=== PATIENT | female | born 1970 | race Caucasian/White ===

== ENCOUNTER 2019-07-07 08:54 | Emergency (ER) | payer OTHER ==
[2019-07-07 11:31] LABS: Basophils % 0.6 % (0-1.3); Hematocrit 38.4 % (36.0-45.0); Lymphocytes % 16.2 % (15.3-44.8); MPV 6.9 fL (7.6-11.3); RBC Red Blood Cell Count 4.08 M/uL (3.86-4.86)
[2019-07-07 11:34] LABS: Urine Blood NEGATIVE (NEG); Urine Glucose NEGATIVE (NEG); Urine Protein NEGATIVE (NEG); Urine Specific Gravity 1.025 (1.005-1.030); Urine pH 5.5 (5.0-7.0)
[2019-07-07 11:56] LABS: Albumin 3.9 g/dL (3.4-5.0); Bilirubin Total 0.2 mg/dL (0.2-1.0); Potassium 3.4 mmol/L (3.5-5.1); Protein, Total 6.9 g/dL (6.4-8.2); T4,Total 6.7 ug/dL (4.8-13.9); Thyroid Stimulating Hormone 0.344 uIU/mL (0.360-3.740)
--- NOTE | 2019-07-07 12:02 | ER ---
Nurse's Notes [facility] Name: Varsha Ramos Age: 49 yrs Sex: Female : 1970 Arrival Date: 07/07/2019 Time: 08:56 Bed 5 Private MD: Diagnosis: Hypokalemia Presentation: 07/07 09:08 Presenting complaint: Patient states: "I have back problems and sometimes my back gets aa5 really stiff and I can't walk right but this time my legs and my arms feel weak and my legs/arms cramp and it's hard to walk". Pt also reports trouble swallowing "for a while now". Sole Edge Inker Machine are equal, no drift noted, no facial droop noted. 09:08 Transition of care: patient was not received from another setting of care. Onset of aa5 symptoms was June 2019. Risk Assessment: Do you want to hurt yourself or someone else? Patient reports no desire to harm self or others. Initial Sepsis Screen: Does the patient meet any 2 criteria? No. Patient's initial sepsis screen is negative. Does the patient have a suspected source of infection? No. Patient's initial sepsis screen is negative. Care prior to arrival: None. 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 - Social history:: Smoking status: Patient denies any tobacco usage or history of. Patient/guardian denies using alcohol, street drugs, The patient lives with family. - Ebola Screening: : No symptoms or risks identified at this time. - Family history:: not pertinent. Screenin:20 Abuse screen: Denies threats or abuse. Denies injuries from another. Nutritional jl7 screening: No deficits noted. Tuberculosis screening: No symptoms or risk factors identified. Fall Risk IV access (20 points). Total Scanlon Fall Scale indicates No Risk (0-24 pts). 11:30 VAN Screening: Arm Drift: Patient shows no arm weakness. Patient is VAN negative. The jl7 patient has not been NPO before screening. The patient is currently on the following diet: regular The patient is alert, able to follow commands. The patient does not exhibit slurred or garbled speech The patient is not exhibiting difficulty speaking. The patient does not exhibit difficulty understanding words. The patient is able to swallow own secretions with no drooling or need for suction. Patient tolerated one teaspoon of water. No drooling, immediate coughing, gurgling, or clearing of the throat was noted. The patient tolerated 90mL of water. No drooling, immediate coughing, gurgling, or clearing of the throat was noted. The patient passed the bedside swallow screening. Oral medications may be given as ordered. Contact Physician for further diet orders. Provider notified of bedside swallow screening results: Hari Boone MD. Assessment: 11:20 General: Appears in no apparent distress. uncomfortable, Behavior is calm, cooperative, jl7 appropriate for age. Pain: Complains of pain in back Pain currently is 5 out of 10 on a pain scale. Neuro: Level of Consciousness is awake, alert, obeys commands, Oriented to person, place, time, situation, Gait is steady, Pt ambulated to bathroom, approximately 50 ft, with slow steady gate.. Cardiovascular: Patient's skin is warm and dry. Respiratory: Airway is patent Respiratory effort is even, unlabored, Respiratory pattern is regular, symmetrical. GI: No signs and/or symptoms were reported involving the gastrointestinal system. : No signs and/or symptoms were reported regarding the genitourinary system. EENT: No signs and/or symptoms were reported regarding the EENT system. Derm: Skin is pink, warm \\T\\ dry. Vital Signs: 09:14 BP 129 / 95; Pulse 92; Resp 18 S; Temp 98.3(O); Pulse Ox 99% on R/A; Weight 64.41 kg aa5 (R); Height 5 ft. 1 in. (154.94 cm) (R); Pain 5/10; 09:14 Body Mass Index 26.83 (64.41 kg, 154.94 cm) aa5 ED Course: 08:56 Patient arrived in ED. as 09:08 Arm band placed on. aa5 09:11 Triage completed. aa5 10:27 Hari Boone MD is Attending Physician. ma2 10:35 Demetria Castillo, RN is Primary Nurse. jl7 11:20 Patient has correct armband on for positive identification. Placed in gown. Bed in low jl7 position. Call light in reach. Side rails up X 1. 11:20 Initial lab(s) drawn, by me, sent to lab. Urine collected: clean catch specimen, clear. jl7 Inserted saline lock: 20 gauge in right antecubital area, using aseptic technique. Blood collected. 12:30 No provider procedures requiring assistance completed. IV discontinued, intact, jl7 bleeding controlled, No redness/swelling at site. Pressure dressing applied. Administered Medications: 12:16 Drug: Klor-Con Effervescent Tablet 25 mEq Route: PO; jl7 12:30 Follow up: Response: No adverse reaction jl7 Outcome: 12:01 Discharge ordered by . ma2 12:30 Discharged to home ambulatory. jl7 12:30 Condition: stable 12:30 Discharge instructions given to patient, Instructed on discharge instructions, follow up and referral plans. medication usage, Demonstrated understanding of instructions, follow-up care, medications, Prescriptions given X 1. 12:31 Patient left the ED. jl7 Signatures: Shilpa Rossi Audri RN RN aa5 Demetria Castillo, PAULA RN jl7 Hari Boone MD MD [facility] Corrections: (The following items were deleted from the chart) 09:13 09:08 Presenting complaint: Patient states: "I have back problems and sometimes my back aa5 gets really stiff and I can't walk right but this time my legs and my arms feel weak and my legs/arms cramp and it's hard to walk". aa5
--- NOTE | 2019-07-07 12:03 | EDPHYS ---
Physician Documentation [facility] Name: Varsha Ramos Age: 49 yrs Sex: Female : 1970 Arrival Date: 07/07/2019 Time: 08:56 Bed 5 Private MD: ED Physician Hari Boone HPI: 07/07 10:54 This 49 yrs old Female presents to ER via Ambulatory with complaints of ma2 Weakness, Trouble Walking, Back Pain. 10:54 The patient presents to the emergency department with none. Onset: The symptoms/episode ma2 began/occurred gradually, 3 week(s) ago. Associated signs and symptoms: Pertinent negatives: dizziness, headache, syncope. Severity of symptoms: At their worst the symptoms were very mild in the emergency department the symptoms are unchanged. The patient has experienced similar episodes in the past. here with stiffness that has been going on for the last 3 days, has happened before . 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 - Social history:: Smoking status: Patient denies any tobacco usage or history of. Patient/guardian denies using alcohol, street drugs, The patient lives with family. - Ebola Screening: : No symptoms or risks identified at this time. - Family history:: not pertinent. ROS: 10:54 ENT: Negative for injury, pain, and discharge. ma2 10:54 All other systems are negative. Exam: 10:54 Constitutional: This is a well developed, well nourished patient who is awake, alert, ma2 and in no acute distress. Head/Face: Normocephalic, atraumatic. Eyes: Pupils equal round and reactive to light, extra-ocular motions intact. Lids and lashes normal. Conjunctiva and sclera are non-icteric and not injected. Cornea within normal limits. Periorbital areas with no swelling, redness, or edema. ENT: Nares patent. No nasal discharge, no septal abnormalities noted. Tympanic membranes are normal and external auditory canals are clear. Oropharynx with no redness, swelling, or masses, exudates, or evidence of obstruction, uvula midline. Mucous membranes moist. Neck: Trachea midline, no thyromegaly or masses palpated, and no cervical lymphadenopathy. Supple, full range of motion without nuchal rigidity, or vertebral point tenderness. No Meningismus. Chest/axilla: Normal chest wall appearance and motion. Nontender with no deformity. No lesions are appreciated. Cardiovascular: Regular rate and rhythm with a normal S1 and S2. No gallops, murmurs, or rubs. Normal PMI, no JVD. No pulse deficits. Respiratory: Lungs have equal breath sounds bilaterally, clear to auscultation and percussion. No rales, rhonchi or wheezes noted. No increased work of breathing, no retractions or nasal flaring. Abdomen/GI: Soft, non-tender, with normal bowel sounds. No distension or tympany. No guarding or rebound. No evidence of tenderness throughout. Back: No spinal tenderness. No costovertebral tenderness. Full range of motion. MS/ Extremity: Pulses equal, no cyanosis. Neurovascular intact. Full, normal range of motion. Neuro: Awake and alert, GCS 15, oriented to person, place, time, and situation. Cranial nerves II-XII grossly intact. Motor strength 5/5 in all extremities. Sensory grossly intact. Cerebellar exam normal. Normal gait. Vital Signs: 09:14 BP 129 / 95; Pulse 92; Resp 18 S; Temp 98.3(O); Pulse Ox 99% on R/A; Weight 64.41 kg aa5 (R); Height 5 ft. 1 in. (154.94 cm) (R); Pain 5/10; 09:14 Body Mass Index 26.83 (64.41 kg, 154.94 cm) aa5 MDM: 10:27 Patient medically screened. ma2 12:01 Data reviewed: vital signs, nurses notes. Counseling: I had a detailed discussion with ma the patient and/or guardian regarding: the historical points, exam findings, and any diagnostic results supporting the discharge/admit diagnosis, the presence of at least one elevated blood pressure reading (>120/80) during this emergency department visit, the need for outpatient follow up. Response to treatment: the patient's symptoms have markedly improved after treatment. 07/07 10:34 Order name: TSH; Complete Time: 12:00 ny2 07/07 10:34 Order name: T4,Total; Complete Time: 12:00 ny2 07/07 10:34 Order name: CBC with Diff; Complete Time: 12:00 ny2 07/07 10:34 Order name: CMP; Complete Time: 12:00 ny2 07/07 11:26 Order name: Urine Dipstick--Ancillary (enter results); Complete Time: 12:00 07/07 11:26 Order name: Urine --Ancillary (enter results); Complete Time: 12:00 07/07 10:34 Order name: Urine Dipstick-Ancillary (obtain specimen); Complete Time: 11:19 ma2 Administered Medications: 12:16 Drug: Klor-Con Effervescent Tablet 25 mEq Route: PO; jl7 12:30 Follow up: Response: No adverse reaction jl7 Disposition: 07/07/19 12:01 Discharged to Home. Impression: Hypokalemia. - Condition is Stable. - Discharge Instructions: Potassium Content of Foods, Hypokalemia. - Prescriptions for Klor- Con 8 mEq Oral Tablet Sustained Release - take 1 tablet by ORAL route once daily; 20 tablet. - Medication Reconciliation Form, Thank You Letter, Antibiotic Education, Prescription Opioid Use form. - Follow up: Private Physician; When: Tomorrow; Reason: Continuance of care. Signatures: Dispatcher [employer] EDRimma Sevilla, RN RN aa5 Demetria Castillo RN RN jl7 Hari Boone MD MD ma2 Corrections: (The following items were deleted from the chart) 12:31 12:01 07/07/2019 12:01 Discharged to Home. Impression: Hypokalemia. Condition is jl7 Stable. Forms are Medication Reconciliation Form, Thank You Letter, Antibiotic Education, Prescription Opioid Use. Follow up: Private Physician; When: Tomorrow; Reason: Continuance of care. ma2
[2019-07-07] MEDS ORDERED: POTASSIUM 25 MEQ EFFERV TAB ONE (12:12)
== END 2019-07-07 12:31 | disposition home or self-care (01) ==
LOC: ER 08:54
DX: E87.6 Hypokalemia (principal); Z88.2 Allergy status to sulfonamides
CPT/HCPCS: 36415; 80053; 81003; 81025; 84436; 84443; 85025; 99284

== ENCOUNTER 2019-12-30 06:34 | Day surgery (SDC) | payer OTHER ==
[2019-12-28 16:03] LABS: ALT/SGPT 22 U/L (12-78); AST/SGOT 16 U/L (15-37); Albumin 3.6 g/dL (3.4-5.0); Alkaline Phosphatase 119 U/L (45-117); Amylase 51 U/L (25-115); Bilirubin Direct < 0.1 mg/dL (0-0.2); Bilirubin Total 0.2 mg/dL (0.2-1.0); Lipase 29 U/L (73-393); Protein, Total 7.9 g/dL (6.4-8.2)
--- OUTSIDE RECORDS SUMMARY | 2019-12-30 06:36 | XMS REPORT | Continuity of Care Document ---
:[address] [facility] t Address [address] [place] [id number] Care Team Providers Name Role Phone Mayur Ferro MD Attending Clinician Problems This patient has no known problems. Allergies, Adverse Reactions, Alerts This patient has no known allergies or adverse reactions. Medications This patient has no known medications. Procedures This patient has no known procedures. Encounters Start End Encounter Admission Attending Care Care Encounter Source Date/Time Date/Time Type Type Clinicians Facility Department ID 2019-12-28 2019-12-28 Office Kasie [facility] [id number] 08:00:16 09:20:52 Visit Anni Arteaga [id number] [place] [id number] Claire [phone] [facility] [address] Results This patient has no known results.
--- OUTSIDE RECORDS SUMMARY | 2019-12-30 06:36 | XMS REPORT | Summary of Care ---
:1970 Author Organization [facility] - Health Address [address] [place] [id number] Care Team Providers Name Role Phone Ctr, Admin Med Primary Care Provider Encounter Details Date Type Department Care Team Description 11/10/2019 Orders Only [facility] Doctor Unassigned, No [address] [facility] Name [place] [phone] [place] [address] Allergies Active Allergy Reactions Severity Noted Date Comments Sulfa (Sulfonamide Antibiotics) Unknown - See comments 09/27/2008 documented as of this encounter (statuses as of 11/10/2019) Medications No known medicationsdocumented as of this encounter (statuses as of 11/10/2019) Active Problems No known active problemsdocumented as of this encounter (statuses as of 11/10/2019) Social History Tobacco Use Types Packs/Day Years Used Date Never Assessed Sex Assigned at Date Recorded Not on file Job Start Date Occupation Industry Not on file Not on file Not on file Travel History Travel Start Travel End No recent travel history available. documented as of this encounter Last Filed Vital Signs Not on filedocumented in this encounter Plan of Treatment Health Maintenance Due Date Last Done Comments DTaP,Tdap,and Td Vaccines (1 - 01/14/1980 Tdap) PAP SMEAR 1990 Breast Cancer Screening 2009 (MAMMOGRAM) COLONOSCOPY 2019 Zoster Recombinant Vaccine 2019 (SHINGRIX) (1 of 2) INFLUENZA VACCINE (#1) 2019 PNEUMOCOCCAL 0-64 YEARS COMBINED Aged Out No longer eligible based on SERIES patient's age to complete this topic documented as of this encounter Procedures Procedure Name Priority Date/Time Associated Diagnosis Comme nts CONSENT/REFUSAL FOR Routine 11/10/2019 5:47 PM CDT DIAGNOSIS AND TREATMENT documented in this encounter Results Not on filedocumented in this encounter Insurance Payer Benefit Plan / Group Subscriber ID Effective Dates Phone Address Type AETNA AETNA [facility] [id number] 2019-Present PPO documented as of this encounter
--- OUTSIDE RECORDS SUMMARY | 2019-12-30 06:37 | XMS REPORT | Summary of Care ---
:1970 Author Organization [facility] Address [address] [place] [address] Care Team Providers Name Role Phone Ctr, Admin Med Primary Care Provider Reason for Referral (Routine) Status Reason Specialty Diagnoses / Referred By Referred To Procedures Contact Contact New Request IM-GASTROENTEROLO Diagnoses Right upper quadrant abdominal pain Pancreatic duct dilated RUQ abdominal pain Asim Rosado GY Procedures Discharge Follow-Up: Specialty Service IM-GASTROENTEROLOGY; 1 Month MD Miles [address] [address] MRI/CAT Scan (CHARISSE) Status Reason Specialty Diagnoses / Referred By Referred To Procedures Contact Contact New Request Diagnostic Diagnoses Common bile duct dilation Danial, Radiology Procedures MR ABDOMEN W WO CONTRAST MRCP MR ABDOMEN W WO CONTRAST MD Crystal [address] [place] [address]. [place] [address] MRI/CAT Scan (STAT) Status Reason Specialty Diagnoses / Referred By Referred To Procedures Contact Contact New Request Diagnostic Diagnoses Right upper quadrant abdominal pain Gertrude Berger Radiology Procedures CT ABDOMEN PELVIS W CONTRAST Sydni, CAREER DEVELOPMENT MANAGER [address] [place] [address] Reason for Visit Reason Comments Abdominal Pain Auth/Cert Status Reason Specialty Diagnoses / Referred By Referred To Procedures Contact Contact Emergency Medicine Ad[facility] Em ergency Dept [address] [place] [address] Fax: Encounter Details Date Type Department Care Team Description 11/10/2019 - Hospital Encounter Medicine (JUSTYN 10A) Gertrude Berger, CAREER DEVELOPMENT MANAGER [address] [place] [address] Spondylolisthesis 11/12/2019 712 [facility] Asim Rosado MD [address] [facility] [address] [place], [place] [id number] [place], [place] Stanford Mendez MD [address] [place] [address]. [place] [phone] Allergies Active Allergy Reactions Severity Noted Date Comments Sulfa (Sulfonamide Antibiotics) Unknown - See comments 09/27/2008 documented as of this encounter (statuses as of 11/12/2019) Medications Medication Sig Dispensed Refills Start Date End Date Status gabapentin 400 mg Take 400 mg by 0 Active capsule mouth 3 (three) times daily. levothyroxine 75 mcg Take 75 mcg by 0 Active tablet mouth every morning. SERTraline 50 mg tablet Take 100 mg by 0 Active mouth daily. OXcarbazepine 300 mg Take 450 mg by 0 Active tablet mouth 2 (two) times daily. amitriptyline 25 mg Take 25 mg by 0 Active tablet mouth at bedtime. QUEtiapine 300 mg tablet Take 150 mg by 0 Active mouth at bedtime. documented as of this encounter (statuses as of 11/12/2019) Active Problems Problem Noted Date RUQ pain 11/11/2019 RUQ abdominal pain 11/11/2019 Pancreatic duct dilated 11/10/2019 Overview: Added automatically from request for mauro cliff [id number] Common bile duct dilation 11/10/2019 Overview: Added automatically from request for mauro cliff [id number] Spondylolisthesis Hypothyroidism Bipolar 1 disorder documented as of this encounter (statuses as of 11/12/2019) Social History Tobacco Use Types Packs/Day Years Used Date Current Every Day Smoker Smokeless Tobacco: Never Used Tobacco Cessation: Ready to Quit: No; Co unseling Given: Yes Comments: e cigarette 3-4 x /day Alcohol Use Drinks/Week oz/Week Comments Not Currently drinks once ever y 6 months Alcohol Habits Answer Date Recorded How often do you have a drink containing alcohol? Monthly or less 11/11/2019 How many drinks containing alcohol do you have on a 1 or 2 11/11/2019 typical day when you are drinking? How often do you have six or more drinks on one Not asked occasion? Sex Assigned at Date Recorded Not on file Job Start Date Occupation Industry Not on file Not on file Not on file Travel History Travel Start Travel End No recent travel history available. COVID-19 Exposure Response Date Recorded In the last month, have you been in contact with No / Unsure 11/10/2019 5:54 PM CDT someone who was confirmed or suspected to have Coronavirus / COVID-19? documented as of this encounter Last Filed Vital Signs Vital Sign Reading Time Taken Comments Blood Pressure 130/87 11/12/2019 12:30 PM CDT Pulse 60 11/12/2019 12:30 PM CDT Temperature 36.9 C (98.4 F) 11/12/2019 12:30 PM CDT Respiratory Rate 18 11/12/2019 12:30 PM CDT Oxygen Saturation 100% 11/12/2019 12:30 PM CDT Inhaled Oxygen Concentration - - Weight 69.5 kg (153 lb 3.2 oz) 11/11/2019 12:17 AM CDT Height 157.5 cm (5' 2") 11/11/2019 12:17 AM CDT Body Mass Index 28.02 11/11/2019 12:17 AM CDT documented in this encounter Discharge Instructions AttachmentsThe following attachments cannot be sent through Care Everywhere. Abdominal Pain, Adult (Czech)Bipolar Disorder (Czech)Pain, Acute, Uncertain Cause (Czech)documented in this encounter Progress Notes Bertha Melara RN - 11/12/2019 1:32 PM CDT Care Management Discharge Disposition Note (DCDN) 5-2-1 Interventions: Disease specific education;Intensive medication reconciliation/management;Teachback;Clear discharge plan;Follow-up appointments 5-2-1 Providers: Physician;[employer] Director/Nail Machine Operator 5-2-1 Patient Capacity Improvements: Avoidance of adverse events/readmission Discharge Plan for ongoing care and services: Is this a new referral: Patient Choice completed for referred services: DME location: Other DME location: Durable Medical Equipment: Home Health location: Discharge location(s): home Patient choice completed for referred services: Discussed with patient/patients family involved in decision making: Yes Patient or family caregiver understands, and agrees with discharge plan. Community resources/referrals made or provided to patient: Resources/Referrals: Transportation: Mental Status: Alert & Oriented to Person,Place & Time Living Arrangement: Home: single story Other living arrangement: Address of living arrangement: [address] [place] [address] Funding Resources: Commercial Nursing informed of discharge plan: Yes Name of RN informed: Meenu Expected discharge date: 11/12/2019 Time: Afternoon [30] Additional Information: pts ex- will pick pt up at time of discharge Duane [phone] CM/SW Name & Contact number: BERTHA MELARA RN Ph. [phone] The following information has been provided to the facility noted above: reason for the patient discharge or transfer; patients physical and psychosocial status; summary of care, treatment, servicesprovided to patient; and the patient progress toward goals. Collins Morataya MD - 11/12/2019 7:11 AM CDT [facility] Team Progress Note Date of Service: 11/12/2019 07:11 Chief Complaint: RUQ pain 24-HOUR EVENTS: NAOE SUBJECTIVE: Patient states that she continues to have abdominal pain which is worse with laying flat. She deniesany more nausea as of now. She was able to tolerate po diet last night without much trouble. She denies diarrhea at this time. No fever, chills, SOB, chest pain at this time. PHYSICAL EXAM: Vitals: 11/11/19 1926 11/11/19200911/11/19 2308 11/12/19 0414 BP: 109/65 113/65 116/77 Pulse: 76 70 76 75 Resp: 18 18 16 16 Temp: 36.8 C (98.3 F) 36.8 C (98.2 F) 36.6 C (97.9 F) TempSrc: Oral Oral Oral SpO2: 97% 97% 96% 96% Weight: Height: General: AO4, comfortable, NAD HEENT: EOMI, anicteric sclera, moist mucous membranes Card: RRR, S1, S2 appreciated, no JVD, radial pulses 2+ bilaterally Pulm: CTAB, normal respiratory effort Abd: Soft, non tender to palpation, BS+, no organomegaly Extremities: Warm and well perfused, no edema noted, no lesions noted, distal pedal pulses 2+ bilaterally Neuro: no focal deficits appreciated LABS/IMAGING - reviewed, pertinent results as below: ASSESSMENT/PLAN Varsha Ramos is a 49 year old female with PMH as listed above, admitted to the hospital with: Biliary and pancreatic ductal dilatation RUQ pain Unintentional weight loss Dyspepsia Hx Lactose intolerance Hx pancreatitis (in 2013) Imaging including MRCP showing double duct dilatation, concerning for occult blockage in terminal point of ductal system vs. sphincter stricture. Will need ERCP for better evaluation. GI is on board, will follow-up with their recommendations - GI for EUS +/- ERCP today - Follow-up with GI recs - Follow-up H pylori - Follow-up CA 19-9 - daily CBC, CMP Bipolar depression Hypothyroidism Chronic back pain 2/2 spondylolisthesis - c/w meds as below Collins Parker MD Internal Medicine, PGY-1 Pager #[phone] END OF DAILY PROGRESS NOTE Hospital Course Varsha Ramos is a 49 year old female with PMH of hypothyroidism, bipolar depression, pancreatitis (in 2013), lactose intolerance, chronic dyspepsia (X 2- 3 years) presented with RUQ pain- constant, pressure like, worsens with eating, no relieving factors, associated with nausea and intermittent vomiting X 2 months. LFT's wnl, CT abdomen pelvis with contrast showed significant biliary and pancreatic ductal dilatation. MRCP done. Consulted GI- planning on ERCP + EUS tomorrow. CURRENT MEDICATIONS - reviewed. Scheduled meds: amitriptyline 25 mg QHS gabapentin 400 mg TID heparin (porcine) 5,000 units subcutaneous injection 5,000 Units Q12H levothyroxine 75 mcg QAM-0600 OXcarbazepine 450 mg BID QUEtiapine 150 mg QHS SERTraline 100 mg DAILY IV meds: PRN meds: acetaminophen 650 mg Q6HPRN dextromethorphan-guaifenesin 10 mL Q6HPRN ondansetron 4 mg Q6HPRN promethazine (PHENERGAN) IV piggyback 25 mg Q6HPRN Associated attestation - Asim Rosado MD - 11/12/2019 1:07 PM CDTI personally examined the patient on 11/12/2019 and agree with the note by Dr. PARKER, on 11/12/2019 as written. I actively participated in the decision- making process. Please see the resident's note for additional details. Nyasia Lane RN - 11/11/2019 3:30 PM CDTI, Asim Rosado MD, after reviewing this case with the [employer] Director, I concur this case is david ropriate for inpatient admission. The change to inpatient admission is based on the level of care this patient is receiving, medical necessity, risks associated and the expected duration of stay. The inpatient admission order has been entered. Kianna Suarez LMSW - 11/11/2019 11:39 AM CDTCare Management Social Functional Assessment Patient Name: Varsha Ramos Age: [age] year old Sex: female Previous admit date: N/A Current diagnosis and co-morbidities: Pancreatic Ductal Dilation Readmission Questions: Was patient discharged from any acute care hospital within the last 30 days: No Social Functional Assessment: Primary language spoken/preferred: Czech Mental Status: Alert & Oriented to Person,Place & Time Information given by: Self Patient's support system: Other Name and number of support system: Duane Ramos (Ex-) [phone] Primary Food Product Inspector: Self MPOA: No Living Arrangement: Home: single story Address of living arrangement : [address] [place] [address] Persons living in home: Self Baseline functional status- ambulation: Independent Functional status-baseline personal care: Independent Baseline functional status- driving: Independent Baseline functional status- grocery shopping: Independent Functional status-baseline housekeeping: Independent Functional status-baseline meal prep: Independent Current functional status same as prior: Yes Do you have a PCP?: Yes Name of PCP: [place] Home Health Care Agency: No Provider Services: No DME Company: No Equipment: None Hemodialysis: No Community resources utilized: None Funding Resources: Commercial Prescription coverage plan: Commercial Pharmacy where meds are filled: Other Other pharmacy: [facility] in [place], [place] Anticipated services prior to disharge: Continue Medical Eval;Reassess prior to discharge Expected mode of discharge transportation: Same as support system Additional info required for discharge planning: Pending medical evaluation Recommended discharge plan: Home SFA Complete: Social Functional Assessment complete: Yes Alcohol Use Screening (AUDIT-C) How often do you have a drink containing alcohol?: Never SCORE: 0 Did patient elect to have resources provided: No Role of Care Management explained. Any issues or concerns with obtaining/affording your medications at home: no. Are you or your support system able to greens picker medications at discharge: yes. Kianna Suarez LMSW Nail Machine Operator Care Management C: [phone] O: [phone] [email or web address] Judy Chapman MBBS - 11/11/2019 9:55 AM CDT [facility] Progress Note Date of Service: 11/11/2019 09:55, HD #: 0 Chief Complaint: RUQ pain 24-HOUR EVENTS: Pending MRCP read Consulted GI SUBJECTIVE: Paitient endorsing significant RUQ pain- constant, pressure like, worsens with eating, no relieving factors, associated with nausea and intermittent vomiting X 2 months. She has been having dyspepsia for the past 2 years atleast- tried gluten free diet which helped initially but any more. Also has h/olactose intolerance- and avoids lactose except for cheese and yoghurt. PHYSICAL EXAM: Vitals: Temp: [35.7 C (96.2 F)-37.1 C (98.8 F)] Pulse: [63-97] Resp: [13-18] BP: (107-130)/(74-89) MAP (mmHg): [85-94] Intake/ Output: Intake/Output Summary (Last 24 hours) at 11/11/2019 0955 Last data filed at 11/11/2019 0403 Gross per 24 hour Intake 120 ml Output 400 ml Net -280 ml Physical findings: General: alert and oriented x 4 ; no apparent distress HEENT: moist mucous membranes Lungs: clear to auscultation bilaterally Cardio: S1, S2 normal; no murmurs, rubs or gallops Abdomen: soft; non-tender; non-distended; normoactive bowel sounds Extremities: edema Neuro: no focal deficits LABS/IMAGING - reviewed, pertinent results as below: Reviewed ASSESSMENT/PLAN Varsha Ramos is a 49 year old female admitted to the hospital with # RUQ pain- significant biliary and pancreatic ductal dilatation # Dyspepsia # Hx Lactose intolerance # Hx pancreatitis (in 2013) Paitient presenting with RUQ pain- constant, pressure like, worsens with eating, no relieving factors, associated with nausea and intermittent vomiting X 2 months. LFT's wnl, CT abdomen pelvis with contrast showed significant biliary and pancreatic ductal dilatation. - F/u MRCP results - F/u CA 19-9 - F/u H. Pylori - Consulted GI : Planning on ERCP + EUS tomorrow # Bipolar depression # Hypothyroidism # Chronic back pain 2/2 spondylolisthesis - c/w home meds: sertraline, amitriptyline, quetiapine, gabapentin, oxcarbazepine - c/w levothyroxine PAIN: Controlled - on Tylenol Prophylaxis: DVT- heparin Stress Ulcer: no indication for prophylaxis Code Status: addressed: Full Code Disposition Anticipated Discharge Date : TBD Barriers to Discharge: Full Code Judy Chapman Internal Medicine PGY-3 [place] Team Pager # [phone] END OF DAILY PROGRESS NOTE HOSPITAL COURSE Varsha Ramos is a 49 year old female with PMH of hypothyroidism, bipolar depression, pancreatitis (in 2013), lactose intolerance, chronic dyspepsia (X 2- 3 years) presented with RUQ pain- constant, pressure like, worsens with eating, no relieving factors, associated with nausea and intermittent vomiting X 2 months. LFT's wnl, CT abdomen pelvis with contrast showed significant biliary and pancreatic ductal dilatation. MRCP done. Consulted GI- planning on ERCP + EUS tomorrow. Associated attestation - Asim Rosado MD - 11/11/2019 11:40 AM CDTI personally examined the patient on 11/11/2019 and agree with the note by Dr. CHAPMAN, on 11/11/2019 as written. I actively participated in the decision- making process. Please see the resident's note for additional details. documented in this encounter Plan of Treatment Name Type Priority Associated Diagnoses Date/Ti me SURGICAL PATHOLOGY EXAM LAB STAT 10/16 9:11 AM CDT Name Type Priority Associated Diagnoses Order S chedule HELICOBACTER PYLORI LAB Routine ONCE for 1 Occurrences ANTIGEN, FECAL BY EIA starti ng 11/11/2019 until 0 COMP. METABOLIC PANEL LAB Routine EVERY MORNING AT 0400 (95198) for 3 Days star ting 11/12/2019 unti l 11/14/2019, 1 c ompleted SURGICAL PATHOLOGY EXAM LAB Routine ONCE for 1 Occurrences starting 2019, 1 completed Health Maintenance Due Date Last Done Comments PNEUMOCOCCAL 0-64 YEARS COMBINED 1975 SERIES (1 of 1 - PPSV23) DTaP,Tdap,and Td Vaccines (1 - 01/14/1980 Tdap) PAP SMEAR 1990 Breast Cancer Screening 2009 (MAMMOGRAM) COLONOSCOPY 2019 Zoster Recombinant Vaccine 2019 (SHINGRIX) (1 of 2) INFLUENZA VACCINE (Season Ended) 2020 03/25/2018, 06/2015, 05/17/2016, Additional history exists Depression Screening 11/11/2020 11/12/2019 documented as of this encounter Procedures Procedure Name Priority Date/Time Associated Comments Diagnosis UPPER EUS (ENDO) Routine 11/12/2019 8:35 AM CDT COMP. METABOLIC PANEL Routine 11/12/2019 6:08 Re sults for this (47110) AM CDT procedure are i n the results section. CANCER ANTIGEN-GI (CA Routine 11/12/2019 6:08 Re sults for this 19-9) AM CDT procedure are i n the results section. EXTRA TUBE LAV Routine 11/11/2019 6:25 AM CDT PROTHROMBIN TIME / Routine 11/11/2019 6:25 Resul ts for this INR AM CDT procedure are i n the results section. GLYCOSYLATED STAT Add-On 11/11/2019 6:25 Results for this HEMOGLOBIN (A1C) AM CDT procedure a re in the results section. LIPID PANEL Routine 11/11/2019 6:25 Results for this (62722)(TOTAL AM CDT procedure are in CHOLESTEROL, the results TRIGLYCERIDES, HDL) section. BASIC METABOLIC PANEL Routine 11/11/2019 6:25 Re sults for this (NA, K, CL, CO2, AM CDT procedure a re in GLUCOSE, BUN, the results CREATININE, CA) section. HEPATIC FUNCTION Routine 11/11/2019 6:25 Results for this PANEL (13909) AM CDT procedure are in (ALB,T.PRO,BILI the results T,BU/BC,ALT,AST,ALK section. PHOS) THYROID STIMULATING STAT Add-On 11/11/2019 6:25 Resu lts for this HORMONE AM CDT procedure are i n the results section. MAGNESIUM Routine 11/11/2019 6:25 Results for this AM CDT procedure are i n the results section. MR ABDOMEN W WO CHARISSE 11/11/2019 6:08 Common bile duct Resu lts for this CONTRAST MRCP AM CDT dilation procedure are in the results section. COVID-19 (ID NOW STAT 11/10/2019 8:47 Right upper Results for this RAPID TESTING) PM CDT quadrant abdominal procedu re are in pain the results section. CT ABDOMEN PELVIS W STAT 11/10/2019 7:53 Right upper Resu lts for this CONTRAST PM CDT quadrant abdominal procedure are in pain the results section. POCT TEST CHARISSE 11/10/2019 6:55 Right upper Resu lts for this PM CDT quadrant abdominal procedure are in pain the results section. EKG-12 LEAD Routine 11/10/2019 6:50 PM CDT CBC WITH DIFFERENTIAL STAT 11/10/2019 6:23 Right upper Re sults for this PM CDT quadrant abdominal procedure are in pain the results section. URINALYSIS STAT 11/10/2019 6:23 Right upper Results for this PM CDT quadrant abdominal procedure are in pain the results section. CBC WITH DIFFERENTIAL STAT 11/10/2019 6:23 Right upper Re sults for this PM CDT quadrant abdominal procedure are in pain the results section. COMP. METABOLIC PANEL STAT 11/10/2019 6:23 Right upper Re sults for this (81681) PM CDT quadrant abdominal procedure are in pain the results section. TROPONIN I STAT 11/10/2019 6:23 Right upper Results for this PM CDT quadrant abdominal procedure are in pain the results section. LIPASE STAT 11/10/2019 6:23 Right upper Results for this PM CDT quadrant abdominal procedure are in pain the results section. EKG-12 LEAD CHARISSE 11/10/2019 6:01 PM CDT NOTICE OF PRIVACY Routine 11/10/2019 5:47 PRACTICES PM CDT documented in this encounter Results CANCER ANTIGEN-GI (CA 19-9) (11/12/2019 6:08 AM CDT) Pathologist Sig nature CA 19-9 1.8 0.0 - 35.0 U/mL [facility] Specimen Blood - ARM, RIGHT Narrative Performed At Biotin has been reported to cause a negative bias, int erpret [facility] results relative to patient's use of biotin. Performing Organization Address City/State/Zipcode Phone Number [facility] CLIA: [id number], [address] [place], [place] [address] [facility] COMP. METABOLIC PANEL (08913) (11/12/2019 6:08 AM CDT) Pathologist Sig [employer] NA 137 135 - 145 [facility] mmol/L SERVICES K 3.6 3.5 - 5.0 [facility] mmol/L SERVICES CL 107 98 - 108 mmol/L [facility] CO2 TOTAL 24 23 - 31 mmol/L [facility] AGAP 6 2 - 16 [facility] BUN 12 7 - 23 mg/dL [facility] GLUCOSE 99 70 - 110 mg/dL [facility] CREATININE 0.76 0.50 - 1.04 [facility] mg/dL SERVICES TOTAL BILI 0.2 0.1 - 1.1 mg/dL [facility] CALCIUM 8.7 8.6 - 10.6 [facility] mg/dL SERVICES T PROTEIN 6.3 6.3 - 8.2 g/dL [facility] ALBUMIN 3.4 (L) 3.5 - 5.0 g/dL [facility] ALK PHOS 58 34 - 122 U/L [facility] ALTv 15 5 - 35 U/L [facility] AST(SGOT) 28 13 - 40 U/L [facility] eGFR Calculation 80.6 mL/min/1.73m2 [facility] (Non- SERVICES [place]) eGFR Calculation 97.6 mL/min/1.73m2 [facility] () SERVICES Specimen Blood - ARM, RIGHT Narrative Performed At Association of Glomerular Filtration Rate (GFR) and St aging [facility] of Kidney Disease* + + +------- ------ + | GFR (mL/min/1.73 m2) | With Kidney Damage | Wi thout Kidney Damage + + +------- ------ + | >90 | Stage one | Normal + + +------- ------ + | 60-89 | Stage two | Decreased GFR + + +------- ------ + | 30-59 | Stage three | Stage three + + +------- ------ + | 15-29 | Stage four | Stage four + + +------- ------ + | <15 (or dialysis) | Stage five | Stage five + + +------- ------ + *Each stage assumes the associated GFR level has been in effect for at least three months. Stages 1 to 5, wit h or without kidney disease, indicate chronic kidney disease. Notes: Determination of stages one and two (with eGFR >59mL/min/1.73 m2) requires estimation of kidney damag e for at least three months as defined by structural or func tional abnormalities of the kidney, manifested by either: Pathological abnormalities or Markers of kidney damage (including abnormalities in the composition of the blo od or urine or abnormalities in imaging tests) . Performing Organization Address [facility] Phone Number [facility] CLIA: [id number], [address] [place] [address] [address] [facility] GLYCOSYLATED HEMOGLOBIN (A1C) (11/11/2019 6:25 AM CDT) [facility] HGB A1C 5.0 4.0 - 6.0 % [facility] Specimen Blood Performing Organization Address [facility]/Zipcode Phone Number [facility] CLIA: [id number], [address] [place] [address] [address] [facility] EXTRA TUBE LAV (11/11/2019 6:25 AM CDT) Specimen Blood Performing Organization Address [facility] Phone Number [facility] CLIA: [id number], [address] [place] [address] [address] [facility] THYROID STIMULATING HORMONE (11/11/2019 6:25 AM CDT) Pathologist Sig nature TSH 2.02 0.45 - 4.70 mIU/L [facility] S Specimen Blood - ARM, RIGHT Performing Organization Address City/[facility]/Zipcode Phone Number [facility] CLIA: [id number], [address] [place] [address] [address] [facility] MAGNESIUM (11/11/2019 6:25 AM CDT) Pathologist Sig nature MAGNESIUM 1.8 1.7 - 2.4 mg/dL [facility] Specimen Blood - ARM, RIGHT Performing Organization Address [facility] Phone Number [facility] LABORATORY SERVICES CLIA: [id number], [address] [place] [address] 555 [facility] PROTHROMBIN TIME / INR (11/11/2019 6:25 AM CDT) PROTIME PATIENT 11.5 10.1 - 12.6 [facility] Seconds SERVICES INR 1.0Comment: Normal [facility] INR <1.1; Warfarin SERVICES Therapeutic range 2.0 to 3.0 or 2.5 to 3.5, depending upon the indications. Specimen Blood - ARM, RIGHT Performing Organization Address [facility] Phone Number [facility] CLIA: [id number], [address] [place] [address] 555 [facility] LIPID PANEL ([id number])(TOTAL CHOLESTEROL, TRIGLYCERIDES, HDL) (11/11/2019 6:25 AM CDT) Pathologist Sig nature CHOL 171 120 - 200 mg/dL [facility] HDL 50 (L) >50 mg/dL [facility] HDLC RATIO 3.4 <=4.5 [facility] TRIG 43 30 - 170 mg/dL [facility] LDL CHOL 112 <=160 mg/dL [facility] VLDL 9 5 - 60 mg/dL [facility] SERVICES Specimen Blood - ARM, RIGHT Performing Organization Address [facility] Phone Number [facility] CLIA: [id number], [address] [place] [address] 555 [facility] BASIC METABOLIC PANEL (NA, K, CL, CO2, GLUCOSE, BUN, CREATININE, CA) (11/11/2019 6:25 AM CDT) Pathologist Sig nature NA 139 135 - 145 [facility] mmol/L SERVICES K 4.2 3.5 - 5.0 [facility] mmol/L SERVICES CL 107 98 - 108 mmol/L [facility] CO2 TOTAL 28 23 - 31 mmol/L [facility] AGAP 4 2 - 16 [facility] BUN 7 7 - 23 mg/dL [facility] SERVICES GLUCOSE 122 (H) 70 - 110 mg/dL [facility] SERVICES CREATININE 0.72 0.50 - 1.04 [facility] mg/dL SERVICES CALCIUM 8.6 8.6 - 10.6 [facility] mg/dL SERVICES eGFR Calculation 85.7 mL/min/1.73m2 [facility] (Non- SERVICES [place]) eGFR Calculation 103.9 mL/min/1.73m2 [facility] () SERVICES Specimen Blood - ARM, RIGHT Narrative Performed At Association of Glomerular Filtration Rate (GFR) and St aging [facility] SERVICES of Kidney Disease* + + +------- ------ + | GFR (mL/min/1.73 m2) | With Kidney Damage | Wi thout Kidney Damage + + +------- ------ + | >90 | Stage one | Normal + + +------- ------ + | 60-89 | Stage two | Decreased GFR + + +------- ------ + | 30-59 | Stage three | Stage three + + +------- ------ + | 15-29 | Stage four | Stage four + + +------- ------ + | <15 (or dialysis) | Stage five | Stage five + + +------- ------ + *Each stage assumes the associated GFR level has been in effect for at least three months. Stages 1 to 5, wit h or without kidney disease, indicate chronic kidney disease. Notes: Determination of stages one and two (with eGFR >59mL/min/1.73 m2) requires estimation of kidney damag e for at least three months as defined by structural or func tional abnormalities of the kidney, manifested by either: Pathological abnormalities or Markers of kidney damage (including abnormalities in the composition of the blo od or urine or abnormalities in imaging tests) . Performing Organization Address City/State/Zipcode Phone Number [facility] CLIA: [id number], [address] [place], [place] [address] [address] [facility] HEPATIC FUNCTION PANEL ([id number]) (ALB,T.PRO,BILI T,BU/BC,ALT,AST,ALK PHOS) (11/11/2019 6:25 AM CDT) Pathologist Sig nature TOTAL BILI 0.2 0.1 - 1.1 mg/dL [facility] BILI UNCON 0.1 0.1 - 1.1 mg/dL [facility] BILI CONJ 0.0 0.0 - 0.3 mg/dL [facility] T PROTEIN 6.6 6.3 - 8.2 g/dL [facility] SERVICES ALBUMIN 3.5 3.5 - 5.0 g/dL [facility] SERVICES ALK PHOS 58 34 - 122 U/L [facility] ALTv 16 5 - 35 U/L [facility] AST(SGOT) 27 13 - 40 U/L [facility] SERVICES Specimen Blood - ARM, RIGHT Performing Organization Address City/State/Zipcode Phone Number [facility] CLIA: [id number], [address] [place], [place] [address] 555 [facility] MR ABDOMEN W WO CONTRAST MRCP (11/11/2019 6:08 AM CDT) Specimen Impressions Performed At Note: MRCP images are degraded by motion which limits evaluation. PACS/VR/DOSE Mild diffuse pancreatic duct dilation wi th no obstructing lesion identified. An ERCP could be obtained to exclude an occult lesion. Gallbladder sludge. No pericholecystic i nflammatory change or stranding. Left-sided 2.5 cm and 1.5 cm adrenal bairon nomas. The visualized lower uterine segment 2.2 cm cystic lesion which likely represents a post- cyst or degenerated fibroid . An ultrasound could be obtained for further characterization if clinically warranted. Extensive cystic changes seen in bilater al breasts. Correlate with mammography. Preliminary Report Dictated by Resident: Luan Perez I, Samuel Duffy MD., have review ed this study and agree with the above report. Narrative Performed At EXAM: MRI ABDOMEN WITH CONTRAST- MRCP PACS/VR/DOSE HISTORY: RUQ pain, no fever, no elev WBC COMPARISON: 11/10/2019 CT abdomen pelvis TECHNIQUE: Multiplanar, multisequence MR imaging of the abdomen was performed with and without contrast, 14 mL ProHance, a n a 1.5 Katerina magnet. Additional MRCP images were obtained max creas and liver. FINDINGS: MRCP images are limited due to motion artifact. LOWER THORAX: Right basilar atelectasis. Extensive cys tic changes are seen in bilateral breasts on T2-weighted seri es. LIVER: Normal parenchymal signal characteristics. Live r is mildly enlarged with a craniocaudal dimension of 18.6 cm. Nonenhancing 12 mm hepatic dome lesion which is likely benign and corresponds with the partially calcified lesion seen on prior CT. BILIARY TREE/GALLBLADDER: No ductal dila tion or filling defects. Common bile duct measures 7 mm in transverse dimension. T1 hy perintense material layering within the gallbladder likely r epresents biliary sludge. SPLEEN: No splenomegaly. PANCREAS: Diffuse dilation of the pancre atic duct measuring 4 mm in the head, 5 mm in the body, and 3 mm in the tail. No obstructing lesions are identified. ADRENAL GLANDS: Left-sided 2.5 cm and 1. 5 cm adrenal nodules which demonstrate loss of signal on out of phase imaging con sistent with adrenal adenomas. KIDNEYS: No hydronephrosis or masses. PERITONEUM AND RETROPERITONEUM: No upper abdominal ascites. GASTROINTESTINAL: Visualized portions of the GI tract demonstrate mild to moderate colonic stool burden. LYMPH NODES: No lymphadenopathy. VESSELS: Unremarkable. BONES AND SOFT TISSUES: Diffusely decrea sed bone marrow signal may represent red marrow reconversion. PELVIS: A 2.2 cm T2 hyperintense lesion is seen in the lower uterine segment. Satisfactory IUD placement. Procedure Note [facility], Radiant Results Inft User - 2019 6:20 PM CDT EXAM: MRI ABDOMEN WITH CONTRAST- MRCP HISTORY: RUQ pain, no fever, no elev WBC COMPARISON: 11/10/2019 CT abdomen pelvis TECHNIQUE: Multiplanar, multisequence MR imaging of the abdomen was performed with and without contrast, 14 mL ProHance, an a 1.5 Katerina magnet. Additional MRCP images were obtained max creas and liver. FINDINGS: MRCP images are limited due to motion artifact. LOWER THORAX: Right basilar atelectasis. Extensive cystic changes are seen in bilateral breasts on T2-weighted seri es. LIVER: Normal parenchymal signal charact eristics. Liver is mildly enlarged with a craniocaudal dimension of 18.6 cm . Nonenhancing 12 mm hepatic dome lesion which is likely benign and corres ponds with the partially calcified lesion seen on prior CT. BILIARY TREE/GALLBLADDER: No ductal dila tion or filling defects. Common bile duct measures 7 mm in transverse di mension. T1 hyperintense material layering within the gallbladder likely r epresents biliary sludge. SPLEEN: No splenomegaly. PANCREAS: Diffuse dilation of the pancre atic duct measuring 4 mm in the head, 5 mm in the body, and 3 mm in the tail. No obstructing lesions are identified. ADRENAL GLANDS: Left-sided 2.5 cm and 1. 5 cm adrenal nodules which demonstrate loss of signal on out of pha se imaging consistent with adrenal adenomas. KIDNEYS: No hydronephrosis or masses. PERITONEUM AND RETROPERITONEUM: No upper abdominal ascites. GASTROINTESTINAL: Visualized portions of the GI tract demonstrate mild to moderate colonic stool burden. LYMPH NODES: No lymphadenopathy. VESSELS: Unremarkable. BONES AND SOFT TISSUES: Diffusely decrea sed bone marrow signal may represent red marrow reconversion. PELVIS: A 2.2 cm T2 hyperintense lesion is seen in the lower uterine segment. Satisfactory IUD placement. IMPRESSION Note: MRCP images are degraded by motion which limits evaluation. Mild diffuse pancreatic duct dilation wi th no obstructing lesion identified. An ERCP could be obtained to exclude an occult lesion. Gallbladder sludge. No pericholecystic i nflammatory change or stranding. Left-sided 2.5 cm and 1.5 cm adrenal bairon nomas. The visualized lower uterine segment 2.2 cm cystic lesion which likely represents a post- cyst or degen erated fibroid. An ultrasound could be obtained for further characterization if clinically warranted. Extensive cystic changes seen in bilater al breasts. Correlate with mammography. Preliminary Report Dictated by Resident: Luan Perez I, Samuel Duffy MD., have reviewe d this study and agree with the above report. Performing Organization Address City/State/Zipcode Phone Number PACS/VR/DOSE COVID-19 ([facility] NOW RAPID TESTING) (11/10/2019 8:47 PM CDT) SARS-CoV-2 Rapid ID Not Detected Not Detected [facility] Specimen Swab - NASOPHARYNGEAL SWAB Narrative Performed At ID NOW COVID-19 Assay is an isothermal nucleic [facility] acid amplification test intended for the qualitative detection of nucleic acid from SARS-CoV-2 viral RNA in nasopharyngeal ([employer]) specimens. It is used under Emergency Use Authorization (EUA) by FDA. The limit of detection (LOD) of the assay is 125 Genome Equivalents/mL. A positive result is indicative of the presence of SARS-CoV-2 RNA. Clinical correlation with patient history and other diagnostic information is necessary to determine patient infection status. A negative (Not Detected) result does not preclude SARS-CoV-2 infection. In patients with clinical symptoms and other tests that are consistent with SARS-CoV-2 infection, negative results should be treated as presumptive negative and a new specimen should be tested with alternative PCR molecular test. Invalid: Please collect a new specimen for repeat patient testing if clinically indicated. Performing Organization Address City/State/Zipcode Phone Number [facility] CLIA: [id number], [address] [place], [place] [address] ABDOMEN PELVIS W CONTRAST (11/10/2019 7:53 PM CDT) Specimen Impressions Performed At PACS/VR/DOSE Pancreatic and biliary ductal dilation w ith no obstructing mass or stone detected. Further evaluation with MRI wi th MRCP is recommended. Indeterminate left adrenal nodules can also be further evaluated with the recommended MRI. Preliminary Report Dictated by Resident: Manohar Novoa I, Franco Can MD., have reviewed this study and agree with the above report. Narrative Performed At EXAM: CT ABDOMEN AND PELVIS WITH CONTRAS T PACS/VR/DOSE HISTORY: Abdominal infection. COMPARISON: None. TECHNIQUE AND FINDINGS: Contiguous axial imaging from the level of the lung bases through the pubic symphysis was pe rformed after the uncomplicated administration of intravenous Omnipaque contrast. Coronal and sagittal reconstructions were obtained. FINDINGS: LOWER THORAX: Bibasilar subpleural groundglass opaciti es likely represents atelectasis. LIVER: No focal hepatic lesions. Dania l contour. GALLBLADDER AND BILIARY TREE: The common bile duct is dilated at 10 mm. Minimal central intrahepatic biliary ductal dilation. No gallbladder wall thickening. SPLEEN: No splenomegaly. PANCREAS: No masses. The pancreatic duct is diffusely dilated at 5 mm. ADRENAL GLANDS: Left adrenal nodules david sures 2.2 and 1.5 cm. KIDNEYS: No hydronephrosis, stones, or m asses. PERITONEUM AND RETROPERITONEUM: No free air or fluid. LYMPH NODES: No lymphadenopathy. GI TRACT: No dilation or wall thickening . PELVIS/BLADDER: An intrauterine device is in place. Ro und hypoattenuating structure off the anterior lower uterine segment measu res 2.0 cm and likely represents a fibroid. VESSELS: Unremarkable. BONES AND SOFT TISSUES: No suspicious ly tic or sclerotic bony lesions. Procedure Note [facility], Radiant Results Inft User - 2019 10:19 PM CDT EXAM: CT ABDOMEN AND PELVIS WITH CONTRAST HISTORY: Abdominal infection. COMPARISON: None. TECHNIQUE AND FINDINGS: Contiguous axial imaging from the level of the lung bases through the pubic symphysis was pe rformed after the uncomplicated administration of intravenous Omnipaque contrast. Coronal and sagittal reconstructions were obtained. FINDINGS: LOWER THORAX: Bibasilar subpleural groun dglass opacities likely represents atelectasis. LIVER: No focal hepatic lesions. Normal contour. GALLBLADDER AND BILIARY TREE: The common bile duct is dilated at 10 mm. Minimal central intrahepatic biliary sailaja ruel dilation. No gallbladder wall thickening. SPLEEN: No splenomegaly. PANCREAS: No masses. The pancreatic duct is diffusely dilated at 5 mm. ADRENAL GLANDS: Left adrenal nodules david sures 2.2 and 1.5 cm. KIDNEYS: No hydronephrosis, stones, or m asses. PERITONEUM AND RETROPERITONEUM: No free air or fluid. LYMPH NODES: No lymphadenopathy. GI TRACT: No dilation or wall thickening . PELVIS/BLADDER: An intrauterine device i s in place. Round hypoattenuating structure off the anterior lower uterine segment measures 2.0 cm and likely represents a fibroid. VESSELS: Unremarkable. BONES AND SOFT TISSUES: No suspicious ly tic or sclerotic bony lesions. IMPRESSION Pancreatic and biliary ductal dilation w ith no obstructing mass or stone detected. Further evaluation with MRI wi MRCP is recommended. Indeterminate left adrenal nodules can a lso be further evaluated with the recommended MRI. Preliminary Report Dictated by Resident: Manohar Novoa I, Franco Can MD., have reviewed [facility] study and agree with the above report. Performing Organization Address City/State/Zipcode Phone Number PACS/VR/DOSE POCT TEST (11/10/2019 6:55 PM CDT) Pathologist Sig nature POCT PREG Negative On board controls acceptable Present with C Line POCT PREG LOT # [id number] POCT PREG TEST DATE 12/14/2020 Specimen Urine - URINE, CLEAN CATCH TROPONIN I (11/10/2019 6:23 PM CDT) Pathologist Sig nature TROPONIN I <0.012 <=0.034 ng/mL [facility] Specimen Blood - VENOUS Narrative Performed At Equal or Less than 0.034 ng/ml---Normal [facility] Note: Cardiac troponin begins to rise 3-4 hours after the onset of ischemia. Repeat in 4-6 hours if the sample was drawn within 3-4 hours of the onset of the symptom and found normal. Between 0.035 and 0.120 ng/mL--- Borderline. Questionable myocardial injury or necros is Note: Serial measurement may be necessary to confirm or exclude the diagnosis of myocardial injury or necrosis; Clinical correlation (symptoms, EKGs, imaging studies, and others) required; Repeat in 4-6 hours if clinically indicated. Equal or Higher than 0.121 ng/mL---Abnormal. Myocardial Injury or Necrosis Likely Biotin has been reported to cause a negative bias, interpret results relative to patient's use of biotin. Performing Organization Address City/State/Zipcode Phone Number [facility] CLIA: [id number], [address] [place] [id number] CBC WITH DIFFERENTIAL (11/10/2019 6:23 PM CDT) [facility] WBC 5.14 4.30 - 11.10 [facility] 10*3/L [facility] RBC 4.10 3.93 - 5.25 [facility] 10*6/L [facility] HGB 12.7 11.6 - 15.0 [facility] g/dL [facility] HCT 38.8 35.7 - 45.2 % [facility] MCV 94.6 80.6 - 95.5 fL [facility] MCH 31.0 25.9 - 32.8 pg [facility] MCHC 32.7 31.6 - 35.1 [facility] g/dL [facility] RDW-SD 51.5 (H) 39.0 - 49.9 fL [facility] RDW-CV 14.7 12.0 - 15.5 % [facility] PLT 343 166 - 358 [facility] 10*3/L [facility] MPV 8.7 (L) 9.5 - 12.9 fL [facility] NRBC/100 WBC 0.0 0.0 - 10.0 /100 [facility] WBCs [facility]OSPITAL LABORATORY NRBC x10^3 <0.01 10*3/L [facility] GRAN MAT (NEUT) % 56.3 % [facility] IMM GRAN % 0.20 % [facility] LYMPH % 31.1 % [facility] MONO % 9.3 % [facility] EOS % 2.5 % [facility] BASO % 0.6 % [facility] GRAN MAT x10^3(ANC) 2.89 1.88 - 7.09 [facility] 10*3/uL HOSPITAL LABOR[facility]ORY IMM GRAN x10^3 <0.03 0.00 - 0.06 [facility] 10*3/uL [facility] LYMPH x10^3 1.60 1.32 - 3.29 [facility] 10*3/uL [facility] MONO x10^3 0.48 0.33 - 0.92 [facility] 10*3/uL [facility]ITAL [facility] EOS x10^3 0.13 0.03 - 0.39 [facility] 10*3/uL [facility] BASO x10^3 0.03 0.01 - 0.07 [facility] 10*3/uL [facility]ITAL [facility]ORY Specimen Blood - VENOUS Performing Organization Address City/State/Zipcode Phone Number [facility] CLIA: [id number], [address] [place], [place] [address] URINALYSIS (11/10/2019 6:23 PM CDT) Pathologist Sig nature APPEARANCE Hazy (A) Clear [facility] COLOR Yellow Yellow [facility] PH 6.0 4.8 - 8.0 [facility] SP GRAVITY 1.023 1.003 - 1.030 [facility] GLU U QUAL Normal Normal [facility] BLOOD 2+ (A) Negative [facility] KETONES Negative Negative [facility] PROTEIN Negative Negative [facility] UROBILIN Normal Normal [facility] BILIRUBIN Negative Negative [facility] NITRITE Negative Negative [facility] LEUK BRUNO Negative Negative [facility] RBC/HPF 2 0 - 3 HPF [facility] WBC/HPF 1 0 - 5 HPF [facility] BACTERIA Negative Negative [facility] MUCOUS Slight (A) Negative LPF [facility] SQ EPITH 5 HPF [facility] Specimen Urine - URINE, CLEAN CATCH Performing Organization Address City/[facility]/Zipcode Phone Number [facility] CLIA: [id number], [address] [place], [place] [address] LIPASE (11/10/2019 6:23 PM CDT) Pathologist Sig nature LIPASE 42 0 - 220 U/L [facility] Specimen Blood - VENOUS Performing Organization Address [facility] Phone Number [facility] CLIA: [id number], [address] [place], [place] [address] COMP. METABOLIC PANEL ([id number]) (11/10/2019 6:23 PM CDT) Pathologist Sig [employer] NA 141 135 - 145 mmol/L [facility] K 3.8 3.5 - 5.0 mmol/L [facility] CL 105 98 - 108 mmol/L [facility] CO2 TOTAL 29 23 - 31 mmol/L [facility] AGAP 7 2 - 16 [facility] BUN 9 7 - 23 mg/dL [facility] GLUCOSE 80 70 - 110 mg/dL [facility] CREATININE 0.78 0.50 - 1.04 [facility] mg/dL HOSPITAL LAB[facility] TOTAL BILI 0.1 0.1 - 1.1 mg/dL [facility] CALCIUM 9.2 8.6 - 10.6 mg/dL [facility] T PROTEIN 7.2 6.3 - 8.2 g/dL [facility] ALBUMIN 4.2 3.5 - 5.0 g/dL [facility] ALK PHOS 55 34 - 122 U/L [facility] ALTv 17 5 - 35 U/L [facility] AST(SGOT) 22 13 - 40 U/L [facility] eGFR Calculation 78.2 mL/min/1.73m2 [facility] (Non-) [facility] LAB[facility] Y eGFR Calculation 94.7 mL/min/1.73m2 [facility] LABORATORY Specimen Blood - VENOUS Narrative Performed At Association of Glomerular Filtration Rate (GFR) [facility] and Staging of Kidney Disease* + + +- + | GFR (mL/min/1.73 m2) | With Kidney Damage | Without Kidney Damage + + +- + | >90 | Stage one | Normal + + +- + | 60-89 | Stage two | Decreased GFR + + +- + | 30-59 | Stage three | Stage three + + +- + | 15-29 | Stage four | Stage four + + +- + | <15 (or dialysis) | Stage five | Stage five + + +- + *Each stage assumes the associated GFR level has been in effect for at least three months. Stages 1 to 5, with or without kidney disease, indicate chronic kidney disease. Notes: Determination of stages one and two (with eGFR >59mL/min/1.73 m2) requires estimation of kidney damage for at least three months as defined by structural or functional abnormalities of the kidney, manifested by either: Pathological abnormalities or Markers of kidney damage (including abnormalities in the composition of the blood or urine or abnormalities in imaging tests). Performing Organization Address City/State/Zipcode Phone Number [facility] CLIA: [id number], [address] [place] [address] documented in this encounter Visit Diagnoses Diagnosis Right upper quadrant abdominal pain - Pr imary Abdominal pain, right upper quadrant Nausea Nausea alone Pancreatic duct dilated Other specified disease of pancreas Common bile duct dilation Other specified disorders of biliary tra ct RUQ abdominal pain Abdominal pain, right upper quadrant Spondylolisthesis Congenital spondylolisthesis Hypothyroidism Unspecified hypothyroidism Bipolar 1 disorder Bipolar I disorder, most recent episode (or current) unspecified RUQ pain Abdominal pain, right upper quadrant documented in this encounter Administered Medications Medication Order MAR Action Action Date Dose Rate Site acetaminophen (TYLENOL) tablet Given 11/11/2019 1:16 PM CDT 650 mg 650 mg 650 mg, Oral, Q6HPRN, Starting Sat11/11/19 at 0645, Until Discontinued, Routine, Pain (scale 1-3), Pain (scale 4-6) amitriptyline (ELAVIL) tablet 25 mg Given 11/11/2019 8:04 PM CDT 25 mg 25 mg, Oral, QHS, First dose on Sat11/11/19 at 2100, Until Discontinued, Routine dextromethorphan-guaifenesin (ROBITUSSIN DM) Given 11:04 PM CDT 10 mL 10-100 mg/5 mL solution 10 mL 10 mL, Oral, Q6HPRN, Starting Sat11/11/19 at 2008, Until Discontinued, Routine, Cough gabapentin (NEURONTIN) capsule 400 mg Given 11/12/2019 1:24 PM CDT 400 mg 400 mg, Oral, TID, First dose on Sat11/11/19 at 0800, Until Discontinued, Routine Given 11/11/2019 8:04 PM CDT 400 mg Given 11/11/2019 1:16 PM CDT 400 mg heparin (porcine) injection Given 11/11/2019 8:04 PM CDT 5,000 Units Abdomen-SC 5,000 Units 5,000 Units, Subcutaneous, Q12H, First dose on Sat11/11/19 at 0800, Until Discontinued, Routine Given 11/11/2019 9:28 AM CDT 5,000 Units Abdo men-SC levothyroxine (SYNTHROID) tablet 75 mcg Given 11/12/2019 5:56 AM CDT 75 mcg 75 mcg, Oral, QAM-0600, First dose on Sat11/11/19 at 0600, Until Discontinued, Routine Given 11/11/2019 6:21 AM CDT 75 mcg ondansetron (ZOFRAN (PF)) injection 4 mg Given 11/12/2019 12:43 PM CDT 4 mg 4 mg, Slow IV Push, Q6HPRN, Starting Sat11/11/19 at 0031, Until Discontinued, CHARISSE, Nausea and Vomiting (N/V) Given 11/11/2019 6:27 AM CDT 4 mg Given 11/11/2019 12:35 AM CDT 4 mg OXcarbazepine (TRILEPTAL) tablet 450 mg Given 11/11/2019 8:04 PM CDT 450 mg 450 mg, Oral, BID, First dose on Sat11/11/19 at 0800, Until Discontinued, Routine Given 11/11/2019 1:16 PM CDT 450 mg proMETHazine (PHENERGAN) 25 mg in NaCl 0.9% Given 11/11/2019 1:14 PM CDT 25 mg (NS) 50 mL IV piggyback 25 mg, IV Piggyback, Q6HPRN, Starting Sat11/11/19 at 0104, Until Discontinued, Routine, N/V unresponsive to Ondansetron Given 11/11/2019 1:58 AM CDT 25 mg QUEtiapine (SEROQUEL) tablet 150 mg Given 11/11/2019 8:04 PM CDT 150 mg 150 mg, Oral, QHS, First dose on Sat11/11/19 at 2100, Until Discontinued, Routine SERTraline (ZOLOFT) tablet 100 mg Given 11/11/2019 9:28 AM CDT 100 mg 100 mg, Oral, DAILY, First dose on Sat11/11/19 at 0900, Until Discontinued, Routine Medication Order MAR Action Action Date Dose Rate Site gadoteridol (PROHANCE-15 mL) Given 11/11/2019 6:15 AM CDT 14 mL injection 13.9 mL 13.9 mL (0.2 mL/kg 69.5 kg), Intravenous, ONCE, 1 dose, Sat11/11/19 at 0615, Routine iohexol (OMNIPAQUE 350 BULK-100 mL) Given 11/10/2019 7:49 PM CD T 120 mL injection 120 mL 120 mL, Intravenous, ONCE, 1 dose, Sat11/10/19 at 2000, Routine ketorolac (TORADOL) injection 30 mg Given 11/11/2019 1:58 AM CDT 30 mg 30 mg, Slow IV Push, ONCE, 1 dose, Sat11/11/19 at 0115, Routine, [employer] food team member approving Restricted medication: ASIM ROSADO lactated ringers IV infusion New Bag 11/11/2019 1:25 AM CDT 1,000 mL 500 mL/hr 1,000 mL at 500 mL/hr, 1,000 mL, Intravenous, ONCE, 1 dose, Sat11/11/19 at 0115, Routine morpHINE injection 4 mg Given 11/10/2019 6:28 PM CDT 4 mg 4 mg, Slow IV Push, ONCE, 1 dose, Sat11/10/19 at 1915, STAT morpHINE injection 4 mg Given 11/10/2019 8:50 PM CDT 4 mg 4 mg, Slow IV Push, ONCE, 1 dose, Sat11/10/19 at 2145, STAT NaCl 0.9% (NS) bolus infusion New Bag 11/10/2019 6:23 PM CDT 1,000 mL 999 mL/hr 1,000 mL at 999 mL/hr, 1,000 mL, IV Piggyback, ONCE, 1 dose, 11/10/19 at 1915, STAT ondansetron (ZOFRAN (PF)) injection 4 mg Given 11/10/2019 6:29 PM CDT 4 mg 4 mg, Slow IV Push, ONCE, 1 dose, 11/10/19 at 1915, CHARISSE ondansetron (ZOFRAN (PF)) injection 4 mg Given 11/10/2019 8:50 PM CDT 4 mg 4 mg, Slow IV Push, ONCE, 1 dose, 11/10/19 at 2145, CHARISSE documented in this encounter documented as of this encounter
--- OUTSIDE RECORDS SUMMARY | 2019-12-30 06:37 | XMS REPORT | Summary of Care ---
:1970 Author Organization [facility] - [facility] Address [address] [place] [id number] Care Team Providers Name Role Phone Ctr, Admin Med Primary Care Provider Reason for Visit Reason Comments Transition Of Care Encounter Details Date Type Department Care Team Description 11/13/2019 Transition of Care [facility] Crystal Marr Tr [facility]- RN [address] [id number] Allergies Active Allergy Reactions Severity Noted Date Comments Sulfa (Sulfonamide Antibiotics) Unknown - See comments 09/27/2008 documented as of this encounter (statuses as of 11/13/2019) Medications Medication Sig Dispensed Refills Start Date [...] as of this encounter (statuses as of 11/13/2019) Active Problems Problem Noted Date RUQ pain 11/11/2019 RUQ abdominal pain 11/11/2019 Pancreatic duct dilated 11/10/2019 Overview: Added automatically from request for mauro coronado [id number] Common bile duct dilation 11/10/2019 Overview: Added automatically from request for mauro coronado [id number] Spondylolisthesis Hypothyroidism Bipolar 1 disorder documented as of this encounter (statuses as of 11/13/2019) Social History Tobacco Use Types Packs/Day Years Used Date Current Every Day Smoker Smokeless Tobacco: Never Used Comments: e cigarette 3-4 x /day Alcohol [...] 11/11/2020 11/12/2019 documented as of this encounter Results Not on filedocumented in this encounter Insurance Payer Benefit Plan / Group Subscriber ID Effective Dates Phone Address Type [employer]ET[employer] AETNA [facility] CARE [id number] 2019-Present PPO documented as of this encounter
--- OUTSIDE RECORDS SUMMARY | 2019-12-30 06:38 | XMS REPORT | Summary of Care ---
:1970 Author Organization [facility] - Health Address [address] [place] [address] Care Team Providers Name Role Phone Ctr, Admin Med Primary Care Provider Encounter Details Date Type Department Care Team Description 11/19/2019 Orders Only [facility] Doctor Unassigned, No [address] [facility] [place] [address] [address] [place] [address] Allergies Active Allergy Reactions Severity Noted Date Comments Sulfa (Sulfonamide Antibiotics) Unknown - See comments 09/27/2008 documented as of this encounter (statuses as of 11/19/2019) Medications Medication Sig Dispensed Refills Start Date [...] mg by 0 Active mouth at bedtime. ondansetron 4 mg Take 1 tablet by 30 tablet 0 11/17/2019 Active disintegrating mouth every 8 tabletIndications: (eight) hours as Nausea needed (N/V). documented as of this encounter (statuses as of 11/19/2019) Active Problems Problem Noted Date RUQ pain 11/11/2019 RUQ abdominal pain 11/11/2019 Pancreatic duct dilated 11/10/2019 Overview: Added automatically from request for mauro cliff [id number] Common bile duct dilation 11/10/2019 Overview: Added automatically from request for mauro cliff [id number] Spondylolisthesis Hypothyroidism Bipolar 1 disorder documented as of this encounter (statuses as of 11/19/2019) Social History Tobacco Use Types Packs/Day Years [...] Name Priority Date/Time Associated Diagnosis Comme nts ASSIGNMENT OF BENEFITS Routine 11/19/2019 2:29 PM CDT documented in this encounter Results Not on filedocumented in this encounter Insurance Payer Benefit Plan / Group Subscriber ID Effective Dates Phone Address Type [employer] CARE [id number] 2019-Present PPO documented as of this encounter
--- OUTSIDE RECORDS SUMMARY | 2019-12-30 06:38 | XMS REPORT | Summary of Care ---
:1970 Author Organization [facility] Address [address] [place] [address] Care Team Providers Name Role Phone Ctr, Admin Med Primary Care Provider Reason for Referral MRI/CAT Scan (STAT) Status Reason Specialty Diagnoses / Referred By Referred To Procedures Contact Contact New Request Diagnostic Diagnoses Abdominal pain, unspecified abdominal location Юлия Cabezas Radiology Procedures CT ABDOMEN PELVIS W CONTRAST SMD [address] [place] [address] [id number] [place] [address] Reason for Visit Reason Comments Abdominal Pain Auth/Cert Status Reason Specialty Diagnoses / Referred By Referred To Procedures Contact Contact Emergency Medicine [facility] Em ergency Dept [address] [place] [address] Fax: Encounter Details Date Type Department Care Team Description 11/20/2019 - Emergency ADC-Emergency Юлия Cabezas S, Abdominal pain, unspecified abdominal location (Primary Dx); 11/21/2019 Department Constipation, unspecified constipation t ype; [address] [place] [address] Pancreatic duct dilated; Drive [id number] Common bile duct dilatation; [place] [address] [place], [place] Fibroid tumor; [phone] [id number] Adrenal adenoma, left [phone] Allergies Active Allergy Reactions Severity Noted Date Comments Sulfa (Sulfonamide Antibiotics) Unknown - See comments 09/27/2008 documented as of this encounter (statuses as of 11/21/2019) Medications Medication Sig Dispensed Refills Start Date End Date Status gabapentin 400 mg Take 400 mg by 0 Active capsule mouth 3 (three) times daily. levothyroxine 75 mcg Take 75 mcg by 0 Active tablet mouth every morning. SERTraline 50 mg Take 100 mg by 0 Active tablet mouth daily. OXcarbazepine 300 mg Take 450 mg by 0 Active tablet mouth 2 (two) times daily. amitriptyline 25 mg Take 25 mg by mouth 0 Active tablet at bedtime. QUEtiapine 300 mg Take 150 mg by 0 Active tablet mouth at bedtime. ondansetron 4 mg Take 1 tablet by 30 tablet 0 11/17/2019 Active disintegrating mouth every 8 tabletIndications: (eight) hours as Nausea needed (N/V). peg-electrolyte soln Take as directed 4000 mL 0 11/19/2019 Active [id number] -5.86 before colonoscopy gram solution lactulose 10 gram/15 Take 30 mL by mouth 1 Bottle 0 0 Active mL oral 3 (three) times solutionIndications: daily as needed for Constipation, Constipation or For unspecified bowel movement. constipation type dicyclomine 20 mg Take 1 tablet by 20 tablet 0 11/21/2019 Active tabletIndications: mouth every 6 (six) Abdominal pain, hours as needed for unspecified abdominal Abdominal pain. location ondansetron (ZOFRAN) Take 1 tablet by 12 tablet 0 11/21/2019 Active 4 mg mouth every 8 tabletIndications: (eight) hours as Abdominal pain, needed for Nausea unspecified abdominal and Vomiting (N/V). location documented as of this encounter (statuses as of 11/21/2019) Active Problems Problem Noted Date Colon cancer screening 11/20/2019 Overview: Added automatically from request for mauro cliff [id number] RUQ pain 11/11/2019 RUQ abdominal pain 11/11/2019 Pancreatic duct dilated 11/10/2019 Overview: Added automatically from request for mauro cliff [id number] Common bile duct dilation 11/10/2019 Overview: Added automatically from request for mauro cliff [id number] Spondylolisthesis Hypothyroidism Bipolar 1 disorder documented as of this encounter (statuses as of 11/21/2019) Social History Tobacco Use Types Packs/Day Years [...] been in contact with No / Unsure 11/20/2019 6:37 PM CDT someone who was confirmed or suspected to have Coronavirus / COVID-19? documented as of this encounter Last Filed Vital Signs Vital Sign Reading Time Taken Comments Blood Pressure 133/92 11/21/2019 12:15 AM CDT Pulse 79 11/21/2019 12:15 AM CDT Temperature 36.4 C (97.6 F) 11/21/2019 12:00 AM CDT Respiratory Rate 15 11/21/2019 12:15 AM CDT Oxygen Saturation 94% 11/21/2019 12:15 AM CDT Inhaled Oxygen Concentration - - Weight 64.9 kg (143 lb) 11/20/2019 6:51 PM CDT Height 157.5 cm (5' 2") 11/20/2019 6:51 PM CDT Body Mass Index 26.16 11/20/2019 6:51 PM CDT documented in this encounter Discharge Instructions Юлия Puente MD - 11/21/2019 DIAGNOSIS Diagnoses that have been ruled out: None Diagnoses that are still under consideration: None Final diagnoses: Abdominal pain, unspecified abdominal location Constipation, unspecified constipation type Pancreatic duct dilated Common bile duct dilatation Fibroid tumor Adrenal adenoma, left NO LIFE-THREATENING FINDINGS ON TODAY'S EXAM. PROCEDURES IN THE ER TODAY: Orders Placed This Encounter Procedures CT ABDOMEN PELVIS W CONTRAST Complete Metabolic Panel CBC with Differential Lipase, Serum Urinalysis CBC WITH DIFFERENTIAL MEDICATIONS ADMINISTERED IN THE ER TODAY AND DISCHARGE MEDICATIONS: Orders Placed This Encounter Medications NaCl 0.9% (NS) bolus infusion 1,000 mL FENTanyl PF (SUBLIMAZE (PF)) injection 25 mcg NaCl 0.9% (NS) bolus infusion 500 mL iohexol (OMNIPAQUE 350 BULK-150 mL) injection 120 mL lactulose 10 gram/15 mL oral solution dicyclomine 20 mg tablet ondansetron (ZOFRAN) 4 mg tablet ketorolac (TORADOL) injection 30 mg FOLLOW-UP RECOMMENDATIONS: RECOMMEND FOLLOW-UP WITH YOUR PRIMARY CARE PROVIDER OR GASTROENTEROLOGY SPECIALIST SCHEDULED MAY FOLLOW-UP WITH A PROVIDER OF YOUR CHOICE, SUCH : 1. A PHYSICIAN OF YOUR CHOICE 2. [facility], . LOCATIONS IN [facility] 3. [facility], [address] [place] [address]; [phone] OR, IF YOU WISH TO FOLLOW-UP WITHIN THE [facility], MAY TRY THESE OPTIONS (CLINIC APPOINTMENTS AVAILABLE ON [id number] BASIS): 1. SCHEDULE AN APPOINTMENT ONLINE AT [email or web address] 2. OR CALL THE [facility] AT OR 3. OR CALL YOUR [facility] PHYSICIAN'S OFFICE DIRECTLY IF YOU ARE ALREADY AN ESTABLISHED [facility] PATIENT. RETURN TO ER FOR WORSENING OF SYMPTOMS documented in this encounter Plan of Treatment Date Type Specialty Care Team Description 11/30/2019 Hospital Encounter Surgery Richy Vicente MD screening [address] [facility] [address] [place] [phone] 11/30/2019 Surgery Surgery ALEXANDER Vicente MD [address] [facility] [address] [place] [phone] 01/18/2020 Office Visit Endocrinology Diabetes Thea, & Metabolism MD [address] [place], [place] [phone] Health Maintenance Due Date Last Done Comments PNEUMOCOCCAL 0-64 YEARS COMBINED 1975 SERIES (1 of - PPSV23) DTaP,Tdap,and Td Vaccines ( - 01/14/1980 Tdap) PAP SMEAR 1990 Breast Cancer Screening 2009 (MAMMOGRAM) COLONOSCOPY 2019 Zoster Recombinant Vaccine 2019 (SHINGRIX) (1 of 2) INFLUENZA VACCINE (Season Ended) 2020 03/25/2018, 06/2015, 05/17/2016, Additional history exists Depression Screening 11/11/2020 11/12/2019 documented as of this encounter Procedures Procedure Name Priority Date/Time Associated Diagnosis Comme nts CT ABDOMEN PELVIS W STAT 11/20/2019 11:19 Abdominal pain, R esults for this CONTRAST PM CDT unspecified procedure are i n abdominal location the resul ts section. CBC WITH DIFFERENTIAL STAT 11/20/2019 8:12 Abdominal pain, Results for this PM CDT unspecified procedure are i n abdominal location the resul ts section. URINALYSIS STAT 11/20/2019 8:12 Abdominal pain, Results for this PM CDT unspecified procedure are i n abdominal location the resul ts section. CBC WITH DIFFERENTIAL Routine 11/20/2019 8:12 Abdominal pain, Results for this PM CDT unspecified procedure are i n abdominal location the resul ts section. COMP. METABOLIC PANEL STAT 11/20/2019 8:12 Abdominal pain, Results for this (09896) PM CDT unspecified procedure are i n abdominal location the resul ts section. LIPASE STAT 11/20/2019 8:12 Abdominal pain, Results for this PM CDT unspecified procedure are i n abdominal location the resul ts section. CONSENT/REFUSAL FOR Routine 11/20/2019 6:37 DIAGNOSIS AND PM CDT TREATMENT documented in this encounter Results CT ABDOMEN PELVIS W CONTRAST (11/20/2019 11:19 PM CDT) Specimen Impressions Performed At PACS/VR/DOSE 1. A large amount of stool in the colo n suggests constipation. 2. Persistent mild dilatation of the c ommon bile and pancreatic ducts. Unchanged left 2 cm and 1.3 cm adrenal a denomas. Hepatic steatosis. 3. A fibroid measures approximately 2.5 cm. IUD is p resent in the uterus. Preliminary Report Dictated by Resident: Marissa Leiva I, Kel Mesa MD., have reviewe d this study and agree with the above report. Narrative Performed At EXAM: CT ABDOMEN AND PELVIS WITH CONTRAS T PACS/VR/DOSE HISTORY: Acute generalized abdominal eliz n. COMPARISON: CT abdomen pelvis 11/10/2019. MRI abdomen 11/11/2019.. DOSE: Total exam DLP 321 mGy-cm TECHNIQUE AND FINDINGS: Contiguous axial imaging from the level of the lung bases through the pubic symphysis was pe rformed after the uncomplicated administration of 120 cc of intravenous Omnipaque contrast and oral Omnipaque contrast. Coronal and sagittal reconstructions were obtained. Auto mA and/or iterative reconstruction were used to r educe radiation dose. FINDINGS: LOWER THORAX: The lungs bases are clear. No cardiomega ly. A 1 cm calcified subpleural nodule projects from the righ t diaphragm leaflets (4:9). LIVER: No focal hepatic lesions. Dania l contour. GALLBLADDER AND BILIARY TREE: The common bile duct measures at the upper limits of normal in size.. No gallblad amarilys wall thickening. SPLEEN: No splenomegaly. PANCREAS: No ductal dilation or masses. ADRENAL a 1.3 and 2 cm left adrenal glan d nodules with previously characterized as adrenal adenomas on elian or MRI. KIDNEYS: No hydronephrosis, stones, or m asses. PERITONEUM AND RETROPERITONEUM: No free air or fluid. LYMPH NODES: No lymphadenopathy. GI TRACT: No dilation or wall thickening . The appendix is not distinctly visualized, however no secondary signs o f acute appendicitis are seen within the right lower quadrant. A large amount of stool in the colon suggests constipation. PELVIS/BLADDER: The urinary bladder is m ild to moderately distended. The uterus is unremarkable in size for given age. A 3. 3 cm hypodense lesion within the lower uterine segment likely represents a degenerative intramural leiomyoma. An IUD is identified. The bilate ral ovaries are not distinctly visualized. VESSELS: Unremarkable. BONES AND SOFT TISSUES: No suspicious ly tic or sclerotic bony lesions. Procedure Note [facility], Radiant Results Inft User - 2019 12:03 AM CDT EXAM: CT ABDOMEN AND PELVIS WITH CONTRAST HISTORY: Acute generalized abdominal eliz n. COMPARISON: CT abdomen pelvis 11/10/2019. MRI abdomen 11/11/2019.. DOSE: Total exam DLP 321 mGy-cm TECHNIQUE AND FINDINGS: Contiguous axial imaging from the level of the lung bases through the pubic symphysis was pe rformed after the uncomplicated administration of 120 cc of intravenous Omnipaque contrast and oral Omnipaque contrast. Coronal and sagittal reconstructions were obtained. Auto mA and/or iterative reconstruction were used to reduce radiation dose. FINDINGS: LOWER THORAX: The lungs bases are clear. No cardiomegaly. A 1 cm calcified subpleural nodule projects from the righ t diaphragm leaflets (4:9). LIVER: No focal hepatic lesions. Normal contour. GALLBLADDER AND BILIARY TREE: The common bile duct measures at the upper limits of normal in size.. No gallbladd er wall thickening. SPLEEN: No splenomegaly. PANCREAS: No ductal dilation or masses. ADRENAL a 1.3 and 2 cm left adrenal glan d nodules with previously characterized as adrenal adenomas on elian or MRI. KIDNEYS: No hydronephrosis, stones, or m asses. PERITONEUM AND RETROPERITONEUM: No free air or fluid. LYMPH NODES: No lymphadenopathy. GI TRACT: No dilation or wall thickening . The appendix is not distinctly visualized, however no secondary signs o f acute appendicitis are seen within the right lower quadrant. A large amount of stool in the colon suggests constipation. PELVIS/BLADDER: The urinary bladder is m ild to moderately distended. The uterus is unremarkable in size for g iven age. A 3.3 cm hypodense lesion within the lower uterine segment likely represents a degenerative intramural leiomyoma. An IUD is identifi ed. The bilateral ovaries are not distinctly visualized. VESSELS: Unremarkable. BONES AND SOFT TISSUES: No suspicious ly tic or sclerotic bony lesions. IMPRESSION 1. A large amount of stool in the colon suggests constipation. 2. Persistent mild dilatation of the co mmon bile and pancreatic ducts. Unchanged left 2 cm and 1.3 cm adrenal a denomas. Hepatic steatosis. 3. A fibroid measures approximately 2.5 cm. IUD is present in the uterus. Preliminary Report Dictated by Resident: Kel Mcgill MD., have reviewed this study and agree with the above report. Performing Organization Address City/State/Zipcode Phone Number PACS/VR/DOSE CBC WITH DIFFERENTIAL (11/20/2019 8:12 PM CDT) Pathologist [facility] nature WBC 10.00 4.30 - 11.10 [facility] 10*3/L [facility] RBC 4.72 3.93 - 5.25 [facility] 10*6/L [facility] HGB 14.7 11.6 - 15.0 [facility] g/dL HOSPITAL [facility] HCT 44.2 35.7 - 45.2 % [facility] MCV 93.6 80.6 - 95.5 fL [facility] MCH 31.1 25.9 - 32.8 pg [facility] MCHC 33.3 31.6 - 35.1 [facility] g/dL [facility] RDW-SD 50.1 (H) 39.0 - 49.9 fL [facility] RDW-CV 14.3 12.0 - 15.5 % [facility] PLT 393 (H) 166 - 358 [facility] 10*3/L HOSPITAL [facility] MPV 8.8 (L) 9.5 - 12.9 fL [facility] NRBC/100 WBC 0.0 0.0 - 10.0 /100 [facility] WBCs [facility] NRBC x10^3 <0.01 10*3/L [facility] GRAN MAT (NEUT) % 72.2 % [facility] IMM GRAN % 0.60 % [facility] LYMPH % 18.0 % [facility] MONO % 7.4 % [facility] EOS % 1.6 % [facility] BASO % 0.2 % [facility] GRAN MAT x10^3(ANC) 7.22 (H) 1.88 - 7.09 [facility] 10*3/uL HOSPITAL [facility] IMM GRAN x10^3 0.06 0.00 - 0.06 [facility] 10*3/uL [facility]ITAL [facility] LYMPH x10^3 1.80 1.32 - 3.29 [facility] 10*3/uL [facility]ITAL [facility] MONO x10^3 0.74 0.33 - 0.92 [facility] 10*3/uL HOSPITAL [facility] EOS x10^3 0.16 0.03 - 0.39 [facility] 10*3/uL [facility]ITAL [facility] BASO x10^3 <0.03 0.01 - 0.07 [facility] 10*3/uL HOSPITAL [facility] Specimen Blood - VENOUS Performing Organization Address City/State/Zipcode Phone Number [facility] CLIA: [id number], [address] [place], [place] [address] Urinalysis (11/20/2019 8:12 PM CDT) Pathologist Sig nature APPEARANCE Clear Clear [facility] COLOR Yellow Yellow [facility] PH 6.0 4.8 - 8.0 [facility] SP GRAVITY 1.018 1.003 - 1.030 [facility] GLU U QUAL Normal Normal [facility] BLOOD Negative Negative [facility] KETONES Negative Negative [facility] PROTEIN Negative Negative [facility] UROBILIN Normal Normal [facility] BILIRUBIN Negative Negative [facility] NITRITE Negative Negative [facility] LEUK BRUNO Negative Negative [facility] RBC/HPF 3 0 - 3 HPF [facility] WBC/HPF 2 0 - 5 HPF [facility] BACTERIA Negative Negative [facility] MUCOUS Slight (A) Negative LPF [facility] SQ EPITH 6 HPF [facility] Specimen Urine - URINE, CLEAN CATCH Performing Organization Address [facility] Phone Number [facility] CLIA: [id number], [address] [place] [address] Lipase, Serum (11/20/2019 8:12 PM CDT) Pathologist Sig nature LIPASE 37 0 - 220 U/L [facility] Specimen Blood - VENOUS Performing Organization Address [facility] Phone Number [facility] CLIA: [id number], [address] [place] [address] Complete Metabolic Panel (11/20/2019 8:12 PM CDT) Pathologist Sig nature NA 134 (L) 135 - 145 [facility] mmol/L [facility] K 4.2 3.5 - 5.0 [facility] mmol/L [facility] CL 102 98 - 108 mmol/L [facility] CO2 TOTAL 26 23 - 31 mmol/L [facility] AGAP 6 2 - 16 [facility] BUN 11 7 - 23 mg/dL [facility] GLUCOSE 95 70 - 110 mg/dL [facility] CREATININE 0.85 0.50 - 1.04 [facility] mg/dL [facility] TOTAL BILI 0.4 0.1 - 1.1 mg/dL [facility] CALCIUM 10.3 8.6 - 10.6 [facility] mg/dL [facility] T PROTEIN 8.4 (H) 6.3 - 8.2 g/dL [facility] ALBUMIN 5.0 3.5 - 5.0 g/dL [facility] ALK PHOS 93 34 - 122 U/L [facility] ALTv 16 5 - 35 U/L [facility] AST(SGOT) 25 13 - 40 U/L [facility] eGFR Calculation 70.8 mL/min/1.73m2 [facility] [place] eGFR Calculation 85.8 mL/min/1.73m2 [facility] () [facility] Specimen Blood - VENOUS Narrative Performed At Association of Glomerular Filtration Rate (GFR) [facility] and Staging of Kidney Disease* + [...] tests). Performing Organization Address City/State/Zipcode Phone Number [facility] CLIA: [id number], [address] [place], [place] [address] documented in this encounter Visit Diagnoses Diagnosis Abdominal pain, unspecified abdominal lo cation - Primary Constipation, unspecified constipation t ype Pancreatic duct dilated Other specified disease of pancreas Common bile duct dilatation Other specified disorders of biliary tra ct Fibroid tumor Leiomyoma of uterus, unspecified Adrenal adenoma, left documented in this encounter Administered Medications Medication Order MAR Action Action Date Dose Rate Site FENTanyl PF (SUBLIMAZE (PF)) Given 11/20/2019 9:11 PM CDT 25 mc g injection 25 mcg 25 mcg, Slow IV Push, ONCE, 1 dose, 11/20/19 at 2200, STAT iohexol (OMNIPAQUE 350 BULK-150 mL) Given 11/20/2019 11:22 PM CD T 120 mL injection 120 mL 120 mL, Intravenous, ONCE, 1 dose, 11/20/19 at 2330, Routine ketorolac (TORADOL) injection 30 mg Given 11/21/2019 12:35 AM CDT 30 mg 30 mg, Slow IV Push, ONCE, 1 dose, 11/21/19 at 0130, Routine, membership manager approving Restricted medication: ЮЛИЯ CABEZAS NaCl 0.9% (NS) bolus infusion New Bag 11/20/2019 8:32 PM CDT 1,000 mL 999 mL/hr 1,000 mL at 999 mL/hr, 1,000 mL, IV Infusion, ONCE, 1 dose, Sat11/20/19 at 2115, STAT NaCl 0.9% (NS) bolus infusion 500 New Bag 11/20/2019 9:14 PM CDT 500 mL 999 mL/hr mL at 999 mL/hr, 500 mL, IV Infusion, ONCE, 1 dose, Sat11/20/19 at 2200, STAT documented in this encounter Guarantor Name Account Type Relation to Date of Phone Billing Patient Address Varsha Ramos Personal/Family Self 1970 [address] (Home) [facility] [phone] [facility] ([place]) [place] [address] documented as of this encounter
--- OUTSIDE RECORDS SUMMARY | 2019-12-30 06:38 | XMS REPORT | Summary of Care ---
:1970 Author Organization [facility] - [facility] Address [address] [place] [id number] Care Team Providers Name Role Phone Ctr, Admin Med Primary Care Provider Reason for Referral (Routine) Status Reason Specialty Diagnoses / Referred By Referred To Procedures Contact Contact New Request Endocrinology Diagnoses Abnormal finding on GI tract imaging Cecil Maritn Diabetes & Procedures CONSULT/REFERRAL ENDOCRINOLOGY MD Ashia Metabolism [address] [place] [id number] [place] [id number] Reason for Visit Reason Comments New Patient (Routine) Status Reason Specialty Diagnoses / Referred By Referred To Procedures Contact Contact Closed IM-GASTROENTEROLOGY / Diagnoses Right upper quadrant abdominal pain Pancreatic duct dilated RUQ abdominal pain [place], Gastroenterology Procedures Discharge Follow-Up: Specialty Service IM-GASTROENTEROLOGY; 1 Month Heber Aquino MD [address] [facility] [address] [place] [address] Encounter Details Date Type Department Care Team Description 11/19/2019 Office Visit [facility] Cecil Martin MD [address] [facility] [id number] [place], [place] [id number] Colon cancer screening (Primary Dx); GASTROENTEROLOGY -Ayush Burton MD [address] [place] [address]. [place] [phone] Lesion of adrenal gland; [place] Abnormal finding on GI tract imaging [address] [facility] [place] [phone] Allergies Active Allergy Reactions Severity Noted Date Comments Sulfa (Sulfonamide Antibiotics) Unknown - See comments 09/27/2008 documented as of this encounter (statuses as of 11/23/2019) Medications Medication Sig Dispensed Refills Start Date [...] tablet mouth at bedtime. QUEtiapine 300 mg Take 150 mg by 0 Active tablet mouth at bedtime. ondansetron 4 mg Take 1 tablet by 30 tablet 0 11/17/2019 Active disintegrating mouth every 8 tabletIndications: (eight) hours as Nausea needed (N/V). peg-electrolyte soln Take as directed 4000 mL 0 11/19/2019 Active 236-22.74-6.74 -5.86 before colonoscopy gram solution documented as of this encounter (statuses as of 11/23/2019) Active Problems Problem Noted Date Colon cancer screening 11/20/2019 Overview: Added automatically from request for mauro cliff [id number] RUQ pain 11/11/2019 RUQ abdominal pain 11/11/2019 Pancreatic duct dilated 11/10/2019 Overview: Added automatically from request for mauro cliff [id number] Common bile duct dilation 11/10/2019 Overview: Added automatically from request for mauro cliff [id number] Spondylolisthesis Hypothyroidism Bipolar 1 disorder documented as of this encounter (statuses as of 11/23/2019) Social History Tobacco Use Types Packs/Day Years [...] Sign Reading Time Taken Comments Blood Pressure 125/86 11/19/2019 2:39 PM CDT Pulse 104 11/19/2019 2:39 PM CDT Temperature 37.7 C (99.8 F) 11/19/2019 2:39 PM CDT Respiratory Rate 16 11/19/2019 2:39 PM CDT Oxygen Saturation 95% 11/19/2019 2:39 PM CDT Inhaled Oxygen Concentration - - Weight 65 kg (143 lb 3.2 oz) 11/19/2019 2:39 PM CDT Height 157.5 cm (5' 2") 11/19/2019 2:39 PM CDT Body Mass Index 26.19 11/19/2019 2:39 PM CDT documented in this encounter Patient Instructions Patient InstructionsAyush Woodruff MD - 11/19/2019 2:30 PM CDT 1- For abdominal pain/Constipation: Take Miralax 1 capful daily with 8 oz of water and titrate dose as needed. You may increase it for a goal of one bowel movements per day. And when you start miralax you may encounter increase in bowel movements/diarrhea. This is normal, do not stop the medicine because. For Digestion take Papaya seed enzyme 1 capsule three times a day with meals. There is a herb called Iberogast available online 10-20 drops per day - you can find on Join The Wellness Team. 2- Colon cancer screening - will schedule you for colonoscopy. 3- Enlarged liver - will continue to monitor 4- For family history of pancreatic cancer, personal history of pancreatitis and initial concern forabnormal imaging - will obtain blood testing today and continue to follow up pancreatic labs in clinic 5- For adrenal lesion - will refer to endocrinology. 6- We talked about the association between joint hypermobility, autonomic symptoms and GI symptoms. This can be associated with chronic fatigue, POTS, thyroid disease and other autoimmune diseases 7- If symptoms are persistent will consider further motility testing with sitz marker and gastric emptying study. 8- send me a Benhauert message in 2 weeks on how are you doing 9- Follow up with Dr. Vicente in 6-8 weeks. Poorly digestible food Medium digestible food Easily digestible food Vegetables and roots ?Raw: carrots, turnip, parsnips Cooked: carrots, turnip, parsnips Mashed turnips, mixed beetroot pickled beet ?Cooked cauliflower and broccoli stem Cooked cauliflower flower, broccoli flower ?Asparagus stalk Asparagus tip ?Green pea Green pea pure ?Boiled corn (Cooked and mixed) corn pat ?Cooked beans (Cooked and mixed) beans pat ?Cooked brussels sprouts (Cooked and mixed) brussels sprout pat ?Raw and cooked cabbage ?Raw, boiled, and fried mushrooms Mixed mushrooms Mushroom paste ?Boiled and fried onion Fine mixed onion, dried powdered onion ?Cooked leeks Mixed leeks ?Rhubarb ?Salad, cucumber, tomatoes Canned crushed tomatoes Tomato paste ?Pepper Pepper without skin Mixed pepper ?Avocado Mashed avocado Fruit and parker ?Fresh fruit Cooked and canned fruit or parker Puree of fruit or parker ?Skin and membrane of citrus: ?[place], summer, grapefruit ?Pineapple Ripe pears without skin Ripe pears without skin, canned peach Raspberries, strawberries Gooseberries ?Blueberries, currant, and lingo berries Mixed: blueberries, currant and lingo berries ?Blackberry, cloudberries ?Green and green-yellow banana Yellow banana Yellow-brown banana ?Netted melon Kiwi, soft gala melon Mixed kiwi, water melon [place], papaya Nuts and Almonds ?Fruits and almonds Flour of fruits and almonds Potato ?Fried potatoes, mauritanian potatoes Boiled potatoes, baked potatoes Mashed potatoes, pressed potatoes, creamed potatoes Pasta and rice ?Pasta ?Parboiled rice and brown rice, non-parboiled rice ?Bulgur, couscous, porridge Bread ?White fresh bread Wholegrain cereal flour bread Brown crisp ?Bread with seeds and whole grains Bread baked on coarse flour Bread baked on whole meal flour, rye crisp, rusks Cheese ?Fat cheese, ripened cheese Cottage cheese Processed cheese, spreadable cheese, quark Eggs ?Hard-boiled eggs, soft-boiled eggs Mashed-boiled eggs, mauritanian omelet ?Pancakes ?Scrambled eggs made in frying max Scrambled eggs made in pot Baked omelet [place]wana style, baked egg ?Butter pudding Meat ?Whole meat Minced meat dishes Mixed minced dishes, sausage Jellied veal Extra thin slices of ham Fish and seafood ?Cured salmon, smoked salmon Baked salmon Baked flatfish, boiled fish loaf dishes, fish pudding ?Raw spiced salmon Baked mackerel baked cod fish Fish souffl, fish balls, fish parrish, fish gratin colon terrine ?Shrimp, crab, clams, tails Mixed shrimp, crab, clams, tails Cooking methods ?Raw, wok Cooked, canned Puree, mixed, parrish, timbale, sauces ?Fried in a max, deep fried, wok Roasted, baked Cooked ?Coating with egg and breadcrumbs ?Coating with breadcrumbs ?Fat cooking methods Lean cooking methods documented in this encounter Progress Notes Karey Marin LVN - 11/19/2019 2:30 PM CDTColonoscopy ordered. To be Scheduled @ endoscopy unit. Verbal and printed Golytely prep instructions given. List of medications to avoid prior to procedure explained. Patient verbalized understanding. Facility location and telephone provided. Patient to be contacted with arrival time . Patient to be consented day of procedure. Ayush Andrews MD - 11/19/2019 2:30 PM CDT Gastroenterology Clinic Note Date: 11/19/2019 Name: Varsha Ramos DOB: 1970 Referred By: Heber Rosado MD [address] [facility] [address] [place] [address] PCP: [facility] Reason for Visit: Abdominal pain, abnormal imaging of the GI tract, colon cancer screening. HPI: Varsha Ramos is a 49 year old female who presents to the clinic following recent hospitalization for abdominal pain and abnormal imaging of the GI tract. The patient was recently seen and hospitalized for abdominal pain and abnormal imaging of the GI tract. The patient reports a history of intermittent epigastric abdominal pain, the pain is postprandial and doesn't radiate. Its associated with early satiety, bloating and inability to complete full sized meals. Also reports decreased PO intake and 20 lbs weight loss. Also reports constipation, with bowel movement once a week, alternating with diarrhea. No hematochezia or melena. No prior colonoscopy. She had abnormal imaging concerning for dilated bile and pancreatic duct. She has a family hx of pancreatic cancer (second degree/grandparent). EUS was performed during the hospitalization that showed normal size ducts and no lesions. During this visit we discussed the patient ongoing symptoms, pancreatic imaging, other finding on her prior imaging and counseled for colon cancer screening. PMHx: Past Medical History: Diagnosis Date Bipolar 1 disorder Hypothyroidism Spondylolisthesis PSurgical Hx: Past Surgical History: Procedure Laterality Date APPENDECTOMY 1979 SECTION 1994 SECTION 2002 ESOPHAGOGASTRODUODENOSCOPY N/A 11/12/2019 Surgeon: Neto Burch MD; Location: Endoscopy ([facility]) OR Location FUSION SPINE POSTERIOR CERVICAL AND DISCECTOMY ([facility]X) 2003 UPPER ULTRASOUND ([facility]) N/A 11/12/2019 Surgeon: Neto Burch MD; Location: Endoscopy ([facility]) OR Location Family Hx: Family History Problem Relation Age of Onset COPD (chronic obstructive pulmonary disease) Brother Social Hx: Social History Socioeconomic History Marital status: Spouse name: Not on file Number of children: Not on file Years of education: Not on file Highest education level: Not on file Occupational History Not on file Social Needs Financial resource strain: Not on file Food insecurity: Worry: Not on file Inability: Not on file Transportation needs: Medical: Not on file Non-medical: Not on file Tobacco Use Smoking status: Current Every Day Smoker Smokeless tobacco: Never Used Tobacco comment: e cigarette 3-4 x /day Substance and Sexual Activity Alcohol use: Not Currently Frequency: Monthly or less Drinks per session: 1 or 2 Comment: drinks once every 6 months Drug use: Not Currently Types: Marijuana Comment: Last used 2006 Sexual activity: Not on file Lifestyle Physical activity: Days per week: Not on file Minutes per session: Not on file Stress: Not on file Relationships Social connections: Talks on phone: Not on file Gets together: Not on file Attends congregational service: Not on file Active member of club or organization: Not on file Attends meetings of clubs or organizations: Not on file Relationship status: Not on file Intimate partner violence: Fear of current or ex partner: Not on file Emotionally abused: Not on file Physically abused: Not on file Forced sexual activity: Not on file Other Topics Concern Not on file Social History Narrative Not on file Medications: No outpatient medications have been marked as taking for the 11/19/19 encounter (Office Visit) with Ayush Woodruff MD. ROS: General: (-) fever, (-) chills, (-) weight change, (-) dizziness, (-) lightheadedness, (-) decreasedappetite, (+) fatigue Skin: (-) rash, (-) lesion HEENT: (-) headache, (-) nasal discharge, (-) sore throat, (-) vision changes, Neck: (-) pain Heme: (-) bleeding disorder Resp: (-) cough, (-) shortness of breath Cardio: (-) chest pain, (-) palpitations GI: per HPI : (-) dysuria, (-) hematuria Endo: (-) polyuria (-) polydipsia Neuro: (-) numbness, (-) tingling CATERINA: (-) muscle pain, (-) joint pain Psych: (-) suicidal ideation , (-) homicidal ideation PE: BP 125/86 (BP Location: Right arm, Patient Position: Sitting, BP CUFF SIZE: Adult Medium) | Pulse 104 | Temp 37.7 C (99.8 F) (Oral) | Resp 16 | Ht 5' 2" (1.575 m) | Wt 143 lb 3.2 oz (65 kg) |LMP 11/05/2019 (Exact Date) | SpO2 95% | BMI 26.19 kg/m General: Patient is comfortable and in no acute distress HEENT/Eye: no scleral icterus, no conjunctival pallor Neck: No rigidity, supple Cardiovascular: S1,S2 were positive, no added sounds were heard Respiratory: Chest was clear to ausculation, bilaterally. No wheezes were heard Gastrointestinal: Soft, diffuse tenderness to palpation, worse at epigastric area, no rebound or guarding, hepatomegaly, no splenomegaly. No guarding or rebound. Skin: Normal skin turgor, multiple tattoo Neurologic: Oriented x 3, motor and sensory are grossly intact Psychiatric: normal effect. Assessment / Plan: Varsha Ramos is a 49 year old female with: 1- For abdominal pain/Constipation: Take Miralax 1 capful daily with 8 oz of water and titrate dose as needed. You may increase it for a goal of one bowel movements per day. And when you start miralax you may encounter increase in bowel movements/diarrhea. This is normal, do not stop the medicine because. For Digestion take Papaya seed enzyme 1 capsule three times a day with meals. There is a herb called Iberogast available online 10-20 drops per day - you can find on Join The Wellness Team. 2- Colon cancer screening - will schedule you for colonoscopy. 3- Enlarged liver - will continue to monitor 4- For family history of pancreatic cancer, personal history of pancreatitis and initial concern forabnormal imaging - will obtain blood testing today and continue to follow up pancreatic labs in clinic 5- For adrenal lesion - will refer to endocrinology. 6- If symptoms are persistent will consider further motility testing with sitz marker and gastric emptying study. 7- Follow up with Dr. Vicente in 6-8 weeks. Poorly digestible food Medium digestible food Easily digestible food Vegetables and roots ?Raw: carrots, turnip, parsnips Cooked: carrots, turnip, parsnips Mashed turnips, mixed beetroot pickled beet ?Cooked cauliflower and broccoli stem Cooked cauliflower flower, broccoli flower ?Asparagus stalk Asparagus tip ?Green pea Green pea pure ?Boiled corn (Cooked and mixed) corn pat ?Cooked beans (Cooked and mixed) beans pat ?Cooked brussels sprouts (Cooked and mixed) brussels sprout pat ?Raw and cooked cabbage ?Raw, boiled, and fried mushrooms Mixed mushrooms Mushroom paste ?Boiled and fried onion Fine mixed onion, dried powdered onion ?Cooked leeks Mixed leeks ?Rhubarb ?Salad, cucumber, tomatoes Canned crushed tomatoes Tomato paste ?Pepper Pepper without skin Mixed pepper ?Avocado Mashed avocado Fruit and parker ?Fresh fruit Cooked and canned fruit or parker Puree of fruit or parker ?Skin and membrane of citrus: ?[place], summer, grapefruit ?Pineapple Ripe pears without skin Ripe pears without skin, canned peach Raspberries, strawberries Gooseberries ?Blueberries, currant, and lingo berries Mixed: blueberries, currant and lingo berries ?Blackberry, cloudberries ?Green and green-yellow banana Yellow banana Yellow-brown banana ?Netted melon Kiwi, soft gala melon Mixed kiwi, water melon [place], papaya Nuts and Almonds ?Fruits and almonds Flour of fruits and almonds Potato ?Fried potatoes, mauritanian potatoes Boiled potatoes, baked potatoes Mashed potatoes, pressed potatoes, creamed potatoes Pasta and rice ?Pasta ?Parboiled rice and brown rice, non-parboiled rice ?Bulgur, couscous, porridge Bread ?White fresh bread Wholegrain cereal flour bread Brown crisp ?Bread with seeds and whole grains Bread baked on coarse flour Bread baked on whole meal flour, rye crisp, rusks Cheese ?Fat cheese, ripened cheese Cottage cheese Processed cheese, spreadable cheese, quark Eggs ?Hard-boiled eggs, soft-boiled eggs Mashed-boiled eggs, mauritanian omelet ?Pancakes ?Scrambled eggs made in frying max Scrambled eggs made in pot Baked omelet [place]wana style, baked egg ?Butter pudding Meat ?Whole meat Minced meat dishes Mixed minced dishes, sausage Jellied veal Extra thin slices of ham Fish and seafood ?Cured salmon, smoked salmon Baked salmon Baked flatfish, boiled fish loaf dishes, fish pudding ?Raw spiced salmon Baked mackerel baked cod fish Fish souffl, fish balls, fish parrish, fish gratin colon terrine ?Shrimp, crab, clams, tails Mixed shrimp, crab, clams, tails Cooking methods ?Raw, wok Cooked, canned Puree, mixed, parrish, timbale, sauces ?Fried in a max, deep fried, wok Roasted, baked Cooked ?Coating with egg and breadcrumbs ?Coating with breadcrumbs ?Fat cooking methods Lean cooking methods Patient seen and discussed with faculty, Dr. Vicente Follow-up: 4-8 weeks Ayush Woodruff MD Fellow, Gastroenterology & Hepatology Pager: [phone] documented in this encounter Plan of Treatment Date Type Specialty Care Team Description 11/30/2019 Hospital Encounter Surgery Richy Vicente MD screening [address] [facility] [address] [place] [address] 11/30/2019 Surgery Surgery ALEXANDER Vicente MD [address] [facility] [address] [place] [address] 01/18/2020 Office Visit Endocrinology Nathaly Sidhu, & Metabolism MD [place] [address] [place] [address] [phone] Name Type Priority Associated Diagnoses Order S chedule IMMUNOGLOBULIN G SUBCLASS 4 LAB Routine Abnormal find ing on GI Expected: 11/19/2019, tract imaging Expires: 11/18 LIPASE LAB Routine Abnormal finding on GI Expec enrique: 11/19/2019, tract imaging Expires: 11/18 COMP. METABOLIC PANEL LAB Routine Lesion of adrenal gland Expected: 11/19/2019, ([id number]) Abnormal finding on GI Expir es: 11/18/2020 tract imaging Health Maintenance Due Date Last Done Comments PNEUMOCOCCAL 0-64 YEARS COMBINED 1975 SERIES (1 of 1 - PPSV23) DTaP,Tdap,and Td Vaccines ( - 01/14/1980 Tdap) PAP SMEAR 1990 Breast Cancer Screening 2009 (MAMMOGRAM) COLONOSCOPY 2019 Zoster Recombinant Vaccine 2019 (SHINGRIX) (1 of 2) INFLUENZA VACCINE (Season Ended) 2020 03/25/2018, 06/2015, 05/17/2016, Additional history exists Depression Screening 11/11/2020 11/12/2019 documented as of this encounter Results Not on filedocumented in this encounter Visit Diagnoses Diagnosis Colon cancer screening - Primary Special screening for malignant neoplasm s, colon Lesion of adrenal gland Abnormal finding on GI tract imaging Nonspecific (abnormal) findings on radio logical and other examination of gastrointestinal tract documented in this encounter Guarantor Name Account Type Relation to Date of Phone Billing Patient Address Varsha Ramos Personal/Family Self 1970 [address] (Home) [facility] [phone] [facility], ([place]) [place] [address] documented as of this encounter
--- OUTSIDE RECORDS SUMMARY | 2019-12-30 06:39 | XMS REPORT | Summary of Care ---
:1970 Author Organization [facility] - Health Address [address] [place] [address] Care Team Providers Name Role Phone Ctr, Admin Med Primary Care Provider Encounter Details Date Type Department Care Team Description 11/30/2019 Orders Only [facility] Doctor Unassigned, No [address] [facility] [place] [address] [address] [place] [address] Allergies Active Allergy Reactions Severity Noted Date Comments Ciprofloxacin Anaphylaxis 07/27/2011 Sulfa (Sulfonamide Antibiotics) Unknown - See comments 09/27/2008 Zonisamide Unknown - See comments 01/16/2008 documented as of this encounter (statuses as of 11/30/2019) Medications Medication Sig Dispensed Refills Start Date [...] Nausea unspecified abdominal and Vomiting (N/V). location fluconazole 150 mg TAKE ONE TABLET BY 0 Active tablet MOUTH DAILY diclofenac 50 mg EC TAKE ONE TABLET BY 0 Active tablet MOUTH TWICE A DAY NEEDED documented as of this encounter (statuses as of 11/30/2019) Active Problems Problem Noted Date Colon cancer screening 11/20/2019 Overview: Added automatically from request for mauro cliff [id number] RUQ pain 11/11/2019 RUQ abdominal pain 11/11/2019 Pancreatic duct dilated 11/10/2019 Overview: Added automatically from request for mauro cliff [id number] Common bile duct dilation 11/10/2019 Overview: Added automatically from request for mauro cliff [id number] Spondylolisthesis Hypothyroidism Bipolar 1 disorder documented as of this encounter (statuses as of 11/30/2019) Social History Tobacco Use Types Packs/Day Years [...] been in contact with No / Unsure 11/30/2019 11:05 AM CDT someone who was confirmed or suspected to have Coronavirus / COVID-19? documented as of this encounter Last Filed Vital Signs Not on filedocumented in this encounter Plan of Treatment Date Type Specialty Care Team Description 12/04/2019 Office Visit Pulmonary Disease Otoniel Shields MD [address] [address] [phone] 12/10/2019 Office Visit Family Medicine Vitaliy Leslie MD [address] [place] [address] [address] [place], [place] [address] [phone] 01/18/2020 Office Visit Endocrinology Diabetes & Olinda Bill MD [facility] [address] [place], [place] [address] Health Maintenance Due Date Last Done Comments [...] Diagnosis Comme nts ASSIGNMENT OF BENEFITS Routine 11/30/2019 11:05 AM CDT documented in this encounter Results Not on filedocumented in this encounter Insurance Payer Benefit Plan / Group Subscriber ID Effective Dates Phone Address Type [employer]ETNA [employer] [facility] [id number] 2019-Present PPO documented as of this encounter
--- OUTSIDE RECORDS SUMMARY | 2019-12-30 06:39 | XMS REPORT | Summary of Care ---
:1970 Author Organization [facility] - [facility] Address [address] [place] [address] Care Team Providers Name Role Phone Ctr, Admin Med Primary Care Provider Reason for Referral (CHARISSE) Status Reason Specialty Diagnoses / Referred By Referred To Procedures Contact Contact New Request Pulmonary Disease Diagnoses Pleural nodule Flower Vicente, Procedures CONSULT/REFERRAL PULMONARY MD [address] [place] [address] [address] [place] [address] (CHARISSE) Status Reason Specialty Diagnoses / Referred By Referred To Procedures Contact Contact New Request Family Medicine Diagnoses Fibroids [place], Procedures CONSULT/REFERRAL FAMILY MEDICINE [address] [place] [address] 2.[address] [place] [address] Encounter Details Date Type Department Care Team Description 11/24/2019 Patient Secure [facility] Ayush Woodruff Fibroids (P rimary Dx); Msg GASTROENTEROLOGY -Cosme Villanueva MD Pleural nodule [address] [place] [address] [phone] Allergies Active Allergy Reactions Severity Noted Date Comments Ciprofloxacin Anaphylaxis 07/27/2011 Sulfa (Sulfonamide Antibiotics) Unknown - See comments 09/27/2008 Zonisamide Unknown - See comments 01/16/2008 documented as of this encounter (statuses as of 11/25/2019) Medications Medication Sig Dispensed Refills Start Date [...] as of this encounter (statuses as of 11/25/2019) Active Problems Problem Noted Date Colon cancer screening 11/20/2019 Overview: Added automatically from request for mauro coronado [id number] RUQ pain 11/11/2019 RUQ abdominal pain 11/11/2019 Pancreatic duct dilated 11/10/2019 Overview: Added automatically from request for mauro coronado [id number] Common bile duct dilation 11/10/2019 Overview: Added automatically from request for mauro coronado [id number] Spondylolisthesis Hypothyroidism Bipolar 1 disorder documented as of this encounter (statuses as of 11/25/2019) Social History Tobacco Use Types Packs/Day Years [...] been in contact with No / Unsure 11/24/2019 1:41 PM CDT someone who was confirmed or suspected to have Coronavirus / COVID-19? documented as of this encounter Last Filed Vital Signs Not on filedocumented in this encounter Plan of Treatment Date Type Specialty Care Team Description 11/26/2019 Laboratory Only Phlebotomy Only, Bc Cbc Test 11/30/2019 Hospital Encounter Surgery Flower Vicente, Colon cancer screening [address] [place] [address] [place] [phone] 11/30/2019 Anesthesia Event Surgery Mira Shirley, PAULA [address] [place] [address] 11/30/2019 Surgery Surgery Flower Vicente, COLONOSCOPY [address] [facility] [address] [place] [phone] 01/18/2020 Office Visit Endocrinology Olinda Sidhu, Diabetes & Metabolism [facility] [place] [address] [phone] 01/22/2020 Office Visit Pulmonary Disease Conrad Shields MD [address] [place] [address] [id number] Health Maintenance Due Date Last Done Comments [...] filedocumented in this encounter Visit Diagnoses Diagnosis Fibroids - Primary Leiomyoma of uterus, unspecified Pleural nodule Swelling, mass, or lump in chest documented in this encounter Insurance Payer Benefit Plan / Group Subscriber ID Effective Dates Phone Address Type AETNA AETNA [facility] [id number] 2019-Present PPO documented as of this encounter
--- OUTSIDE RECORDS SUMMARY | 2019-12-30 06:39 | XMS REPORT | Summary of Care ---
:1970 Author Organization [facility] - [facility] Address [address] [place] [address] Care Team Providers Name Role Phone Ctr, Admin Med Primary Care Provider Reason for Referral (Routine) Status Reason Specialty Diagnoses / Referred By Referred To Procedures Contact Contact New Request Endocrinology Diagnoses Abnormal finding on GI tract imaging Cecil Martin Diabetes & Procedures CONSULT/REFERRAL ENDOCRINOLOGY MD Ashia Metabolism [address] [place] [id number] [place] [address] Reason for Visit Reason Comments New Patient (Routine) Status Reason Specialty Diagnoses / Referred By Referred To Procedures Contact Contact Closed IM-GASTROENTEROLOGY / Diagnoses Right upper quadrant abdominal pain Pancreatic duct dilated RUQ abdominal pain [place], Gastroenterology Procedures Discharge Follow-Up: Specialty Service IM-GASTROENTEROLOGY; 1 Month Heber Aquino MD [address] [facility] [address] [place] [address] Encounter Details Date Type Department Care Team Description 11/19/2019 Office Visit [facility] Cecil Martin MD [address] [facility] [id number] [place], [place] [phone] Abnormal finding on GI tract imaging (Pr imary Dx); GASTROENTEROLOGY -Ayush Burton MD [address] [place] [address]. [place] [phone] Lesion of adrenal gland; [facility] Abdominal pain, generalized; [address] [facility] Colon cancer screening; [place], [place] Talha saeed [phone] Allergies Active Allergy Reactions Severity Noted Date [...] Added automatically from request for mauro cliff [id number] RUQ pain 11/11/2019 RUQ abdominal pain 11/11/2019 Pancreatic duct dilated 11/10/2019 Overview: Added automatically from request for mauro cliff [id number] Common bile duct dilation 11/10/2019 Overview: Added automatically from request for mauro cliff [id number] Spondylolisthesis Hypothyroidism Bipolar 1 disorder documented as [...] per day - you can find on [employer]App. 2- Colon cancer screening - will schedule [...] gastric emptying study. 8- send me a mychart message in 2 weeks on how are [...] or parker ?Skin and membrane of citrus: ?[place], summer, grapefruit ?Pineapple Ripe pears without skin Ripe pears without skin, canned peach Raspberries, strawberries Gooseberries ?Blueberries, currant, and lingo berries Mixed: blueberries, currant and lingo berries ?Blackberry, cloudberries ?Green and green-yellow banana Yellow banana Yellow-brown banana ?Netted melon Kiwi, soft gala melon Mixed kiwi, water melon [place], papaya Nuts and Almonds ?Fruits and almonds Flour of fruits and almonds Potato ?Fried potatoes, fijian potatoes Boiled potatoes, baked potatoes Mashed potatoes, [...] Eggs ?Hard-boiled eggs, soft-boiled eggs Mashed-boiled eggs, fijian omelet ?Pancakes ?Scrambled eggs made in frying max Scrambled eggs made in pot Baked omelet Maori style, baked egg ?Butter pudding Meat ?Whole [...] Clinic Note Date: 11/19/2019 Name: Varsha Ramos : 1970 Referred By: Heber Rosado MD [address] [place] [address] PCP: [facility] Reason for Visit: Abdominal pain, abnormal [...] file Gets together: Not on file Attends taoism service: Not on file Active member of [...] per day - you can find on [employer]. 2- Colon cancer screening - will schedule [...] or parker ?Skin and membrane of citrus: ?[place], summer, grapefruit ?Pineapple Ripe pears without skin Ripe pears without skin, canned peach Raspberries, strawberries Gooseberries ?Blueberries, currant, and lingo berries Mixed: blueberries, currant and lingo berries ?Blackberry, cloudberries ?Green and green-yellow banana Yellow banana Yellow-brown banana ?Netted melon Kiwi, soft gala melon Mixed kiwi, water melon [place], papaya Nuts and Almonds ?Fruits and almonds Flour of fruits and almonds Potato ?Fried potatoes, fijian potatoes Boiled potatoes, baked potatoes Mashed potatoes, [...] Eggs ?Hard-boiled eggs, soft-boiled eggs Mashed-boiled eggs, fijian omelet ?Pancakes ?Scrambled eggs made in frying max Scrambled eggs made in pot Baked omelet Maori style, baked egg ?Butter pudding Meat ?Whole [...] Woodruff MD Fellow, Gastroenterology & Hepatology Pager: [phone] documented in this encounter Plan of Treatment Date Type Specialty Care Team Description 11/30/2019 Hospital Encounter Surgery Flower Vicente, Colon cancer screening [address] [facility] [address] [place] [phone] 11/30/2019 Anesthesia Event Surgery Mira Shirley, PAULA [address] [place] [address] 11/30/2019 Surgery Surgery Flower Vicente, COLONOSCOPY MD [address] [facility] [address] [place] [phone] 01/18/2020 Office Visit Endocrinology Olinda Sidhu, Diabetes & Metabolism MD [address] [place], [place] [phone] Name Type Priority Associated Diagnoses Order S chedule IMMUNOGLOBULIN G SUBCLASS 4 LAB Routine Abnormal find ing on GI Expected: 11/19/2019, tract imaging Expires: 11/18 LIPASE LAB Routine Abnormal finding on GI Expec enrique: 11/19/2019, tract imaging Expires: 11/18 COMP. METABOLIC PANEL LAB Routine Lesion of adrenal gland Expected: 11/19/2019, ([id number]) Abnormal finding on GI Expir es: 11/18/2020 [...] filedocumented in this encounter Visit Diagnoses Diagnosis Abnormal finding on GI tract imaging - P rimary Nonspecific (abnormal) findings on radio logical and other examination of gastrointestinal tract Lesion of adrenal gland Abdominal pain, generalized Colon cancer screening Special screening for malignant neoplasm s, colon Other constipation documented in this encounter Guarantor Name Account Type Relation to Date of Phone Billing Patient Address Varsha Ramos Personal/Family Self 1970 [address] (Home) [facility] [phone] [facility], ([place]) [place] [address] documented as of this encounter
--- OUTSIDE RECORDS SUMMARY | 2019-12-30 06:39 | XMS REPORT | Summary of Care ---
:1970 Author Organization [facility] Address [address] [place] [address] Care Team Providers Name Role Phone Ctr, Admin Med Primary Care Provider Reason for Referral (Routine) Status Reason Specialty Diagnoses / Referred By Referred To Procedures Contact Contact New Request Endocrinology Diagnoses Abnormal finding on GI tract imaging Cecil Martin Diabetes & Procedures CONSULT/REFERRAL ENDOCRINOLOGY MD Ashia Metabolism [address] [place] [id number] [place] [address] Reason for Visit Reason Comments New Patient (Routine) Status Reason Specialty Diagnoses / Referred By Referred To Procedures Contact Contact Closed IM-GASTROENTEROLOGY / Diagnoses Right upper quadrant abdominal pain Pancreatic duct dilated RUQ abdominal pain [place], Gastroenterology Procedures Discharge Follow-Up: Specialty Service IM-GASTROENTEROLOGY; 1 Month Heber Aquino MD [address] [facility] [address] [place] [address] Encounter Details Date Type Department Care Team Description 11/19/[address] [facility] Cecil Martin MD [address] [facility] [id number] [place], [place] [phone] Colon cancer screening (Primary Dx); GASTROENTEROLOGY -Ayush Burton MD [address] [place] [address]. [place] [phone] Lesion of adrenal gland; [place] Abnormal finding on GI tract imaging [address] [facility] [place] [phone] Allergies Active Allergy Reactions Severity Noted Date [...] Added automatically from request for mauro cliff [id number] RUQ pain 11/11/2019 RUQ abdominal pain 11/11/2019 Pancreatic duct dilated 11/10/2019 Overview: Added automatically from request for mauro cliff [id number] Common bile duct dilation 11/10/2019 Overview: Added automatically from request for mauro cliff [id number] Spondylolisthesis Hypothyroidism Bipolar 1 disorder documented as [...] per day - you can find on [employer] [place]. 2- Colon cancer screening - will schedule [...] gastric emptying study. 8- send me a IOCOMt message in 2 weeks on how are [...] or parker ?Skin and membrane of citrus: ?[place], summer, grapefruit ?Pineapple Ripe pears without skin Ripe pears without skin, canned peach Raspberries, strawberries Gooseberries ?Blueberries, currant, and lingo berries Mixed: blueberries, currant and lingo berries ?Blackberry, cloudberries ?Green and green-yellow banana Yellow banana Yellow-brown banana ?Netted melon Kiwi, soft gala melon Mixed kiwi, water melon [place], papaya Nuts and Almonds ?Fruits and almonds Flour of fruits and almonds Potato ?Fried potatoes, gambian potatoes Boiled potatoes, baked potatoes Mashed potatoes, [...] Eggs ?Hard-boiled eggs, soft-boiled eggs Mashed-boiled eggs, gambian omelet ?Pancakes ?Scrambled eggs made in frying max Scrambled eggs made in pot Baked omelet Divehi style, baked egg ?Butter pudding Meat ?Whole [...] 1970 Referred By: Heber Rosado MD [address] [facility] [address] [place] [address] PCP: [facility] Reason for Visit: Abdominal pain, abnormal [...] file Gets together: Not on file Attends tenriism service: Not on file Active member of [...] per day - you can find on [employer] [place]. 2- Colon cancer screening - will schedule [...] or parker ?Skin and membrane of citrus: ?[place], summer, grapefruit ?Pineapple Ripe pears without skin Ripe pears without skin, canned peach Raspberries, strawberries Gooseberries ?Blueberries, currant, and lingo berries Mixed: blueberries, currant and lingo berries ?Blackberry, cloudberries ?Green and green-yellow banana Yellow banana Yellow-brown banana ?Netted melon Kiwi, soft gala melon Mixed kiwi, water melon [place], papaya Nuts and Almonds ?Fruits and almonds Flour of fruits and almonds Potato ?Fried potatoes, gambian potatoes Boiled potatoes, baked potatoes Mashed potatoes, [...] Eggs ?Hard-boiled eggs, soft-boiled eggs Mashed-boiled eggs, gambian omelet ?Pancakes ?Scrambled eggs made in frying max Scrambled eggs made in pot Baked omelet Divehi style, baked egg ?Butter pudding Meat ?Whole [...] Woodruff MD Fellow, Gastroenterology & Hepatology Pager: [phone] documented in this encounter Plan of Treatment Date Type Specialty Care Team Description 11/30/2019 Hospital Encounter Surgery Richy Vicente MD screening [address] [facility] [address] [place] [address] 11/30/2019 Surgery Surgery ALEXANDER Vicente MD [address] [facility] [address] [place] [address] 01/18/2020 Office Visit Endocrinology Nathaly Sidhu, & Metabolism MD Olinda [address] [place] [address] [phone] Name Type Priority Associated Diagnoses Order S chedule IMMUNOGLOBULIN G SUBCLASS 4 LAB Routine Abnormal find ing on GI Expected: 11/19/2019, tract imaging Expires: 11/18 LIPASE LAB Routine Abnormal finding on GI Expec enrique: 11/19/2019, tract imaging Expires: 11/18 COMP. METABOLIC PANEL LAB Routine Lesion of adrenal gland Expected: 11/19/2019, ([id number]) Abnormal finding on GI Expir es: 11/18/2020 [...] Patient Address Varsha Ramos Personal/Family Self 1970 [address] (Home) [facility] [phone] [facility], ([place]) [place] [id number] documented as of this encounter
--- OUTSIDE RECORDS SUMMARY | 2019-12-30 06:39 | XMS REPORT | Summary of Care ---
:1970 Author Organization [facility] Address [address] [place] [address] Care Team Providers Name Role Phone Ctr, Admin Med Primary Care Provider Encounter Details Date Type Department Care Team Description 11/26/2019 Patient Secure [facility] Ayush Woodruff [facility] GASTROENTEROLOGY -Cosme Villanueva MD [address] [place] [id number] 4[address]6425 [place], [place] [phone] [address] Allergies Active Allergy Reactions Severity Noted Date Comments Ciprofloxacin Anaphylaxis 07/27/2011 Sulfa (Sulfonamide Antibiotics) Unknown - See comments 09/27/2008 Zonisamide Unknown - See comments 01/16/2008 documented as of this encounter (statuses as of 11/29/2019) Medications Medication Sig Dispensed Refills Start Date [...] as of this encounter (statuses as of 11/29/2019) Active Problems Problem Noted Date Colon cancer screening 11/20/2019 Overview: Added automatically from request for mauro coronado [id number] RUQ pain 11/11/2019 RUQ abdominal pain 11/11/2019 Pancreatic duct dilated 11/10/2019 Overview: Added automatically from request for mauro cliff [id number] Common bile duct dilation 11/10/2019 Overview: Added automatically from request for mauro cliff [id number] Spondylolisthesis Hypothyroidism Bipolar 1 disorder documented as of this encounter (statuses as of 11/29/2019) Social History Tobacco Use Types Packs/Day Years [...] been in contact with No / Unsure 11/26/2019 9:06 AM CDT someone who was confirmed or suspected to have Coronavirus / COVID-19? documented as of this encounter Last Filed Vital Signs Not on filedocumented in this encounter Plan of Treatment Date Type Specialty Care Team Description 11/30/2019 Hospital Encounter Surgery Flower Vicente, Colon cancer screening [address] [place] [address] [address] [place] [address] 11/30/2019 Anesthesia Event Surgery Mira Shirley, PAULA [address] [place] [address] 11/30/2019 Surgery Surgery Flower Vicente, COLONOSCOPY [address] [facility] [address] [place] [address] 12/04/2019 Office Visit [place] [address] [place] [address] 874563 12/10/2019 Office Visit Family Medicine Vitaliy Leslie MD [address] [place] [address] 205 [place] [address] [phone] 01/18/2020 Office Visit Endocrinology Olinda Sidhu, Diabetes & Metabolism [address] [place] [address] 415743 Health Maintenance Due Date Last Done Comments [...] Effective Dates Phone Address Type AETNA AETNA [facility] [id number] 2019-Present PPO documented as of this encounter
--- OUTSIDE RECORDS SUMMARY | 2019-12-30 06:40 | XMS REPORT | Summary of Care ---
:1970 Author Organization [facility] - [facility] Address [address] [place] [address] Care Team Providers Name Role Phone Ctr, Admin Med Primary Care Provider Encounter Details Date Type Department Care Team Description 11/30/2019 Prep For Surgery [facility] Richy Vicente GASTROENTEROLOGY -Cosme Crenshaw MD screening ([facility] [address] [place] Dx) [address] [facility] [place], [place] Zhao [address].110 [address] [place], [place] [phone] Allergies Active Allergy Reactions Severity Noted Date Comments Ciprofloxacin Anaphylaxis 07/27/2011 Sulfa (Sulfonamide Antibiotics) Unknown - See comments 09/27/2008 Zonisamide Unknown - See comments 01/16/2008 documented as of this encounter (statuses as of 11/30/2019) Medications Medication Sig Dispensed Refills Start Date End Date Status peg-electrolyte soln Use as directed 8000 mL 0 11/30/2019 Active 236-22.74-6.74 -5.86 gram solution gabapentin 400 mg Take 400 mg by 0 Suspended capsule mouth 3 (three) times daily. levothyroxine 75 mcg Take 75 mcg by 0 Suspended tablet mouth every morning. SERTraline 50 mg Take 100 mg by 0 Suspended tablet mouth daily. OXcarbazepine 300 mg Take 450 mg by 0 Suspended tablet mouth 2 (two) times daily. amitriptyline 25 mg Take 25 mg by 0 Suspended tablet mouth at bedtime. QUEtiapine 300 mg Take 150 mg by 0 Suspended tablet mouth at bedtime. ondansetron 4 mg Take 1 tablet 30 tablet 0 11/17/2019 Suspended disintegrating by mouth every tabletIndications: 8 (eight) hours Nausea as needed (N/V). Additional information lactulose 10 gram/15 mL oral Take 30 mL by mouth 3 1 Bottle 0 11/21/2019 Suspended solutionIndications: (three) times daily Constipation, unspecified as needed for constipation type Constipation or For bowel movement. Additional information dicyclomine 20 mg Take 1 tablet by 20 tablet 0 11/21/2019 Suspended tabletIndications: Abdominal mouth every 6 (six) pain, unspecified abdominal hours as needed for location Abdominal pain. Additional information ondansetron (ZOFRAN) 4 mg Take 1 tablet by 12 tablet 0 020 Suspended tabletIndications: Abdominal mouth every 8 pain, unspecified abdominal (eight) hours as location needed for Nausea and Vomiting (N/V). Additional information fluconazole 150 mg tablet TAKE ONE TABLET BY MOUTH DAILY 0 Suspended diclofenac 50 mg EC tablet TAKE ONE TABLET BY MOUTH TWICE A DAY 0 Suspended NEEDED documented as of this encounter (statuses as of 11/30/2019) Active Problems Problem Noted Date Colon cancer screening 11/20/2019 Overview: Added automatically from request for mauro cliff [id number] RUQ pain 11/11/2019 RUQ abdominal pain 11/11/2019 Pancreatic duct dilated 11/10/2019 Overview: Added automatically from request for mauro cliff [id number] Common bile duct dilation 11/10/2019 Overview: Added automatically from request for mauro cliff [id number] Spondylolisthesis Hypothyroidism Bipolar 1 disorder documented as [...] in contact with No / Unsure 11/30/2019 11:07 AM CDT someone who was confirmed or suspected to have Coronavirus / COVID-19? documented as of this encounter Last Filed Vital Signs Not on filedocumented in this encounter Plan of Treatment Date Type Specialty Care Team Description 12/04/2019 Office Visit Pulmonary Disease Otoniel Shields MD [address] [address] [phone] 12/10/2019 Office Visit Family Medicine Vitaliy Leslie MD [address] [place] [address] 205 [place], [place] [address] 01/18/2020 Office Visit Endocrinology Diabetes & Olinda Bill MD [address] [address] [phone] Health Maintenance Due Date Last Done Comments PNEUMOCOCCAL 0-64 YEARS COMBINED 1975 SERIES (1 of 1 - PPSV23) DTaP,Tdap,and Td Vaccines (1 - 01/14/1980 Tdap) PAP SMEAR 1990 Breast Cancer Screening 2009 (MAMMOGRAM) COLONOSCOPY 2019 Zoster Recombinant Vaccine 2019 (SHINGRIX) (1 of 2) INFLUENZA VACCINE (Season Ended) 2020 03/25/2018, 06/2015, 05/17/2016, Additional history exists Depression Screening 11/29/2020 11/30/2019 documented as of this encounter Results Not on filedocumented in this encounter Visit Diagnoses Diagnosis Colon cancer screening - Primary Special screening for malignant neoplasm s, colon documented in this encounter Insurance Payer Benefit Plan / Group Subscriber ID Effective Dates Phone Address Type AETNA AETNA [facility] [id number] 2019-Present PPO documented as of this encounter
--- OUTSIDE RECORDS SUMMARY | 2019-12-30 06:40 | XMS REPORT | Summary of Care ---
:1970 Author Organization [facility] [[email or web address] - [facility] Address [address] [place] [address] Care Team Providers Name Role Phone Ctr, Admin Med Primary Care Provider Encounter Details Date Type Department Care Team Description 11/30/2019 Patient Secure [facility] Ayush Woodruff [facility] GASTROENTEROLOGY -Cosme Villanueva MD [address] [place] [phone] [place], [place] [phone] Allergies Active Allergy Reactions Severity Noted [...] mg tablet Take 100 mg by 0 Suspended mouth daily. OXcarbazepine 300 mg Take 450 mg by 0 Suspended tablet mouth 2 (two) times daily. amitriptyline 25 mg Take 25 mg by 0 Suspended tablet mouth at bedtime. QUEtiapine 300 mg Take 150 mg by 0 Suspended tablet mouth at bedtime. ondansetron 4 mg Take 1 tablet 30 tablet 0 11/17/2019 Suspended disintegrating by mouth every tabletIndications: 8 (eight) Nausea hours as needed (N/V). Additional information peg-electrolyte soln Take as directed before 4000 mL 0 11/18 Suspended 236-22.74-6.74 -5.86 gram colonoscopy solution Additional information lactulose 10 gram/15 mL oral [...] Added automatically from request for mauro cliff [id number] RUQ pain 11/11/2019 RUQ abdominal pain 11/11/2019 Pancreatic duct dilated 11/10/2019 Overview: Added automatically from request for mauro cliff [id number] Common bile duct dilation 11/10/2019 Overview: Added automatically from request for mauro cliff [id number] Spondylolisthesis Hypothyroidism Bipolar 1 disorder documented as [...] Office Visit Pulmonary Disease Otoniel Shields MD [address] [place] [address] [phone] 12/10/2019 Office Visit Family Medicine Vitaliy Leslie MD [address] [place] [address] [phone] 01/18/2020 Office Visit Endocrinology Diabetes & Kesired Olinda thayer MD [address] [phone] Health Maintenance Due Date Last Done Comments [...] Effective Dates Phone Address Type AETNA AETNA [facility] [id number] 2019-Present PPO documented as of this encounter
--- OUTSIDE RECORDS SUMMARY | 2019-12-30 06:40 | XMS REPORT | Summary of Care ---
:1970 Author Organization [facility] Address [address] [place] [address] Care Team Providers Name Role Phone Ctr, Admin Med Primary Care Provider Encounter Details Date Type Department Care Team Description 11/30/2019 Patient Secure [facility] Ayush Woodruff [facility] GASTROENTEROLOGY -Cosme Villanueva MD [address] [place] [phone] [place], [place] [phone] Allergies Active Allergy Reactions Severity Noted [...] Added automatically from request for mauro cliff [id number] RUQ pain 11/11/2019 RUQ abdominal pain 11/11/2019 Pancreatic duct dilated 11/10/2019 Overview: Added automatically from request for mauro cliff [id number] Common bile duct dilation 11/10/2019 Overview: Added automatically from request for mauro cliff [id number] Spondylolisthesis Hypothyroidism Bipolar 1 disorder documented as [...] Office Visit Pulmonary Disease Otoniel Shields MD [address] [place] [address] [phone] 12/10/2019 Office Visit Family Medicine Vitaliy Leslie MD [address] [place] [address] [phone] 01/18/2020 Office Visit Endocrinology Diabetes & Kesired Olinda thayer MD [address] [phone] Health Maintenance Due Date Last Done Comments [...] Effective Dates Phone Address Type AETNA AETNA [facility] [id number] 2019-Present PPO documented as of this encounter
--- OUTSIDE RECORDS SUMMARY | 2019-12-30 06:41 | XMS REPORT | Summary of Care ---
:1970 Author Organization [facility] - Health Address [address] [place] [address] Care Team Providers Name Role Phone Ctr, Admin Med Primary Care Provider Reason for Visit Auth/Cert Status Reason Specialty Diagnoses / Procedures Referred By C ontact Referred To Contact Surgery Diagnoses Colon cancer screening [Z12.11] Vl Preop Procedures [facility] CODING HELP COLONOSCOPY [address] [facility] [place] [address] Phone: Fax: Encounter Details Date Type Department Care Team Description 11/30/2019 Hospital Encounter [facility] F[facility] [place], Colon cancer [facility] MD screening Anesthesia Care [address] Zhao 2.110 [place] [phone] Allergies Active Allergy Reactions Severity Noted Date Comments Ciprofloxacin Anaphylaxis 07/27/2011 Sulfa (Sulfonamide Antibiotics) Unknown - See comments 09/27/2008 Zonisamide Unknown - See comments 01/16/2008 documented as of this encounter (statuses as of 11/30/2019) Medications Medication Sig Dispensed Refills Start End Date Status Date gabapentin 400 mg Take 400 mg by 0 Active capsule mouth 3 (three) times daily. levothyroxine 75 Take 75 mcg by 0 Active mcg tablet mouth every morning. SERTraline 50 mg Take 100 mg by 0 Active tablet mouth daily. OXcarbazepine 300 Take 450 mg by 0 Active mg tablet mouth 2 (two) times daily. amitriptyline 25 Take 25 mg by 0 Active mg tablet mouth at bedtime. QUEtiapine 300 mg Take 150 mg by 0 Active tablet mouth at bedtime. ondansetron 4 mg Take 1 tablet by 30 tablet 0 Active disintegrating mouth every 8 0 tabletIndications: (eight) hours as Nausea needed (N/V). lactulose 10 Take 30 mL by 1 Bottle 0 Act isaac gram/15 mL oral mouth 3 (three) 0 solutionIndication times daily as s: Constipation, needed for unspecified Constipation or constipation type For bowel movement. dicyclomine 20 mg Take 1 tablet by 20 tablet 0 Active tabletIndications: mouth every 6 0 Abdominal pain, (six) hours as unspecified needed for abdominal location Abdominal pain. ondansetron Take 1 tablet by 12 tablet 0 A ctive (ZOFRAN) 4 mg mouth every 8 0 tabletIndications: (eight) hours as Abdominal pain, needed for unspecified Nausea and abdominal location Vomiting (N/V). fluconazole 150 mg TAKE ONE TABLET 0 Active tablet BY MOUTH DAILY diclofenac 50 mg TAKE ONE TABLET 0 Active EC tablet BY MOUTH TWICE A DAY NEEDED peg-electrolyte Take as directed 4000 mL 0 0 Discontinued soln before 0 20 (Duplicate ) 236-22.74-6.74 colonoscopy -5.86 gram solution documented as of this encounter (statuses as of 11/30/2019) Active Problems Problem Noted Date Colon cancer screening 11/20/2019 Overview: Added automatically from request for mauro cliff [id number] RUQ pain 11/11/2019 RUQ abdominal pain 11/11/2019 Pancreatic duct dilated 11/10/2019 Overview: Added automatically from request for mauro cliff [id number] Common bile duct dilation 11/10/2019 Overview: Added automatically from request for mauro cliff [id number] Spondylolisthesis Hypothyroidism Bipolar 1 disorder documented as [...] Sign Reading Time Taken Comments Blood Pressure 119/82 11/30/2019 2:25 PM CDT Pulse 86 11/30/2019 2:25 PM CDT Temperature 36.2 C (97.2 F) 11/30/2019 2:05 PM CDT Respiratory Rate 17 11/30/2019 2:25 PM CDT Oxygen Saturation 95% 11/30/2019 2:25 PM CDT Inhaled Oxygen Concentration - - Weight 64.9 kg (143 lb) 11/30/2019 11:49 AM CDT Height 156.2 cm (5' 1.5") 11/30/2019 11:49 AM CDT Body Mass Index 26.58 11/30/2019 11:49 AM CDT documented in this encounter Discharge Instructions InstructionsVilma Tipton RN - 11/30/2019 General Discharge Instructions Procedure: Colonoscopy The medication you were given for the procedure may make you dizzy or sleepy. Do not drive, operate machinery or walk for long distances in the heat for at least 12 hours. Many patients feel very tired following these procedures and need to rest for several hours. The procedure may cause mild discomfort in the abdominal area, but the pain should disappear within several hours. Notify your physician if you have pain or tenderness for more than six hours or ifyou notice an increase in abdominal size. Advance your diet: You may resume a normal diet but first start with a light meal that is not greasy or fatty. If you are passing gas and this light meal does not bother your stomach you may continue with a normal diet for the next meal. Resume your home medications. The arm vein where medication was given may be tender. Apply a warm compress. If the pain persists for more than 12 hours, call your doctor. You will probably belch or pass gas during the first few hours after the exam. Light exercise like walking may help relieve bloating or gas pains. Avoid extreme heat when you exercise. If you had a polypectomy or a biopsy, you may notice a small amount of red blood coming from the rectum. You may also have a small amount of blood in your first bowel movement. If bleeding increases, call your doctor. If you had a polypectomy, do not take non-steroidal antiinflammatory medications containing Ibuprofen (such as Nuprin, Motrin, Advil) or medications with Aspirin (such as Bufferin) for 7 days, unless your doctor tells you otherwise. For minor pains, you may use medications that do not contain aspirin or ibuprofen (such as Tylenol or Datril). Special Instructions: Although these symptoms may not be related to your procedure, call your doctor immediately if you- Become short of breath Get dizzy Have a fever Experience chest pain Have rapid or irregular heart rate If you had biopsies your physician will call you with the results in approximately one week and advise you of when to follow-up. Contact Information Gastroenterology Department [phone] Colon Rectal Surgery [phone] Dr. Parks [phone] After Hours (Non-Urgent Concerns): [facility] Access Line [phone] and ask to speak to the physician covering High Fiber Diet (25-30 grams/ day) FRUIT AMOUNT FIBER (gms) VEGETABLES AMOUNT FIBER (gms) Apple with skin 1 medium 5.00 Avocado 1 medium 11.84 Apricot 3 medium 0.98 Beets, cooked 1 cup 2.85 Apricots, dried 5 pieces 2.89 Beet greens 1 cup 4.20 Banana 1 medium 3.92 Bok Carlos, cooked 1 cup 2.76 Blueberries 1 cup 4.18 Broccoli, cooked 1 cup 4.5 Cantaloupe, cubes 1 cup 1.28 Brussel Sprouts 1 cup 2.84 Figs, dried 2 medium 3.74 Cabbage, cooked 1 cup 4.20 Grapefruit medium 6.12 Carrot 1 medium 2.00 [place], navel 1 medium 3.40 Carrots, cooked 1 cup 5.22 [place] 1 medium 2.00 Cauliflower, cooked 1 cup 3.43 Peaches, dried 3 pieces 3.18 Wander Slaw 1 cup 4.00 Pear 1 medium 5.08 Brandt, sweet 1 cup 4.66 [place] 1 medium 1.00 Green beans 1cup 3.95 Raisins 1.5 oz box 1.60 Celery 1 stalk 1.02 Raspberries 1 cup 8.34 Kale, cooked 1 cup 7.20 Strawberries 1 cup 3.98 Onions, raw 1 cup 2.88 Peas, cooked 1 cup 8.84 CEREAL, GRAINS, PASTA AMOUNT FIBER (gms) Peppers, cooked 1 cup 2.62 Bran Cereal 1 cup 19.94 Pop corn, air popped 3 cups 3.60 Bread, whole wheat 1 slice 2.00 Potato, baked w/ skin 1 medium 4.80 Oats, rolled dry 1 cup 12.00 Spinach, cooked 1 cup 4.32 Pasta, whole wheat 1 cup 6.34 Summer squash 1 cup 2.52 Rice, dry brown 1 cup 7.98 Sweet Potato, cooked 1 cup 5.94 Malian Chard, cooked 1 cup 3.68 BEANS, NUTS, SEEDS AMOUNT FIBER (gms) Tomato 1 medium 1.00 Almonds 1 oz 4.22 Winter Squash 1 cup 5.74 Black Beans, cooked 1 cup 14.92 Zucchini, cooked 1 cup 2.63 Cashews 1 oz 1.00 Flax Seeds 3 tbs 6.97 Garbanzo beans, cooked 1 cup 5.80 Kidney beans, cooked 1 cup 13.33 Lentils, red cooked 1 cup 15.64 Cervantes beans, cooked 1 cup 13.16 Peanuts 1 oz 2.30 Pistachio nuts 1 oz 3.10 Pumpkin seeds cup 4.12 Soybeans, cooked 1 cup 7.62 [place] seeds cup 3.00 Walnuts 1 oz 3.08 General Surgical Discharge Instructions: ? The medication that was used will be acting in your system for the next 24 hours, so you might feel a little drowsy, with impaired judgment and/ or motor function. This feeling should wear off. Because the medication is still in your system for the next 24 hours you SHOULD NOT: o Drive a car, operate machinery or power tools. o Drink any alcoholic beverages. o Make any important decisions or sign any legal documents. ? You should rest the remainder of the day and not engage in any physical activity. YOU ARE RESPONSIBLE FOR HAVING SOMEONE AT HOME WITH YOU DURING THE AFTERNOON AND NIGHT IMMEDIATELY FOLLOWING YOUR SURGERY. Patients should cough and deep breathe every 2-4 hours while awake to avoid respiratory complications. ? Because the medications used could produce some residual nausea and vomiting after you go home, you should eat lightly today, starting with clear liquids (broth, soft drinks, apple juice, jello) and toast or crackers, progressing to your normal diet as tolerated. If you get sick, wait a couple of hours and then begin to eat. After 24 hours the nausea should be gone. If your nausea persists, callyour physician. ? You may experience some pain and your physician will advise you on what to take for discomfort. This should be taken as directed. If the pain is not relieved, contact your physician. You may also have a sore throat from the airway/ breathing tube that was in place. You may use lozenges, throat spray (Chloraseptic), or warm salt water gargles for symptomatic relief. ? If you are unable to urinate within five hours after your procedure, call your physician. ? The type of surgery performed will determine how much bleeding (if any) to expect. Normally, somespotting might occur. If your dressing pad become saturated, notify your physician. Elevate surgical site, if applicable, to reduce swelling and pain. ? Preventing a surgical site infection: o Dont smoke. It is best to quit at least 30 days before surgery, but quitting after surgery is also helpful. o If you are a diabetic, keep your blood sugar well controlled. WASH YOUR HANDS. o Keep your wound clean and remember to wash your hands before and after contact with the area. o Call your doctor if you have signs of infection: ? increased tenderness at the surgical site ? red streaks or increased redness of the area ? bad-smelling discharge from the incision ? fever of 101 or higher TOBACCO AVOIDANCE Exposure to tobacco either from smoking or from second hand (environmental)smoke or smokeless tobacco (snuff) is damaging to your health. This information is to encourage everyone to avoid tobacco exposure. It is recommended that you: If you smoke or use smokeless tobacco, we encourage you to quit. If you have already quit smoking, continue your good work! If you do not smoke or use smokeless tobacco, do not start. Avoid secondhand smoke. Additional Resources: You may want to contact these organizations for further information on smoking and how to quit- [place] [employer] - http://www.lungusa.org/stop-smoking/ [place] [employer] - http://www.cancer.org/Healthy/StayAwayfromTobacco/index [place] [employer] - http://www.heart.org/HEARTORG/GettingHealthy/QuitSmoking/Quit-Smoking _[facility]_001085_SubHomePage.jsp documented in this encounter Plan of Treatment Date Type Specialty Care Team Description 12/04/2019 Office Visit Pulmonary Disease Otoniel Shields MD [address] [place] [address] 12/10/2019 Office Visit Family Medicine Vitaliy Leslie MD [address] [place] [address] Dr Churchill [address] [place] [address] [phone] 01/18/2020 Office Visit Endocrinology Diabetes & Silveriosired Olinda thayer MD [address] [phone] Health Maintenance Due Date Last Done Comments [...] neoplasm s, colon documented in this encounter Administered Medications Medication Order MAR Action Action Date Dose Rate Site simethicone (GAS RELIEF Given 11/30/2019 1:50 PM CDT 80 mg (SIMETHICONE)) 40 mg/0.6 mL drops PRN, Starting Sat11/30/19 at 1350, Until Discontinued, Routine, Intra-op Medication Order MAR Action Action Date Dose Rate Site lactated ringers IV infusion New Bag 11/30/2019 11:44 AM CDT 1,000 mL 20 mL/hr 1,000 mL at 20 mL/hr, 1,000 mL, IV Infusion, ONCE, 1 dose, Sat11/30/19 at 1130, Routine, Endo Pre-op documented in this encounter documented as of this encounter
--- OUTSIDE RECORDS SUMMARY | 2019-12-30 06:41 | XMS REPORT | Summary of Care ---
:1970 Author Organization [facility] - [facility] Address [address] [place] [address] Care Team Providers Name Role Phone Ctr, Admin Med Primary Care Provider Reason for Visit Reason Comments LAB WORK Encounter Details Date Type Department Care Team Description 12/02/2019 Laboratory Only [facility] Juventino Amaya MD [address] [place] [address]. [address] [place] [address] Pre-op testing PHLEBOTOMY/LAB Only, Lcc Test (Primary Dx) [address] [facility] [address] [place] [phone] Allergies Active Allergy Reactions Severity Noted Date Comments Ciprofloxacin Anaphylaxis 07/27/2011 Sulfa (Sulfonamide Antibiotics) Unknown - See comments 09/27/2008 Zonisamide Unknown - See comments 01/16/2008 documented as of this encounter (statuses as of 12/02/2019) Medications Medication Sig Dispensed Refills Start Date [...] hours as Nausea needed (N/V). lactulose 10 gram/15 Take 30 mL by [...] Active tablet MOUTH TWICE A DAY NEEDED peg-electrolyte soln Use as directed 8000 mL 0 11/30/2019 Active 236-22.74-6.74 -5.86 gram solution documented as of this encounter (statuses as of 12/02/2019) Active Problems Problem Noted Date Colon cancer screening 11/20/2019 Overview: Added automatically from request for mauro coronado [id number] RUQ pain 11/11/2019 RUQ abdominal pain 11/11/2019 Pancreatic duct dilated 11/10/2019 Overview: Added automatically from request for mauro cliff [id number] Common bile duct dilation 11/10/2019 Overview: Added automatically from request for mauro cliff [id number] Spondylolisthesis Hypothyroidism Bipolar 1 disorder documented as of this encounter (statuses as of 12/02/2019) Social History Tobacco Use Types Packs/Day Years [...] been in contact with No / Unsure 12/01/2019 3:03 PM CDT someone who was confirmed or suspected to have Coronavirus / COVID-19? documented as of this encounter Last Filed Vital Signs Not on filedocumented in this encounter Plan of Treatment Date Type Specialty Care Team Description 12/04/2019 Office Visit Pulmonary Disease Conrad Shields MD [address] [place] [address] [phone] 12/04/2019 Hospital Encounter Surgery Juventino Amaya MD Colon cancer [address] [place] [address]. [address] [place] [address] [phone] 12/04/2019 Anesthesia Event Surgery Viridiana Fraizer, PAULA [address] [place] [address] 12/04/2019 Surgery Surgery Juventino Amaya MD COLONOSCOPY [address] [place] [address]. [address] [place] [phone] 12/10/2019 Office Visit Family Medicine Vitaliy Leslie MD [address] [place] [address] [phone] 01/18/2020 Office Visit Endocrinology Olinda Siduh, Diabetes & Metabolism [address] [place] [address] [phone] Name Type Priority Associated Diagnoses Order S yovannydule COVID-19 (ID NOW RAPID LAB Routine Pre-op testing Exp ected: 12/02/2019, TESTING) Expires: 2020 Health Maintenance Due Date Last Done Comments PNEUMOCOCCAL 0-64 YEARS COMBINED 1975 SERIES (1 of 1 - PPSV23) DTaP,Tdap,and Td Vaccines (1 - 01/14/1980 Tdap) PAP SMEAR 1990 Breast Cancer Screening 2009 (MAMMOGRAM) Zoster Recombinant Vaccine 2019 (SHINGRIX) (1 of 2) INFLUENZA VACCINE (Season Ended) 2020 03/25/2018, 06/2015, 05/17/2016, Additional history exists Depression Screening 11/29/2020 11/30/2019 COLONOSCOPY 11/29/2029 11/30/2019 documented as of this encounter Results Not on filedocumented in this encounter Visit Diagnoses Diagnosis Pre-op testing - Primary Preoperative examination, unspecified documented in this encounter [place], ([place]) [place] [address] documented as of this encounter
--- OUTSIDE RECORDS SUMMARY | 2019-12-30 06:41 | XMS REPORT | Summary of Care ---
:1970 Author Organization [facility] - Health Address [address] [place] [address] Care Team Providers Name Role Phone Ctr, Admin Med Primary Care Provider Reason for Visit Auth/Cert Status Reason Specialty Diagnoses / Procedures Referred By C chachaact Referred To Contact Surgery Diagnoses Colon cancer screening [Z12.11] Vl Preop Procedures [facility] CODING HELP COLONOSCOPY [address] [facility] [address] Phone: Fax: Encounter Details Date Type Department Care Team Description 11/30/2019 Anesthesia Felicia Ramírez MD [address] [place] [phone] Mira Meraz RN [address] [place] [address] 2240 [place], [place] [phone] Allergies Active Allergy Reactions Severity Noted Date [...] Additional information peg-electrolyte soln Take as directed 4000 mL 0 11/19/2019 0 11/30/2019 Discontinued 236-22.74-6.74 -5.86 before (Duplicate) gram solution colonoscopy lactulose 10 gram/15 Take 30 mL by 1 Bottle 0 11/21/2019 Suspended mL oral mouth 3 (three) solutionIndications: times daily as Constipation, needed for unspecified Constipation or constipation type For bowel movement. Additional information dicyclomine 20 [...] Added automatically from request for mauro cliff [id number] RUQ pain 11/11/2019 RUQ abdominal pain 11/11/2019 Pancreatic duct dilated 11/10/2019 Overview: Added automatically from request for mauro cliff [id number] Common bile duct dilation 11/10/2019 Overview: Added automatically from request for mauro cliff [id number] Spondylolisthesis Hypothyroidism Bipolar 1 disorder documented as [...] Office Visit Pulmonary Disease Otoniel Shields MD [address] [place] [address] [phone] 12/10/2019 Office Visit Family Medicine Vitaliy Leslie MD [address] [place] [address] [phone] 01/18/2020 Office Visit Endocrinology Diabetes & Olinda Bill MD [address] [phone] Health Maintenance Due Date Last Done Comments [...] Results Not on filedocumented in this encounter Administered Medications Medication Order MAR Action Action Date Dose Rate Site lactated ringers IV infusion New Bag 11/30/2019 1:44 PM CDT CONTINUOUS PRN, Starting 11/30/19 at 1344, Until Sat11/30/19 at 1402, Routine, Intra-op lidocaine 1% (XYLOCAINE) 100 mg/10 mL (1 %) Given 11/30/2019 1: 47 PM CDT 3 mL injection ONCE INTRA PROCEDURE, Starting 11/30/19 at 1347, Until 11/30/19 at 1402, Routine, Intra-op propofol IV infusion Given 11/30/2019 1:49 PM CDT 50 mg ONCE INTRA PROCEDURE, Starting 11/30/19 at 1347, Until 11/30/19 at 1402, Routine, Intra-op Given 11/30/2019 1:47 PM CDT 50 mg propofol IV infusion New Bag 11/30/2019 1:47 PM CDT 150 mcg/kg/min 58.41 mL/hr IV Infusion, CONTINUOUS PRN, Starting 11/30/19 at 1347, Until 11/30/19 at 1402, Routine, Intra-op remifentanil (ULTIVA) injection New Bag 11/30/2019 1:47 PM 0.0375 mcg/kg/min Intravenous, CONTINUOUS PRN, CDT Starting 11/30/19 at 1347, Until 11/30/19 at 1402, Routine, Intra-op documented in this [place] ([place]) [place] [id number] documented as of this encounter
--- OUTSIDE RECORDS SUMMARY | 2019-12-30 06:41 | XMS REPORT | Summary of Care ---
:1970 Author Organization [facility] - [facility] Address [address] [place] [address] Care Team Providers Name Role Phone Ctr, Admin Med Primary Care Provider Reason for Visit Reason Comments COLONOSCOPY rx Encounter Details Date Type Department Care Team Description [facility]/30[facility] formerly [facility] [address] [place] [address] [phone] Allergies Active Allergy Reactions Severity Noted Date Comments Ciprofloxacin Anaphylaxis 07/27/2011 Sulfa (Sulfonamide Antibiotics) Unknown - See comments 09/27/2008 Zonisamide Unknown - See comments 01/16/2008 documented as of this encounter (statuses as of 12/01/2019) Medications Medication Sig Dispensed Refills Start End [...] BY MOUTH TWICE A DAY NEEDED peg-electrolyte Use as directed 8000 mL 0 Active soln 0 236-22.74-6.74 -5.86 gram solution peg-electrolyte Take as directed 4000 mL 0 0 Discontinued soln before 0 20 (Duplicate ) 236-22.74-6.74 colonoscopy -5.86 gram solution documented as of this encounter (statuses as of 12/01/2019) Active Problems Problem Noted Date Colon cancer screening 11/20/2019 Overview: Added automatically from request for mauro cliff [id number] RUQ pain 11/11/2019 RUQ abdominal pain 11/11/2019 Pancreatic duct dilated 11/10/2019 Overview: Added automatically from request for mauro cliff [id number] Common bile duct dilation 11/10/2019 Overview: Added automatically from request for mauro cliff [id number] Spondylolisthesis Hypothyroidism Bipolar 1 disorder documented as of this encounter (statuses as of 12/01/2019) Social History Tobacco Use Types Packs/Day Years [...] Office Visit Pulmonary Disease Otoniel Shields MD [address] [place] [address] [phone] 12/10/2019 Office Visit Family Medicine Vitaliy Leslie MD [address] [place] [address] 775 15 01/18/2020 Office Visit Endocrinology Diabetes & Kesired Olinda thayer MD [address] 847443 Health Maintenance Due Date Last Done Comments [...] Effective Dates Phone Address Type AETNA AETNA [facility] C[facility] [id number] 2019-Present PPO documented as of this encounter
--- OUTSIDE RECORDS SUMMARY | 2019-12-30 06:42 | XMS REPORT | Summary of Care ---
:1970 Author Organization [facility] Address [address] [place] [address] Care Team Providers Name Role Phone Ctr, Admin Med Primary Care Provider Reason for Visit Reason Comments Refill Request Encounter Details Date Type Department Care Team Description 11/29/2019 Refill [facility] Internal Herb Rosado MD Refill Request [address] [id number] [place] [address] [place] [address] [address] [place] [address] [place] [address] [phone] Allergies Active Allergy Reactions Severity Noted Date Comments Ciprofloxacin Anaphylaxis 07/27/2011 Sulfa (Sulfonamide Antibiotics) Unknown - See comments 09/27/2008 Zonisamide Unknown - See comments 01/16/2008 documented as of this encounter (statuses as of 12/03/2019) Medications Medication Sig Dispensed Refills Start Date [...] as of this encounter (statuses as of 12/03/2019) Active Problems Problem Noted Date Colon cancer screening 11/20/2019 Overview: Added automatically from request for mauro cliff [id number] RUQ pain 11/11/2019 RUQ abdominal pain 11/11/2019 Pancreatic duct dilated 11/10/2019 Overview: Added automatically from request for mauro cliff [id number] Common bile duct dilation 11/10/2019 Overview: Added automatically from request for mauro cliff [id number] Spondylolisthesis Hypothyroidism Bipolar 1 disorder documented as of this encounter (statuses as of 12/03/2019) Social History Tobacco Use Types Packs/Day Years [...] Office Visit Pulmonary Disease Conrad Shields MD [address] [place] [address] [phone] 12/04/2019 Hospital Encounter Surgery Juventino Amaya MD Colon cancer [address] [place] [address]. [address] [place] [address] [phone] 12/04/2019 Anesthesia Event Surgery Viridiana Frazier, RN [address] [place] [address] 12/04/2019 Surgery Surgery Juventino Amaya MD COLONOSCOPY [address] [place] [address]. [address] [phone] 12/10/2019 Office Visit Family Medicine Vitaliy Leslie MD [address] [place] [address] Dr [place] [address] [place] [address] [phone] 01/18/2020 Office Visit Endocrinology Olinda Sidhu, Diabetes & Metabolism [address] [place] [address] [phone] Health Maintenance Due Date Last Done Comments [...] filedocumented in this encounter Visit Diagnoses Diagnosis Nausea Nausea alone documented in this encounter Insurance Payer Benefit Plan / Group Subscriber ID Effective Dates Phone Address Type AETNA AETNA [facility] [id number] 2019-Present PPO documented as of this encounter
--- OUTSIDE RECORDS SUMMARY | 2019-12-30 06:42 | XMS REPORT | Summary of Care ---
:1970 Author Organization [facility] - Health Address [address] [place] [address] Care Team Providers Name Role Phone Ctr, Admin Med Primary Care Provider Encounter Details Date Type Department Care Team Description 12/04/2019 Orders Only [facility] Doctor Unassigned, No [address] [facility] [place] [address] [address] [place] [address] Allergies Active Allergy Reactions Severity Noted Date Comments Ciprofloxacin Anaphylaxis 07/27/2011 Sulfa (Sulfonamide Antibiotics) Unknown - See comments 09/27/2008 Zonisamide Unknown - See comments 01/16/2008 documented as of this encounter (statuses as of 12/04/2019) Medications Medication Sig Dispensed Refills Start Date [...] as of this encounter (statuses as of 12/04/2019) Active Problems Problem Noted Date Colon cancer screening 11/20/2019 Overview: Added automatically from request for mauro cliff [id number] RUQ pain 11/11/2019 RUQ abdominal pain 11/11/2019 Pancreatic duct dilated 11/10/2019 Overview: Added automatically from request for mauro cliff [id number] Common bile duct dilation 11/10/2019 Overview: Added automatically from request for mauro cliff [id number] Spondylolisthesis Hypothyroidism Bipolar 1 disorder documented as of this encounter (statuses as of 12/04/2019) Social History Tobacco Use Types Packs/Day Years [...] been in contact with No / Unsure 12/04/2019 8:51 AM CDT someone who was confirmed or suspected to have Coronavirus / COVID-19? documented as of this encounter Last Filed Vital Signs Not on filedocumented in this encounter Plan of Treatment Date Type Specialty Care Team Description 12/04/2019 Office Visit Pulmonary Disease Otoniel Shields MD [address] [address] [phone] 12/10/2019 Office Visit Family Medicine Vitaliy Leslie MD [address] [place] [address] Dr [place] [address] [place], [place] [address] [phone] 01/18/2020 Office Visit Endocrinology Diabetes & Olinda Bill MD [facility] [address] [place], [place] [address] Health Maintenance Due Date Last Done Comments [...] 11/29/2029 11/30/2019 documented as of this encounter Procedures Procedure Name Priority Date/Time Associated Diagnosis Comme nts ASSIGNMENT OF BENEFITS Routine 12/04/2019 8:51 AM CDT documented in this encounter Results Not on filedocumented in this encounter Insurance Payer Benefit Plan / Group Subscriber ID Effective Dates Phone Address Type AETNA AETNA [facility] [id number] 2019-Present PPO documented as of this encounter
--- OUTSIDE RECORDS SUMMARY | 2019-12-30 06:43 | XMS REPORT | Summary of Care ---
:1970 Author Organization [facility] - Health Address [address] [place] [address] Care Team Providers Name Role Phone Ctr, Admin Med Primary Care Provider Reason for Visit Reason Comments LAB WORK Auth/Cert Status Reason Specialty Diagnoses / Procedures Referred By C ontact Referred To Contact Surgery Diagnoses Colon cancer screening [Z12.11] Vl Preop Procedures [facility] CODING HELP COLONOSCOPY [address] [facility] [address] Phone: Fax: Encounter Details Date Type Department Care Team Description 12/04/2019 Gre Instructor Visit LAB SERVICES AT [facility] Conrad Shields MD 26[address] [facility] Zhao 2 [place] [address] Abnormal finding on GI tract imaging; MULTISPECIALTY FLORINA Agudelo [facility] Lesion of adrenal gland; [facility] [place] [address] Allergies Active Allergy Reactions Severity Noted Date [...] Added automatically from request for mauro cliff [id number] RUQ pain 11/11/2019 RUQ abdominal pain 11/11/2019 Pancreatic duct dilated 11/10/2019 Overview: Added automatically from request for mauro cliff [id number] Common bile duct dilation 11/10/2019 Overview: Added automatically from request for mauro cliff [id number] Spondylolisthesis Hypothyroidism Bipolar 1 disorder documented as [...] Treatment Date Type Specialty Care Team Description 12/07/2019 Appointment Radiology Conrad Shields MD 2660 [facility] 2 [place] [address] [phone] 12/10/2019 Office Visit Family Medicine Vitaliy Leslie MD [address] [place] [address] 205 [place], [place] [address] [phone] 01/15/2020 Office Visit Gastroenterology Flower Vicente MD [address] [facility] [address] [place] [address] 01/18/2020 Office Visit Endocrinology Diabetes & SilveriosiOlinda hodgson MD Metabolism [address] [place] [address] 322583 Name Type Priority Associated Diagnoses Date/Ti me IMMUNOGLOBULIN G SUBCLASS 4 LAB Routine Abnormal find ing on GI 12/04/2019 3:58 PM tract imaging CDT LIPASE LAB Routine Abnormal finding on GI 12/03 3:58 PM tract imaging CDT COMP. METABOLIC PANEL LAB Routine Lesion of adrenal gland 12/04/2019 3:58 PM ([id number]) Abnormal finding on GI CDT tract imaging SARS-COV-2 IGG LAB Routine Flu-like symptoms 12/04/19 20 3:58 PM CDT Health Maintenance Due Date Last Done Comments PNEUMOCOCCAL 0-64 YEARS COMBINED 1975 SERIES (1 of 1 - PPSV23) DTaP,Tdap,and Td Vaccines (1 - 01/14/1980 Tdap) PAP SMEAR 1990 Breast Cancer Screening 2009 (MAMMOGRAM) Zoster Recombinant Vaccine 2019 (SHINGRIX) (1 of 2) INFLUENZA VACCINE (Season Ended) 2020 03/25/2018, 06/2015, 05/17/2016, Additional history exists Depression Screening 12/03/2020 12/04/2019 COLONOSCOPY 11/29/2029 11/30/2019 documented as of this encounter Results Not on filedocumented in this encounter Visit Diagnoses Diagnosis Abnormal finding on GI tract imaging Nonspecific (abnormal) findings on radio logical and other examination of gastrointestinal tract Lesion of adrenal gland Flu-like symptoms Influenza with other respiratory manifes tations documented in this encounter Guarantor Name Account Type Relation to Date of Phone Billing Patient Address Varsha Ramos Personal/Family Self 1970 [address] (Home) [facility] [phone] [facility], (Work) [place] [address] documented as of this encounter
--- OUTSIDE RECORDS SUMMARY | 2019-12-30 06:43 | XMS REPORT | Summary of Care ---
:1970 Author Organization [facility] - [facility] Address [address] [place] [address] Care Team Providers Name Role Phone Ctr, Admin Med Primary Care Provider Reason for Visit Auth/Cert Status Reason Specialty Diagnoses / Procedures Referred By Florentino burnhamact Referred To Contact Surgery Diagnoses Colon cancer screening [Z12.11] Vl Preop Procedures [facility] CODING HELP COLONOSCOPY [address] [place] [address], [place] [address] Phone: Fax: Encounter Details Date Type Department Care Team Description 12/04/2019 Hospital Encounter [facility] Daniela Loerahzad Colon cancer [place] [facility] MD [place] screening Anesthesia Care [address] [facility] [address] [place] [phone] [facility] [phone] [place], [place] [phone] [address] (Fax) [phone] Allergies Active Allergy Reactions Severity Noted Date [...] 30 mL by 1 Bottle 0 11/21/2019 Ac tive gram/15 mL oral mouth 3 (three) solutionIndications times daily as : Constipation, needed for unspecified Constipation or constipation type For bowel movement. dicyclomine 20 mg Take 1 tablet by 20 tablet 0 11/21/2019 Active tabletIndications: mouth every 6 Abdominal pain, (six) hours as unspecified needed for abdominal location Abdominal pain. ondansetron Take 1 tablet by 12 tablet 0 11/21/2019 Active (ZOFRAN) 4 mg mouth every 8 tabletIndications: (eight) hours as Abdominal pain, needed for Nausea unspecified and Vomiting abdominal location (N/V). fluconazole 150 mg TAKE ONE TABLET 0 Active tablet BY MOUTH DAILY diclofenac 50 mg EC TAKE ONE TABLET 0 Active tablet BY MOUTH TWICE A DAY NEEDED peg-electrolyte Use as directed 8000 mL 0 11/30/2019 0 Discontinued soln 236-22.74-6.74 20 -5.86 gram solution documented as of this encounter (statuses as of 12/04/2019) Active Problems Problem Noted Date Colon cancer screening 11/20/2019 Overview: Added automatically from request for mauro cliff [id number] RUQ pain 11/11/2019 RUQ abdominal pain 11/11/2019 Pancreatic duct dilated 11/10/2019 Overview: Added automatically from request for mauro cliff [id number] Common bile duct dilation 11/10/2019 Overview: Added automatically from request for mauro cliff [id number] Spondylolisthesis Hypothyroidism Bipolar 1 disorder documented as [...] Sign Reading Time Taken Comments Blood Pressure 118/86 12/04/2019 9:29 AM CDT Pulse 99 12/04/2019 12:45 PM CDT Temperature 36.5 C (97.7 F) 12/04/2019 12:45 PM CDT Respiratory Rate 14 12/04/2019 12:55 PM CDT Oxygen Saturation 99% 12/04/2019 12:45 PM CDT Inhaled Oxygen Concentration - - Weight 65.8 kg (145 lb) 12/04/2019 9:29 AM CDT Height 157.5 cm (5' 2") 12/04/2019 9:29 AM CDT Body Mass Index 26.52 12/04/2019 9:29 AM CDT documented in this encounter Discharge Instructions Shabana Patricia RN - 12/04/2019 General Discharge Instructions Procedure: Colonoscopy The medication [...] when to follow-up. Contact Information Gastroenterology Department [phone] Colon Rectal Surgery [phone] Dr. Parks [phone] After Hours (Non-Urgent Concerns): [facility] Access Line [phone] and ask to speak to the physician [...] Grapefruit medium 6.12 Carrot 1 medium 2.00 [place], navel 1 medium 3.40 Carrots, cooked 1 cup 5.22 [place]arton 1 medium 2.00 Cauliflower, cooked 1 cup 3.43 Peaches, dried 3 pieces 3.18 Wander Slaw 1 cup 4.00 Pear 1 medium 5.08 [place], sweet 1 cup 4.66 [place] 1 medium 1.00 Green beans 1cup 3.95 [...] 7.98 Sweet Potato, cooked 1 cup 5.94 Monegasque Chard, cooked 1 cup 3.68 BEANS, NUTS, [...] cup 4.12 Soybeans, cooked 1 cup 7.62 Garrison seeds cup 3.00 Walnuts 1 oz 3.08 [...] information on smoking and how to quit- [place] [employer] - http://www.lungusa.org/stop-smoking/ [place] [employer] - http://www.cancer.org/Healthy/StayAwayfromTobacco/index [place] [employer] - http://www.heart.org/HEARTORG/GettingHealthy/QuitSmoking/Quit-Smoking _[facility]_001085_SubHomePage.jsp documented in this encounter Plan of Treatment Date Type Specialty Care Team Description 12/04/2019 Office Visit Pulmonary Disease Otoniel Shields MD 2660 [facility] 2 [place] [address] [phone] 12/10/2019 Office Visit Family Medicine Vitaliy Leslie MD [address] [place] [address] Dr [address] [place], [place] [address] [phone] 01/15/2020 Office Visit Gastroenterology Flower Vicente MD 2[address] [facility] [address] [place] [address] 01/18/2020 Office Visit Endocrinology Diabetes & Kesired Olinda thayer MD Metabolism [address] [place] [address] [phone] Health Maintenance Due Date Last Done Comments [...] Procedure Name Priority Date/Time Associated Comments Diagnosis COLONOSCOPY (ENDO) Routine 12/04/2019 10:36 AM CDT BASIC METABOLIC PANEL STAT 12/04/2019 10:29 Re sults for this (NA, K, CL, CO2, AM CDT procedure a re in GLUCOSE, BUN, the results CREATININE, CA) section. MAGNESIUM STAT 12/04/2019 10:29 Results for this AM CDT procedure are i n the results section. POCT TEST Routine 12/04/2019 9:15 Resu lts for this AM CDT procedure are i n the results section. documented in this encounter Results MAGNESIUM (12/04/2019 10:29 AM CDT) Pathologist Sig [facility] MAGNESIUM 1.9 1.7 - 2.4 mg/dL [facility] Specimen Blood - HAND, RIGHT Performing Organization Address City/State/Zipcode Phone Number [facility] CLIA: [id number], [address] [place] [address] [phone] [facility] BASIC METABOLIC PANEL (NA, K, CL, CO2, GLUCOSE, BUN, CREATININE, CA) (12/04/2019 10:29 AM CDT) Pathologist [facility] NA 135 135 - 145 mmol/L [facility] K 4.2 3.5 - 5.0 mmol/L [facility] CL 106 98 - 108 mmol/L [facility] CO2 TOTAL 27 23 - 31 mmol/L [facility] AGAP 2 2 - 16 [facility] BUN 2 (L) 7 - 23 mg/dL [facility] GLUCOSE 95 70 - 110 mg/dL [facility] CREATININE 0.55 0.50 - 1.04 [facility] mg/dL [facility] CALCIUM 8.9 8.6 - 10.6 mg/dL [facility] eGFR Calculation 117.0 mL/min/1.73m2 [facility] (Non-) [facility] eGFR Calculation 141.8 mL/min/1.73m2 [facility] () [facility] Specimen Blood - HAND, RIGHT Narrative Performed At Association of Glomerular Filtration Rate [facility] (GFR) and Staging of Kidney Disease* [place] + + --+ + | GFR (mL/min/1.73 m2) | With Kidney Damage | Without Kidney Damage + + --+ + | >90 | Stage one | Normal + + --+ + | 60-89 | Stage two | Decreased GFR + + --+ + | 30-59 | Stage three | Stage three + + --+ + | 15-29 | Stage four | Stage four + + --+ + | <15 (or dialysis) | Stage five | Stage five + + --+ + *Each stage assumes the associated GFR [...] tests). Performing Organization Address City/State/Zipcode Phone Number [facility] CLIA: [id number], [address] [place] [address] [phone] SERVICES-[facility] POCT Test (12/04/2019 9:15 AM CDT) Pathologist Sig nature POCT PREG Negative On board controls acceptable Yes with C Line POCT PREG LOT # POCT PREG TEST DATE Specimen Urine - URINE, CLEAN CATCH documented in this encounter Visit Diagnoses Diagnosis Colon cancer screening - Primary Special screening for malignant neoplasm s, colon documented in this encounter Administered Medications Medication Order MAR Action Action Date Dose Rate Site lactated ringers IV infusion 1,000 mL at 75 mL/hr, 1,000 mL, IV Infusion, CONT INUOUS, Starting Sat12/04/19 at 1300, Until Discontinued, Routine, PACU ondansetron (ZOFRAN (PF)) injection 4 mg 4 mg, Slow IV Push, PRN, 1 dose, Startin g Sat12/04/19 at 1258, Until Discontinued, Routine, Nausea and Vomiting (N/V), PACU simethicone (GAS RELIEF (SIMETHICONE)) 40 Given 12/04/2019 12:17 PM CDT 80 mg mg/0.6 mL drops PRN, Starting Sat12/04/19 at 1217, Until Discontinued, Routine, Intra-op documented in this encounter Guarantor Name Account Type Relation to Date of Phone Billing Patient Address Varsha Ramos Personal/Family Self 1970 [address] (Home) [facility] [phone] [facility] [place], ([place]) [place] [address] documented as of this encounter
--- OUTSIDE RECORDS SUMMARY | 2019-12-30 06:43 | XMS REPORT | Summary of Care ---
:1970 Author Organization [facility] [[email or web address]] - [facility] Address [address] [place] [id number] Care Team Providers Name Role Phone Ctr, Admin Med Primary Care Provider Reason for Referral MRI/CAT Scan (Routine) Status Reason Specialty Diagnoses / Referred By Referred To Procedures Contact Contact Closed Diagnostic Diagnoses Lung nodule Conrad Shields, Radiology [facility] [address] [address] Reason for Visit MRI/CAT Scan (Routine) Status Reason Specialty Diagnoses / Referred By Referred To Procedures Contact Contact Closed Diagnostic Diagnoses Lung nodule Conrad Shields, Radiology Procedures CT L[facility]G [facility] [address] [address] Encounter Details Date Type Department Care Team Description 12/07/2019 Hospital Encounter [facility] Mayank Shields, [facility] Computed MD Tomography 2660 [facility] 2240 [facility] So [address] [address] [id number] Allergies Active Allergy Reactions Severity Noted Date Comments Ciprofloxacin Anaphylaxis 07/27/2011 Sulfa (Sulfonamide Antibiotics) Unknown - See comments 09/27/2008 Zonisamide Unknown - See comments 01/16/2008 documented as of this encounter (statuses as of 12/08/2019) Medications Medication Sig Dispensed Refills Start Date [...] as of this encounter (statuses as of 12/08/2019) Active Problems Problem Noted Date Colon cancer screening 11/20/2019 Overview: Added automatically from request for mauro cliff [id number] RUQ pain 11/11/2019 RUQ abdominal pain 11/11/2019 Pancreatic duct dilated 11/10/2019 Overview: Added automatically from request for mauro cliff [id number] Common bile duct dilation 11/10/2019 Overview: Added automatically from request for mauro cliff [id number] Spondylolisthesis Hypothyroidism Bipolar 1 disorder documented as of this encounter (statuses as of 12/08/2019) Social History Tobacco Use Types Packs/Day Years [...] been in contact with No / Unsure 12/07/2019 9:12 AM CDT someone who was confirmed or suspected to have Coronavirus / COVID-19? documented as of this encounter Last Filed Vital Signs Not on filedocumented in this encounter Plan of Treatment Date Type Specialty Care Team Description 12/10/2019 Office Visit Family Medicine Vitaliy Leslie MD [address] [place] [address] [address] [place], [place] [address] [phone] 01/15/2020 Office Visit Gastroenterology Flower Vicente MD 2240 [facility] 2.[address] [place] [address] 01/18/2020 Office Visit Endocrinology Diabetes & Kesired Olinda thayer MD Metabolism 2660 [place], [place] [address] Health Maintenance Due Date Last Done Comments PNEUMOCOCCAL 0-64 YEARS COMBINED 1975 SERIES (1 of 1 - PPSV23) DTaP,Tdap,and Td Vaccines (1 - 01/14/1980 Tdap) PAP SMEAR 1990 Breast Cancer Screening 2009 (MAMMOGRAM) Zoster Recombinant Vaccine 2019 (SHINGRIX) (1 of 2) INFLUENZA VACCINE (Season Ended) 2020 03/25/2018, 06/2015, 05/17/2016, Additional history exists Depression Screening 12/03/2020 12/04/2019 COLONOSCOPY 12/03/2029 12/04/2019, 11/30/2019 documented as of this encounter Procedures Procedure Name Priority Date/Time Associated Diagnosis Comme nts CT LOW DOSE LUNG Routine 12/07/2019 9:27 AM Lung nodule Resu lts for this NODULE CDT procedure are i n the results section. EXTERNAL PROVIDER Routine 12/07/2019 12:01 AM RECORDS CDT EXTERNAL PROVIDER Routine 12/07/2019 12:01 AM RECORDS CDT EXTERNAL PROVIDER Routine 12/07/2019 12:01 AM RECORDS CDT documented in this encounter Results CT LUNG NODULE (12/07/2019 9:27 AM CDT) Specimen Impressions Performed At PACS/VR/DOSE 1. LungRADS Category 2. Recommendation c ontinued annual screening in 12 months. LungRADS reference table: See www.acr.org/Quality-Safety/Resources/LungRads for more information on the lung cancer screening reporting stru cture. Category 0 Incomplete screen Category 1 Negative screen ? no nodules and/or defin itely benign nodules ? continue annual screening in 12 months Category 2 ? Negative screen - nodules with benign appearance or behavior - continue annual screening in 12 months Category 3 ? Positive screen, probably benign - recomm end low dose nodule CT in 6 months Category 4A ? Positive screen, suspicious - recommen d low dose nodule CT in 3 months; may consider PET/CT if berto d nodule component of 8 mm or more Category 4B Positive screen,?suspicio us?- recommend multidisciplinary consultation and additional imaging(eith er chest CT with contrast and/or PET C T?if solid nodule component of 8 mm or more)and/or tissue sampling S modifier ? Other clinically signifi cant or potentially significant findings C modifier ? History of prior lung ca ncer I, Airam Mckenzie MD., have reviewed thi s study and agree with the above report. Narrative Performed At PROCEDURE: CT CHEST NON CONTRAST ? LUNG CANCER SCREENI NG (NODULE PACS/VR/DOSE PROTOCOL) CLINICAL INDICATION: f/u lung nodule Pedro g nodule, >=1cm COMPARISON: Abdominal CT-11/20/2019. TECHNIQUE: Low dose helical CT was acqui red from lung apices without intravenous contrast at a slice thicknes s of 1 mm. MIP and coronal & sagittal MPR images were generated and r eviewed. (DFOV = 40 cm) FINDINGS: Lower neck/thyroid: Unremarkable. Lungs: Right middle lobe 2 mm calcified granuloma. Left lower lobe pneumatocele. Noncalcified pulmonary nod ule(s) as following: - 2 mm left lower lobe, image # 290 Central airway: Unremarkable. Pleura: No pleural effusion, thickening or pneumothorax. Thoracic aorta and great vessels: Normal in diameter. Pulmonary arteries: Unremarkable. Heart and pericardium: No detectable cor onary arterial calcification. Unremarkable cardiac morphology and sowmya cardium. Lymph nodes: No enlarged thoracic lymph nodes by size criteria. Mediastinum: Unremarkable. Bones and soft tissues: C6-7 anterior fu yao hardware is partially visualized. No acute osseous finding. Other Lines/Tubes/Devices/Hardware: None Visualized upper abdomen: Hepatic segmen t VIII hyperdensity, likely reflecting treated lesion. Left adrenal nodule measuring 2.4 cm. Please refer to abdominal CT dated 11/20/2023 add itional details. Procedure Note [facility], Radiant Results Inft User - 2019 11:18 AM CDT PROCEDURE: CT CHEST NON CONTRAST ? LUNG CANCER SCREENING (NODULE PROTOCOL) CLINICAL INDICATION: f/u lung nodule Pedro g nodule, >=1cm COMPARISON: Abdominal CT-11/20/2019. TECHNIQUE: Low dose helical CT was acqui red from lung apices without intravenous contrast at a slice thicknes s of 1 mm. MIP and coronal & sagittal MPR images were generated and r eviewed. (DFOV = 40 cm) FINDINGS: Lower neck/thyroid: Unremarkable. Lungs: Right middle lobe 2 mm calcified granuloma. Left lower lobe pneumatocele. Noncalcified pulmonary nod ule(s) as following: - 2 mm left lower lobe, image # 290 Central airway: Unremarkable. Pleura: No pleural effusion, thickening or pneumothorax. Thoracic aorta and great vessels: Normal in diameter. Pulmonary arteries: Unremarkable. Heart and pericardium: No detectable cor onary arterial calcification. Unremarkable cardiac morphology and sowmya cardium. Lymph nodes: No enlarged thoracic lymph nodes by size criteria. Mediastinum: Unremarkable. Bones and soft tissues: C6-7 anterior fu yao hardware is partially visualized. No acute osseous finding. Other Lines/Tubes/Devices/Hardware: None Visualized upper abdomen: Hepatic segmen t VIII hyperdensity, likely reflecting treated lesion. Left adrenal nodule measuring 2.4 cm. Please refer to abdominal CT dated 11/20/2023 add itional details. IMPRESSION 1. LungRADS Category 2. Recommendation c ontinued annual screening in 12 months. LungRADS reference table: See www.acr.org/Quality-Safety/Resources /LungRads for more information on the lung cancer screening reporting stru cture. Category 0 Incomplete screen Category 1 Negative screen ? no nodules and/or definitely benign nodules ? continue annual screening in 12 months Category 2 ? Negative screen - nodules with benign appearance or behavior - continue annual screening in 12 months Category 3 ? Positive screen, probably b enign - recommend low dose nodule CT in 6 months Category 4A ? Positive screen, suspicio us - recommend low dose nodule CT in 3 months; may consider PET/CT if berto d nodule component of 8 mm or more Category 4B Positive screen,?suspiciou s?- recommend multidisciplinary consultation and additional imaging(eith er chest CT with contrast and/ or PET CT?if solid nodule component of 8 mm or more)and/or tissue sampling S modifier ? Other clinically signific ant or potentially significant findings C modifier ? History of prior lung can cer I, Airam Mckenzie MD., have reviewed thi s study and agree with the above report. Performing Organization Address City/State/[facility] Phone Number PACS/VR/DOSE documented in this encounter Visit Diagnoses Diagnosis Lung nodule Solitary pulmonary nodule documented in this encounter Guarantor Name Account Type Relation to Date of Phone Billing Patient Address Varsha Ramos Personal/Family Self 1970 [phone] [address] (Home) [facility] [phone] [facility] (Work) [place] [address] documented as of this encounter
--- OUTSIDE RECORDS SUMMARY | 2019-12-30 06:44 | XMS REPORT | Summary of Care ---
:1970 Author Organization [facility] - [email or web address] Address [address] [place] [address] Care Team Providers Name Role Phone Ctr, Admin Med Primary Care Provider MD Mariama Primary Care Provider Encounter Details Date Type Department Care Team Description 12/08/2019 Patient Secure [facility], [facility] Primary [facility]- Med [address], [address] [address] [place] [address] [phone] Allergies Active Allergy Reactions Severity Noted Date Comments Ciprofloxacin Anaphylaxis 07/27/2011 Sulfa (Sulfonamide Antibiotics) Unknown - See comments 09/27/2008 Zonisamide Unknown - See comments 01/16/2008 documented as of this encounter (statuses as of 12/10/2019) Medications Medication Sig Dispensed Refills Start Date [...] as of this encounter (statuses as of 12/10/2019) Active Problems Problem Noted Date Chronic constipation 12/10/2019 Encounter for medical examination to establish care Overview: Added automatically from request for mauro cliff [id number] RUQ pain 11/11/2019 RUQ abdominal pain 11/11/2019 Pancreatic duct dilated 11/10/2019 Overview: Added automatically from request for mauro cliff [id number] Common bile duct dilation 11/10/2019 Overview: Added automatically from request for mauro cliff [id number] Spondylolisthesis Hypothyroidism Bipolar 1 disorder documented as of this encounter (statuses as of 12/10/2019) Social History Tobacco Use Types Packs/Day Years [...] been in contact with No / Unsure 12/10/2019 10:38 AM CDT someone who was confirmed or suspected to have Coronavirus / COVID-19? documented as of this encounter Last Filed Vital Signs Not on filedocumented in this encounter Plan of Treatment Date Type Specialty Care Team Description 01/15/2020 Office Visit Gastroenterology Flower Vicente MD 2[address] [facility] [address] [place] [address] 01/18/2020 Office Visit Endocrinology Diabetes & Kesired Olinda thayer MD Metabolism 2660 [place] [address] 03/11/2020 Office Visit Family Medicine Vitaliy Leslie MD [address] [place] [address] [address] [place], [place] [address] Health Maintenance Due Date Last Done Comments [...] 12/04/2019, 11/30/2019 documented as of this encounter Results Not on filedocumented in this encounter Insurance Payer Benefit Plan / Group Subscriber ID Effective Dates Phone Address Type [employer] [facility] [id number] 2019-Present PPO documented as of this encounter
--- OUTSIDE RECORDS SUMMARY | 2019-12-30 06:44 | XMS REPORT | Summary of Care ---
:[address] [facility] Address [address] [place] [id number] Care Team Providers Name Role Phone Ctr, Admin Med Primary Care Provider Reason for Referral MRI/CAT Scan (Routine) Status Reason Specialty Diagnoses / Referred By Referred To Procedures Contact Contact Closed Diagnostic Diagnoses Lung nodule Conrad Shields, Radiology Procedures CT LUNG NODULE [address] [place] [id number] Reason for Visit Reason Comments Respiratory Problem Auth/Cert Status Reason Specialty Diagnoses / Procedures Referred By C ontact Referred To Contact Surgery Diagnoses Colon cancer screening [Z12.11] Vl Preop Procedures [facility] CODING HELP COLONOSCOPY [address] [facility] [address] Phone: Fax: Encounter Details Date Type Department Care Team Description 12/04/2019 Office Visit [facility] Pulmonary- Alyson, Lung nodule (Primary Dx); [place] MD Conrad Flu-like symptoms [facility] [address] [place] [address] Entrance B [facility] [address] [place] [address] [id number] Allergies Active Allergy Reactions Severity Noted Date Comments Ciprofloxacin Anaphylaxis 07/27/2011 Sulfa (Sulfonamide Antibiotics) Unknown - See comments 09/27/2008 Zonisamide Unknown - See comments 01/16/2008 documented as of this encounter (statuses as of 12/11/2019) Medications Medication Sig Dispensed Refills Start Date [...] as of this encounter (statuses as of 12/11/2019) Active Problems Problem Noted Date Chronic constipation 12/10/2019 Encounter for medical examination to establish care Overview: Added automatically from request for mauro cliff [id number] RUQ pain 11/11/2019 RUQ abdominal pain 11/11/2019 Pancreatic duct dilated 11/10/2019 Overview: Added automatically from request for mauro cliff [id number] Common bile duct dilation 11/10/2019 Overview: Added automatically from request for mauro cliff [id number] Spondylolisthesis Hypothyroidism Bipolar 1 disorder documented as of this encounter (statuses as of 12/11/2019) Social History Tobacco Use Types Packs/Day Years [...] Sign Reading Time Taken Comments Blood Pressure 123/80 12/04/2019 2:35 PM CDT Pulse 84 12/04/2019 2:35 PM CDT Temperature 36.9 C (98.5 F) 12/04/2019 2:35 PM CDT Respiratory Rate 17 12/04/2019 2:35 PM CDT Oxygen Saturation 96% 12/04/2019 2:35 PM CDT Inhaled Oxygen Concentration - - Weight 67.6 kg (149 lb) 12/04/2019 2:35 PM CDT Height 157.5 cm (5' 2") 12/04/2019 2:35 PM CDT Body Mass Index 27.25 12/04/2019 2:35 PM CDT documented in this encounter Progress Notes Conrad Shields MD - 12/04/2019 3:00 PM CDT Pulmonary Clinic Note CC: SOB Reason for Pulmonary clinic visit: lung nodule HPI: Varsha Ramos is a 49 year old female presents today for evaluation of lung nodule. 1.3cm solid calcified nodule incidentally found on abdominal CT scan 11/20/19, not present of 11/09 CT abdomen, which demonstrated GGOs that resolved between studies. Former cigarette smoker 1ppd for 3 years, prior to that social smoker Has been vaping up to 6 months ago. Weight loss, she feels linked to digestion difficulty for which she has been seeing GI. Changed to gluten free diet with reports of some improvement. No family history of lung ca Brother with COPD, was active smoker. +cough , worse in am, productive of mucus. Taking mucinex dm and feels is helping. Before spring break (August) had flu like illness that improved. 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 Both self and daughter had symptoms. SARS-Cov-2 tests negative 11/09, 11/25 and 12/01 No hemoptysis, Increased fatigue started 1 month ago at time increased stomach disturbance. +SOB, with running, Previously could run across 1 acre and now has to stop 1 x during it. CURRENT MEDICATIONS: Current Outpatient Medications: diclofenac 50 mg EC tablet, TAKE ONE TABLET BY MOUTH TWICE A DAY NEEDED, Disp: , Rfl: fluconazole 150 mg tablet, TAKE ONE TABLET BY MOUTH DAILY, Disp: , Rfl: dicyclomine 20 mg tablet, Take 1 tablet by mouth every 6 (six) hours as needed for Abdominal pain., Disp: 20 tablet, Rfl: 0 lactulose 10 gram/15 mL oral solution, Take 30 mL by mouth 3 (three) times daily as needed for Constipation or For bowel movement., Disp: 1 Bottle, Rfl: 0 ondansetron (ZOFRAN) 4 mg tablet, Take 1 tablet by mouth every 8 (eight) hours as needed for Nausea and Vomiting (N/V)., Disp: 12 tablet, Rfl: 0 ondansetron 4 mg disintegrating tablet, Take 1 tablet by mouth every 8 (eight) hours as needed (N/V)., Disp: 30 tablet, Rfl: 0 amitriptyline 25 mg tablet, Take 25 mg by mouth at bedtime., Disp: , Rfl: gabapentin 400 mg capsule, Take 400 mg by mouth 3 (three) times daily., Disp: , Rfl: levothyroxine 75 mcg tablet, Take 75 mcg by mouth every morning., Disp: , Rfl: OXcarbazepine 300 mg tablet, Take 450 mg by mouth 2 (two) times daily., Disp: , Rfl: QUEtiapine 300 mg tablet, Take 150 mg by mouth at bedtime., Disp: , Rfl: SERTraline 50 mg tablet, Take 100 mg by mouth daily., Disp: , Rfl: No current facility-administered medications for this visit. Facility-Administered Medications Ordered in Other Visits: lactated ringers IV infusion 1,000 mL, 1,000 mL, IV Infusion, CONTINUOUS, Melissa Mcclelland CRNA ondansetron (ZOFRAN (PF)) injection 4 mg, 4 mg, Slow IV Push, PRN, Melissa Mcclelland CRNA simethicone (GAS RELIEF (SIMETHICONE)) 40 mg/0.6 mL drops, , , PRN, Sohail Loera MD, 80 mg at 12/04/19 1217 PAST MEDICAL HISTORY: Past Medical History: Diagnosis Date Bipolar 1 disorder Hypothyroidism Spondylolisthesis PAST SURGCIAL HISTORY: Past Surgical History: Procedure Laterality Date APPENDECTOMY 1979 SECTION 1994 SECTION 2002 COLONOSCOPY N/A 11/30/2019 Surgeon: Flower Vicente MD; Location: [facility] ESOPHAGOGASTRODUODENOSCOPY N/A 11/12/2019 Surgeon: Neto Burch MD; Location: [facility] ([facility] Location FUSION SPINE POSTERIOR CERVICAL AND DISCECTOMY ([facility]) 2003 UPPER ULTRASOUND ([facility]) N/A 11/12/2019 Surgeon: Neto Burch MD; Location: [facility] ([facility] Location There is no immunization history on file for this patient. FAMILY HISTORY: Family History Problem Relation Age of Onset COPD (chronic obstructive pulmonary disease) Brother Other - see comments Maternal Grandmother 50 polycythemia Colon Cancer NoFHx SOCIAL HISTORY: Social History Socioeconomic History Marital status: Spouse [...] file Gets together: Not on file Attends denominational service: Not on file Active member of [...] file Social History Narrative Not on file ROS: General: (-) fever,( -) chills,( -) weight change,( - )dizziness, (- )fatigue,( - )change in appetite Skin:( - )rash,( - )lesion HEENT: (- )headache,( - )change in hearing,( - )change in vision,( -) nasal discharge,( -) sore throat,(-)Epistaxis Heme:( - )bleeding disorder Resp: (-)cough,( -) shortness of breath,( - )dyspnea on exertion,( - )orthopnea, ( -)paroxysmal nocturnal dyspnea Cardio:( -) chest pain, (- )palpitations,( -) syncope GI:( -) abdominal pain, (-) nausea, (-) vomiting, (-) diarrhea,( - )constipation, : (-) dysuria,(-) hematuria,(-) increased frequency, (-)difficulty urinating, (- )difficulty initiating Neuro:(-)weakness, (-) dizziness Endo:( -) heat/cold intolerance CATERINA: (- joint pain,( - )back pain,( -) muscle spasms PHYSICAL EXAM: Vitals: 12/04/19 1435 BP: 123/80 BP Location: Right arm Patient Position: Sitting Pulse: 84 Resp: 17 Temp: 36.9 C (98.5 F) TempSrc: Oral SpO2: 96% Weight: 149 lb (67.6 kg) Height: 5' 2" (1.575 m) Physical Exam Constitutional: No distress. HENT: Head: Normocephalic and atraumatic. Cardiovascular: Normal rate. Pulmonary/Chest: Effort normal. No respiratory distress. Abdominal: Soft. She exhibits no distension. Musculoskeletal: She exhibits no edema. Skin: She is not diaphoretic. Psychiatric: She has a normal mood and affect. Her behavior is normal. Results Reviewed: Ct Abdomen Pelvis W Contrast Result Date: 11/21/2019 1. A large amount of stool in the colon suggests constipation. 2. Persistent mild dilatation of the common bile and pancreatic ducts. Unchanged left 2 cm and 1.3 cm adrenal adenomas. Hepatic steatosis. 3. A fibroid measures approximately 2.5 cm. IUD is present in the uterus. Preliminary Report Dictated by Resident: Kel Mcgill MD., have reviewed this study and agree with the above report. Ct Abdomen Pelvis W Contrast Result Date: 11/10/2019 Pancreatic and biliary ductal dilation with no obstructing mass or stone detected. Further evaluation with MRI with MRCP is recommended. Indeterminate left adrenal nodules can also be further evaluatedwith the recommended MRI. Preliminary Report Dictated by Resident: Carlos Raines MD., have reviewed this study and agree with the above report. Mr Abdomen W Wo Contrast Mrcp Result Date: 11/11/2019 Note: MRCP images are degraded by motion which limits evaluation. Mild diffuse pancreatic duct dilation with no obstructing lesion identified. An ERCP could be obtained to exclude an occult lesion. Gallbladder sludge. No pericholecystic inflammatory change or stranding. Left-sided 2.5 cm and 1.5 cm adrenal adenomas. The visualized lower uterine segment 2.2 cm cystic lesion which likely represents a post- cyst or degenerated fibroid. An ultrasound could be obtained for further characterization if clinically warranted. Extensive cystic changes seen in bilateral breasts. Correlate with mammography. Preliminary Report Dictated by Resident: Luan Perez I, Samuel Duffy MD., have reviewed this study and agree with the above report. ASSESSMENT /PLAN: : Varsha Ramos is a 49 year old female Lung Nodule: CT thorax ordered to reassess lung nodule, given speed of development and resolution of other findings, this may be infectious or inflammatory. She has a history of vaping and stopped within the time period, denies cannabis vaping though potential for vaping injury cannot be excluded. Sars-CoV-2 IgG ordered as patient symptom period in August at time of initial COVID 19 in community with flu like illness. My diagnostic impression and treatment plans were discussed at length with the patient. All side effects as well as drug-drug interactions and risks discussed at length. Follow up visit in 2 months Call or return to clinic prn if these symptoms worsen or fail to improve as anticipated Conrad Shields MD [facility] Pulmonary [facility] THRuth ribeiro RN - 12/04/2019 3:00 PM CDT Varsha Ramos is a 49 year old female seen for a follow up visit; patient has Patient Active Problem List Diagnosis Spondylolisthesis Hypothyroidism Bipolar 1 disorder RUQ pain RUQ abdominal pain Pancreatic duct dilated Common bile duct dilation Colon cancer screening Level of pain 0 Location of pain n/a Appearance: healthy,alert,cooperative. This patient is accompanied in the office by her self. Medications and allergies reviewed with patient by physician Nurse teaching given on plan of care and the patient expresses understanding and acceptance of instructions. Ruth Horne RN 12/04/2019 2:40 PM documented in this encounter Plan of Treatment Date Type Specialty Care Team Description 01/15/2020 Office Visit Gastroenterology Flower Vicente MD [address] [facility] [address] [place] [address] 01/18/2020 Office Visit Endocrinology Diabetes & Kes[facility] Olinda thayer MD Metabolism [address] [place], [place] [address] 03/11/2020 Office Visit Family Medicine Vitaliy Leslie MD [address] [place] [address] [phone] Health Maintenance Due Date Last [...] 11/30/2019 documented as of this encounter Results CT LUNG NODULE (12/07/2019 [...] screen,?suspicio us?- recommend multidisciplinary consultation and additional imaging([facility] er chest CT with contrast and/or PET [...] sagittal MPR images were generated and r rogeriewed. (DFOV = 40 cm) FINDINGS: Lower neck/thyroid: [...] Performing Organization Address City/State/Zipcode Phone Number PACS/VR/DOSE SARS-COV-2 IGG (12/04/2019 3:58 PM CDT) Pathologist Sig nature CoV-2 IgG NegativeComment: Negative [facility] Negative result does SERVICES not rule out acute SARS-CoV-2 infection. Clinical correlation as well as molecular diagnostic test are recommended to rule out acute infection if clinically indicated. Specimen Blood - ARM, LEFT Narrative Performed At This test has been approved by FDA for emergency use. [facility] Performing Organization Address City/State/Zipcode Phone Number [facility] CLIA: [id number], [address] [place] [address] [address] [facility] documented in this encounter Visit Diagnoses Diagnosis Lung nodule - Primary Solitary pulmonary nodule Flu-like symptoms Influenza with other respiratory manifes tations documented in this encounter Guarantor Name Account Type Relation to Date of Phone Billing Patient Address Varsha Ramos Personal/Family Self 1970 [phone] (Home) [facility] [phone] [facility] [place], ([place]) [place] [address] documented as of this encounter
--- OUTSIDE RECORDS SUMMARY | 2019-12-30 06:44 | XMS REPORT | Summary of Care ---
:1970 Author Organization [facility] Address [address] [place] [id number] Care Team Providers Name Role Phone MD Mariama Primary Care Provider Reason for Visit Reason Comments Follow-up Constipation Abdominal Pain HYPERTHYROIDISM Other Bipolar, etablished at [facility] sp (CHARISSE) Status Reason Specialty Diagnoses / Referred By Referred To Procedures Contact Contact New Request Family Medicine Diagnoses Fibroids Flower Vicente, Procedures CONSULT/REFERRAL FAMILY MEDICINE MD [address] [facility] [address] [place] [address] Encounter Details Date Type Department Care Team Description 12/10/2019 Office Visit [facility] Vitaliy Leslie C hronic constipation (Primary Dx); and Adult Primary MD RUQ abdominal pain; Care- [address] Pancreatic duct dilated; [address] [place] [address] Zhao [address] Common bile duct dilation; [address], [address] [place] [address] Hypothyroidism, unspecified type; [place], [place] [phone] Bipolar 1 disorder; [id number] [facility] [phone] Allergies Active Allergy Reactions Severity Noted Date [...] 30 mL by 1 Bottle 0 11/21/2019 Active mL oral mouth 3 (three) solutionIndications: times daily as Constipation, needed for unspecified Constipation or constipation type For bowel movement. dicyclomine 20 mg Take 1 tablet by 20 tablet 0 11/21/2019 Active tabletIndications: mouth every 6 Abdominal pain, (six) hours as unspecified abdominal needed for location Abdominal pain. ondansetron (ZOFRAN) Take 1 tablet by 12 tablet 0 11/21/2019 Active 4 mg mouth every 8 tabletIndications: (eight) hours as Abdominal pain, needed for Nausea unspecified abdominal and Vomiting location (N/V). fluconazole 150 mg TAKE ONE TABLET BY 0 Active tablet MOUTH DAILY diclofenac 50 mg EC TAKE ONE TABLET BY 0 Active tablet MOUTH TWICE A DAY NEEDED docusate (COLACE) 100 Take 1 capsule by 90 capsule 0 0 Active mg mouth once daily capsuleIndications: as needed for Chronic constipation Constipation. sennosides (SENOKOT) Take 1 tablet by 90 tablet 1 12/10/2019 Active 8.6 mg mouth daily. tabletIndications: Chronic constipation documented as of this encounter (statuses as of 12/10/2019) Active Problems Problem Noted Date Chronic constipation 12/10/2019 Encounter for medical examination to establish care Overview: Added automatically from request for mauro cliff [id number] RUQ pain 11/11/2019 RUQ abdominal pain 11/11/2019 Pancreatic duct dilated 11/10/2019 Overview: Added automatically from request for mauro cliff [id number] Common bile duct dilation 11/10/2019 Overview: Added automatically from request for mauro cliff [id number] Spondylolisthesis Hypothyroidism Bipolar 1 disorder documented as [...] Sign Reading Time Taken Comments Blood Pressure 120/75 12/10/2019 10:57 AM CDT Pulse 91 12/10/2019 10:57 AM CDT Temperature 37.1 C (98.7 F) 12/10/2019 10:57 AM CDT Respiratory Rate 18 12/10/2019 10:57 AM CDT Oxygen Saturation 98% 12/10/2019 10:57 AM CDT Inhaled Oxygen Concentration - - Weight 65.1 kg (143 lb 9.6 oz) 12/10/2019 10:57 AM CDT Height - - Body Mass Index 26.26 12/04/2019 2:35 PM CDT documented in this encounter Patient Instructions Patient InstructionsVitaliy Leslie MD - 12/10/2019 10:40 AM CDT Patient Education Constipation (Adult) Constipation means that you have bowel movements that are less frequent than usual. Stools often become very hard and difficult to pass. Constipation is very common. At some point in life, it affects almost everyone. Since everyone's bowel habits are different, what is constipation to one person may not be to another. Your healthcare provider may do tests to diagnose constipation. It depends on whathe or shefinds when evaluating you. Symptoms of constipation include: Abdominal pain Bloating Vomiting Painful bowel movements Itching, swelling, bleeding, or pain around the anus Causes Constipation can have many causes. These include: Diet low in fiber Too much dairy Not drinking enough liquids Lack of exercise or physical activity (especially true for older adults) Changes in lifestyle or daily routine, including , aging, work, and travel Frequent use or misuse of laxatives Ignoring the urge to have a bowel movement or delaying it until later Medicines, such as certain prescription pain medicines, iron supplements, antacids, certain antidepressants, and calcium supplements Diseases like irritable bowel syndrome, bowel obstructions, stroke, diabetes, thyroid disease, Parkinson disease, hemorrhoids, and colon cancer Complications Potential complications of constipation can include: Hemorrhoids Rectal bleeding from hemorrhoids or anal fissures(skin tears) Hernias Dependency on laxatives Chronic constipation Fecal impaction, a severe form of constipation in which a large amount of hard stool is in your rectum that you can't pass Bowel obstruction or perforation Home care All treatment should be done after talking with your healthcare provider. This is especially true ifyou have another medical problems, are taking prescription medicines, or are an older adult. Treatment most often involves lifestyle changes. You may also need medicines. Your healthcare provider will tell you which will work best for you. Follow the advice below to help avoid this problem in the future. Lifestyle changes These lifestyle changes can help prevent constipation: Diet. Eat a high-fiber diet, with fresh fruit and vegetables, and reduce dairy intake, meats, andprocessed foods Fluids. It's important to get enough fluids each day. Drink plenty of water when you eat more fiber. If you are on diet that limits the amount of fluid you can have, talk about this with your healthcare provider. Regular exercise. Check with your healthcare provider first. Medicines Take any medicines as directed. Some laxatives are safe to use only every now and then. Others can be taken on a regular basis. While laxatives don't cause bowel dependence, they are treating the symptoms. So your constipation may return if you don't make other changes. Talk with your healthcare provider or pharmacist if you have questions. Prescription pain medicines can cause constipation. If you are taking this kind of medicine, ask your healthcare provider if you should also take a stool softener. Medicines you may take to treat constipation include: Fiber supplements Stool softeners Laxatives Enemas Rectal suppositories Follow-up care Follow up with your healthcare provider if symptoms don't get better in the next few days. You may need to have more tests or see a specialist. Call 911 Call 911 if any of these occur: Trouble breathing Stiff, rigid abdomen that is severely painful to touch Confusion Fainting or loss of consciousness Rapid heart rate Chest pain When to seek medical advice Call your healthcare provider right away if any of these occur: Fever of 100.4F (38C) or higher, or as directed by your healthcare provider Failure to resume normal bowel movements Pain in your abdomen or back gets worse Nausea or vomiting Swelling in your abdomen Blood in the stool Black, tarry stool Involuntary weight loss Weakness [employer] last reviewed this educational content on 11/15/201719999301-3637 [employer]. [address] [place] [address], [place] [address]. All rights reserved. This information is not intended as a substitute for professional medical care. Always follow your healthcare professional's instructions. Patient Education Prevention Guidelines, Women Ages 50 to 64 Screening tests and vaccines are an important part of managing your health. A screening test is doneto find possible disorders or diseases in people who don't have any symptoms. The goal is to find a disease early so lifestyle changes can be made and you can be watched more closely to reduce the riskof disease, or to detect it early enough to treat it most effectively. Screening tests are not considered diagnostic, but are used to determine if more testing is needed.Health counseling is essential, too. Below are guidelines for these, for women ages 50 to 64. Talk with your healthcare provider to make sure youre up to date on what you need. Screening Who needs it How often Type 2 diabetes or prediabetes All women beginning at age 45 and women without symptoms at any age who are overweight or obese and have 1 or more additional risk factors for diabetes. At least every 3 years Type 2 diabetes or prediabetes All women diagnosed with gestational diabetes Lifelong testing every 3 years Type 2 diabetes All women with prediabetes Every year Alcohol misuse All women in this age group At routine exams Blood pressure All women in this age group Yearly checkup if your blood pressure is normal Normal blood pressure is less than 120/80 mm Hg If your blood pressure reading is higher than normal, follow the advice of your healthcare provider Breast cancer All women at average risk in this age group Yearly mammogram should be done until age 54. At age 55, you can switch to every other year or choose to continue yearly. All women should know the possible benefits and risks of breast cancer screening with mammograms. Cervical cancer All women in this age group, except women who have had a complete hysterectomy Pap test every 3 years or Pap test with human papillomavirus (HPV) test every 5 years Chlamydia Women at increased risk for infection At routine exams Colorectal cancer All women at average risk in this age group Multiple tests are available and are used at different times. Possible tests include: Flexible sigmoidoscopy every 5 years, or Colonoscopy every 10 [address], [address] colonography (virtual colonoscopy) every 5 years, or Yearly fecal occult blood test, or Yearly fecal immunochemical test every year, or Stool DNA test, every 3 years If you choose a test other than a colonoscopy and have an abnormal test result, you will need to follow up with a colonoscopy. Screening advice varies among expert groups. Talk with your healthcare provider about which tests are best for you. Some people should be screened using a different schedule because of their personal or family healthhistory. Talk with your healthcare provider about your health history. Depression All women in this age group At routine exams Gonorrhea Sexually active women at increased risk for infection At routine exams Hepatitis C Anyone at increased risk; 1 time for those born between 1945 and 1964 At routine exams High cholesterol or triglycerides All women in this age group who are at risk for coronary artery disease At least every 5 years HIV All women At routine exams Lung cancer Adults age 55 to 80 who have smoked Yearly screening in smokers with 30 pack-year history of smoking or who quit within 15 years Obesity All women in this age group At routine exams Osteoporosis Women who are postmenopausal Ask your healthcare provider Syphilis Women at increased risk for infection talk with your healthcare provider At routine exams Tuberculosis Women at increased risk for infection talk with your healthcare provider Ask your healthcare provider Vision All women in this age group Ask your healthcare provider Vaccine Who needs it How often Chickenpox (varicella) All women in this age group who have no record of this infection or vaccine 2doses; the second dose should be given at least 4 weeks after the first dose Hepatitis A Women at increased risk for infection talk with your healthcare provider 2 doses given at least 6 months apart Hepatitis B Women at increased risk for infection talk with your healthcare provider 3 doses over 6 months; second dose should be given 1 month after the first dose; the third dose should be given at least 2 months after the second dose and at least 4 months after the first dose Haemophilus influenzae Type B (HIB) Women at increased risk for infection talk with your healthcare provider 1 to 3 doses Influenza (flu) All women in this age group Once a year Measles, mumps, rubella (MMR) Women in this age group through their late 50s who have no record of these infections or vaccines 1 dose Meningococcal Women at increased risk for infection talk with your healthcare provider 1 or moredoses Pneumococcal conjugate vaccine (PCV13) and pneumococcal polysaccharide vaccine (PPSV23) Women at increased risk for infection talk with your healthcare provider PCV13: 1 dose ages 19 to 65 (protects against 13 types of pneumococcal bacteria) PPSV23: 1 to 2 doses through age 64, or 1 dose at 65 or older (protects against 23 types of pneumococcal bacteria) Tetanus/diphtheria/pertussis (Td/Tdap) booster All women in this age group Td every 10 years, or a 1-time dose of Tdap instead of a Td booster after age 18, then Td every 10 years Zoster All women ages 60 and older 1 dose Counseling Who needs it How often BRCA gene mutation testing for breast and ovarian cancer susceptibility Women with increased risk for having gene mutation When your risk is known Breast cancer and chemoprevention Women at high risk for breast cancer When your risk is known Diet and exercise Women who are overweight or obese When diagnosed, and then at routine exams Sexually transmitted infection prevention Women at increased risk for infection talk with your healthcare provider At routine exams Use of daily aspirin Women ages 55 and up in this age group who are at risk for cardiovascular health problems such as stroke When your risk is known Use of tobacco and the health effects it can cause All women in this age group Every exam 1 [employer] last reviewed this educational content on 07/12/201519991336-8170 [employer]. [address] [place] [address]. All rights reserved. This information is not intended as a substitute for professional medical care. Always follow your healthcare professional's instructions. documented in this encounter Progress Notes Vitaliy Leslie MD - 12/10/2019 10:40 AM CDT Cc: Chief Complaint Patient presents with Follow-up Constipation Abdominal Pain HYPERTHYROIDISM Other Bipolar, etablished at [facility] is a 49 year old female who has a past medical history of Bipolar 1 disorder, Common bile duct dilation (11/10/2019), Hypothyroidism, Hypothyroidism, Pancreatic duct dilated (11/10/2019), RUQ abdominal pain (11/11/2019), RUQ pain (11/11/2019), and Spondylolisthesis. Patient is here to establish care with a new provider. Patient was recently hospitalized for abdominal pain, reports persistent epigastric, RUQ and sometimes generalized abdominal pains that intermittently worsens after eating. Work-up to-date including abnormal imaging of the GI tract noted. Patient is established with G.I. Patient has chronic constipation, in addition to dilated bile and pancreatic ducts. Imaging including EUS, showed no lesions. Coloscopy of 12/04/2019 was incomplete, ventral hernia noted. Comparisons ofMR abdomen of 11/11/[address] abdomen of 12/07/2019 showed no significant changes: left adrenal nodules; diffuse pancreatitic duct w/o obstructing lesions; and fibroid. Patient is concerned about her recent feeling of nausea, reflux and vomiting, notes SOB with activities, and cramping. Most recent labs reviewed and discussed, showed negative results x 2 for COVID-19 including antibody test, BUN/Cr <2/0.61, Lipase 20, Alk Phos 65, ALT/AST 05/05. Potassium, Magnesium with Immunoglobulin were within normal ranges. Patient has bipolar, established with Psychiatry at [facility] in [place], on Sertraline, Oxcarbazepine, Quetiapine, and Amitriptyline, reports compliance with therapy, denies SI/HI/AH/VH. Patient has hypothyroidism, recent lab showed TSH WNL, on Levothyroxine. Allergies Varhsa is allergic to ciprofloxacin; sulfa (sulfonamide antibiotics); and zonisamide. Medications Outpatient Medications Prior to Visit Medication Sig Dispense Refill ondansetron (ZOFRAN) 4 mg tablet Take 1 tablet by mouth every 8 (eight) hours as needed for Nausea and Vomiting (N/V). 12 tablet 0 ondansetron 4 mg disintegrating tablet Take 1 tablet by mouth every 8 (eight) hours as needed (N/V). 30 tablet 0 amitriptyline 25 mg tablet Take 25 mg by mouth at bedtime. gabapentin 400 mg capsule Take 400 mg by mouth 3 (three) times daily. levothyroxine 75 mcg tablet Take 75 mcg by mouth every morning. OXcarbazepine 300 mg tablet Take 450 mg by mouth 2 (two) times daily. QUEtiapine 300 mg tablet Take 150 mg by mouth at bedtime. SERTraline 50 mg tablet Take 100 mg by mouth daily. diclofenac 50 mg EC tablet TAKE ONE TABLET BY MOUTH TWICE A DAY NEEDED fluconazole 150 mg tablet TAKE ONE TABLET BY MOUTH DAILY dicyclomine 20 mg tablet Take 1 tablet by mouth every 6 (six) hours as needed for Abdominal pain. 20 tablet 0 lactulose 10 gram/15 mL oral solution Take 30 mL by mouth 3 (three) times daily as needed for Constipation or For bowel movement. 1 Bottle 0 No facility-administered medications prior to visit. Histories Past Medical History: Diagnosis Date Bipolar 1 disorder Common bile duct dilation 11/10/2019 Added automatically from request for surgery [id number] Hypothyroidism Hypothyroidism Pancreatic duct dilated 11/10/2019 Added automatically from request for surgery [id number] RUQ abdominal pain 11/11/2019 RUQ pain 11/11/2019 Spondylolisthesis Past Surgical History: Procedure Laterality Date APPENDECTOMY 1979 SECTION 1994 SECTION 2002 COLONOSCOPY N/A 11/30/2019 Surgeon: Flower Vicente MD; Location: [place] OR Location COLONOSCOPY N/A 12/04/2019 Surgeon: Sohail Loera MD; Location: [place] OR Location ESOPHAGOGASTRODUODENOSCOPY N/A 11/12/2019 Surgeon: Neto Burch MD; Location: [facility] ([facility] OR Location FUSION SPINE POSTERIOR CERVICAL AND DISCECTOMY ([facility]) 2003 UPPER ULTRASOUND ([facility]) N/A 11/12/2019 Surgeon: Neto Burch MD; Location: [facility] ([facility] Location Social History Socioeconomic History Marital status: Spouse [...] file Gets together: Not on file Attends buddhism service: Not on file Active member of [...] file Social History Narrative Not on file Family History Problem Relation Age of Onset COPD (chronic obstructive pulmonary disease) Brother Other - see comments Maternal Grandmother 50 polycythemia Colon Cancer NoFHx Review of Systems Constitutional: Positive for weight loss. Negative for fatigue and unexpected weight change. Eyes: Negative for visual disturbance. Respiratory: Negative for chest tightness and shortness of breath. Cardiovascular: Negative for chest pain. Gastrointestinal: Positive for abdominal pain and constipation. Neurological: Negative for weakness. Psychiatric/Behavioral: Negative for agitation and self-injury. The patient is not nervous/anxious. Endocrine: Positive for weight loss. Vital Signs BP 120/75 | Pulse 91 | Temp 37.1 C (98.7 F) (Temporal Artery) | Resp 18 | Wt 143 lb 9.6 oz (65.1 kg) | SpO2 98% | BMI 26.26 kg/m Physical Exam Constitutional: She is oriented to person, place, and time. No distress. HENT: Head: Normocephalic and atraumatic. Eyes: Pupils are equal, round, and reactive to light. EOM are normal. Neck: Normal range of motion. Neck supple. Cardiovascular: Normal rate and regular rhythm. Pulmonary/Chest: Effort normal and breath sounds normal. Abdominal: Soft. Bowel sounds are normal. Musculoskeletal: Normal range of motion. Neurological: She is alert and oriented to person, place, and time. Skin: Skin is warm. Capillary refill takes less than 2 seconds. Psychiatric: She has a normal mood and affect. Her behavior is normal. Bipolar stable, no crisis, SI/HI/AH/VH Vitals reviewed. Imaging: reviewed and discussed CT lung 12/07/2019 IMPRESSION - LungRADS Category 2. Recommendation continued annual screening in [address] Abdomen 11/20/2019 FINDINGS: LOWER THORAX: The lungs bases are clear. No cardiomegaly. A 1 cm calcified subpleural nodule projects from the right diaphragm leaflets (4:9). LIVER: No focal hepatic lesions. Normal contour. GALLBLADDER AND BILIARY TREE: The common bile duct measures at the upper limits of normal in size..No gallbladder wall thickening. SPLEEN: No splenomegaly. PANCREAS: No ductal dilation or masses. ADRENAL a 1.3 and 2 cm left adrenal gland nodules with previously characterized as adrenal adenomas on prior MRI. KIDNEYS: No hydronephrosis, stones, or masses. PERITONEUM AND RETROPERITONEUM: No free air or fluid. LYMPH NODES: No lymphadenopathy. GI TRACT: No dilation or wall thickening. The appendix is not distinctly visualized, however no secondary signs of acute appendicitis are seen within the right lower quadrant. A large amount of stool in the colon suggests constipation. PELVIS/BLADDER: The urinary bladder is mild to moderately distended. The uterus is unremarkable in size for given age. A 3.3 cm hypodense lesion within the lower uterinesegment likely represents a degenerative intramural leiomyoma. An IUD is identified. The bilateral ovaries are not distinctly visualized. VESSELS: Unremarkable. BONES AND SOFT TISSUES: No suspicious lytic or sclerotic bony lesions. IMPRESSION 1. A large amount of stool in the colon suggests constipation. 2. Persistent mild dilatation of the common bile and pancreatic ducts. Unchanged left 2 cm and 1.3 cm adrenal adenomas. Hepatic steatosis. 3. A fibroid measures approximately 2.5 cm. IUD is present in the uterus. MR Abdomen 11/11/2019 FINDINGS: MRCP images are limited due to motion artifact. LOWER THORAX: Right basilar atelectasis. Extensive cystic changes are seen in bilateral breasts on T2-weighted series. LIVER: Normal parenchymal signal characteristics. Liver is mildly enlarged with a craniocaudal dimension of 18.6 cm. Nonenhancing 12 mm hepatic dome lesion which is likely benign and corresponds with the partially calcified lesion seen on prior CT. BILIARY TREE/GALLBLADDER: No ductal dilation or filling defects. Common bile duct measures 7 mm in transverse dimension. T1 hyperintense material layering within the gallbladder likely represents biliary sludge. SPLEEN: No splenomegaly. PANCREAS: Diffuse dilation of the pancreatic duct measuring 4 mm in the head, 5 mm in the body, and 3 mm in the tail. No obstructing lesions are identified. ADRENAL GLANDS: Left-sided 2.5 cm and 1.5 cm adrenal nodules which demonstrate loss of signal on outof phase imaging consistent with adrenal adenomas. KIDNEYS: No hydronephrosis or masses. PERITONEUM AND RETROPERITONEUM: No upper abdominal ascites. GASTROINTESTINAL: Visualized portions of the GI tract demonstrate mild to moderate colonic stool burden. LYMPH NODES: No lymphadenopathy. VESSELS: Unremarkable. BONES AND SOFT TISSUES: Diffusely decreased bone marrow signal may represent red marrow [...] could be obtained for further characterization if clinicallywarranted. 12/04/2019: Colonoscopy - Semi-liquid stool was found in the ascending colon, precluding visualization. Lavage of the area was performed using a moderate amount, resulting in incomplete clearance with continued poor visualization. - Prep is poor on this second colonoscopy. She has a long and redundant colon. She has a ventral hernia and these factors make the colonoscopy technically challenging. Assessment/Plan Chronic constipation - Complicated by RUG pain Imaging reviewed and discussed, colonoscopy was incomplete, ventral hernianoted. Patient is established with G.I, will f/u as scheduled - docusate (COLACE) 100 mg capsule; Take 1 capsule by mouth once daily as needed for Constipation. Dispense: 90 capsule; Refill: 0 - sennosides (SENOKOT) 8.6 mg tablet; Take 1 tablet by mouth daily. Dispense: 90 tablet; Refill: 1 Pancreatic duct dilated - Stable. Complicated by common bile duct dilation. Imaging reviewed and discussed Hypothyroidism, unspecified type - Lab reviewed. TSH normal. Continue Levothyroxine Bipolar 1 disorder - Stable, not in crisis, no SI/HI/AH/VH, established with Psychiatry at [facility]. Continue Sertraline, Oxcarbazepine, Quetiapine, and Amitriptyline, Preventive Care: Medication reconciliation, patient education and anticipatory guidance completed. All questions and concerns addressed. AVS given, handout on Constipation, Prevention Guideline provided. Return in about 3 months (around 03/11/2020), or if symptoms worsen or fail to improve. Vitaliy Leslie MD, MPH, AAHIVS Clinical Organizational Research Consultant, Department of Family Medicine [facility] Primary & Specialty Care - ADC 12/10/2019 11:50 AM documented in this encounter Plan of Treatment Date Type Specialty Care Team Description 01/15/2020 Office Visit Gastroenterology Flower Vicente MD 2240 [facility] 2.110 [place] [address] 01/18/2020 Office Visit Endocrinology Diabetes & Kesired Olinda thayer MD Metabolism 2660 [place] [address] 03/11/2020 Office Visit Family Medicine Vitaliy Leslie MD [address] [place] [address] Dr Churchill 205 [place], [place] [address] Health Maintenance Due Date [...] filedocumented in this encounter Visit Diagnoses Diagnosis Chronic constipation - Primary Unspecified constipation RUQ abdominal pain Abdominal pain, right upper quadrant Pancreatic duct dilated Other specified disease of pancreas Common bile duct dilation Other specified disorders of biliary tra ct Hypothyroidism, unspecified type Bipolar 1 disorder Bipolar I disorder, most recent episode (or current) unspecified Encounter for medical examination to est ablish care documented in this encounter , ([place]) [place] [id number] documented as of this encounter"
--- OUTSIDE RECORDS SUMMARY | 2019-12-30 06:44 | XMS REPORT | Summary of Care ---
:1970 Author Organization [facility] Address [address] [place] [address] Care Team Providers Name Role Phone MD Mariama Primary Care Provider Reason for Visit Reason Comments Follow-up Constipation Abdominal Pain HYPERTHYROIDISM Other Bipolar, etablished at [facility] (CHARISSE) Status Reason Specialty Diagnoses / Referred By Referred To Procedures Contact Contact New Request Family Medicine Diagnoses Fibroids Flower Vicente, Procedures CONSULT/REFERRAL FAMILY MEDICINE MD 2240 [facility] 2.110 [place] [address] Encounter Details Date Type Department Care Team Description 12/10/2019 Office Visit [facility] Pediatric Vitaliy Leslie C hronic constipation (Primary Dx); and Adult Primary MD RUQ abdominal pain; Care- [address] Pancreatic duct dilated; [address] [place] [address] Zhao 205 Common bile duct dilation; Drive, [address] [place] [address] Hypothyroidism, unspecified type; [place], [place] [phone] Bipolar 1 disorder; [address] [facility] [phone] Allergies Active Allergy Reactions Severity Noted Date [...] Added automatically from request for mauro cliff [id number] RUQ pain 11/11/2019 RUQ abdominal pain 11/11/2019 Pancreatic duct dilated 11/10/2019 Overview: Added automatically from request for mauro cliff [id number] Common bile duct dilation 11/10/2019 Overview: Added automatically from request for mauro cliff [id number] Spondylolisthesis Hypothyroidism Bipolar 1 disorder documented as [...] Black, tarry stool Involuntary weight loss Weakness [employer] last reviewed this educational content on 11/15/201719990200-6159 [employer] [address] [place] [address], [place] [address]. All rights reserved. This information is not [...] in this age group Every exam 1 [employer] last reviewed this educational content on 07/12/201519998967-9064 [employer] [address] [place] [address]. All rights reserved. This information is not intended as a substitute for professional medical care. Always follow your healthcare professional's instructions. documented in this encounter Progress Notes Vitaliy Leslie MD - 12/10/2019 10:40 AM CDT Cc: Chief Complaint Patient presents with Follow-up Constipation Abdominal Pain HYPERTHYROIDISM Other Bipolar, [facility]ablished [facility] is a 49 year [...] Patient has bipolar, established with Psychiatry at [facility] in [place], on Sertraline, Oxcarbazepine, Quetiapine, and Amitriptyline, reports compliance with therapy, denies SI/HI/AH/VH. Patient has hypothyroidism, recent lab showed TSH WNL, on Levothyroxine. Allergies Varsha is allergic to ciprofloxacin; sulfa (sulfonamide antibiotics); [...] 11/10/2019 Added automatically from request for surgery [id number] Hypothyroidism Hypothyroidism Pancreatic duct dilated 11/10/2019 Added automatically from request for surgery [id number] RUQ abdominal pain 11/11/2019 RUQ pain 11/11/2019 Spondylolisthesis Past Surgical History: Procedure Laterality Date APPENDECTOMY 1979 SECTION 1994 SECTION 2002 COLONOSCOPY N/A 11/30/2019 Surgeon: Flower Vicente MD; Location: [facility] [facility] Location COLONOSCOPY N/A 12/04/2019 Surgeon: Sohail Loera MD; Location: [facility] Location ESOPHAGOGASTRODUODENOSCOPY N/A 11/12/2019 Surgeon: Neto [...] file Gets together: Not on file Attends confucianism service: Not on file Active member of [...] crisis, no SI/HI/AH/VH, established with Psychiatry at [facility]. Continue Sertraline, Oxcarbazepine, Quetiapine, and Amitriptyline, Preventive Care: Medication reconciliation, patient education and anticipatory guidance completed. All questions and concerns addressed. AVS given, handout on Constipation, Prevention Guideline provided. Return in about 3 months (around 03/11/2020), or if symptoms worsen or fail to improve. Vitaliy Leslie MD, MPH, AAHIVS Clinical Furrier Designer, Department of Family Medicine [facility] Primary & Specialty Care - ADC 12/10/2019 11:50 AM documented in this encounter Plan of Treatment Date Type Specialty Care Team Description 01/15/2020 Office Visit Gastroenterology Flower Vicente MD 2240 [facility] 2.[address] [place] [address] 01/18/2020 Office Visit Endocrinology Diabetes & Kesired Olinda thayer MD Metabolism 2660 [place] [address] 03/11/2020 Office Visit Family Medicine Vitaliy Leslie MD [address] [place] [address] Dr Churchill [address] [place], [place] [address] Health Maintenance Due Date [...] care documented in this encounter , ([place]) [place] [id number] documented as of this encounter"
--- OUTSIDE RECORDS SUMMARY | 2019-12-30 06:45 | XMS REPORT | Summary of Care ---
:1970 Author Organization [facility] Address [address] [place] [address] Care Team Providers Name Role Phone MD Mariama Primary Care Provider Encounter Details Date Type Department Care Team Description 12/11/2019 Patient Secure [facility] Pediatric Vitaliy Mg MD and Adult Primary Care- [address] [facility] [address] [address] [address], [address] [place] [address] [phone] Allergies Active Allergy Reactions Severity Noted Date Comments Ciprofloxacin Anaphylaxis 07/27/2011 Sulfa (Sulfonamide Antibiotics) Unknown - See comments 09/27/2008 Zonisamide Unknown - See comments 01/16/2008 documented as of this encounter (statuses as of 12/15/2019) Medications Medication Sig Dispensed Refills Start Date [...] as of this encounter (statuses as of 12/15/2019) Active Problems Problem Noted Date Chronic constipation 12/10/2019 Encounter for medical examination to establish care Overview: Added automatically from request for mauro cliff [id number] RUQ pain 11/11/2019 RUQ abdominal pain 11/11/2019 Pancreatic duct dilated 11/10/2019 Overview: Added automatically from request for mauro cliff [id number] Common bile duct dilation 11/10/2019 Overview: Added automatically from request for mauro cliff [id number] Spondylolisthesis Hypothyroidism Bipolar 1 disorder documented as of this encounter (statuses as of 12/15/2019) Social History Tobacco Use Types Packs/Day Years [...] Office Visit Gastroenterology Flower Vicente MD 2240 [facility] 2.[address] [place] [address] 01/18/2020 Office Visit Endocrinology Diabetes & Kesired Olinda thayer MD Metabolism 2660 [place], [place] [address] 03/11/2020 Office Visit Family Medicine Vitaliy Leslie MD [address] [place] [address] Zhao [address] [place], [place] [address] Health Maintenance Due Date [...] AETNA AETNA [facility] CARE [id number] 2019-Present PPO documented as of this encounter
--- OUTSIDE RECORDS SUMMARY | 2019-12-30 06:45 | XMS REPORT | Summary of Care ---
:1970 Author Organization [facility] Address [address] [place] [address] Care Team Providers Name Role Phone Ctr, Admin Med Primary Care Provider Reason for Referral MRI/CAT Scan (Routine) Status Reason Specialty Diagnoses / Referred By Referred To Procedures Contact Contact Closed Diagnostic Diagnoses Lung nodule Conrad Shields, Radiology Procedures CT LUNG NODULE [address] [place] [address] Reason for Visit Reason Comments Respiratory Problem Auth/Cert Status Reason Specialty Diagnoses / Procedures Referred By C ontact Referred To Contact Surgery Diagnoses Colon cancer screening [Z12.11] Vl Preop Procedures [facility] COLONOSCOPY 2[address] [place] [address] Phone: Fax: Encounter Details Date Type Department Care Team Description 12/04/2019 Office Visit [facility] Pulmonary- Alyson, Lung nodule (Primary Dx); [place] MD Conrad Flu-like symptoms [facility] [address] [place] [address] Entrance B [facility] 2 [place] [address] [id number] Allergies Active Allergy Reactions Severity Noted Date [...] Added automatically from request for mauro cliff [id number] RUQ pain 11/11/2019 RUQ abdominal pain 11/11/2019 Pancreatic duct dilated 11/10/2019 Overview: Added automatically from request for mauro cliff [id number] Common bile duct dilation 11/10/2019 Overview: Added automatically from request for mauro cliff [id number] Spondylolisthesis Hypothyroidism Bipolar 1 disorder documented as [...] N/A 11/30/2019 Surgeon: Flower Vicente MD; Location: [place] [facility] Location ESOPHAGOGASTRODUODENOSCOPY N/A 11/12/2019 Surgeon: Neto [...] file Gets together: Not on file Attends oriental orthodox service: Not on file Active member of [...] to improve as anticipated Conrad Shields MD Transportation Supervisor Pulmonary & Critical Care THRuth ribeiro RN [...] Office Visit Gastroenterology Flower Vicente MD 2240 [facility] [address] [place] [address] 01/18/2020 Office Visit Endocrinology Diabetes & Kesired Olinda thayer MD Metabolism 2660 [place], [place] 243[address] 03/11/2020 Office Visit Family Medicine Vitaliy Leslie MD [address] [place] [address] Health Maintenance Due Date Last [...] screen,?suspicio us?- recommend multidisciplinary consultation and additional imaging([facility] er chest CT with contrast and/or PET [...] Pathologist Sig nature CoV-2 IgG NegativeComment: Negative [facility] Negative result does SERVICES not rule out acute SARS-CoV-2 infection. Clinical correlation as well as molecular diagnostic test are recommended to rule out acute infection if clinically indicated. Specimen Blood - ARM, LEFT Narrative Performed At This test has been approved by FDA for emergency use. [facility] Performing Organization Address City/State/Zipcode Phone Number [facility] CLIA: [id number], [address] [address] 555 [facility] documented in this encounter Visit Diagnoses Diagnosis Lung nodule - Primary Solitary pulmonary nodule Flu-like symptoms Influenza with other respiratory manifes tations documented in this encounter Guarantor Name Account Type Relation to Date of Phone Billing Patient Address Varsha Ramos Personal/Family Self 1970 [phone] (Home) [facility] [phone] [facility] [place], (Work) [place] [address] documented as of this encounter
--- OUTSIDE RECORDS SUMMARY | 2019-12-30 06:45 | XMS REPORT | Summary of Care ---
:1970 Author Organization [facility] - [facility] Address [address] [place] [address] Care Team Providers Name Role Phone MD Mariama Primary Care Provider Encounter Details Date Type Department Care Team Description 12/14/2019 [facility] [address] [phone] Zhao 2.[address] [place] [address] Allergies Active Allergy Reactions Severity Noted Date Comments Ciprofloxacin Anaphylaxis 07/27/2011 Sulfa (Sulfonamide Antibiotics) Unknown - See comments 09/27/2008 Zonisamide Unknown - See comments 01/16/2008 documented as of this encounter (statuses as of 12/14/2019) Medications Medication Sig Dispensed Refills Start Date [...] as of this encounter (statuses as of 12/14/2019) Active Problems Problem Noted Date Chronic constipation 12/10/2019 Encounter for medical examination to establish care Overview: Added automatically from request for mauro cliff [id number] RUQ pain 11/11/2019 RUQ abdominal pain 11/11/2019 Pancreatic duct dilated 11/10/2019 Overview: Added automatically from request for mauro cliff [id number] Common bile duct dilation 11/10/2019 Overview: Added automatically from request for mauro cliff [id number] Spondylolisthesis Hypothyroidism Bipolar 1 disorder documented as of this encounter (statuses as of 12/14/2019) Social History Tobacco Use Types Packs/Day Years [...] Office Visit Gastroenterology Flower Vicente MD 2240 [facility] 2.[address] [place] [address] 01/18/2020 Office Visit Endocrinology Diabetes & Kesired Olinda thayer MD Metabolism 2660 [place], [place] 3313[address] 03/11/2020 Office Visit Family Medicine Vitaliy Leslie MD [address] [place] [address] 205 [place], [place] [address] Health Maintenance Due Date [...] Effective Dates Phone Address Type AETNA AETNA [email or web address] CARE [id number] 2019-Present PPO documented as of this encounter
--- OUTSIDE RECORDS SUMMARY | 2019-12-30 06:46 | XMS REPORT | Summary of Care ---
:1970 Author Organization [facility] Address [address] [place] [address] Care Team Providers Name Role Phone MD Mariama Primary Care Provider Encounter Details Date Type Department Care Team Description 12/16/2019 Patient Secure [facility] Internal Araceli Rosado, Medicine Larry LYONS Primary Care Pavilio n [address] [place] [address] [id number] [address] [place] , [place] [address] [address] [address] [place] [address] Allergies Active Allergy Reactions Severity Noted Date Comments Ciprofloxacin Anaphylaxis 07/27/2011 Sulfa (Sulfonamide Antibiotics) Unknown - See comments 09/27/2008 Zonisamide Unknown - See comments 01/16/2008 documented as of this encounter (statuses as of 12/17/2019) Medications Medication Sig Dispensed Refills Start Date [...] as of this encounter (statuses as of 12/17/2019) Active Problems Problem Noted Date Chronic constipation 12/10/2019 Encounter for medical examination to establish care Overview: Added automatically from request for mauro cliff [id number] RUQ pain 11/11/2019 RUQ abdominal pain 11/11/2019 Pancreatic duct dilated 11/10/2019 Overview: Added automatically from request for mauro cliff [id number] Common bile duct dilation 11/10/2019 Overview: Added automatically from request for mauro cliff [id number] Spondylolisthesis Hypothyroidism Bipolar 1 disorder documented as of this encounter (statuses as of 12/17/2019) Social History Tobacco Use Types Packs/Day Years [...] Treatment Date Type Specialty Care Team Description 12/18/2019 Appointment Radiology Cristela Delvalle M D [address] [place] [address] [phone] 12/18/2019 Appointment Radiology Cristela Delvalle M D [address] [facility] [facility] [facility] [address] [place] [address] [phone] 01/15/2020 Office Visit Gastroenterology Flower Vicente MD 2240 [facility] 2.[address] [place] [address] 01/18/2020 Office Visit Endocrinology Diabetes & Kesired Olinda thayer MD Metabolism 2660 [place] [address] [phone] 03/11/2020 Office Visit Family Medicine Vitaliy Leslie MD [address] [place] [address] 205 [place], [place] [address] [phone] Health Maintenance Due Date Last Done Comments PNEUMOCOCCAL 0-64 YEARS COMBINED 1975 SERIES (1 of 1 - PPSV23) DTaP,Tdap,and Td Vaccines (1 - 01/14/1980 Tdap) PAP SMEAR 1990 Breast Cancer Screening 2009 (MAMMOGRAM) Zoster Recombinant Vaccine 2019 (SHINGRIX) (1 of 2) INFLUENZA VACCINE (#1) 2020 03/25/2018, 05/17/2016, 05/17/2016, Additional history exists Depression Screening 12/03/2020 12/04/2019 COLONOSCOPY 12/03/2029 12/04/2019, 11/30/2019 documented as of this encounter Results Not on filedocumented in this encounter Insurance Payer Benefit Plan / Group Subscriber ID Effective Dates Phone Address Type AETNA AETNA [facility] CARE [id number] 2019-Present PPO documented as of this encounter
--- OUTSIDE RECORDS SUMMARY | 2019-12-30 06:46 | XMS REPORT | Summary of Care ---
:1970 Author Organization [facility] [employer] Address [address] [place] [address] Care Team Providers Name Role Phone MD Mariama Primary Care Provider Encounter Details Date Type Department Care Team Description 12/16/2019 Patient Secure M[facility] Internal Vitaliy [place] MD [address] Primary Care Julian [address] [place] [address] [facility] 107 [place] [address] Allergies Active Allergy Reactions Severity Noted Date Comments Ciprofloxacin Anaphylaxis 07/27/2011 Sulfa (Sulfonamide Antibiotics) Unknown - See comments 09/27/2008 Zonisamide Unknown - See comments 01/16/2008 documented as of this encounter (statuses as of 12/16/2019) Medications Medication Sig Dispensed Refills Start Date [...] as of this encounter (statuses as of 12/16/2019) Active Problems Problem Noted Date Chronic constipation 12/10/2019 Encounter for medical examination to establish care Overview: Added automatically from request for mauro cliff [id number] RUQ pain 11/11/2019 RUQ abdominal pain 11/11/2019 Pancreatic duct dilated 11/10/2019 Overview: Added automatically from request for mauro cliff [id number] Common bile duct dilation 11/10/2019 Overview: Added automatically from request for mauro cliff [id number] Spondylolisthesis Hypothyroidism Bipolar 1 disorder documented as of this encounter (statuses as of 12/16/2019) Social History Tobacco Use Types Packs/Day Years [...] Appointment Radiology Cristela Delvalle M D [address] [place] [address] [phone] 12/18/2019 Appointment Radiology Cristela Delvalle M D [address] [place] [address] [phone] 01/15/2020 Office Visit Gastroenterology Flower Vicente MD 2240 [facility] 2.[address] [place] [address] 01/18/2020 Office Visit Endocrinology Diabetes & Kesired Olinda thayer MD Metabolism 2660 [place], [place] [address] 03/11/2020 Office Visit Family Medicine Vitaliy Leslie MD [address] [place] [address] [facility] 205 [place], [place] [address] Health Maintenance Due Date [...] Effective Dates Phone Address Type AETNA AETNA [facility] [id number] 2019-Present PPO documented as of this encounter
--- OUTSIDE RECORDS SUMMARY | 2019-12-30 06:46 | XMS REPORT | Summary of Care ---
:1970 Author Organization [facility] Address [address] [place] [address] Care Team Providers Name Role Phone MD Mariama Primary Care Provider Encounter Details Date Type Department Care Team Description 12/14/2019 [facility] [address] [phone] Zhao [address] [place] [address] Allergies Active Allergy Reactions Severity Noted Date [...] Added automatically from request for mauro cliff [id number] RUQ pain 11/11/2019 RUQ abdominal pain 11/11/2019 Pancreatic duct dilated 11/10/2019 Overview: Added automatically from request for mauro cliff [id number] Common bile duct dilation 11/10/2019 Overview: Added automatically from request for mauro cliff [id number] Spondylolisthesis Hypothyroidism Bipolar 1 disorder documented as [...] Specialty Care Team Description 12/18/2019 Appointment Radiology Crsitela Delvalle M D [address] [facility] [place], [place] [address] [phone] 12/18/2019 Appointment Radiology Cristela Delvalle M D [address] [facility] [address] [place] [address] 15 [phone] 01/15/2020 Office Visit Gastroenterology Flower Vicente MD 2240 [place] [facility] [address] [place] [address] 01/18/2020 Office Visit Endocrinology Diabetes & Kesired dyOlinda MD Metabolism 2660 [place] [address] [phone] 03/11/2020 Office Visit Family Medicine Vitaliy Leslie MD [address] [place] [address] Dr Churchill 205 [place], [place] [address] [phone] Health Maintenance Due Date Last Done Comments [...] Effective Dates Phone Address Type AETNA AETNA [facility] [id number] 2019-Present PPO documented as of this encounter
--- OUTSIDE RECORDS SUMMARY | 2019-12-30 06:47 | XMS REPORT | Summary of Care ---
:1970 Author Organization [facility] Address [address] [place] [address] Care Team Providers Name Role Phone MD Mariama Primary Care Provider Reason for Referral Radiology Services (Routine) Status Reason Specialty Diagnoses / Procedures Referred By Jammie dailey To Contact Contact Closed Diagnostic Diagnoses Right upper quadrant pain Nausea and vomiting, intractability of vomiting not specified, unspecified vomiting type Cristela Delvalle, Radiology Procedures NM HEPATOBILIARY W INTERVENTION [address] [place] [address] [facility] [place] [address] Reason for Visit Radiology Services (Routine) Status Reason Specialty Diagnoses / Procedures Referred By Jammie dailey To Contact Contact Closed Diagnostic Diagnoses Right upper quadrant pain Nausea and vomiting, intractability of vomiting not specified, unspecified vomiting type Cristela Delvalle, Radiology Procedures NM HEPATOBILIARY W INTERVENTION [address] [place] [address] [facility] [place] [address] Encounter Details Date Type Department Care Team Description 12/18/2019 Hospital Encounter [facility] Amanda Delvalle MD [address] [place] [id number] [place] [address] Dr gray [phone] [place] [address] [phone] Allergies Active Allergy Reactions Severity Noted Date Comments Ciprofloxacin Anaphylaxis 07/27/2011 Sulfa (Sulfonamide Antibiotics) Unknown - See comments 09/27/2008 Zonisamide Unknown - See comments 01/16/2008 documented as of this encounter (statuses as of 12/19/2019) Medications Medication Sig Dispensed Refills Start Date [...] as of this encounter (statuses as of 12/19/2019) Active Problems Problem Noted Date Chronic constipation 12/10/2019 Encounter for medical examination to establish care Overview: Added automatically from request for mauro coronado [id number] RUQ pain 11/11/2019 RUQ abdominal pain 11/11/2019 Pancreatic duct dilated 11/10/2019 Overview: Added automatically from request for mauro coronado [id number] Common bile duct dilation 11/10/2019 Overview: Added automatically from request for mauro coronado [id number] Spondylolisthesis Hypothyroidism Bipolar 1 disorder documented as of this encounter (statuses as of 12/19/2019) Social History Tobacco Use Types Packs/Day Years [...] been in contact with No / Unsure 12/18/2019 10:53 AM CDT someone who was confirmed or suspected to have Coronavirus / COVID-19? documented as of this encounter Last Filed Vital Signs Not on filedocumented in this encounter Plan of Treatment Date Type Specialty Care Team Description 01/15/2020 Office Visit Gastroenterology Flower Vicente MD 2240 [facility] 2.110 [place] [address] 01/18/2020 Office Visit Endocrinology Diabetes & Kesired Olinda thayer MD Metabolism 2660 [place] [address] [phone] 03/11/2020 Office Visit Family Medicine Vitaliy [place] MD [address] [place] [address] Dr [place] [address] [place] [address] 15 Health Maintenance Due Date Last Done [...] Name Priority Date/Time Associated Diagnosis Comme nts NM HEPATOBILIARY W Routine 12/18/2019 1:30 Right upper quadra nt Results for this INTERVENTION PM CDT pain procedure are in Nausea and vomiting, the res ults intractability of section. vomiting not specified, unspecified vomiting type documented in this encounter Results NM HEPATOBILIARY W INTERVENTION (12/18/2019 1:30 PM CDT) Specimen Narrative Performed At [facility] HEPATOBILIARY SCAN PACS/VR/DOSE HISTORY: Right upper quadrant pain. TECHNIQUE: Following intravenous demonstration of 9.8 mCi of technetium 99m Choletec images of the right upper quadr ant are obtained in blood flow, blood pool and excretion phases. Approximately 1 hour into the examination 1.2 mcg of CCK is administered intravenously over a 20 minute time period FINDINGS: There is uniform radiotracer u ptake by the liver. No focal lesions are present within the liver. Th e bile ducts and gallbladder are visualized in normal time. Small bowel is visualized a fter administration of CCK. The gallbladder ejection fraction is dina culated to be 25% in response to CCK administration. Subjectively patient describes pain, trung sea and epigastric discomfort in response to CCK administration which was rated at 3 on a scale of 0-4 CONCLUSIONS: 1. Normal uptake and excretion of radiot racer by the liver 2. Visualization of the small bowel only after administration of CCK 3. Slightly decreased gallbladder ejecti on fraction and subjective duplication of symptoms in response to C CK administration suggests gallbladder dyskinesia Procedure Note [facility], Radiant Results Inft User - 2019 1:57 PM CDT [facility] HEPATOBILIARY SCAN HISTORY: Right upper quadrant pain. TECHNIQUE: Following intravenous demonst ration of 9.8 mCi of technetium 99m Choletec images of the right upper quadr ant are obtained in blood flow, blood pool and excretion phases. Approxi mately 1 hour into the examination 1.2 mcg of CCK is administered intraveno usly over a 20 minute time period FINDINGS: There is uniform radiotracer u ptake by the liver. No focal lesions are present within the liver. Th e bile ducts and gallbladder are visualized in normal time. Small bowel i s visualized after administration of CCK. The gallbladder ejection fraction is dina culated to be 25% in response to CCK administration. Subjectively patient describes pain, trung sea and epigastric discomfort in response to CCK administration which was rated at 3 on a scale of 0-4 CONCLUSIONS: 1. Normal uptake and excretion of radiot racer by the liver 2. Visualization of the small bowel only after administration of CCK 3. Slightly decreased gallbladder ejecti on fraction and subjective duplication of symptoms in response to C CK administration suggests gallbladder dyskinesia Performing Organization Address City/State/Zipcode Phone Number PACS/VR/DOSE documented in this encounter Visit Diagnoses Diagnosis Right upper quadrant pain Abdominal pain, right upper quadrant Nausea and vomiting, intractability of v omiting not specified, unspecified vomiting type documented in this encounter Administered Medications Medication Order MAR Action Action Date Dose Rate Site sincalide (KINEVAC) injection Given 12/18/2019 11:45 AM CDT 1.2 mcg 1.2 mcg 1.2 mcg, IV Push, ONCE, 1 dose, Sat12/18/19 at 1300, Routine tc 99m-mebrofenin injection 9.8 Given 12/18/2019 12:45 PM CDT 9. 8 millicuries millicurie 9.8 millicurie, Intravenous, ONCE, 1 dose, Sat12/18/19 at 1145, Routine documented in this encounter Guarantor Name Account Type Relation to Date of Phone Billing Patient Address Varsha Ramos Personal/Family Self 1970 [phone] (Home) [facility] [phone] [facility], ([place]) [place] [address] documented as of this encounter
--- OUTSIDE RECORDS SUMMARY | 2019-12-30 06:47 | XMS REPORT | Summary of Care ---
:1970 Author Organization [facility] [employer] Address [address] [place] [address] Care Team Providers Name Role Phone MD Mariama Primary Care Provider Encounter Details Date Type Department Care Team Description 12/20/2019 Patient Secure Msg [facility] Family Vitaliy [place] MD [address] [facility] [address] gray [facility] 205 [place] [address] 161 [place] [address] [phone] Allergies Active Allergy Reactions Severity Noted Date Comments Ciprofloxacin Anaphylaxis 07/27/2011 Sulfa (Sulfonamide Antibiotics) Unknown - See comments 09/27/2008 Zonisamide Unknown - See comments 01/16/2008 documented as of this encounter (statuses as of 12/20/2019) Medications Medication Sig Dispensed Refills Start Date [...] as of this encounter (statuses as of 12/20/2019) Active Problems Problem Noted Date Chronic constipation 12/10/2019 Encounter for medical examination to establish care Overview: Added automatically from request for mauro coronado [id number] RUQ pain 11/11/2019 RUQ abdominal pain 11/11/2019 Pancreatic duct dilated 11/10/2019 Overview: Added automatically from request for mauro cliff [id number] Common bile duct dilation 11/10/2019 Overview: Added automatically from request for mauro cliff [id number] Spondylolisthesis Hypothyroidism Bipolar 1 disorder documented as of this encounter (statuses as of 12/20/2019) Social History Tobacco Use Types Packs/Day Years [...] Office Visit Gastroenterology Flower Vicente MD 2240 [facility] 2.110 [place] [phone] 01/18/2020 Office Visit Endocrinology Diabetes & Kesired Olinda thayer MD Metabolism 2660 [place] [address] [phone] 03/11/2020 Office Visit Family Medicine Vitaliy [place] MD [address] [place] [address] 205 [place], [place] [address] Health Maintenance Due Date [...] Effective Dates Phone Address Type AETNA AETNA [facility] CARE [id number] 2019-Present PPO documented as of this encounter
--- OUTSIDE RECORDS SUMMARY | 2019-12-30 06:47 | XMS REPORT | Summary of Care ---
:1970 Author Organization [facility] [employer] Address [address] [place] [address] Care Team Providers Name Role Phone MD Mariama Primary Care Provider Encounter Details Date Type Department Care Team Description 12/17/2019 Patient Secure Msg [facility] Family Vitaliy [place] MD [address] 136 [facility] Dr gray [facility] 205 [place] [address] 161 [place] [address] [phone] Allergies Active Allergy Reactions Severity Noted Date [...] Added automatically from request for mauro coronado [id number] RUQ pain 11/11/2019 RUQ abdominal pain 11/11/2019 Pancreatic duct dilated 11/10/2019 Overview: Added automatically from request for mauro cliff [id number] Common bile duct dilation 11/10/2019 Overview: Added automatically from request for mauro cliff [id number] Spondylolisthesis Hypothyroidism Bipolar 1 disorder documented as [...] Office Visit Gastroenterology Flower Vicente MD 2240 [facility] 2.110 [place] [phone] 01/18/2020 Office Visit Endocrinology Diabetes & Kesired Olinda thayer MD Metabolism 2660 [place] [address] [phone] 03/11/2020 Office Visit Family Medicine Vitaliy [place] MD [address] [place] [address] 205 [place], [place] [address] Health Maintenance Due Date [...] Effective Dates Phone Address Type AETNA AETNA [facility] CARE [id number] 2019-Present PPO documented as of this encounter
--- OUTSIDE RECORDS SUMMARY | 2019-12-30 06:47 | XMS REPORT | Summary of Care ---
:1970 Author Organization [facility] Address [address] [place] [address] Care Team Providers Name Role Phone MD Mariama Primary Care Provider Encounter Details Date Type Department Care Team Description [facility] [address] [place] [address] [place] [address] Dr gray [phone] [place] [address] [phone] Allergies Active Allergy Reactions Severity Noted Date [...] Added automatically from request for mauro coronado [id number] RUQ pain 11/11/2019 RUQ abdominal pain 11/11/2019 Pancreatic duct dilated 11/10/2019 Overview: Added automatically from request for mauro cliff [id number] Common bile duct dilation 11/10/2019 Overview: Added automatically from request for mauro cliff [id number] Spondylolisthesis Hypothyroidism Bipolar 1 disorder documented as [...] Office Visit Gastroenterology Flower Vicente MD 2240 [facility] 2.110 [place] [address] 01/18/2020 Office Visit Endocrinology Diabetes & Kesired Olinda thayer MD Metabolism 2660 [place], [place] [phone] 03/11/2020 Office Visit Family Medicine Vitaliy [place] MD [address] [place] [address] 205 [place], [place] [address] Health Maintenance Due Date [...] to CCK administration. Subjectively patient describes pain, rtung sea and epigastric discomfort in response to [...] Phone Number PACS/VR/DOSE documented in this encounter , ([place]) [place] [address] documented as of this encounter
--- OUTSIDE RECORDS SUMMARY | 2019-12-30 06:47 | XMS REPORT | Summary of Care ---
:1970 Author Organization [facility] Address [address] [place] [address] Care Team Providers Name Role Phone MD Mariama Primary Care Provider Encounter Details Date Type Department Care Team Description 12/22/2019 [facility] [address] [place] [address] [place] [phone] Zhao 2.110 [place] [phone] Allergies Active Allergy Reactions Severity Noted Date Comments Ciprofloxacin Anaphylaxis 07/27/2011 Sulfa (Sulfonamide Antibiotics) Unknown - See comments 09/27/2008 Zonisamide Unknown - See comments 01/16/2008 documented as of this encounter (statuses as of 12/23/2019) Medications Medication Sig Dispensed Refills Start Date [...] as of this encounter (statuses as of 12/23/2019) Active Problems Problem Noted Date Chronic constipation 12/10/2019 Encounter for medical examination to establish care Overview: Added automatically from request for mauro coronado [id number] RUQ pain 11/11/2019 RUQ abdominal pain 11/11/2019 Pancreatic duct dilated 11/10/2019 Overview: Added automatically from request for mauro cliff [id number] Common bile duct dilation 11/10/2019 Overview: Added automatically from request for mauro cliff [id number] Spondylolisthesis Hypothyroidism Bipolar 1 disorder documented as of this encounter (statuses as of 12/23/2019) Social History Tobacco Use Types Packs/Day Years [...] been in contact with No / Unsure 12/21/2019 3:57 PM CDT someone who was confirmed or suspected to have Coronavirus / COVID-19? documented as of this encounter Last Filed Vital Signs Not on filedocumented in this encounter Plan of Treatment Date Type Specialty Care Team Description 12/28/2019 Office Visit Obstetrics & Gynecology Kayley Ferro MD [address] [place] [address] Dr. [place] 208 [place] [phone] 01/15/2020 Office Visit Gastroenterology Flower Vicente MD 2240 [facility] 2.110 [place] [phone] 01/18/2020 Office Visit Endocrinology Diabetes & Kesired Olinda thayer MD Metabolism 2660 [place], [place] 726013 03/11/2020 Office Visit Family Medicine EdemeVitaliy reyes MD [address] [place] [address] Dr Churchill 205 [place], [place] [address] Health Maintenance Due Date [...] Effective Dates Phone Address Type AETNA AETNA [facility] CARE [id number] 2019-Present PPO documented as of this encounter
--- OUTSIDE RECORDS SUMMARY | 2019-12-30 06:48 | XMS REPORT | Summary of Care ---
:1970 Author Organization [facility] Address [address] [place] [address] Care Team Providers Name Role Phone MD Mariama Primary Care Provider Reason for Visit Reason Comments Error Encounter Details Date Type Department Care Team Description 12/22/2019 Office Visit [facility] Women's Anni Ferro MD Fibroids (Primary Dx) Healthcare- [address] Vaughn [facility] 208 [facility], [address] [place] [phone] Allergies Active Allergy Reactions Severity Noted Date [...] Added automatically from request for mauro cliff [id number] RUQ pain 11/11/2019 RUQ abdominal pain 11/11/2019 Pancreatic duct dilated 11/10/2019 Overview: Added automatically from request for mauro cliff [id number] Common bile duct dilation 11/10/2019 Overview: Added automatically from request for mauro cliff [id number] Spondylolisthesis Hypothyroidism Bipolar 1 disorder documented as [...] Sign Reading Time Taken Comments Blood Pressure 111/70 12/22/2019 8:36 AM CDT Pulse 82 12/22/2019 8:36 AM CDT Temperature 36.5 C (97.7 F) 12/22/2019 8:36 AM CDT Respiratory Rate 18 12/22/2019 8:36 AM CDT Oxygen Saturation - - Inhaled Oxygen Concentration - - Weight 65.3 kg (144 lb) 12/22/2019 8:36 AM CDT Height 157.5 cm (5' 2") 12/22/2019 8:36 AM CDT Body Mass Index 26.34 12/22/2019 8:36 AM CDT documented in this encounter Progress Notes Anni Ferro MD - 12/22/2019 8:30 AM CDTPatient not seen documented in this encounter Plan of Treatment Date Type Specialty Care Team Description 12/28/2019 Office Visit Obstetrics & Gynecology Kayley Ferro MD [address] [place] [address] Dr. [place] 208 [place] [phone] 01/15/2020 Office Visit Gastroenterology Flower Vicente MD 2240 [facility] 2.110 [place] [phone] 01/18/2020 Office Visit Endocrinology Diabetes & Kesired Olinda thayer MD Metabolism 2660 [place] [address] [phone] 03/11/2020 Office Visit Family Medicine EdVitaliy galloway MD [address] [place] [address] Dr Churchill 205 [place], [place] [address] [phone] Health Maintenance Due Date Last Done Comments [...] Fibroids - Primary Leiomyoma of uterus, unspecified documented in this encounter documented as of this encounter
--- OUTSIDE RECORDS SUMMARY | 2019-12-30 06:48 | XMS REPORT | Summary of Care ---
:1970 Author Organization [facility] Address [address] [place] [address] Care Team Providers Name Role Phone MD Mariama Primary Care Provider Reason for Visit Reason Comments Error Encounter Details Date Type Department Care Team Description 12/22/2019 Office Visit [facility] Women's Anni Ferro MD Fibroids (Primary Dx) Healthcare- [address] Vaughn [facility] 208 [facility], [address] [place] [phone] Allergies Active Allergy Reactions [...] Added automatically from request for mauro cliff [id number] RUQ pain 11/11/2019 RUQ abdominal pain 11/11/2019 Pancreatic duct dilated 11/10/2019 Overview: Added automatically from request for mauro cliff [id number] Common bile duct dilation 11/10/2019 Overview: Added automatically from request for mauro cliff [id number] Spondylolisthesis Hypothyroidism Bipolar 1 disorder documented as [...] Visit Obstetrics & Gynecology Kayley Ferro MD [address] [place] [address] Dr. [place] 208 [place] [phone] 01/15/2020 Office Visit Gastroenterology Flower Vicente MD 2240 [facility] 2.110 [place] [phone] 01/18/2020 Office Visit Endocrinology Diabetes & Kesired Olinda thayer MD Metabolism 2660 [place] [address] [phone] 03/11/2020 Office Visit Family Medicine EdVitaliy galloway MD [address] [place] [address] Dr [place] 205 [place], [place] [address] [phone] Health Maintenance Due Date Last Done Comments [...]
--- OUTSIDE RECORDS SUMMARY | 2019-12-30 06:48 | XMS REPORT | Summary of Care ---
:1970 Author Organization [facility] Address [address] [place] [address] Care Team Providers Name Role Phone MD Mariama Primary Care Provider Encounter Details Date Type Department Care Team Description 12/25/2019 Patient Secure [facility] [place] [facility] [address] [place] [address] [place] [phone] [phone] Allergies Active Allergy Reactions Severity Noted Date Comments Ciprofloxacin Anaphylaxis 07/27/2011 Sulfa (Sulfonamide Antibiotics) Unknown - See comments 09/27/2008 Zonisamide Unknown - See comments 01/16/2008 documented as of this encounter (statuses as of 12/25/2019) Medications Medication Sig Dispensed Refills Start Date [...] as of this encounter (statuses as of 12/25/2019) Active Problems Problem Noted Date Chronic constipation 12/10/2019 Encounter for medical examination to establish care Overview: Added automatically from request for mauro coronado [id number] RUQ pain 11/11/2019 RUQ abdominal pain 11/11/2019 Pancreatic duct dilated 11/10/2019 Overview: Added automatically from request for mauro cliff [id number] Common bile duct dilation 11/10/2019 Overview: Added automatically from request for mauro cliff [id number] Spondylolisthesis Hypothyroidism Bipolar 1 disorder documented as of this encounter (statuses as of 12/25/2019) Social History Tobacco Use Types Packs/Day Years [...] Visit Obstetrics & Gynecology Kayley Ferro MD [address] [place] [address] Dr. [place] 208 [place] [phone] 01/15/2020 Office Visit Gastroenterology Flower Vicente MD 2240 [facility] 2.[address] [place] [phone] 01/18/2020 Office Visit Endocrinology Diabetes & Kesired Olinda thayer MD Metabolism 2660 [place], [place] [phone] 03/11/2020 Office Visit Family Medicine EdemeVitaliy reyes MD [address] [place] [address] Dr Churchill 205 [place], [place] [address] Health Maintenance Due Date [...] Phone Address Type AETNA AETNA [facility] [id number] 2019-Present PPO documented as of this encounter
--- OUTSIDE RECORDS SUMMARY | 2019-12-30 06:48 | XMS REPORT | Summary of Care ---
:1970 Author Organization [facility] Address [address] [place] [address] Care Team Providers Name Role Phone MD Mariama Primary Care Provider Encounter Details Date Type Department Care Team Description 12/25/2019 [facility] [place] [facility] [address] [place] [address] [place] [phone] [phone] Allergies Active Allergy Reactions Severity Noted Date [...] Added automatically from request for mauro coronado [id number] RUQ pain 11/11/2019 RUQ abdominal pain 11/11/2019 Pancreatic duct dilated 11/10/2019 Overview: Added automatically from request for mauro cliff [id number] Common bile duct dilation 11/10/2019 Overview: Added automatically from request for mauro cliff [id number] Spondylolisthesis Hypothyroidism Bipolar 1 disorder documented as [...] Visit Obstetrics & Gynecology Kayley Ferro MD [address] [place] [address] Dr. [place] 208 [place] [phone] 01/15/2020 Office Visit Gastroenterology Flower Vicente MD 2240 [facility] 2.[address] [place] [phone] 01/18/2020 Office Visit Endocrinology Diabetes & Kesired Olinda thayer MD Metabolism 2660 [place], [place] [phone] 03/11/2020 Office Visit Family Medicine EdemeVitaliy reyes MD [address] [place] [address] Dr [place] 205 [place], [place] [address] Health Maintenance Due Date [...] Effective Dates Phone Address Type [facility] [id number] 2019-Present PPO documented as of this encounter
--- OUTSIDE RECORDS SUMMARY | 2019-12-30 06:49 | XMS REPORT | Summary of Care ---
:1970 Author Organization [facility] Address [address] [place] [id number] Care Team Providers Name Role Phone MD Mariama Primary Care Provider Reason for Visit Reason Comments Lab Results Encounter Details Date Type Department Care Team Description 12/25/2019 Telephone [facility] Pulmonary- Conrad Shield[place] [address] Floor [phone] [place] [address] [phone] Allergies Active Allergy Reactions Severity Noted Date Comments Ciprofloxacin Anaphylaxis 07/27/2011 Sulfa (Sulfonamide Antibiotics) Unknown - See comments 09/27/2008 Zonisamide Unknown - See comments 01/16/2008 documented as of this encounter (statuses as of 12/28/2019) Medications Medication Sig Dispensed Refills Start Date [...] as of this encounter (statuses as of 12/28/2019) Active Problems Problem Noted Date Chronic constipation 12/10/2019 Encounter for medical examination to establish care Overview: Added automatically from request for mauro cliff [id number] RUQ pain 11/11/2019 RUQ abdominal pain 11/11/2019 Pancreatic duct dilated 11/10/2019 Overview: Added automatically from request for mauro clfif [id number] Common bile duct dilation 11/10/2019 Overview: Added automatically from request for mauro cliff [id number] Spondylolisthesis Hypothyroidism Bipolar 1 disorder documented as of this encounter (statuses as of 12/28/2019) Social History Tobacco Use Types Packs/Day Years [...] been in contact with No / Unsure 12/28/2019 9:07 AM CDT someone who was confirmed or suspected to have Coronavirus / COVID-19? documented as of this encounter Last Filed Vital Signs Not on filedocumented in this encounter Plan of Treatment Date Type Specialty Care Team Description 01/15/2020 Office Visit Gastroenterology Flower Vicente MD [address] [facility] [address] [place] [phone] 01/18/2020 Office Visit Endocrinology Diabetes & KesiOlinda hodgson MD Metabolism [address] [place] [address] [phone] 02/15/2020 Office Visit Obstetrics & Gynecology Kayley Ferro MD [address] [place] [address] [address] [place] [phone] 03/11/2020 Office Visit Family Medicine EdVitaliy galloway MD [address] [place] [address] [address] [place], [place] [phone] Health Maintenance Due Date [...] Results Not on filedocumented in this encounter Additional Health Concerns Infection Onset Date Last Indicated Resolved Time COVID-19 Rule Out 12/26/2019 12/26/2019 12/26/2019 8: 10 PM CDT COVID-19 Rule Out 12/26/2019 12/26/2019 12/27/2019 11: 39 PM CDT documented as of this encounter Insurance Payer Benefit Plan / Group Subscriber ID Effective Dates Phone Address Type [employer] [facility] [id number] 2019-Present PPO documented as of this encounter
--- OUTSIDE RECORDS SUMMARY | 2019-12-30 06:49 | XMS REPORT | Summary of Care ---
:1970 Author Organization [facility] - [facility] Address [address] [place] [address] Care Team Providers Name Role Phone MD Mariama Primary Care Provider Reason for Referral Radiology Services (STAT) Status Reason Specialty Diagnoses / Referred By Referred To Procedures Contact Contact New Request Diagnostic Diagnoses Abdominal pain, unspecified abdominal location RUQ pain Wheezing Vincent, Radiology Procedures XR CHEST 1 VW COVID XR CHEST 1 VW Shinta, TEA BLENDER [id number] [place] [address] Radiology Services (STAT) Status Reason Specialty Diagnoses / Referred By Referred To Procedures Contact Contact New Request Diagnostic Diagnoses RUQ pain Vincent, Radiology Procedures US GALL BLADDER Shinta, TEA BLENDER [address] [id number] [place] [address] Reason for Visit Reason Comments Abdominal Pain Auth/Cert Status Reason Specialty Diagnoses / Referred By Referred To Procedures Contact Contact Emergency Medicine [facility] ergency Dept [address] [place] [address] Fax: Encounter Details Date Type Department Care Team Description 12/26/2019 Emergency ADC-Emergency Vincent, Shinta, Abdominal pain, unspecified abdominal location (Primary Dx); Department TEA BLENDER RUQ pain; [address] [place] [address] Dr gray [address] Wheezing; [place] [address] [id number] Shortness of breath; [phone] [place], [place] Abnormal gall bladder diagnostic imaging; [address] Suspected Covid-19 Virus Infection [phone] Allergies Active Allergy Reactions Severity Noted Date Comments Ciprofloxacin Anaphylaxis 07/27/2011 Sulfa (Sulfonamide Antibiotics) Unknown - See comments 09/27/2008 Zonisamide Unknown - See comments 01/16/2008 documented as of this encounter (statuses as of 12/26/2019) Medications Medication Sig Dispensed Refills Start Date [...] needed for abdominal location Abdominal pain. ondansetron (ZOFRAN) Take 1 [...] MOUTH TWICE A DAY NEEDED docusate (COLACE) Take 1 capsule by 90 capsule 0 12/10/2019 Active 100 mg mouth once daily capsuleIndications: as needed for Chronic constipation Constipation. sennosides (SENOKOT) Take 1 tablet by 90 tablet 1 12/10/2019 Active 8.6 mg mouth daily. tabletIndications: Chronic constipation albuterol 90 Inhale 2 Puffs 8.5 g 0 12/26/2019 A ctive mcg/actuation every 4 (four) inhalerIndications: hours as needed Abdominal pain, for Wheezing or unspecified Shortness of abdominal location, Breath. Wheezing, Shortness of breath, Abnormal gall bladder diagnostic imaging predniSONE 10 mg Take 3 tablets by 9 tablet 0 12/26/201912/15 Active tabletIndications: mouth daily for 3 Abdominal pain, days. unspecified abdominal location, Wheezing, Shortness of breath, Abnormal gall bladder diagnostic imaging acetaminophen-codein Take 1 tablet by 12 tablet 0 12/26/2019 Active e (TYLENOL-CODEINE mouth every 6 #3) 300-30 mg (six) hours as tabletIndications: needed for Pain acute pain (scale 4-6). Indications: acute pain ondansetron (ZOFRAN Take 1 tablet by 15 tablet 0 12/26/2019 Active ODT) 4 mg mouth every 8 disintegrating (eight) hours as tabletIndications: needed for Nausea Abdominal pain, and Vomiting unspecified (N/V). abdominal location, Wheezing, Shortness of breath, Abnormal gall bladder diagnostic imaging famotidine (PEPCID) Take 1 tablet by 15 tablet 0 12/26/2019 Active 40 mg mouth daily. tabletIndications: Abdominal pain, unspecified abdominal location, Wheezing, Shortness of breath, Abnormal gall bladder diagnostic imaging azithromycin 250 mg Take 1 tablet by 1 Package 0 12/26/2019 Active tabletIndications: mouth daily. Take Abdominal pain, 500 mg day 1, then unspecified 250 mg days 2 to abdominal location, 5. Wheezing, Shortness of breath, Abnormal gall bladder diagnostic imaging documented as of this encounter (statuses as of 12/26/2019) Active Problems Problem Noted Date Chronic constipation 12/10/2019 Encounter for medical examination to establish care Overview: Added automatically from request for mauro cliff [id number] RUQ pain 11/11/2019 RUQ abdominal pain 11/11/2019 Pancreatic duct dilated 11/10/2019 Overview: Added automatically from request for mauro cliff [id number] Common bile duct dilation 11/10/2019 Overview: Added automatically from request for mauro cliff [id number] Spondylolisthesis Hypothyroidism Bipolar 1 disorder documented as of this encounter (statuses as of 12/26/2019) Social History Tobacco Use Types Packs/Day Years [...] been in contact with No / Unsure 12/26/2019 3:27 PM CDT someone who was confirmed or suspected to have Coronavirus / COVID-19? documented as of this encounter Last Filed Vital Signs Vital Sign Reading Time Taken Comments Blood Pressure 110/70 12/26/2019 8:00 PM CDT Pulse 75 12/26/2019 8:00 PM CDT Temperature 36.9 C (98.4 F) 12/26/2019 3:39 PM CDT Respiratory Rate 18 12/26/2019 8:00 PM CDT Oxygen Saturation 95% 12/26/2019 8:00 PM CDT Inhaled Oxygen Concentration - - Weight 68 kg (150 lb) 12/26/2019 3:39 PM CDT Height - - Body Mass Index 27.44 12/22/2019 8:36 AM CDT documented in this encounter Discharge Instructions Hellen Chavira FNP - 12/26/2019DIAGNOSIS Abdominal pain - gall bladder disease Shortness of breath and wheezing NO LIFE-THREATENING FINDINGS ON TODAY'S EXAM. PROCEDURES IN THE ER TODAY: US of abdomen Chest xray MEDICATIONS ADMINISTERED IN THE ER TODAY: Albuterol inhaler Pepcid Zofran Fentanyl Decadron YOUR PRESCRIPTIONS AND [id number] MEDICATION RECOMMENDATIONS: Prednisone Albuterol inhaler Pepcid Zofran Z pack Tylenol with codeine SPECIAL CARE INSTRUCTIONS: Take medications with food Follow up with general surgery as planned for scheduled procedure Follow up with lead inspector in 3-5 days FOLLOW-UP RECOMMENDATIONS: RECOMMEND FOLLOW-UP WITH A PRIMARY CARE PROVIDER and general dental surgery doctor in 1 week TO FOLLOW-UP WITHIN THE [facility], TRY THESE OPTIONS (CLINIC APPOINTMENTS AVAILABLE ON [id number] BASIS): 1. SCHEDULE AN APPOINTMENT ONLINE AT WWW[facility] 2. OR CALL THE [facility] AT OR 3. OR CALL YOUR [facility] PHYSICIAN'S OFFICE DIRECTLY IF YOU ARE ALREADY AN ESTABLISHED [facility] PATIENT. OR, YOU MAY FOLLOW-UP WITH A PROVIDER OF YOUR CHOICE, SUCH : 1. A PHYSICIAN OF YOUR CHOICE 2. [facility], . LOCATIONS IN [facility] 3. [facility], [address], [place]; [phone] RETURN TO ER FOR WORSENING OF SYMPTOMS. Fever, worsening shortness of breath, chest pain,vomiting orany other concerning symptoms AttachmentsThe following attachments cannot be sent through Care Everywhere. Abdominal Pain, Adult (Russian)Bronchitis with Wheezing (Adult) (Russian) Coronavirus Disease 2019 (COVID-19) (Russian)documented in this encounter Plan of Treatment Date Type Specialty Care Team Description 12/28/2019 Office Visit Obstetrics & Gynecology Kayley Ferro MD [address] [place] [address] [address]. [address] [place] [address] 01/15/2020 Office Visit Gastroenterology Flower Vicente MD [address] [facility] [address] [place] [phone] 01/18/2020 Office Visit Endocrinology Diabetes & Kesired Olinda thayer MD Metabolism [address] [place], [place] [address] 03/11/2020 Office Visit Family Medicine Vitaliy Leslie MD [address] [place] [address] [address] [place], [place] [address] Name Type Priority Associated Diagnoses Date/Ti me CORONAVIRUS COVID-19 LAB STAT Abdominal pain, 12/15 8:21 PM TESTING unspecified abdominal CDT location RUQ pain Wheezing Shortness of lou ath Abnormal gall bladder diagnostic imaging Name Type Priority Associated Diagnoses Order S chedule CORONAVIRUS COVID-19 LAB Routine Abdominal pain, ONCE for 1 Occurrences TESTING unspecified abdominal starti ng 12/26/2019 location until 12/26/2019 RUQ pain Wheezing Shortness of lou ath Abnormal gall bladder diagnostic imaging Health Maintenance Due Date Last Done [...] Procedure Name Priority Date/Time Associated Comments Diagnosis COVID-19 (ID NOW STAT 12/26/2019 7:14 Abdominal pain, Resu lts for this RAPID TESTING) PM CDT unspecified procedure are in abdominal locati on the results RUQ pain section. Wheezing XR CHEST 1 VW COVID STAT 12/26/2019 6:31 Abdominal pain, R esults for this PM CDT unspecified procedure are i n abdominal locati on the results RUQ pain section. Wheezing EKG-12 LEAD CHARISSE 12/26/2019 5:32 PM CDT US GALL BLADDER STAT 12/26/2019 5:22 RUQ pain Results for this PM CDT procedure are i n the results section. CBC WITH STAT 12/26/2019 5:07 Abdominal pain, Results for this DIFFERENTIAL PM CDT unspecified procedure are i n abdominal location the resul ts section. N-TERMINAL PRO-BNP STAT Add-On 12/26/2019 5:07 Abdominal pain, Re sults for this PM CDT unspecified procedure are i n abdominal locati on the results RUQ pain section. Wheezing URINALYSIS STAT 12/26/2019 5:07 Abdominal pain, Results for this PM CDT unspecified procedure are i n abdominal location the resul ts section. CBC WITH STAT 12/26/2019 5:07 Abdominal pain, Results for this DIFFERENTIAL PM CDT unspecified procedure are i n abdominal location the resul ts section. COMP. METABOLIC STAT 12/26/2019 5:07 Abdominal pain, Resul ts for this PANEL (92141) PM CDT unspecified procedure are in abdominal location the resul ts section. TROPONIN I STAT Add-On 12/26/2019 5:07 Abdominal pain, Results for this PM CDT unspecified procedure are i n abdominal locati on the results RUQ pain section. Wheezing LIPASE STAT 12/26/2019 5:07 Abdominal pain, Results for this PM CDT unspecified procedure are i n abdominal location the resul ts section. CONSENT/REFUSAL FOR Routine 12/26/2019 3:26 DIAGNOSIS AND PM CDT TREATMENT documented in this encounter Results COVID-19 (ID NOW RAPID TESTING) (12/26/2019 7:14 PM CDT) SARS-CoV-2 Rapid ID Not Detected Not Detected [facility] Specimen Swab - NASOPHARYNGEAL SWAB Narrative Performed At ID NOW COVID-19 Assay is an isothermal nucleic [facility] acid amplification test intended for the qualitative detection of nucleic acid from SARS-CoV-2 viral RNA in nasopharyngeal (HELICOPTER DISPATCHER) specimens. It is used under Emergency Use [...] indicated. Performing Organization Address City/State/Zipcode Phone Number [facility] CLIA: [id number], [address] [place], [place] [address] XR CHEST 1 VW COVID (12/26/2019 6:31 PM CDT) Specimen Impressions Performed At PACS/VR/DOSE Streaky bibasilar opacities are noted that may be seen with atelectasis or atypical infectious process. Disclaimer: Generally, the findings on c hest imaging in COVID-19 are not specific, and overlap with other infecti ons, including influenza, H1N1, SARS and MERS. According to the Centers for Disease Control (CDC) and recent statement of the [employer] [place] [employer], viral testing remai ns the only specific method of diagnosis. Confirmation with the viral test is required, even if radiologic findings are suggestive of CO VID-[address] Preliminary Report Dictated by Resident: Fernando Brown MD., have reviewed this study and agree with the above report. Narrative Performed At XR CHEST 1 VW COVID PACS/VR/DOSE Comparison: CT 12/07/2019 History: SOB Findings: Streaky bibasilar opacities are noted. N o pleural effusion, lobar consolidation, or pneumothorax is identi fied. The cardiomediastinal silhouette is norm al in size. No acute osseous abnormality is present. ACDF hardware is visualized in the lower cervical spine. Procedure Note [facility], Radiant Results Inft User - 2019 7:26 PM CDT XR CHEST 1 VW COVID Comparison: CT 12/07/2019 History: SOB Findings: Streaky bibasilar opacities are noted. N o pleural effusion, lobar consolidation, or pneumothorax is identi fied. The cardiomediastinal silhouette is norm al in size. No acute osseous abnormality is present. ACDF hardware is visualized in the lower cervical spine. IMPRESSION Streaky bibasilar opacities are noted th at may be seen with atelectasis or atypical infectious process. Disclaimer: Generally, the findings on c hest imaging in COVID-19 are not specific, and overlap with other infecti ons, including influenza, H1N1, SARS and MERS. According to the Centers for Disease Con trol (CDC) and recent statement of the [employer] [place] [employer], viral testing remains the only specific method of diagnosis. Confirmation with t he viral test is required, even if radiologic findings are suggestive of CO VID-[address] Preliminary Report Dictated by Resident: Fernando Brown MD., have r eviewed this study and agree with the above report. Performing Organization Address City/State/Zipcode Phone Number PACS/VR/DOSE US GALL BLADDER (12/26/2019 5:22 PM CDT) Specimen Impressions Performed At PACS/VR/DOSE Suspected gallbladder sludge without son ographic evidence of cholecystitis.. . Preliminary Report Dictated by Resident: Fernando Escobar MD., have reviewed this study and agree with the above report. Narrative Performed At EXAM: US GALL BLADDER PACS/VR/DOSE HISTORY: 49 years-old Female with worsening RUQ pain, with nausea/vomtiing, known Gall bladder disease , r/o cholecy stitis . TECHNIQUE: Limited abdominal ultrasound performed focused on the gallbladder. Main portal vein was evalua enrique with color Doppler imaging. Advertising Clerk images were obtained for the record. COMPARISON: None FINDINGS: LIVER: Limited evaluation of the liver o n this focused gallbladder examination.. Normal parenchymal echogenicity and echo texture. Hepatopetal flow in the main portal vein. The main p ortal vein measures 1.0 cm in caliber. GALLBLADDER: Gallbladder sludge is suspected, better visualized in the left lateral decubitus position. Normal gallbladder wall thickness, 2 mm. Negative Michelle's sign. BILE DUCTS: No intra- or extrahepatic biliary dilata tion.. Common Duct diameter: 7 mm. Procedure Note [facility], Radiant Results Inft User - 2019 6:09 PM CDT EXAM: US GALL BLADDER HISTORY: 49 years-old Female with worsen ing RUQ pain, with nausea/vomtiing, known Gall bladder disease , r/o cholecy stitis . TECHNIQUE: Limited abdominal ultrasound performed focused on the gallbladder. Main portal vein was evalua enrique with color Doppler imaging. Advertising Clerk images were obtained for the record. COMPARISON: None FINDINGS: LIVER: Limited evaluation of the liver o n this focused gallbladder examination.. Normal parenchymal echogen icity and echotexture. Hepatopetal flow in the main portal vein. The main p ortal vein measures 1.0 cm in caliber. GALLBLADDER: Gallbladder sludge is suspected, better visualized in the left lateral decubitus position. Normal gallbladder wall thickness, 2 mm. Negative Michelle's sign. BILE DUCTS: No intra- or extrahepatic biliary dilata tion.. Common Duct diameter: 7 mm. IMPRESSION Suspected gallbladder sludge without son ographic evidence of cholecystitis.. . Preliminary Report Dictated by Resident: Fernando Escobar MD., have r eviewed this study and agree with the above report. Performing Organization Address City/State/[facility] Phone Number PACS/VR/DOSE N-TERMINAL PRO-BNP (12/26/2019 5:07 PM CDT) Pathologist Sig [facility] NT-proBNP 119 <=125 pg/mL [facility] Specimen Blood - VENOUS Narrative Performed At Biotin has been reported to cause a negative [facility] bias, interpret results relative to patient's use of biotin. Performing Organization Address [facility] Phone Number [facility] CLIA: [id number], [address] [place] [address] TROPONIN I (12/26/2019 5:07 PM CDT) [facility] Sig [facility] TROPONIN I <0.012 <=0.034 ng/mL [facility] Specimen Blood - VENOUS Narrative Performed At Equal or Less than 0.034 ng/ml---Normal [facility] Note: Cardiac troponin begins to [...] patient's use of biotin. Performing Organization Address [facility] Phone Number [facility] CLIA: [id number], [address] [place] [address] CBC WITH DIFFERENTIAL (12/26/2019 5:07 PM CDT) Pathologist Sig [employer] WBC 9.55 4.30 - 11.10 [facility] 10*3/L [facility] RBC 3.93 3.93 - 5.25 [facility] 10*6/L [facility]ITAL [facility] HGB 12.4 11.6 - 15.0 g/dL [facility] HCT 37.3 35.7 - 45.2 % [facility] MCV 94.9 80.6 - 95.5 fL [facility] MCH 31.6 25.9 - 32.8 pg [facility] MCHC 33.2 31.6 - 35.1 g/dL [facility] RDW-SD 49.6 39.0 - 49.9 fL [facility] RDW-CV 14.3 12.0 - 15.5 % [facility] PLT 420 (H) 166 - 358 [facility] 10*3/L [facility] MPV 8.9 (L) 9.5 - 12.9 fL [facility] NRBC/100 WBC 0.0 0.0 - 10.0 /100 [facility] WBCs [facility] NRBC x10^3 <0.01 10*3/L [facility] GRAN MAT (NEUT) % 73.4 % [facility] IMM GRAN % 0.30 % [facility] LYMPH % 15.0 % [facility] MONO % 9.0 % [facility] EOS % 2.0 % [facility] BASO % 0.3 % [facility] GRAN MAT x10^3(ANC) 7.01 1.88 - 7.09 [facility] 10*3/uL [facility]OSPITAL [facility] IMM GRAN x10^3 0.03 0.00 - 0.06 [facility] 10*3/uL [facility]ITAL [facility] LYMPH x10^3 1.43 1.32 - 3.29 [facility] 10*3/uL [facility]ITAL [facility] MONO x10^3 0.86 0.33 - 0.92 [facility] 10*3/uL HOSPITAL LAB[facility] EOS x10^3 0.19 0.03 - 0.39 [facility] 10*3/uL HOS[facility]ITAL [facility] BASO x10^3 0.03 0.01 - 0.07 [facility] 10*3/uL [facility]OS[facility]ITAL [facility] Specimen Blood - VENOUS Performing Organization Address City/State/Zipcode Phone Number [facility] CLIA: [id number], [address] [place], [place] [address] URINALYSIS (12/26/2019 5:07 PM CDT) APPEARANCE Hazy (A) Clear [facility] COLOR Yellow Yellow [facility] PH 5.0 4.8 - 8.0 [facility] SP GRAVITY 1.019 1.003 - 1.030 [facility] GLU U QUAL Normal Normal [facility] BLOOD NegativeComment: Negative [facility] Interference from HOSPITAL ascorbic acid may LABORATORY cause false negative results. KETONES Negative Negative [facility] PROTEIN Negative Negative [facility] UROBILIN Normal Normal [facility] BILIRUBIN Negative Negative [facility] NITRITE Negative Negative [facility] LEUK BRUNO Negative Negative [facility] RBC/HPF 1 0 - 3 HPF [facility] WBC/HPF 1 0 - 5 HPF [facility] BACTERIA Few (A) Negative [facility] MUCOUS Marked (A) Negative LPF [facility] SQ EPITH 5 HPF [facility] ASCORBIC ACID 40 mg/dL++ [facility] Specimen Urine - URINE, CLEAN CATCH Performing Organization Address City/[facility]/Zipcode Phone Number [facility] CLIA: [id number], [address] [place] [address] LIPASE (12/26/2019 5:07 PM CDT) Pathologist Sig nature LIPASE 10 0 - 220 U/L [facility] Specimen Blood - VENOUS Performing Organization Address [facility] Centercotx Phone Number [facility] CLIA: [id number], [address] [place] [address] COMP. METABOLIC PANEL (03413) (12/26/2019 5:07 PM CDT) Pathologist Sig nature NA 135 135 - 145 mmol/L [facility] K 3.9 3.5 - 5.0 mmol/L [facility] CL 104 98 - 108 mmol/L [facility] CO2 TOTAL 25 23 - 31 mmol/L [facility] AGAP 6 2 - 16 [facility] BUN 5 (L) 7 - 23 mg/dL [facility] GLUCOSE 89 70 - 110 mg/dL [facility] CREATININE 0.51 0.50 - 1.04 [facility] mg/dL [facility]ITAL [facility] TOTAL BILI 0.5 0.1 - 1.1 mg/dL [facility] CALCIUM 9.3 8.6 - 10.6 mg/dL [facility] T PROTEIN 7.7 6.3 - 8.2 g/dL [facility] ALBUMIN 4.2 3.5 - 5.0 g/dL [facility] ALK PHOS 106 34 - 122 U/L [facility] ALTv 14 5 - 35 U/L [facility] AST(SGOT) 30 13 - 40 U/L [facility] eGFR Calculation 127.6 mL/min/1.73m2 [facility] (Non-) [facility] LABOR[facility] Y eGFR Calculation 154.7 mL/min/1.73m2 [facility] () [facility] Specimen Blood - VENOUS Narrative Performed At Association of Glomerular Filtration Rate (GFR) [facility] and Staging of Kidney Disease* + [...] tests). Performing Organization Address City/State/Zipcode Phone Number [facility] CLIA: [id number], [address] [place], [place] [address] documented in this encounter Visit Diagnoses Diagnosis Abdominal pain, unspecified abdominal lo cation - Primary RUQ pain Abdominal pain, right upper quadrant Wheezing Shortness of breath Abnormal gall bladder diagnostic imaging Nonspecific (abnormal) findings on radio logical and other examination of biliary tract Suspected Covid-19 Virus Infection documented in this encounter Administered Medications Medication Order MAR Action Action Date Dose Rate Site albuterol (VENTOLIN) inhaler 2 Given 12/26/2019 7:34 PM CDT 2 P uffs Puff 2 Puff, Inhalation, ONCE, 1 dose, 12/26/19 at 1930, CHARISSE, Is this order for a patient with suspected or confirmed COVID-19 infection? Yes dexamethasone (DECADRON PHOSPHATE) injection Given 04/2020 7:33 PM CDT 10 mg 10 mg 10 mg, IV Push, ONCE, 1 dose, 12/26/19 at 1930, STAT famotidine (PEPCID (PF)) injection 20 mg Given 12/26/2019 7:03 PM CDT 20 mg 20 mg, Slow IV Push, ONCE, 1 dose, 12/26/19 at 1745, CHARISSE FENTanyl PF (SUBLIMAZE (PF)) injection 50 Given 12/26/2019 7:03 PM CDT 50 mcg mcg 50 mcg, Slow IV Push, ONCE, 1 dose, 12/26/19 at 1745, STAT ondansetron (ZOFRAN (PF)) injection 4 mg Given 12/26/2019 7:03 PM CDT 4 mg 4 mg, Slow IV Push, ONCE, 1 dose, 12/26/19 at 1745, CHARISSE documented in this encounter Additional Health Concerns Infection Onset Date Last Indicated Resolved Time COVID-19 Rule Out 12/26/2019 12/26/2019 12/26/2019 8: 10 PM CDT COVID-19 Rule Out 12/26/2019 12/26/2019 documented as of this encounter documented as of this encounter"
--- OUTSIDE RECORDS SUMMARY | 2019-12-30 06:50 | XMS REPORT | Summary of Care ---
:1970 Author Organization [facility] Address [address] [place] [address] Care Team Providers Name Role Phone MD Mariama Primary Care Provider Reason for Referral Radiology Services (Routine) Status Reason Specialty Diagnoses / Referred By Referred To Procedures Contact Contact New Request Diagnostic Diagnoses Uterine leiomyoma, unspecified location Anni Ferro, Radiology Procedures US PELVIS COMPLETE WITH TRANSVAGINAL [address] [place] [address] [address] Reason for Visit Reason Comments FIBROIDS Encounter Details Date Type Department Care Team Description 12/28/[address] [facility] Women's Anni Ferro MD Uterine leiomyoma, Healthcare- [address] unspecified location [address] [place] [address] (Primary Dx) Drive, [address] [place] [phone] Allergies Active Allergy Reactions [...] Added automatically from request for mauro cliff [id number] RUQ pain 11/11/2019 RUQ abdominal pain 11/11/2019 Pancreatic duct dilated 11/10/2019 Overview: Added automatically from request for mauro cliff [id number] Common bile duct dilation 11/10/2019 Overview: Added automatically from request for mauro cliff [id number] Spondylolisthesis Hypothyroidism Bipolar 1 disorder documented as [...] Sign Reading Time Taken Comments Blood Pressure 109/73 12/28/2019 9:07 AM CDT Pulse 69 12/28/2019 9:07 AM CDT Temperature 36.7 C (98.1 F) 12/28/2019 9:07 AM CDT Respiratory Rate 16 12/28/2019 9:07 AM CDT Oxygen Saturation - - Inhaled Oxygen Concentration - - Weight 64 kg (141 lb) 12/28/2019 9:07 AM CDT Height 157.5 cm (5' 2") 12/28/2019 9:07 AM CDT Body Mass Index 25.79 12/28/2019 9:07 AM CDT documented in this encounter Patient Instructions Patient InstructionsAdAnni edouard MD - 12/28/2019 8:00 AM CDT Patient Education What Are Fibroids? Fibroids aregrowthsthat usually formin the wall of your uterus. They are also calledmyomas and leiomyomas. Fibroids are the most common tumor in women. They are almost always noncancer (benign)and harmless. Fibroids are made up ofconnective tissue and muscle cells. They start as pea-sized lumps. But they can grow steadily during your reproductive years. Many fibroids just need to bewatched. Others mayneedtreatment if they become too large or cause symptoms. Types of fibroids include: Pedunculated. These are connected to the uterine wall by stalks. Submucosal. These grow from the uterine wall into the uterine cavity. Intramural. These grow inside the uterine wall. Possible problems Fibroids often cause no symptoms. But a fibroid that grows quickly in your uterus can cause 1 or more of the following problems: Excessive uterine bleeding, leading to a lack of red blood cells (anemia) Frequent urge to urinate Trouble having bowel movements Achiness, heaviness, or fullness Back or belly (abdominal) pain Pain during sex Trouble getting or being unable to get Problems with Enlargement of the lower abdomen Treatment is tailored for you No2 fibroids are the same. The type of treatment you will have depends on several things including: How many fibroids you have, their size, location, and how fast they grow How severe your symptoms are If you plan to have children in the future There are a growing number of effective ways to treat fibroids. After your medical evaluation, your healthcare providerwill talk with you about the best options to solve your particular problem and meet your needs. Your future checkups Treating your fibroids is likely to relieve your symptoms. But your healthcare providerwill want to check your progress. Ask your providerabout any other follow-up visits you might need. [employer] last reviewed this educational content on 11/15/201619991971-3094 [employer]. [address] [place] [address], [place] [address]. All rights reserved. This information is not intended as a substitute for professional medical care. Always follow your healthcare professional's instructions. Patient Education Uterine Fibroids Fibroidsarelumps (growths) of muscle tissue.They can form in the wall of uterus (womb). Fibroids are very common. They are almost always benign (noncancerous).It is not known what causes fibroids. But they may run in families. Also, changes in female hormones may cause them to grow over time. A fter menopause, fibroids may stop growing, shrink, or go away. Fibroids may or may not cause symptoms. This depends on many factors, such as the size, number, and locations of the fibroids. If symptoms do occur, they can include: Heavy bleeding (in severe cases, this may lead to a problem called anemia) or painful periods Feeling of fullness, swelling, pressure, or pain in the lower belly (abdomen) or pelvic region Lower back pain Frequent urination Constipation Pain during sex Problems getting If fibroids are suspected, an evaluation will be done to help understand the extent of the problem. This can include a health history, exam, and tests. Based on the results, treatment can then be planned if needed. Until more details are known about your problem, you may be given guidelines similar to the home care instructions below. Home care To help control pain, nryx-zcp-[id number] pain medicine may be advised.Take these only as directedby your provider. If you have heavy or painful periods, keep a log of your menstrual cycle. Show the log to your provider. The information may help him or her determine if your symptoms are due to fibroids or anothercause. Make certain lifestyle changes. This may include losing excess weight, being more active, or eating less red meat. These changes may help lower the risk of fibroids in some people. They may also help improve overall health. Follow-up care Follow up with your healthcare provider as advised.If testing was done, youll be told the results when they are ready. Treatment options for fibroids may include medicines or procedures to help shrink or keep fibroids from growing.In severe cases, surgery may be needed to remove fibroids or to remove the uterus. If you have fibroids but no symptoms, you may not need treatment at all. However, your provider may advise regular follow-up to check fibroid size and growth. When to seek medical advice Call your healthcare provider right away if any of these occur: Heavy bleeding or painful periods that continue ordont get better with treatment Signs of anemia such as extreme fatigue, pale skin, shortness of breath with little exertion, or rapid heartbeat Weakness, dizziness, or fainting Severe pain in the pelvic or belly region Swollen or enlarged belly [employer] last reviewed this educational content on 03/17/201719994483-2723 [employer]. [address] [place] [address]. All rights reserved. This information is not intended as a substitute for professional medical care. Always follow your healthcare professional's instructions. documented in this encounter Progress Notes Anni Ferro MD - 12/28/2019 8:00 AM CDT Chief complaint: Chief Complaint Patient presents with FIBROIDS 49 year-old presents to discuss her fibroid. Reports that she is known to have uterine fibroid and had an IUD, Mirena inserted to control bleeding from the fibroid but is worried that it might have increased in size due to recent symptoms of abdominal pain for which has been seen multiple times in the ER. She reports that the pain is mainly upper abdominal associated with nausea, recent imaging showed dilated bile duct with gallbladder sludge and she is scheduled for a cholecystectomy on 12/29. She reports occasional pelvic pain, denies dyspareunia or painful periods- though this last one was heavier than normal for her. No PCB or IMB. Last WWE was over 2 years ago. She reports that although she is not quite sure when her Mirena is due to removed she know that it is not yet [address] kramer on 11/21/19 and MRI on 11/11/19 showed a uterine fibroid 2.5-3.3 cm. No other pelvic pathology was documented and the IUD was seen located appropriately within the cavity. Histories OB History Para Term AB Living 3 1 2 SAB TAB Ectopic Multiple Live Births 2 # Outcome Date GA Lbr Joshua/2nd Weight Sex Delivery Anes PTL Lv 3 04/27/03 9 lb 6 oz (4.252 kg) F CS-Unspec JIMENEZ 2 11/09/94 10 lb 8 oz (4.763 kg) M , L JIMENEZ 1 AB [id number] Past Medical History: Diagnosis Date Bipolar 1 disorder Common bile duct dilation 11/10/2019 Added automatically from request for surgery [id number] Hypothyroidism Hypothyroidism Pancreatic duct dilated 11/10/2019 Added automatically from request for surgery [id number] RUQ abdominal pain 11/11/2019 RUQ pain 11/11/2019 Spondylolisthesis Family History Problem Relation Age of Onset COPD (chronic obstructive pulmonary disease) Brother Other - see comments Maternal Grandmother 50 polycythemia Breast Cancer Maternal Grandmother Leukemia Maternal Grandmother Breast Cancer Paternal Grandmother Kidney Cancer Father Colon Cancer NoFHx Family Status Relation Name Status Bro (Not Specified) MGMo (Not Specified) PGMo (Not Specified) Mo Alive Fa Alive NoFHx (Not Specified) Past Surgical History: Procedure Laterality Date APPENDECTOMY 1979 SECTION 1994 SECTION 2002 COLONOSCOPY N/A 11/30/2019 Surgeon: Flower Vicente MD; [facility] COLONOSCOPY N/A 12/04/2019 Surgeon: Sohail Loera MD; Location[facility] ESOPHAGOGASTRODUODENOSCOPY N/A 11/12/2019 Surgeon: Neto Burch MD; Location: [facility] ([facility] OR Location FUSION SPINE POSTERIOR CERVICAL AND DISCECTOMY ([facility]) 2004 UPPER ULTRASOUND ([facility]) N/A 11/12/2019 Surgeon: Neto [...] Comment: Last used 2006 Sexual activity: Not Currently Lifestyle Physical activity: Days per week: Not on file Minutes per session: Not on file Stress: Not on file Relationships Social connections: Talks on phone: Not on file Gets together: Not on file Attends adventism service: Not on file Active member of [...] file Social History Narrative Not on file Social History Substance and Sexual Activity Sexual Activity Not Currently Labs Admission on 12/26/2019, Discharged on 12/26/2019 Component Date Value NA 12/26/2019 135 K 12/26/2019 3.9 CL 12/26/2019 104 CO2 TOTAL 12/26/2019 25 AGAP 12/26/2019 6 BUN 12/26/2019 5* GLUCOSE 12/26/2019 89 CREATININE 12/26/2019 0.51 TOTAL BILI 12/26/2019 0.5 CALCIUM 12/26/2019 9.3 T PROTEIN 12/26/2019 7.7 ALBUMIN 12/26/2019 4.2 ALK PHOS 12/26/2019 106 ALTv 12/26/2019 14 AST(SGOT) 12/26/2019 30 eGFR Calculation (Non-Af* 12/26/2019 127.6 eGFR Calculation (Zulma* 12/26/2019 154.7 LIPASE 12/26/2019 10 APPEARANCE 12/26/2019 Hazy* COLOR 12/26/2019 Yellow PH 12/26/2019 5.0 SP GRAVITY 12/26/2019 1.019 GLU U QUAL 12/26/2019 Normal BLOOD 12/26/2019 Negative KETONES 12/26/2019 Negative PROTEIN 12/26/2019 Negative UROBILIN 12/26/2019 Normal BILIRUBIN 12/26/2019 Negative NITRITE 12/26/2019 Negative LEUK BRUNO 12/26/2019 Negative RBC/HPF 12/26/2019 1 WBC/HPF 12/26/2019 1 BACTERIA 12/26/2019 Few* MUCOUS 12/26/2019 Marked* SQ EPITH 12/26/2019 5 ASCORBIC ACID 12/26/2019 40 mg/dL++ WBC 12/26/2019 9.55 RBC 12/26/2019 3.93 HGB 12/26/2019 12.4 HCT 12/26/2019 37.3 MCV 12/26/2019 94.9 MCH 12/26/2019 31.6 MCHC 12/26/2019 33.2 RDW-SD 12/26/2019 49.6 RDW-CV 12/26/2019 14.3 PLT 12/26/2019 420* MPV 12/26/2019 8.9* NRBC/100 WBC 12/26/2019 0.0 NRBC x10^3 12/26/2019 <0.01 GRAN MAT (NEUT) % 12/26/2019 73.4 IMM GRAN % 12/26/2019 0.30 LYMPH % 12/26/2019 15.0 MONO % 12/26/2019 9.0 EOS % 12/26/2019 2.0 BASO % 12/26/2019 0.3 GRAN MAT x10^3(ANC) 12/26/2019 7.01 IMM GRAN x10^3 12/26/2019 0.03 LYMPH x10^3 12/26/2019 1.43 MONO x10^3 12/26/2019 0.86 EOS x10^3 12/26/2019 0.19 BASO x10^3 12/26/2019 0.03 TROPONIN I 12/26/2019 <0.012 NT-proBNP 12/26/2019 119 SARS-CoV-2 Rapid ID NOW 12/26/2019 Not Detected SARS-CoV-2 PCR 12/26/2019 Not Detected Display Coordinator Visit on 12/04/2019 Component Date Value IGG SUBCLASS4 12/04/2019 16 LIPASE 12/04/2019 20 NA 12/04/2019 137 K 12/04/2019 4.4 CL 12/04/2019 105 CO2 TOTAL 12/04/2019 32* AGAP 12/04/2019 <1* BUN 12/04/2019 <2* GLUCOSE 12/04/2019 99 CREATININE 12/04/2019 0.61 TOTAL BILI 12/04/2019 <0.1* CALCIUM 12/04/2019 9.4 T PROTEIN 12/04/2019 5.5* ALBUMIN 12/04/2019 3.1* ALK PHOS 12/04/2019 65 ALTv 12/04/2019 11 AST(SGOT) 12/04/2019 19 eGFR Calculation (Non-Af* 12/04/2019 103.8 eGFR Calculation (Zulma* 12/04/2019 125.8 CoV-2 IgG 12/04/2019 Negative Admission on 12/04/2019, Discharged on 12/04/2019 Component Date Value NA 12/04/2019 135 K 12/04/2019 4.2 CL 12/04/2019 106 CO2 TOTAL 12/04/2019 27 AGAP 12/04/2019 2 BUN 12/04/2019 2* GLUCOSE 12/04/2019 95 CREATININE 12/04/2019 0.55 CALCIUM 12/04/2019 8.9 eGFR Calculation (Non-Af* 12/04/2019 117.0 eGFR Calculation (Zulma* 12/04/2019 141.8 MAGNESIUM 12/04/2019 1.9 POCT PREG 12/04/2019 Negative On board controls accept* 12/04/2019 Yes Laboratory Only on 12/02/2019 Component Date Value SARS-CoV-2 Rapid ID NOW 12/02/2019 Not Detected Radiology I have reviewed the patient's radiology. CT scan 11/2019 and MRI 11/11/2019 Allergies Varsha is allergic to ciprofloxacin; sulfa (sulfonamide antibiotics); and zonisamide. Medications Varsha has a current medication list which includes the following prescription(s): acetaminophen-codeine, albuterol, azithromycin, famotidine, ondansetron, prednisone, docusate, sennosides, diclofenac, fluconazole, dicyclomine, lactulose, ondansetron, ondansetron, amitriptyline, gabapentin, levothyroxine, oxcarbazepine, quetiapine, and sertraline. Review of Systems Constitutional: Negative. HENT: Negative. Eyes: Negative. Respiratory: Negative. Breasts: Negative. Cardiovascular: Negative. Gastrointestinal: Negative. Genitourinary: Positive for pelvic pain. Negative for vaginal bleeding, vaginal discharge and vaginal pain. Musculoskeletal: Negative. Skin: Negative. Neurological: Negative. Psychiatric/Behavioral: Negative. Endocrine: Endocrine negative LMP 12/17/2019 (Exact Date) Pregravid BMI: Could not be calculated Physical Exam Vitals reviewed. Constitutional: She is oriented to person, place, and time. She appears well- developed and well-groomed. Abdominal: No mass palpated. No tenderness present. There is no guarding. Neuro/Psychiatric: She has a normal mood and affect. She is oriented to person, place, and time. Skin: Skin normal. External genitalia: Normal external genitalia appropriate for age. Vagina:Normal vagina. Cervix: Normal cervix. IUD string seen Uterus: 7 weeks size,anteverted, mobile and non- tender Adnexa: Normal left adnexa and normal right adnexa Assessment/Plan Uterine leiomyoma, unspecified location (primary encounter diagnosis) Comment: I explained that fibroids are benign smooth muscle tumors, slow growing and dependent on estrogen.They can cause heavy bleeding, pain, pressure like symptoms depending on size and location. Management could be hormonal especially in cases of menorrhagia -OCP, Mirena or endometrial ablation- the last two are effective if the myomas are not encroaching on the endomerial cavity. Surgery is alsoan option- myomectomy, embolization and hysterectomy. I explained that her myoma was small and is not the cause of her symptom. I will get a pelvic sonogram for better assessment of the pelvis and encouraged her to get a WWE soon and also check the expiration of her IUD so it can changed on time. She v oiced understanding. Plan: US PELVIS COMPLETE WITH TRANSVAGINAL This visit did not involve counseling and coordination that comprised more than 50% of the visit time. Anni Ferro MD 12/28/2019 10:50 AM documented in this encounter Plan of Treatment Date Type Specialty Care Team Description 01/15/2020 Office Visit Gastroenterology Flower Vicente MD [address] [facility] [address] [place] [address] [phone] 01/18/2020 Office Visit Endocrinology Diabetes & Kesired Olinda thayer MD Metabolism [address] [place] [address] [phone] 02/15/2020 Office Visit Obstetrics & Gynecology Kayley Ferro MD [address] [place] [address] [address] [place] [phone] 03/11/2020 Office Visit Family Medicine Vitaliy Leslie MD [address] [place] [address] [address] [place], [place] [address] Name Type Priority Associated Diagnoses Order S chedule US PELVIS COMPLETE WITH IMAGING Routine Uterine leiomyoma , Expected: TRANSVAGINAL unspecified location 020, Expires: 12/27/2020 Health Maintenance Due Date Last Done Comments [...] filedocumented in this encounter Visit Diagnoses Diagnosis Uterine leiomyoma, unspecified location - Primary documented in this encounter documented as of this encounter
--- OUTSIDE RECORDS SUMMARY | 2019-12-30 06:50 | XMS REPORT | Summary of Care ---
:1970 Author Organization [facility] Address [address] [place] [address] Care Team Providers Name Role Phone MD Mariama Primary Care Provider Reason for Referral Radiology Services (Routine) Status Reason Specialty Diagnoses / Referred By Referred To Procedures Contact Contact New Request Diagnostic Diagnoses Uterine leiomyoma, unspecified location Anni Ferro, Radiology Procedures US PELVIS COMPLETE WITH TRANSVAGINAL [address] [place] [address] [address] Reason for Visit Reason Comments FIBROIDS Encounter Details Date Type Department Care Team Description 12/28/2019 Office Visit [facility] Women's Anni Ferro MD Uterine leiomyoma, Healthcare- [address] unspecified location [address] [place] [address] (Primary Dx) Drive, [address] [place] [phone] Allergies Active Allergy Reactions [...] Added automatically from request for mauro cliff [id number] RUQ pain 11/11/2019 RUQ abdominal pain 11/11/2019 Pancreatic duct dilated 11/10/2019 Overview: Added automatically from request for mauro cliff [id number] Common bile duct dilation 11/10/2019 Overview: Added automatically from request for mauro cliff [id number] Spondylolisthesis Hypothyroidism Bipolar 1 disorder documented as [...] any other follow-up visits you might need. [employer] last reviewed this educational content on 11/15/201619991097-1500 [employer] [address] [place] [address], [place] [address]. All rights reserved. This information is not [...] below. Home care To help control pain, zgja-ljw-kuuahaw pain medicine may be advised.Take these only [...] or belly region Swollen or enlarged belly [employer] last reviewed this educational content on 03/17/201719998795-1291 [employer] [address] [place] [address]. All rights reserved. This information is not [...] 11/10/2019 Added automatically from request for surgery [id number] Hypothyroidism Hypothyroidism Pancreatic duct dilated 11/10/2019 Added automatically from request for surgery [id number] RUQ abdominal pain 11/11/2019 RUQ pain 11/11/2019 [...] file Gets together: Not on file Attends hoahaoism service: Not on file Active member of [...] Not Detected SARS-CoV-2 PCR 12/26/2019 Not Detected Financial Consultant Visit on 12/04/2019 Component Date Value IGG [...] Office Visit Gastroenterology Flower Vicente MD [address] [facility] [address] [place] [address] [phone] 01/18/2020 Office Visit Endocrinology Diabetes & Kesired Olinda thayer MD Metabolism [address] [place] [address] [phone] 02/15/2020 Office Visit Obstetrics & Gynecology Kayley Ferro MD [address] [place] [address] [address] [place] [phone] 03/11/2020 Office Visit Family Medicine Vitaliy Leslie MD [address] [place] [address] [address] [place], [place] [address] Name Type Priority Associated [...]
[2019-12-30 06:55] LABS: Specific Gravity > 1.030 (1.005-1.030)
[2019-12-30 06:58] LABS: Absolute Lymphocytes (CBC) 2.2 K/uL (0.7-4.9); Basophils % 0.5 % (0-1.3); Hematocrit 38.2 % (36.0-45.0); Lymphocytes % 25.6 % (15.3-44.8); RBC Red Blood Cell Count 4.06 M/uL (3.86-4.86)
[2019-12-30 07:09] LABS: BUN Blood Urea Nitrogen 9 mg/dL (7-18); Bicarbonate 31 mmol/L (21-32); Glucose Level 91 mg/dL (74-106); Potassium 3.4 mmol/L (3.5-5.1); Sodium Level 142 mmol/L (136-145)
[2019-12-30] MEDS ORDERED: CEFOXITIN/SWI 1gm 0 GM/0 ML SYR ONE (07:44)
[2019-12-30] MEDS ORDERED: Ringers Lactate 1,000 ML IV ONE ×2 (07:44→12:01)
[2019-12-30] MEDS ORDERED: CEFOXITIN/SWI 1gm 1 GM/10 ML SYR ONE (08:21)
[2019-12-30] MEDS ORDERED: propofoL 200 MG/20 ML VIAL IV ONE (09:54)
[2019-12-30] MEDS ORDERED: MIDAZOLAM HCL 2 MG/2 ML INJ ONE (09:55)
[2019-12-30] MEDS ORDERED: LIDOCAINE 2% MPF 5 ML VIAL ONE (09:55)
[2019-12-30] MEDS ORDERED: KETOROLAC 30 MG/ML INJ ONE (09:55)
[2019-12-30] MEDS ORDERED: FENTANYL CITR 100 MCG/2 ML ONE (09:55)
[2019-12-30] MEDS ORDERED: dexAMETHasone 10 MG/ML VIAL ONE (09:55)
[2019-12-30] MEDS ORDERED: ROCURONIUM 50 MG/5 ML VIAL IV ONE (09:56)
[2019-12-30] MEDS ORDERED: ONDANSETRON 4 MG/2 ML VIAL ONE (09:56)
[2019-12-30] MEDS ORDERED: ALBUTEROL INHALER 60 PUFF/8 GM IH ONE (11:01)
--- NOTE | 2019-12-30 11:17 | P.BOP ---
Preoperative diagnosis: acute cholecystitis, intractable RUq abd pain, biliary dyskinesia Postoperative diagnosis: same, umbilical hernia Primary procedure: 1. Laparoscopic cholecystectomy Secondary procedure: 2. open repair of umbilical hernia Acupressure Therapist: AMANUEL LENTZ (CORN CROP SUPERVISOR) Estimated blood loss: <10cc Specimen: GB, hernia sac Findings: as above, incarcerated omentum Anesthesia: General Complications: None Transferred to: Recovery Room Condition: Good
[2019-12-30] MEDS ORDERED: NEOSTIGMINE 1 MG/ML -5 ML ONE (11:25)
[2019-12-30] MEDS ORDERED: GLYCOPYRROLATE 0.2 MG/ML SYR ONE (11:25)
[2019-12-30] MEDS: HYDROMORPHONE HCL 1 MG/ML INJ ONE ×2 (11:48→11:53)
[2019-12-30] MEDS ORDERED: PROMETHAZINE INJ 25 MG/ML AMP ONE (11:55)
[2019-12-30] MEDS: MEPERIDINE HCL 25 MG/ML SYR ONE ×2 (11:57→12:02)
[2019-12-30] MEDS ORDERED: CODEINE 30MG/APAP 300MG TAB ONE (12:36)
[2019-12-30 12:40] VITALS: BP 120/83; TEMP 97.9; O2SAT 96
--- NOTE | 2019-12-30 23:12 | OP ---
Date of Procedure: 12/30/2019 Surgeon: Elver Rossi MD Rotary Drier: JAMISON Denney. Preoperative Diagnoses: Acute cholecystitis, intractable right upper quadrant abdominal pain, biliar y dyskinesia. Postoperative Diagnoses: Acute cholecystitis, intractable right upper quadrant abdominal pain, bilia ry dyskinesia plus incarcerated umbilical hernia. Procedures: 1.Laparoscopic cholecystectomy. 2.Open repair of incarcerated umbilical hernia. Specimen: Gallbladder and hernia sac. Anesthesia: General plus local. Findings: As above and also incarcerated omentum and hernia. Indications: This is the case of a female, who comes to us with abdominal pain, epigastric upper sofie drant pain area, does not go away. She had extensive workup, even a HIDA scan showing biliary dyskin esia. She trying to modify her diet, trying to change her habits, trying to see if she can live with that, but she could not. She stated that is not letting her just have normalize. It is not letting her eat properly. This is a constant problem every simple day. She does not want to wait until cor onavirus emergency goes away. She stated that is too much for her and the pain is every simple day. For that reason, then we offered her laparoscopic possible open cholecystectomy with benefits, alter natives, and risks including, but not limited to infection, bleeding, damage to adjacent structures, anesthesia complications, cholelithiasis, bile leak, pancreatitis, AL, and even . She also unde rstands this may not relieve the symptoms. She might need more than one surgical intervention. She understood, signed a consent. Description Of Procedure: The patient was brought to the operating room, placed in supine position. Anesthesia was done without complication. Abdominal area was prepped and draped in a sterile fashio n. Marcaine 0.5% was injected for local anesthetic, followed by sharp incision of the skin in the in fraumbilical region. Incision was carried down to fascia, which was opened under direct vision. Per itoneum was encountered, opened under direct vision. Vicryl #1 placed inside the fascia. Heike tro car was carefully introduced. No bleeding was obtained. I placed 3 more trocars, 5 mm each one of t hem in the right upper quadrant under direct visualization. This allowed me to visualize the area of the gallbladder. I have to mention when we were going to the fascia itself and we opened the fascia , we encountered the patient to have a hernia just in the umbilical region. That hernia has incarcer ated omentum. In order for us to put the trocars in, we had to remove the hernia sac and removed the skin from the hernia sac. The omentum seemed to be viable after the adhesions were removed. They w ere reduced back into the abdominal cavity. After that, we put a Heike trocar and then we put 2 mor e trocars in the right upper quadrant under direct visualization. This allowed me to put a grasper i n the fundus of the gallbladder, another grasper in the infundibulum, retracted the gallbladder in th e inferolateral fashion exposing the triangle of Calot and obtaining critical view of safety. Cystic duct and cystic artery were clearly isolated free circumferentially and a connection between those a nd the gallbladder was clearly identified. I proceeded to ligate those by using at least 3 clips pro ximal, 1 clip distal, ligation in the middle. The same thing with cystic artery. No bile leak, no b leeding. The gallbladder was removed from the liver using Bovie cauterizer and removed from abdomina l cavity using an EndoCatch through the umbilical incision. Area was inspected once again. No bile leak, no bleeding. At that moment, I proceeded to remove the trocars under direct vision. Deflated pneumoperitoneum, closed the fascia with #1 Vicryl, closed the umbilical hernia with #1 Vicryl, and t hen after that, closed the subcutaneous tissue with 3-0 chromic and then skin with 3-0 chromic in a s ubcuticular fashion and Steri-Strips on top. The patient tolerated the procedure well. The patient was sent to recovery in stable condition. KODAK/JUANIS Voice ID: [id number] Report ID: [id number]
--- NOTE | 2019-12-30 23:18 | DS ---
Date of Discharge: 12/30/2019 Diagnoses: Acute cholecystitis, intractable right upper quadrant abdominal pain, biliary dyskinesia, incarcerated umbilical hernia. Procedure: Laparoscopic cholecystectomy and open repair of incarcerated umbilical hernia. Disposition: Home. Activity: As tolerated. No heavy lifting. Plan: Follow up in my office in 1 week. Call for appointment [phone]. Keep area dry for 48 hours, then may shower. Keep Steri-Strips intact. Medications: See orders. KODAK/JUANIS Voice ID: [id number] Report ID: [id number]
== END 2019-12-30 13:05 | disposition home or self-care (01) ==
LOC: OR 06:34
PROVIDERS: ATTEND Surgery
PROC: 0WQF0ZZ Repair Abdominal Wall, Open Approach (ICD-10-PCS; 2019-12-30)
PROC: 0FT44ZZ Resection of Gallbladder, Percutaneous Endoscopic Approach (ICD-10-PCS; principal; 2019-12-30 08:30)
DX: K81.2 Acute cholecystitis with chronic cholecystitis (principal); K82.8 Other specified diseases of gallbladder; K42.0 Umbilical hernia with obstruction, without gangrene; E03.9 Hypothyroidism, unspecified; F41.9 Anxiety disorder, unspecified; F32.9 Major depressive disorder, single episode, unspecified; Z88.2 Allergy status to sulfonamides; Z88.3 Allergy status to other anti-infective agents; Z80.51 Family history of malignant neoplasm of kidney; Z83.6 Family history of other diseases of the respiratory system
CPT/HCPCS: 93005; 85025; 80048; 36415 ×2; 82150; 81025; 80076; 88302; 88304; 83690; 47562; 49587; J2704; J2550; J2250; J3010; J1100; J2175; J1170; J2710; J7120 ×2; J2405

== ENCOUNTER 2020-01-22 20:23 | Emergency (ER) | payer OTHER ==
--- OUTSIDE RECORDS SUMMARY | 2020-01-22 20:26 | XMS REPORT | Continuity of Care Document ---
:1970 Author Organization [facility] t Address [address] [place] [address] Care Team Providers Name Role Phone 2, Lab Attending Clinician Unavailable Mayur Ferro MD Attending Clinician Thea LYONS Attending Clinician Problems This patient has no known problems. Allergies, Adverse Reactions, Alerts This patient has no known allergies or adverse reactions. Medications This patient has no known medications. Procedures This patient has no known procedures. Encounters Start End Encounter Admission Attending Care Care Encounter Source Date/Time Date/Time Type Type Clinicians Facility Department ID 2020-01-21 2020-01-21 Grill Prep Cook 2, [facility] [id number] 08:58:12 09:13:12 Visit [place] [id number] [place] [id number] [place] [phone] critical access hospital [facility] 2020-01-21 2020-01-21 Telephone SKIP Ferro [id number] 00:00:00 00:00:00 Anni Arteaga [id number] [place] [id number] [place] [id number] critical access hospital [facility] 2020-01-18 2020-01-18 Office SKIP Sidhu [id number] 13:14:25 14:12:25 Visit Olinda Arteaga [id number] [place] [id number] [facility] [phone] critical access hospital 220 Building Results This patient has no known results.
--- OUTSIDE RECORDS SUMMARY | 2020-01-22 20:46 | XMS REPORT | Summary of Care ---
:1970 Author Organization [facility] [employer] Address [address] [place] [address] Care Team Providers Name Role Phone MD Mariama Primary Care Provider Reason for Visit Reason Comments Rx Concern/Question Encounter Details Date Type Department Care Team Description 01/07/2020 Telephone [facility] Pediatric Vitaliy Leslie MD Rx Concern/Question and Adult Primary Care- [address] [facility] [address], [facility] [address] [place] [address] [phone] Allergies Active Allergy Reactions Severity Noted Date Comments Ciprofloxacin Anaphylaxis 07/27/2011 Sulfa (Sulfonamide Antibiotics) Unknown - See comments 09/27/2008 Zonisamide Unknown - See comments 01/16/2008 documented as of this encounter (statuses as of 01/07/2020) Medications Medication Sig Dispensed Refills Start Date [...] needed Abdominal pain, for Wheezing or unspecified abdominal Shortness of location, Wheezing, Breath. Shortness of breath, Abnormal gall bladder diagnostic imaging acetaminophen-codeine Take 1 tablet by 12 tablet 0 12/26/2019 Active (TYLENOL-CODEINE #3) mouth every 6 300-30 mg (six) hours as tabletIndications: needed for Pain acute pain (scale 4-6). Indications: acute pain ondansetron (ZOFRAN Take 1 tablet by 15 tablet 0 12/26/2019 Active ODT) 4 mg mouth every 8 disintegrating (eight) hours as tabletIndications: needed for Nausea Abdominal pain, and Vomiting unspecified abdominal (N/V). location, Wheezing, Shortness of breath, Abnormal gall [...] pain, 500 mg day 1, then unspecified abdominal 250 mg days 2 to location, Wheezing, 5. Shortness of breath, Abnormal gall bladder diagnostic imaging ipratropium 0.02 % Inhale 2.5 mL 60 Vial 2 01/07/2020 Active nebulizer every 8 (eight) solutionIndications: hours as needed Community acquired for Wheezing or pneumonia, Shortness of unspecified Breath. laterality albuterol 2.5 mg /3 Inhale 3 mL every 60 Vial 2 01/07/2020 Active mL (0.083 %) 4 (four) hours as nebulizer needed for solutionIndications: Wheezing or Community acquired Shortness of pneumonia, Breath. unspecified laterality Miscellaneous Medical J40: Brochitis - 1 Kit 0 01/07/2020 Active Supply Dispense # 1 KitIndications: Telma Community acquired Respironics (okay pneumonia, for alternative unspecified brand) for laterality nebulizer treatment documented as of this encounter (statuses as of 01/07/2020) Active Problems Problem Noted Date Chronic constipation 12/10/2019 Encounter for medical examination to establish care Overview: Added automatically from request for mauro cliff [id number] RUQ pain 11/11/2019 RUQ abdominal pain 11/11/2019 Pancreatic duct dilated 11/10/2019 Overview: Added automatically from request for mauro cliff [id number] Common bile duct dilation 11/10/2019 Overview: Added automatically from request for mauro cliff [id number] Spondylolisthesis Hypothyroidism Bipolar 1 disorder documented as of this encounter (statuses as of 01/07/2020) Social History Tobacco Use Types Packs/Day Years [...] been in contact with No / Unsure 01/06/2020 9:21 AM CDT someone who was confirmed or suspected to have Coronavirus / COVID-19? documented as of this encounter Last Filed Vital Signs Not on filedocumented in this encounter Plan of Treatment Date Type Specialty Care Team Description 01/12/2020 Appointment Radiology Anni Ferro MD [address] [place] [address] [address]. [address] [place] [phone] 01/14/2020 Telemedicine Visit Gastroenterology Flower Vicente MD [address] [facility] [address] [place] [address] 01/18/2020 Office Visit Endocrinology Diabetes & Olinda Sidhu Metabolism MD [address] [place], [place] [phone] 02/15/2020 Office Visit Obstetrics & Gynecology Anni Ferro MD [address] [place] [address] Dr. [address] [place] [address] 04/08/2020 Office Visit Family Medicine Vitaliy Leslie MD [address] [place] [address] Dr [address] [place], [place] [id number] Health Maintenance Due Date Last Done Comments PNEUMOCOCCAL 0-64 YEARS 1975 COMBINED SERIES (1 of 1 - PPSV23) PAP SMEAR 1990 Breast Cancer Screening 2009 (MAMMOGRAM) INFLUENZA VACCINE (#1) 2020 03/25/2018, 05/17/2016, 05/17/2016, Additional history exists Depression Screening 12/03/2020 12/04/2019 DTaP,Tdap,and Td Vaccines 01/06/2021 Postpo duke from (1 - Tdap) 01/14/1980 (Alte rnative Guidelines) Zoster Recombinant Vaccine 01/12/2021 Postp oned from (SHINGRIX) (1 of 2) 2019 ( Alternative Guidelines) COLONOSCOPY 12/03/2029 12/04/2019, 11/30/2019 documented as of this encounter Results Not on filedocumented in this encounter Insurance Payer Benefit Plan / Group Subscriber ID Effective Dates Phone Address Type [employer] [facility] [facility] [id number] 2019-Present PPO documented as of this encounter
--- OUTSIDE RECORDS SUMMARY | 2020-01-22 20:46 | XMS REPORT | Summary of Care ---
:1970 Author Organization [facility] Address [address] [place] [address] Care Team Providers Name Role Phone MD Mariama Primary Care Provider Encounter Details Date Type Department Care Team Description 01/11/2020 Orders Only [facility] Doctor Unassigned, No [address] [facility] [place] [address] [address] [place] [id number] Allergies Active Allergy Reactions Severity Noted Date Comments Ciprofloxacin Anaphylaxis 07/27/2011 Sulfa (Sulfonamide Antibiotics) Unknown - See comments 09/27/2008 Zonisamide Unknown - See comments 01/16/2008 documented as of this encounter (statuses as of 01/11/2020) Medications Medication Sig Dispensed Refills Start Date [...] as of this encounter (statuses as of 01/11/2020) Active Problems Problem Noted Date Chronic constipation 12/10/2019 Encounter for medical examination to establish care Overview: Added automatically from request for mauro cliff [id number] RUQ pain 11/11/2019 RUQ abdominal pain 11/11/2019 Pancreatic duct dilated 11/10/2019 Overview: Added automatically from request for mauro cliff [id number] Common bile duct dilation 11/10/2019 Overview: Added automatically from request for mauro cliff [id number] Spondylolisthesis Hypothyroidism Bipolar 1 disorder documented as of this encounter (statuses as of 01/11/2020) Social History Tobacco Use Types Packs/Day Years [...] Description 01/12/2020 Appointment Radiology Anni Ferro MD [address] [place] [address] [address]. [address] [place] [address] 01/14/2020 Telemedicine Visit Gastroenterology Flower Vicente MD [address] [facility] [address] [place] [address] 01/18/2020 Office Visit Endocrinology Diabetes & Olinda Sidhu Metabolism MD [address] [place] [address] 02/15/2020 Office Visit Obstetrics & Gynecology Anni Ferro MD [address] [place] [address] Dr. [address] [place] [address] 04/08/2020 Office Visit Family Medicine Vitaliy Leslie MD [address] [place] [address] Dr [address] [place] [address] Health Maintenance Due Date Last Done Comments [...] Name Priority Date/Time Associated Diagnosis Comme nts EXTERNAL PROVIDER Routine 01/11/2020 12:01 AM CDT RECORDS documented in this encounter Results Not on filedocumented in this encounter Insurance Payer Benefit Plan / Group Subscriber ID Effective Dates Phone Address Type [employer] [facility] [id number] 2019-Present PPO documented as of this encounter
--- OUTSIDE RECORDS SUMMARY | 2020-01-22 20:47 | XMS REPORT | Summary of Care ---
:1970 Author Organization [facility] Address [address] [place] [address] Care Team Providers Name Role Phone MD Mariama Primary Care Provider Reason for Referral (Routine) Status Reason Specialty Diagnoses / Referred By Referred To Procedures Contact Contact New Request Obstetrics & Diagnoses Pap smear for cervical cancer screening Lux Leslie Procedures CONSULT/REFERRAL AMUSEMENT PARK RIDE MECHANIC MD Vitaliy [address] [place] [address] [address] [place] [address] Reason for Visit Reason Comments Follow-up GALLBLADDER s/p cholecystectomy PNEUMONIA HYPOTHYROIDISM Constipation Screening Encounter Details Date Type Department Care Team Description 01/07/2020 Office Visit [facility] Pediatric Vitaliy Leslie C ommunity acquired pneumonia, unspecified laterality (Primary Dx); and Adult Primary Common bile duct dilation; Care- [address] Hypothyroidism, unspecified type; [address] [place] [address] Bipolar 1 disorder; [address], [address] [place] [address] Chronic constipation; [place], [place] [phone] Pap smear for cervical cancer screening [address] [phone] Allergies Active Allergy Reactions Severity Noted Date Comments Ciprofloxacin Anaphylaxis 07/27/2011 Sulfa (Sulfonamide Antibiotics) Unknown - See comments 09/27/2008 Zonisamide Unknown - See comments 01/16/2008 documented as of this encounter (statuses as of 01/12/2020) Medications Medication Sig Dispensed Refills Start Date [...] as of this encounter (statuses as of 01/12/2020) Active Problems Problem Noted Date Community acquired pneumonia, unspecified laterality 0 01/12/2020 Chronic constipation 12/10/2019 Pap smear for cervical cancer screening 11/20/2019 Overview: Added automatically from request for mauro cliff [id number] RUQ pain 11/11/2019 RUQ abdominal pain 11/11/2019 Pancreatic duct dilated 11/10/2019 Overview: Added automatically from request for mauro cliff [id number] Common bile duct dilation 11/10/2019 Overview: Added automatically from request for mauro cliff [id number] Spondylolisthesis Hypothyroidism Bipolar 1 disorder documented as of this encounter (statuses as of 01/12/2020) Social History Tobacco Use Types Packs/Day Years [...] Sign Reading Time Taken Comments Blood Pressure 118/82 01/07/2020 9:07 AM CDT Pulse 91 01/07/2020 9:07 AM CDT Temperature - - Respiratory Rate 20 01/07/2020 9:07 AM CDT Oxygen Saturation 95% 01/07/2020 9:07 AM CDT Inhaled Oxygen Concentration - - Weight 64.5 kg (142 lb 1.6 oz) 01/07/2020 9:07 AM CDT Height 157.5 cm (5' 2") 01/07/2020 9:07 AM CDT Body Mass Index 25.99 01/07/2020 9:07 AM CDT documented in this encounter Patient Instructions Patient InstructionsEdVitaliy galloway MD - 01/07/2020 9:00 AM CDT Patient Education Prevention Guidelines, Women Ages 50 [...] in this age group Every exam 1 [employer] last reviewed this educational content on 07/12/201519991514-2863 [employer]. [address] [place] [address]. All rights reserved. This information is not intended as a substitute for professional medical care. Always follow your healthcare professional's instructions. documented in this encounter Progress Notes Vitaliy Leslie MD - 01/07/2020 9:00 AM CDT Cc: Chief Complaint Patient presents with Follow-up GALLBLADDER s/p cholecystectomy PNEUMONIA HYPOTHYROIDISM Constipation Screening Varsha Ramos is a 49 year old female who has a past medical history of Bipolar 1 disorder, Common bile duct dilation (11/10/2019), Hypothyroidism, Hypothyroidism, Pancreatic duct dilated (11/10/2019), RUQ abdominal pain (11/11/2019), RUQ pain (11/11/2019), and Spondylolisthesis. Ms. Ramos presented to the ER 2 weeks ago with abdominal pain and SOB. She was diagnosed with gallbladder dyskinesia. Today she presents to clinic for follow up s/p cholestectomy (surgery on 12/29, discharged 12/29). Shereports she is doing well but had nausea. She was prescribed Zofran by Dr. Rossi (surgeon) and ithas improved. Patient denies fever, but endorses SOB (likely due to walking pneumonia). Patient was also diagnosed with walking pneumonia in the ED. She was given steroids, azithtomycin and albuterol. She has been using albuterol at home, but has had trouble breathing the last few days. Patient's chronic constipation has improved with docusate. She continues to take it every morning with no side effects. Patient's hyperthyroidism is under control. Her last TSH was normal and she continues to take levothyroxine daily. She denies weight loss, heat intolerance, diarrhea, palpitations but endorses fatigue and tremors, is established with, and follows up with neurology. Patient has bipolar, established with Psychiatry at [facility] in [place], on Sertraline, Oxcarbazepine, Quetiapine, and Amitriptyline, reports compliance with therapy, denies SI/HI/AH/VH. Allergies Varsha is allergic to ciprofloxacin; sulfa (sulfonamide antibiotics); and zonisamide. Medications Outpatient Medications Prior to Visit Medication Sig Dispense Refill acetaminophen-codeine (TYLENOL-CODEINE #3) 300-30 mg tablet Take 1 tablet by mouth every 6 (six)hours as needed for Pain (scale 4-6). Indications: acute pain 12 tablet 0 albuterol 90 mcg/actuation inhaler Inhale 2 Puffs every 4 (four) hours as needed for Wheezing orShortness of Breath. 8.5 g 0 azithromycin 250 mg tablet Take 1 tablet by mouth daily. Take 500 mg day 1, then 250 mg days 2 to 5. 1 Package 0 famotidine (PEPCID) 40 mg tablet Take 1 tablet by mouth daily. 15 tablet 0 ondansetron (ZOFRAN ODT) 4 mg disintegrating tablet Take 1 tablet by mouth every 8 (eight) hoursas needed for Nausea and Vomiting (N/V). 15 tablet 0 docusate (COLACE) 100 mg capsule Take 1 capsule by mouth once daily as needed for Constipation. 90 capsule 0 sennosides (SENOKOT) 8.6 mg tablet Take 1 tablet by mouth daily. 90 tablet 1 ondansetron 4 mg disintegrating tablet Take 1 [...] or For bowel movement. 1 Bottle 0 ondansetron (ZOFRAN) 4 mg tablet Take 1 tablet by mouth every 8 (eight) hours as needed for Nausea and Vomiting (N/V). 12 tablet 0 No facility-administered medications prior to visit. Histories Past Medical History: Diagnosis Date Bipolar 1 disorder Common bile duct dilation 11/10/2019 Added automatically from request for surgery [id number] Hypothyroidism Hypothyroidism Pancreatic duct dilated 11/10/2019 Added automatically from request for surgery [id number] RUQ abdominal pain 11/11/2019 RUQ pain 11/11/2019 Spondylolisthesis Past Surgical History: Procedure Laterality Date APPENDECTOMY 1979 SECTION 1994 SECTION 2002 COLONOSCOPY N/A 11/30/2019 Surgeon: Flower Vicente MD; Location: [facility] Location COLONOSCOPY N/A 12/04/2019 Surgeon: Sohail Loera MD; Location: [facility] Location ESOPHAGOGASTRODUODENOSCOPY N/A 11/12/2019 Surgeon: Neto [...] file Gets together: Not on file Attends nondenominational service: Not on file Active member of [...] Grandmother Kidney Cancer Father Colon Cancer NoFHx Review of Systems Constitutional: Positive for weight loss. Negative for fatigue and unexpected weight change. Eyes: Negative for visual disturbance. Respiratory: Negative for chest tightness and shortness of breath. Cardiovascular: Negative for chest pain and palpitations. Gastrointestinal: Positive for constipation. Negative for abdominal pain and diarrhea. Neurological: Negative for weakness. Psychiatric/Behavioral: Negative for agitation and self-injury. The patient is not nervous/anxious. Endocrine: Positive for weight loss. Vital Signs BP 118/82 (BP Location: Left arm, Patient Position: Sitting, BP CUFF SIZE: Adult Medium) | Pulse 91 | Resp 20 | Ht 5' 2" (1.575 m) | Wt 142 lb 1.6 oz (64.5 kg) | LMP 12/17/2019 (Exact Date) | SpO2 95% | BMI 25.99 kg/m Physical Exam Constitutional: She is oriented to person, place, and time. No distress. HENT: Head: Normocephalic and atraumatic. Eyes: Pupils are equal, round, and reactive to light. EOM are normal. Neck: Normal range of motion. Neck supple. Cardiovascular: Normal rate and regular rhythm. Pulmonary/Chest: Effort normal and breath sounds normal. Abdominal: Soft. Bowel sounds are normal. s/p cholecystectomy, Incisions well healed, no evidence of infection Musculoskeletal: Normal range of motion. Neurological: She [...] factors make the colonoscopy technically challenging. Assessment/Plan Community acquired pneumonia, unspecified laterality - Stable, anticipatory guidance discussed, s/p Methylprednisone and azithromycin. Continue breathingtreatments at home, monitor - ipratropium 0.02 % nebulizer solution; Inhale 2.5 mL every 8 (eight) hours as needed for Wheezing or Shortness of Breath. Dispense: 60 Vial; Refill: 2 - albuterol 2.5 mg /3 mL (0.083 %) nebulizer solution; Inhale 3 mL every 4 (four) hours as needed for Wheezing or Shortness of Breath. Dispense: 60 Vial; Refill: 2 - Miscellaneous Medical Supply Kit; J40: Brochitis - Dispense # 1 [employer] Respironics (okay for alternative brand) for nebulizer treatment Dispense: 1 Kit; Refill: 0 Common bile duct dilation - Stable and doing well s/p cholecystectomy (12/30/2019). Incisions well healed w/o infection - Follow-up with G.I as scheduled Hypothyroidism, unspecified type - Lab reviewed. TSH normal. Continue Levothyroxine Bipolar 1 disorder - Stable, not in crisis, no SI/HI/AH/VH, established with Psychiatry at [facility]. Continue Sertraline, Oxcarbazepine, Quetiapine, and Amitriptyline Chronic constipation - Diet modification discussed - continue with docusate (COLACE) 100 mg capsule; Take 1 capsule by mouth once daily as needed for Constipation. Dispense: 90 capsule; Refill: 0 - sennosides (SENOKOT) 8.6 mg tablet; Take 1 tablet by mouth daily. Dispense: 90 tablet; Refill: 1 Pap smear for cervical cancer screening - CONVENTIONAL PAP SMEAR - CONSULT/REFERRAL AMUSEMENT PARK RIDE MECHANIC Preventive Care: Medication reconciliation, patient education and anticipatory guidance completed. All questions and concerns addressed. AVS given, handout provided. Return in about 2 months (around 03/09/2020), or if symptoms worsen or fail to improve. Amilcar Watson, MS4 01/07/2020 I personally examined the patient on 01/07/2020 and agree with MS 4 (Amilcar Watson) note as written, including any changes or additions to the medical student's note. I actively participated in the decision making process. Please see note for additional details. Vitaliy Leslie MD, MPH, AAAZVS Clinical Commercial Diver, Department of Family Medicine [facility] Primary & Specialty Care - [facility] Future Appointments Today [facility] US 1 [facility] Ultrasound, [facility] In 2 days Flower Vicente MD [facility] GASTROENTEROLOGY -[facility], [facility] In 6 days Olinda Sidhu MD [facility] Endocrinology- [facility] End In 1 month Anni Ferro MD [facility] Women's Healthcare- [facility] In 2 months Vitaliy Leslie MD [facility] Pediatric and Adult Primary Care- [facility] documented in this encounter Plan of Treatment Date Type Specialty Care Team Description 01/12/2020 Appointment Radiology Anni Ferro MD [address] [place] [address] [place] [address] 01/14/2020 Telemedicine Visit Gastroenterology Flower Vicente MD [address] [facility] [address] [place] [address] 01/18/2020 Office Visit Endocrinology Diabetes & Olinda Sidhu , Metabolism [address] [place] [address] [phone] 02/15/2020 Office Visit Obstetrics & Gynecology Anni Ferro MD [address] [place] [address] Dr. [address] [place] [phone] 04/08/2020 Office Visit Family Medicine Vitaliy Leslie MD [address] [place] [address] [address] [place], [place] [address]275 Name Type Priority Associated Diagnoses Order S chedule CONVENTIONAL PAP SMEAR LAB Routine Pap smear for cerv ical Ordered: 01/07/2020 cancer screening Health Maintenance Due Date Last Done Comments [...] filedocumented in this encounter Visit Diagnoses Diagnosis Community acquired pneumonia, unspecifie d laterality - Primary Common bile duct dilation Other specified disorders of biliary tra ct Hypothyroidism, unspecified type Bipolar 1 disorder Bipolar I disorder, most recent episode (or current) unspecified Chronic constipation Unspecified constipation Pap smear for cervical cancer screening Screening for malignant neoplasm of the cervix documented in this encounter documented as of this encounter
--- OUTSIDE RECORDS SUMMARY | 2020-01-22 20:47 | XMS REPORT | Summary of Care ---
:1970 Author Organization [facility] Address [address] [place] [address] Care Team Providers Name Role Phone MD Mariama Primary Care Provider Reason for Referral (Routine) Status Reason Specialty Diagnoses / Referred By Referred To Procedures Contact Contact New Request Obstetrics & Diagnoses Pap smear for cervical cancer screening Lux Leslie Procedures CONSULT/REFERRAL HARNESS RIGGER MD Vitaliy [address] [place] [address] [facility] [address] [place] [address] Reason for Visit Reason Comments Follow-up GALLBLADDER s/p cholecystectomy PNEUMONIA HYPOTHYROIDISM Constipation Screening Encounter Details Date Type Department Care Team Description 01/07/2020 Office Visit [facility] Pediatric Vitaliy Leslie C ommunity acquired pneumonia, unspecified laterality (Primary Dx); and Adult Primary Common bile duct dilation; Care- [address] Hypothyroidism, unspecified type; [address] [place] [address] Bipolar 1 disorder; [address], [address] [place] [address] Chronic constipation; [place], [place] [phone] Pap smear for cervical cancer screening [address] [phone] Allergies Active Allergy Reactions Severity Noted Date [...] Added automatically from request for mauro cliff [id number] RUQ pain 11/11/2019 RUQ abdominal pain 11/11/2019 Pancreatic duct dilated 11/10/2019 Overview: Added automatically from request for mauro cliff [id number] Common bile duct dilation 11/10/2019 Overview: Added automatically from request for mauro cliff [id number] Spondylolisthesis Hypothyroidism Bipolar 1 disorder documented as [...] in this age group Every exam 1 [employer] last reviewed this educational content on 07/12/201519991300-2308 The [employer]. [address] [place] [address]. All rights reserved. This information is not [...] Patient has bipolar, established with Psychiatry at [facility] in [place], on Sertraline, Oxcarbazepine, Quetiapine, and Amitriptyline, reports [...] 11/10/2019 Added automatically from request for surgery [id number] Hypothyroidism Hypothyroidism Pancreatic duct dilated 11/10/2019 Added automatically from request for surgery [id number] RUQ abdominal pain 11/11/2019 RUQ pain 11/11/2019 Spondylolisthesis Past Surgical History: Procedure Laterality Date APPENDECTOMY 1979 SECTION 1994 SECTION 2002 COLONOSCOPY N/A 11/30/2019 Surgeon: Flower Vicente MD; Location: [facility] Location COLONOSCOPY N/A 12/04/2019 Surgeon: Sohail Loera MD; Location: [facility] Location ESOPHAGOGASTRODUODENOSCOPY N/A 11/12/2019 Surgeon: Neto [...] file Gets together: Not on file Attends anglican service: Not on file Active member of [...] Kit; J40: Brochitis - Dispense # 1 [email or web address] Respironics (okay for alternative brand) for nebulizer treatment Dispense: 1 Kit; Refill: 0 Common bile duct dilation - Stable and doing well s/p cholecystectomy (12/30/2019). Incisions well healed w/o infection - Follow-up with G.I as scheduled Hypothyroidism, unspecified type - Lab reviewed. TSH normal. Continue Levothyroxine Bipolar 1 disorder - Stable, not in crisis, no SI/HI/AH/VH, established with Psychiatry at [facility]. Continue Sertraline, Oxcarbazepine, Quetiapine, and Amitriptyline [...] screening - CONVENTIONAL PAP SMEAR - CONSULT/REFERRAL HARNESS RIGGER Preventive Care: Medication reconciliation, patient education and [...] for additional details. Vitaliy Leslie MD, MPH, AANDVS Clinical Technical Proposal Writer, Department of Family Medicine [facility] Primary & Specialty Care - [facility] Future Appointments Today [facility] US 1 [facility] Ultrasound, [facility] In 2 days Flower Vicente MD [facility] GASTROENTEROLOGY -[facility], [facility] In 6 days Olinda Sidhu MD [facility] Endocrinology- [facility] End In 1 month Anni Ferro MD [facility] Women's Healthcare- [facility] In 2 months Vitaliy Leslie MD [facility] Pediatric and Adult Primary Care- [facility] documented in this encounter Plan of Treatment Date Type Specialty Care Team Description 01/12/2020 Appointment Radiology Anni Ferro MD [address] [place] [address] [place] [address] 01/14/2020 Telemedicine Visit Gastroenterology Flower Vicente MD [address] [facility] [address] [place] [address] 01/18/2020 Office Visit Endocrinology Diabetes & Olinda Sidhu , Metabolism [address] [place] [address] [phone] 02/15/2020 Office Visit Obstetrics & Gynecology Anni Ferro MD [address] [place] [address] Dr. [address] [place] [phone] 04/08/2020 Office Visit Family Medicine Vitaliy Leslie MD [address] [place] [address] Dr [address] [place], [place] [id number] Name Type Priority Associated Diagnoses Order S [...] 12/03/2020 12/04/2019 DTaP,Tdap,and Td Vaccines 01/06/2021 Postpo duek from (1 - Tdap) 01/14/1980 (Alte rnative [...]
--- OUTSIDE RECORDS SUMMARY | 2020-01-22 20:48 | XMS REPORT | Summary of Care ---
:1970 Author Organization [facility] Address [address] [place] [address] Care Team Providers Name Role Phone MD Mariama Primary Care Provider Encounter Details Date Type Department Care Team Description 01/11/2020 Patient Secure [facility] Pediatric Vitaliy Mg MD and Adult Primary Care- [address] [facility] [address], [address] [place] [address] [phone] Allergies Active Allergy Reactions Severity Noted Date [...] Added automatically from request for mauro cliff [id number] RUQ pain 11/11/2019 RUQ abdominal pain 11/11/2019 Pancreatic duct dilated 11/10/2019 Overview: Added automatically from request for mauro cliff [id number] Common bile duct dilation 11/10/2019 Overview: Added automatically from request for mauro cliff [id number] Spondylolisthesis Hypothyroidism Bipolar 1 disorder documented as [...] been in contact with No / Unsure 01/12/2020 12:44 PM CDT someone who was confirmed or suspected to have Coronavirus / COVID-19? documented as of this encounter Last Filed Vital Signs Not on filedocumented in this encounter Plan of Treatment Date Type Specialty Care Team Description 01/14/2020 Telemedicine Visit Gastroenterology Folwer Vicente MD [address] [facility] [address] [place] [address] 01/18/2020 Office Visit Endocrinology Diabetes & Olinda Sidhu , [address] [place] [place] [address] [phone] 02/15/2020 Office Visit Obstetrics & Gynecology Anni Ferro MD [address] [place] [address] Dr. [address] [place] [phone] 04/08/2020 Office Visit Family Medicine Vitaliy Leslie MD [address] [place] [address] [address] [place], [place] [address] Health Maintenance Due Date Last Done Comments [...] [employer] [facility] [id number] 2019-Present PPO documented as of this encounter
--- OUTSIDE RECORDS SUMMARY | 2020-01-22 20:49 | XMS REPORT | Summary of Care ---
:1970 Author Organization [facility] Address [address] [place] [address] Care Team Providers Name Role Phone MD Mariama Primary Care Provider Reason for Referral (Routine) Status Reason Specialty Diagnoses / Referred By Referred To Procedures Contact Contact New Request Obstetrics & Diagnoses Pap smear for cervical cancer screening Lux Leslie Procedures CONSULT/REFERRAL IVORY POLISHER MD Vitaliy [address] [place] [address] [facility] [address] [place] [address] Reason for Visit Reason Comments Follow-up GALLBLADDER s/p cholecystectomy PNEUMONIA HYPOTHYROIDISM Constipation Screening Encounter Details Date Type Department Care Team Description 01/07/2020 Office Visit [facility] Pediatric Vitaliy Leslie C ommunity acquired pneumonia, unspecified laterality (Primary Dx); and Adult Primary Common bile duct dilation; Care- [address] Hypothyroidism, unspecified type; [address] [place] [address] Bipolar 1 disorder; [address], [address] [place] [address] Chronic constipation; [place], [place] [phone] Pap smear for cervical cancer screening [address] [phone] Allergies Active Allergy Reactions Severity Noted Date [...] Added automatically from request for mauro cliff [id number] RUQ pain 11/11/2019 RUQ abdominal pain 11/11/2019 Pancreatic duct dilated 11/10/2019 Overview: Added automatically from request for mauro cliff [id number] Common bile duct dilation 11/10/2019 Overview: Added automatically from request for mauro cliff [id number] Spondylolisthesis Hypothyroidism Bipolar 1 disorder documented as [...] group Every exam 1 [employer] last reviewed this educational content on 07/12/201519998881-0845 [employer]. [address] [place] [address]. All rights reserved. This information is not [...] Patient has bipolar, established with Psychiatry at [facility] in [place], on Sertraline, Oxcarbazepine, Quetiapine, and Amitriptyline, reports [...] 11/10/2019 Added automatically from request for surgery [id number] Hypothyroidism Hypothyroidism Pancreatic duct dilated 11/10/2019 Added automatically from request for surgery [id number] RUQ abdominal pain 11/11/2019 RUQ pain 11/11/2019 Spondylolisthesis Past Surgical History: Procedure Laterality Date APPENDECTOMY 1979 SECTION 1994 SECTION 2002 COLONOSCOPY N/A 11/30/2019 Surgeon: Flower Vicente MD; Location[facility] Location COLONOSCOPY N/A 12/04/2019 Surgeon: Sohail Loera MD; Location: [facility] Location ESOPHAGOGASTRODUODENOSCOPY N/A 11/12/2019 Surgeon: Neto [...] file Gets together: Not on file Attends moravian service: Not on file Active member of [...] Incisions well healed, no evidence of infection Scheduling Assistant: [facility] Musculoskeletal: Normal range of motion. Neurological: She [...] Kit; J40: Brochitis - Dispense # 1 KargoCard [employer]pir[employer]s (okay for alternative brand) for nebulizer treatment Dispense: 1 Kit; Refill: 0 Common bile duct dilation - Stable and doing well s/p cholecystectomy (12/30/2019). Incisions well healed w/o infection - Follow-up with G.I as scheduled Hypothyroidism, unspecified type - Lab reviewed. TSH normal. Continue Levothyroxine Bipolar 1 disorder - Stable, not in crisis, no SI/HI/AH/VH, established with Psychiatry at [facility]. Continue Sertraline, Oxcarbazepine, Quetiapine, and Amitriptyline [...] screening - CONVENTIONAL PAP SMEAR - CONSULT/REFERRAL IVORY POLISHER Preventive Care: Medication reconciliation, patient education and [...] for additional details. Vitaliy Leslie MD, MPH, [facility] Clinical Lining [place] [employer], Department of Family Medicine [facility] Primary & Specialty Care - [facility] Future Appointments Today [facility] US [address] [facility] Ultrasound, [facility] In 2 days Flower Vicente MD [facility] GASTROENTEROLOGY -[facility] In 6 days Olinda Sidhu MD [facility] Endocrinology- [facility] End In 1 month Anni Ferro MD [facility] Women's Healthcare- [facility] In 2 months Vitaliy Leslie MD [facility] Pediatric and Adult Primary Care- [facility] documented in this encounter Plan of Treatment Date Type Specialty Care Team Description 01/14/2020 Telemedicine Visit Gastroenterology Flower Vicente MD [address] [facility] [address] [place] [address] [phone] 01/18/2020 Office Visit Endocrinology Diabetes & KesiredOlinda thayer , Metabolism [address] [place] [address] [phone] 02/15/2020 Office Visit Obstetrics & Gynecology Anni Ferro MD [address] [place] [address] Dr. [address] [place] [phone] 04/08/2020 Office Visit Family Medicine EdemeVitaliy reyes MD [address] [place] [address] Dr [address] [place], [place] [address] Name Type Priority Associated Diagnoses Order S [...]
--- OUTSIDE RECORDS SUMMARY | 2020-01-22 20:49 | XMS REPORT | Summary of Care ---
:1970 Author Organization [facility] Address [address] [place] [address] Care Team Providers Name Role Phone MD Mariama Primary Care Provider Reason for Referral Radiology Services (Routine) Status Reason Specialty Diagnoses / Referred By Referred To Procedures Contact Contact Closed Diagnostic Diagnoses Uterine leiomyoma, unspecified location Anni Ferro, Radiology Procedures US PELVIS COMPLETE WITH TRANSVAGINRAI LYONS [address] [place] [address] Dr. [address] [place] [address] Reason for Visit Radiology Services (Routine) Status Reason Specialty Diagnoses / Referred By Referred To Procedures Contact Contact Closed Diagnostic Diagnoses Uterine leiomyoma, unspecified location Anni Ferro, Radiology Procedures US PELVIS COMPLETE WITH BANVAADIN LYONS [address] [place] [address] Dr. [address] [place] [address] Encounter Details Date Type Department Care Team Description 01/12/2020 Hospital Encounter [facility] Kayley Ferro MD Arrived [place] [facility] [address] [place] [address] [place] [address] Dr isaac [address] [place] [address], [place] [phone] [address] Allergies Active Allergy Reactions Severity Noted Date Comments Ciprofloxacin Anaphylaxis 07/27/2011 Sulfa (Sulfonamide Antibiotics) Unknown - See comments 09/27/2008 Zonisamide Unknown - See comments 01/16/2008 documented as of this encounter (statuses as of 2020) Medications Medication Sig Dispensed Refills Start Date [...] as of this encounter (statuses as of 2020) Active Problems Problem Noted Date Community acquired pneumonia, unspecified laterality 0 01/12/2020 Chronic constipation 12/10/2019 Pap smear for cervical cancer screening 11/20/2019 Overview: Added automatically from request for mauro coronado [id number] RUQ pain 11/11/2019 RUQ abdominal pain 11/11/2019 Pancreatic duct dilated 11/10/2019 Overview: Added automatically from request for mauro coronado [id number] Common bile duct dilation 11/10/2019 Overview: Added automatically from request for mauro coronado [id number] Spondylolisthesis Hypothyroidism Bipolar 1 disorder documented as of this encounter (statuses as of 2020) Social History Tobacco Use Types Packs/Day Years [...] Telemedicine Visit Gastroenterology Flower Vicente MD [address] [facility] [address] [place] [address] 01/18/2020 Office Visit Endocrinology Diabetes & Olinda Sidhu Metabolism MD [address] [place] [address] [phone] 02/15/2020 Office Visit Obstetrics & Gynecology Anni Ferro MD [address] [place] [address] Dr[address] [place] [phone] 04/08/2020 Office Visit Family Medicine Vitaliy Leslie MD [address] [place] [address] [address] [place] [address] [phone] Health Maintenance Due Date Last Done Comments [...] Name Priority Date/Time Associated Diagnosis Comme nts US PELVIS COMPLETE Routine 01/12/2020 1:46 Uterine leiomyoma, Results for this WITH TRANSVAGINAL PM CDT unspecified location pr ocedure are in the results section. documented in this encounter Results US PELVIS COMPLETE WITH TRANSVAGINAL (01/12/2020 1:46 PM CDT) Specimen Narrative Performed At HISTORY: Uterine fibroid. PACS/VR/DOSE TECHNIQUE: Both transabdominal and transvaginal pelvic ultrasound studies were completed by the technologist. FINDINGS: Uterus is enlarged, measures approximately 9 .9 x 4.4 x 5.5 cm in size with a small minimally calcified fi broid suspected along the right lower anterior wall of the body of the uterus just abo ve the cervix, 12 mm in size. Along the posterior wall of the cervix, 7 mm hypoechoic lesion is seen which could be a small cervical fibroid. Small nabothian cysts are seen in the cervix, the larg est is 9 mm T-shaped IUD is in good position within the uterus. No free flu id in the cul-de-sac. Right ovary is 2.6 x 2.8 x 1.6 cm (6.26 ml) and left o vary is 2.6 x 1.9 x 1.8 cm (4.91 ml). Right ovary contains 2 cysts, 14 mm and 8 mm size. Left ovary contains 10 mm cyst with probable intracystic he morrhage. Between the left ovary and cervix, a complex cystic lesion is seen measuring 2.6 x 2.2 x 2.5 cm in size and is lumen filled wit h low-level echogenic material which could be old infected fluid or hem orrhage. In addition, there is slightly more echogenic oval-shaped 14 x 6 mm abnormal ity protruding into the lumen of this cystic mass. CONCLUSIONS: 1. Enlarged uterus with 12 mm minimally calcified uter ine fibroid along the anterior wall of the lower body of the u terus. 2. 7 mm small fibroid suspected in the p osterior wall of the cervix. 3. Unusual cystic lesion of 2.6 cm size noted located between the cervix and the left ovary. This could be a paraovarian cyst w ith old infection or old hemorrhage. Procedure Note [facility], Radiant Results Inft User - 2019 1:55 PM CDT HISTORY: Uterine fibroid. TECHNIQUE: Both transabdominal and trans vaginal pelvic ultrasound studies were completed by the technologist. FINDINGS: Uterus is enlarged, measures a pproximately 9.9 x 4.4 x 5.5 cm in size with a small minimally calcified fi broid suspected along the right lower anterior wall of the body of the u terus just above the cervix, 12 mm in size. Along the posterior wall of the cervix, 7 mm hypoechoic lesion is seen which could be a small cervical fibroid. Small nabothian cysts are seen in the ce rvix, the largest is 9 mm T-shaped IUD is in good position within the uteru s. No free fluid in the cul-de-sac. Right ovary is 2.6 x 2.8 x 1.6 cm (6.26 ml) and left ovary is 2.6 x 1.9 x 1.8 cm (4.91 ml). Right ovary contains 2 cysts, 14 mm and 8 mm size. Left ovary contains 10 mm cyst with probable intracystic hemorrhage. Between the left ovary and cervix, a complex cystic lesion is seen measuring 2.6 x 2.2 x 2.5 cm in size and is lumen filled wit h low-level echogenic material which could be old infected fluid or hem orrhage. In addition, there is slightly more echogenic oval-shaped 14 x 6 mm abnormality protruding into the lumen of this cystic mass. CONCLUSIONS: 1. Enlarged uterus with 12 mm minimally calcified uterine fibroid along the anterior wall of the lower body of the u terus. 2. 7 mm small fibroid suspected in the p osterior wall of the cervix. 3. Unusual cystic lesion of 2.6 cm size noted located between the cervix and the left ovary. This could be a para ovarian cyst with old infection or old hemorrhage. Performing Organization Address City/State/Zipcode Phone Number PACS/VR/DOSE documented in this encounter Visit Diagnoses Diagnosis Uterine leiomyoma, unspecified location documented in this encounter documented as of this encounter
--- OUTSIDE RECORDS SUMMARY | 2020-01-22 20:50 | XMS REPORT | Summary of Care ---
:1970 Author Organization [facility] Address [address] [place] [address] Care Team Providers Name Role Phone MD Mariama Primary Care Provider Reason for Visit Reason Comments Abdominal Pain Encounter Details Date Type Department Care Team Description 01/14/2020 Telemedicine Visit [facility], Biliary c olic (Primary Dx); GASTROENTEROLOGY MD Flower S/P cholecystectomy; -[address] Colon cancer screening; [address] [facility] Other constipation [place], [place] [address] [address] [place] [phone] Allergies Active Allergy Reactions Severity Noted Date Comments Ciprofloxacin Anaphylaxis 07/27/2011 Sulfa (Sulfonamide Antibiotics) Unknown - See comments 09/27/2008 Zonisamide Unknown - See comments 01/16/2008 documented as of this encounter (statuses as of 01/14/2020) Medications Medication Sig Dispensed Refills Start Date [...] as of this encounter (statuses as of 01/14/2020) Active Problems Problem Noted Date Community acquired pneumonia, unspecified laterality 0 01/12/2020 Chronic constipation 12/10/2019 Pap smear for cervical cancer screening 11/20/2019 Overview: Added automatically from request for mauro coronado [id number] RUQ pain 11/11/2019 RUQ abdominal pain 11/11/2019 Pancreatic duct dilated 11/10/2019 Overview: Added automatically from request for mauro cliff [id number] Common bile duct dilation 11/10/2019 Overview: Added automatically from request for mauro cliff [id number] Spondylolisthesis Hypothyroidism Bipolar 1 disorder documented as of this encounter (statuses as of 01/14/2020) Social History Tobacco Use Types Packs/Day Years [...] Signs Not on filedocumented in this encounter Progress Notes Flower Vicente MD - 01/14/2020 9:00 AM CDT TELEHEALTH NOTE Verbal consent obtained from Patient: Varsha Ramos for telehealth services provided below. Communication with patient was conducted via Video Call. Location of Patient: Workplace Location of Provider: Clinic Date of Service: 01/14/2020 [facility]PATOLOGY CLINIC- Follow-up Visit REASON FOR VISIT: -Abdominal pain -Constipation -Multiple failed colonoscopy attemps for screening due to inadequate prep, redundant colon, ventral hernia, [facility] -Dilated PD and bile duct on cross sectional imaging with normal EUS -Gallbladder sludge on ultrasound 12/25, GB dyskinesia on HIDA now s/p cholecystectomy on 12/29 with umbilical hernia repair -Hepatic steatosis HISTORY OF PRESENT ILLNESS: Varsha Ramos is a 50 year old female, previously seen in GI clinicon 11/19/[address] Woodruff who returns for a follow- up evaluation. In the interval since the previous visit, Ms. Ramos reports that she has been doing well and feelsmuch better after surgery with hernia repair although still recovering and moving slowly. She [facility] which was [facility]. She thinks this was cologuard. She is taking daily senna and docusate and this is prevent constipation adequately. Overall she is doing much better and feels like abdominal symptoms sufficiently controlled. PROBLEM LIST: Patient Active Problem List Diagnosis Spondylolisthesis Hypothyroidism Bipolar 1 disorder RUQ pain RUQ abdominal pain Pancreatic duct dilated Common bile duct dilation Pap smear for cervical cancer screening Chronic constipation Community acquired pneumonia, unspecified laterality PAST SURGICAL HISTORY Past Surgical History: Procedure Laterality Date APPENDECTOMY 1979 SECTION 1994 SECTION 2002 CHOLECYSTECTOMY COLONOSCOPY N/A 11/30/2019 Surgeon: Flower Vicente MD; Location: [facility] Location COLONOSCOPY N/A 12/04/2019 Surgeon: Sohail Loera MD; Location: [facility] Location ESOPHAGOGASTRODUODENOSCOPY N/A 11/12/2019 Surgeon: Neto Burch MD; Location: [facility] ([facility] Location FUSION SPINE POSTERIOR CERVICAL AND DISCECTOMY ([facility]) 2004 UPPER ULTRASOUND ([facility]) N/A 11/12/2019 Surgeon: Neto Burch MD; Location: [facility] ([facility] Location FAMILY HISTORY Family History Problem Relation Age of Onset COPD (chronic obstructive pulmonary disease) Brother Other - see comments Maternal Grandmother 50 polycythemia Breast Cancer Maternal Grandmother Leukemia Maternal Grandmother Breast Cancer Paternal Grandmother Kidney Cancer Father Colon Cancer NoFHx SOCIAL HISTORY She reports that she has been smoking. She has never used smokeless tobacco. She reports that she drank alcohol. She reports that she has current or past drug history. Drug: Marijuana. CURRENT MEDICATIONS: Current Outpatient Medications on File Prior to Visit Medication Sig Dispense Refill albuterol 2.5 mg /3 mL (0.083 %) nebulizer solution Inhale 3 mL every 4 (four) hours as needed for Wheezing or Shortness of Breath. 60 Vial 2 ipratropium 0.02 % nebulizer solution Inhale 2.5 mL every 8 (eight) hours as needed for Wheezingor Shortness of Breath. 60 Vial 2 Miscellaneous Medical Supply Kit J40: Brochitis - Dispense # 1 Telma Respironics (okay for alternative brand) for nebulizer treatment 1 Kit 0 acetaminophen-codeine (TYLENOL-CODEINE #3) 300-30 mg tablet Take [...] tablet by mouth daily. 90 tablet 1 diclofenac 50 mg EC tablet TAKE ONE [...] tablet Take 100 mg by mouth daily. No current facility-administered medications on file prior to visit. ALLERGIES: She is allergic to ciprofloxacin; sulfa (sulfonamide antibiotics); and zonisamide. REVIEW OF SYSTEMS: General: (-) fever, (-) weight change, (-) appetite loss Skin: (-) rash, (-) jaundice Eyes: (-) eye pain (-) scleral icterus Nose: (-)epistaxis, (-) nasal discharge Neck: (-) dysphagia, (-) mass Resp: (-) cough, (-) SOB, (-) SUTTON Cardio: (-) chest pain, (-) palpitations, (-) syncope GI: (-) vomiting, (-) hematochezia, (-) hematemesis Neurological: (-) dizziness, (-) falls, (-) imbalance Psych: (-) confusion; (-) behavioral changes PHYSICAL EXAMINATION: VS - NA Constitutional: NAD. Appears stated age. Well developed, well-nourished. Resting comfortably. Head: Normocephalic and atraumatic. Pulmonary/Chest: Breathing comfortably - no audible wheezing or other adventitious sound. Neurological: Alert and oriented to person, place, and time . Face symmetric. Answers questions appropriately. Psychiatric- Appropriate tone and affect. Skin: No rash noted. No cyanosis. No jaundice. Interval Data: 12/25 GB ultrasound IMPRESSION Suspected gallbladder sludge without sonographic evidence of cholecystitis.. IMPRESSION: Ms. Ramos is a 50 year old female seen in follow up for the following issues: ICD-10-CM ICD-9-CM 1. Biliary colic K80.50 574.20 2. S/P cholecystectomy Z90.49 V45.79 3. Colon cancer screening Z12.11 V76.51 4. Other constipation K59.09 564.09 Currently doing well s/p cholecystectomy 2 weeks ago. Constipation controlled with current regimen. Has completed cologuard which was negative - readdress colon cancer screening options in 3 years. RECOMMENDATIONS: Continue OBR Due for colon cancer screening in 3 years After visit summary (AVS ) documentation will be available through [employer] for this encounter. A total of 15 minutes was spent on the Video Call, chart review, and coordination of care with specialists. This visit involved counseling and coordination of care that comprised more than 50% of the visit time. I spent 15 minute(s) total time with the patient. Of that time, 7 minute(s) was spent on history and exam, and 8 minute(s) was spent counseling the patient regarding risks and benefits of treatment and treatment options. Signed: Flower Vicente MD [employer] Division of Gastroenterology and Hepatology [facility] documented in this encounter Plan of Treatment Date Type Specialty Care Team Description 01/18/2020 Office Visit Endocrinology Diabetes & Kesired Olinda thayer MD Metabolism [address] [place] [address] [phone] 02/15/2020 Office Visit Obstetrics & Gynecology Adum, Kayley Merchant MD [address] [place] [address] Dr. [address] [place] [address] 04/08/2020 Office Visit Family Medicine Vitaliy Leslie MD [address] [place] [address] Dr [address] [place], [place] [address] [phone] Health Maintenance Due Date Last Done Comments [...] filedocumented in this encounter Visit Diagnoses Diagnosis Biliary colic - Primary Calculus of gallbladder without mention of cholecystitis or obstruction S/P cholecystectomy Other acquired absence of organ Colon cancer screening Special screening for malignant neoplasm s, colon Other constipation documented in this encounter , ([place] [address] documented as of this encounter
--- OUTSIDE RECORDS SUMMARY | 2020-01-22 20:51 | XMS REPORT | Summary of Care ---
:[address] [facility] Address [address] [place] [address] Care Team Providers Name Role Phone MD Mariama Primary Care Provider Reason for Visit Reason Comments Establish Care (Routine) Status Reason Specialty Diagnoses / Referred By Referred To Procedures Contact Contact Closed Endocrinology Diagnoses Abnormal finding on GI tract imaging Cecil Martin, Diabetes & Metabolism Procedures CONSULT/REFERRAL ENDOCRINOLOGY E, MD Olinda MD [id number] [place] [address] Phone: Fax: Encounter Details Date Type Department Care Team Description 01/18/2020 Office Visit [facility] Olinda Sidhu, Adenoma of left Endocrinology- adrenal gland (Primary [address] Dx) 146 [facility], [address] [place] [address] [phone] Allergies Active Allergy Reactions Severity Noted Date Comments Ciprofloxacin Anaphylaxis 07/27/2011 Sulfa (Sulfonamide Antibiotics) Unknown - See comments 09/27/2008 Zonisamide Unknown - See comments 01/16/2008 documented as of this encounter (statuses as of 01/18/2020) Medications Medication Sig Dispensed Refills Start Date [...] Shortness of pneumonia, Breath. unspecified laterality Miscellaneous J40: Brochitis - 1 Kit 0 01/07/2020 Active Medical Supply Dispense # 1 KitIndications: [facility] Community acquired Respironics (okay pneumonia, for alternative unspecified brand) for laterality nebulizer treatment dexAMETHasone 1 mg Take 1 tablet by 1 tablet 0 01/18/202008/2019 Active tabletIndications: mouth once now for Adenoma of left 1 dose. adrenal gland documented as of this encounter (statuses as of 01/18/2020) Active Problems Problem Noted Date Community acquired pneumonia, unspecified laterality 0 01/12/2020 Chronic constipation 12/10/2019 Pap smear for cervical cancer screening 11/20/2019 Overview: Added automatically from request for mauro coronado [id number] RUQ pain 11/11/2019 RUQ abdominal pain 11/11/2019 Pancreatic duct dilated 11/10/2019 Overview: Added automatically from request for mauro coronado [id number] Common bile duct dilation 11/10/2019 Overview: Added automatically from request for mauro cliff [id number] Spondylolisthesis Hypothyroidism Bipolar 1 disorder documented as of this encounter (statuses as of 01/18/2020) Social History Tobacco Use Types Packs/Day Years Used Date Former Smoker Quit: 11/2019 Smokeless Tobacco: Never Used Comments: e cigarette [...] Assigned at Date Recorded Not on file COVID-19 Exposure Response Date Recorded In the last month, have you been in contact with No / Unsure 01/18/2020 1:10 PM CDT someone who was confirmed or suspected to have Coronavirus / COVID-19? documented as of this encounter Last Filed Vital Signs Vital Sign Reading Time Taken Comments Blood Pressure 110/81 01/18/2020 1:25 PM CDT Pulse 97 01/18/2020 1:25 PM CDT Temperature - - Respiratory Rate 16 01/18/2020 1:25 PM CDT Oxygen Saturation - - Inhaled Oxygen Concentration - - Weight 62.2 kg (137 lb 3.2 oz) 01/18/2020 1:25 PM CDT Height 157.5 cm (5' 2") 01/18/2020 1:25 PM CDT Body Mass Index 25.09 01/18/2020 1:25 PM CDT documented in this encounter Patient Instructions Patient InstructionsOlinda Sidhu MD - 01/18/2020 1:30 PM CDTTake 1 mg dexamethasone pill at 11 PM and come at 8 AM next morning for blood draw. Olinda Sidhu MD documented in this encounter Progress Notes Olinda Sidhu MD - 01/18/2020 1:30 PM CDT Endocrinology, Diabetes and Metabolism Outpatient Note CHIEF COMPLAINT: adrenal nodule evaluation HPI: Varsha Ramos is a 50 year old /White female with PMH of hypothyroidism, bipolardisorder. Patient is referred for evaluation of adrenal nodule. Adrenal nodule diagnosed incidentally on MRI abdomen in 10/[address] abdomen in 11/2019. Patient has no prior hx of hypertension. She is not on any BP medications. 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 Her lat episode was 12/26/2019. No episodes for 10 yrs prior to that. This is managed by [facility]. She is on magnesium for that per patient. This is through [facility] and we have no records. Denied hx of diabetes. Patient has hypothyroidism-- levothyroxine 75 mcg daily. TSH normal in 10/2019. Managed by PCP Weight is mostly stable, lost few lbs after her cholecystectomy. Reports fatigue-- started 4 months ago Denied vision changes Has intermittent migraines + tremors Denied palpitations. + night sweats. No hot flashes No intermediate accountant steroid use FH: no hx of pituitary, adrenal tumors. GF had pancreatic cancer(suspected to be related to rec pancreatitis from alcohol use). GM had hypothyroidism. No hx of thyroid cancer. Denied hx of rec kidney stones or parathyroid disorders. The following portions of the patient's history were reviewed and updated as appropriate: allergies,current medications, past family history, past medical history, past social history, past surgical history. PAST MEDICAL HISTORY Past Medical History: Diagnosis Date Bipolar 1 disorder Common bile duct dilation 11/10/2019 Added automatically from request for surgery [id number] Hypothyroidism Hypothyroidism Pancreatic duct dilated 11/10/2019 Added automatically from request for surgery [id number] RUQ abdominal pain 11/11/2019 RUQ pain 11/11/2019 Spondylolisthesis PAST SURGICAL HISTORY Past Surgical History: Procedure Laterality Date APPENDECTOMY 1979 SECTION 1994 SECTION 2002 CHOLECYSTECTOMY COLONOSCOPY N/A 11/30/2019 Surgeon: Flower Vicente MD; [facility] COLONOSCOPY N/A 12/04/2019 Surgeon: Sohail Loera MD; [facility] ESOPHAGOGASTRODUODENOSCOPY N/A 11/12/2019 Surgeon: Neto [...] Cancer Father Colon Cancer NoFHx SOCIAL HISTORY Social History Tobacco Use Smoking status: Former Smoker Quit date: 11/2019 Years since quittin.1 Smokeless tobacco: Never Used Tobacco comment: e cigarette 3-4 x /day Substance Use Topics Alcohol use: Not Currently Frequency: Monthly or less Drinks per session: 1 or 2 Comment: drinks once every 6 months Drug use: Not Currently Types: Marijuana Comment: Last used 2006 MEDICATIONS Current Outpatient Medications Medication Sig Dispense Refill dexAMETHasone 1 mg tablet Take 1 tablet by mouth once now for 1 dose. 1 tablet 0 albuterol 2.5 mg /3 mL (0.083 %) nebulizer solution Inhale 3 mL every 4 (four) hours as needed for Wheezing or Shortness of Breath. 60 Vial 2 ipratropium 0.02 % nebulizer solution Inhale 2.5 mL every 8 (eight) hours as needed for Wheezingor Shortness of Breath. 60 Vial 2 Miscellaneous Medical Supply Kit J40: Brochitis - Dispense # 1 [facility] Respironics (okay for alternative brand) for nebulizer [...] by mouth daily. No current facility-administered medications for this visit. ALLERGIES Allergies Allergen Reactions Ciprofloxacin Anaphylaxis Sulfa (Sulfonamide Antibiotics) Unknown - See comments Zonisamide Unknown - See comments Review of Systems - Positives are marked with bold letters. Negatives are not bold. Constitutional: fatigue, confusion, changes in mental status Skin: lesions, rashes, sores, discoloration. Eyes: double vision, blurring, tearing, loss of vision Cardiovascular: palpitations, chest pain, claudication. Respiratory: dyspnea, SUTTON, Cough. Gastrointestinal: nausea, vomiting, diarrhea, constipation, abdominal pain. Genitourinary: bladder incontinence, dysuria, hematuria. Musculoskeletal: myalgias, joint pain, decreased range of motion. Neurological: dizziness, tingling, headaches. Endocrine: heat or cold intolerance, polyphagia, polydipsia, polyuria, nocturia. Psychiatric: mood changes, depression All other systems negative. Physical Exam: Vitals: BP 110/81 (BP Location: Right arm, Patient Position: Sitting, BP CUFF SIZE: Adult Large) | Pulse 97 | Resp 16 | Ht 5' 2" (1.575 m) | Wt 137 lb 3.2 oz (62.2 kg) | BMI 25.09 kg/m , Body mass index is 25.09 kg/m., Wt Readings from Last 3 Encounters: 01/18/20 137 lb 3.2 oz (62.2 kg) 01/07/20 142 lb 1.6 oz (64.5 kg) 12/28/19 141 lb (64 kg) Constitutional: well-developed, well-nourished, and in no distress. Head: Normocephalic, Atraumatic, No facial lesions observed Eyes:Non-icteric. No lid lag, proptosis, or stare noted. Extraocular movements intact, no ophthalmoplegia. Neck: Normal range of motion. Neck supple. No thyromegaly present. No discrete thyroid nodules identified. Cardiovascular: regular rate and rhythm, no murmurs, intact distal pulses, no edema. Pulmonary/Chest: normal breath sounds,end expiratory wheezing noted,no distress. Abdominal: Soft, non-distended, normal bowel sounds. Tenderness in lower quadrant and L flank Musculoskeletal: Normal range of motion, normal gait Neurological: alert, not disoriented, no focal deficits. DTR's normal. Skin: no rash. No skin cuts or tears in all extremities. No Acanthosis. Psychiatric: Appropriate mood and affect. ? Data Review: Lab Results Component Value Date TSH 2.02 11/11/2019 FREET4 0.60 (L) 09/27/2008 Lab Results Component Value Date CHOL 171 11/11/2019 HDL 50 (L) 11/11/2019 LDL 112 11/11/2019 TRIG 43 11/11/2019 Lab Results Component Value Date NA 135 12/26/2019 NA 137 12/04/2019 NA 135 12/04/2019 K 3.9 12/26/2019 K 4.4 12/04/2019 K 4.2 12/04/2019 CL 104 12/26/2019 CL 105 12/04/2019 CL 106 12/04/2019 BUN 5 (L) 12/26/2019 BUN <2 (L) 12/04/2019 BUN 2 (L) 12/04/2019 CREAT 0.51 12/26/2019 CREAT 0.61 12/04/2019 CREAT 0.55 12/04/2019 ALKPHOS 106 12/26/2019 ALKPHOS 65 12/04/2019 ALKPHOS 93 11/20/2019 ALT 14 12/26/2019 ALT 11 12/04/2019 ALT 16 11/20/2019 AST 30 12/26/2019 AST 19 12/04/2019 AST 25 11/20/2019 No results found for: ALBUCREAT, UALBCREAT HGB A1C (%) Date Value 11/11/2019 5.0 Imaging: CT abdomen: 11/2019 -- a 1.3 and 2 cm left adrenal gland nodules with previously characterized as adrenal adenomas on prior MRI. MRI abdomen: 10/2019 -- Left-sided 2.5 cm and 1.5 cm adrenal nodules which demonstrate loss of signalon out of phase imaging consistent with adrenal adenomas. Outside labs 11/2019 at [facility]: 24 hr urine metanephrine-- 71 (36-209) 24 hr urine normetanephrine-- 165 (131-612) 24 hr urine volume 950 ml Renin 2.311 ng/ml/hr (0.167-5.380) Aldosterone-- NA Potassium 2.9 (3.6-5.0). BMP otherwise normal Dexamethasone <30 (140-295) Cortisol AM - 7.7(<1.8) ? Assessment and Plan: ICD-10-CM ICD-9-CM 1. Adenoma of left adrenal gland D35.02 227.0 Adrenal Nodules: Patient has 2 adrenal bodules on L side. 2.5 cm and 1.5 cm which are lipid rich per MRI. No prior imaging to compare. Work up at [facility]-- normal 24 hr urine metanephrines. nomal renin, aldosterone NA with low potassium. 1 mg ONDST-- undetectable dexamethasone level with AM cortisol of 7.7. in conclusive result. Given hx of hypokalemia and inconclusive 1 mg ONDST we will repeat labs as below. Plan: Get labs as noted below. Consider CT adrenal protocol in one year Evaluate clinically every year Discussed differential and management of adrenal incidentaloma Return in about 1 year (around 01/17/2021). Orders Placed This Encounter Procedures BASIC METABOLIC PANEL (NA, K, CL, CO2, GLUCOSE, BUN, CREATININE, CA) ALDOSTERONE, SERUM RENIN ACTIVITY Misc. Sendout- dexamethasone level CORTISOL AM CATECHOLAMINES, PLASMA FRACT MAGNESIUM Olinda Sidhu MD Tank [employer] Endocrinology, Diabetes and Metabolism documented in this encounter Plan of Treatment Date Type Specialty Care Team Description 01/21/2020 Rn Flight Visit Phlebotomy 2, Adc Lab 02/15/2020 Office Visit Obstetrics & Gynecology Kayley Ferro MD [address] [place] [address] [address]. [address] [place] [phone] 04/08/2020 Office Visit Family Medicine Vitaliy Leslie MD [address] [place] [address] [address] [place], [place] [address] 07/22/2020 Office Visit Gastroenterology Flower Vicente MD [address] [facility] [address] [place] [phone] 01/30/2021 Office Visit Endocrinology Diabetes & KeOlinda chavez , Metabolism [address] [place] [address] Name Type Priority Associated Diagnoses Order S chedule BASIC METABOLIC PANEL (NA, LAB Routine Adenoma of lef t adrenal Expected: 01/18/2020, K, CL, CO2, GLUCOSE, BUN, gland Ex pete: 01/17/2021 CREATININE, CA) ALDOSTERONE, SERUM LAB Routine Adenoma of left adrena l Expected: 01/18/2020, gland Expires: 2020 RENIN ACTIVITY LAB Routine Adenoma of left adrenal Ex pected: 01/18/2020, gland Expires: 2020 Misc. Sendout- LAB Routine Adenoma of left adrenal Ex pected: 01/18/2020, dexamethasone level gland Expires: 01/17/2021 CORTISOL AM LAB Routine Adenoma of left adrenal Expe cted: 01/18/2020, gland Expires: 2020 CATECHOLAMINES, PLASMA LAB Routine Adenoma of left ad renal Expected: 01/18/2020, FRACT gland Expires: 2020 MAGNESIUM LAB Routine Adenoma of left adrenal Expe cted: 01/18/2020, gland Expires: 2020 Health Maintenance Due Date Last Done Comments PNEUMOCOCCAL 0-64 YEARS 1975 COMBINED SERIES (1 of 1 - PPSV23) PAP SMEAR 1990 Breast Cancer Screening 2009 (MAMMOGRAM) COLON CANCER SCREENING 2019 ANNUAL FIT/FOBT COLON CANCER SCREENING FIT 2019 DNA EVERY 3 YEARS COLON CANCER SCREENING 2019 SIGMOIDOSCOPY EVERY 5 YEARS INFLUENZA VACCINE (#1) 2020 03/25/2018, 05/17/2016, 05/17/2016, Additional history exists Depression Screening 12/03/2020 12/04/2019 DTaP,Tdap,and Td Vaccines 01/06/2021 Postpo duke from (1 - Tdap) 01/14/1988 (Alte r[place] Guidelines) Zoster Recombinant Vaccine 01/12/2021 Postp oned from (SHINGRIX) (1 of 2) 2019 ( Alternative Guidelines) COLONOSCOPY 12/03/2029 12/04/2019, 11/30/2019 Colorectal Cancer Screening 12/03/2029 documented as of this encounter Results Not on filedocumented in this encounter Visit Diagnoses Diagnosis Adenoma of left adrenal gland - Primary Benign neoplasm of adrenal gland documented in this encounter documented as of this encounter
--- OUTSIDE RECORDS SUMMARY | 2020-01-22 20:51 | XMS REPORT | Summary of Care ---
:1970 Author Organization [facility] Address [address] [place] [address] Care Team Providers Name Role Phone MD Mariama Primary Care Provider Reason for Visit Reason Comments Establish Care (Routine) Status Reason Specialty Diagnoses / Referred By Referred To Procedures Contact Contact Closed Endocrinology Diagnoses Abnormal finding on GI tract imaging Cecil Martin, Diabetes & Metabolism Procedures CONSULT/REFERRAL ENDOCRINOLOGY E, MD Olinda MD [id number] [place] [phone] Phone: Fax: Encounter Details Date Type Department Care Team Description 01/18/2020 Office Visit [facility] Olinda Sidhu, Adenoma of left Endocrinology- adrenal gland (Primary [address] Dx) 146 [facility], [address] [place] [address] [phone] Allergies Active Allergy Reactions Severity Noted Date [...] Added automatically from request for mauro coronado [id number] RUQ pain 11/11/2019 RUQ abdominal pain 11/11/2019 Pancreatic duct dilated 11/10/2019 Overview: Added automatically from request for mauro coronado [id number] Common bile duct dilation 11/10/2019 Overview: Added automatically from request for mauro cliff [id number] Spondylolisthesis Hypothyroidism Bipolar 1 disorder documented as [...] 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 Her lat episode was 12/26/2019. No episodes for 10 yrs prior to that. This is managed by [facility]. She is on magnesium for that per patient. This is through [facility] and we have no records. Denied hx of diabetes. Patient has hypothyroidism-- levothyroxine 75 mcg daily. TSH normal in 10/2019. Managed by PCP Weight is mostly stable, lost few lbs after her cholecystectomy. Reports fatigue-- started 4 months ago Denied vision changes Has intermittent migraines + tremors Denied palpitations. + night sweats. No hot flashes No manager terminal steroid use FH: no hx of pituitary, [...] 11/10/2019 Added automatically from request for surgery [id number] Hypothyroidism Hypothyroidism Pancreatic duct dilated 11/10/2019 Added automatically from request for surgery [id number] RUQ abdominal pain 11/11/2019 RUQ pain 11/11/2019 [...] Kit J40: Brochitis - Dispense # 1 [facility] Respironics (okay for alternative brand) for nebulizer [...] with adrenal adenomas. Outside labs 11/2019 at [facility]: 24 hr urine metanephrine-- 71 (36-209) 24 [...] prior imaging to compare. Work up at [facility]-- normal 24 hr urine metanephrines. nomal renin, [...] CATECHOLAMINES, PLASMA FRACT MAGNESIUM Olinda Sidhu MD [employer] Endocrinology, Diabetes and Metabolism documented in this encounter Plan of Treatment Date Type Specialty Care Team Description 01/21/2020 Fagoter Visit Phlebotomy 2, Adc Lab 02/15/2020 Office Visit Obstetrics & Gynecology Kayley Ferro MD [address] [place] [address] [address]. [address] [place] [phone] 04/08/2020 Office Visit Family Medicine Vitaliy Leslie MD [address] [place] [address] [address] [place], [place] [address] 07/22/2020 Office Visit Gastroenterology Flower Vicente MD [address] [facility] [address] [place] [phone] 01/30/2021 Office Visit Endocrinology Diabetes & KeOlinda chavez , Metabolism [address] [place] [address] Name Type Priority Associated Diagnoses [...]
--- OUTSIDE RECORDS SUMMARY | 2020-01-22 20:52 | XMS REPORT | Summary of Care ---
:1970 Author Organization [facility] Address [address] [place] [address] Care Team Providers Name Role Phone MD Mariama Primary Care Provider Reason for Visit Reason Comments LAB Encounter Details Date Type Department Care Team Description 01/21/2020 Psych Assistant Visit [facility] Ruby Sidhu MD [address] [place] [address] Adenoma of left Professional Office 2, Adc Lab adrenal gland Building Phlebotomy Lab Professional Office Building 146 [facility] , [address] [place] [phone] Allergies Active Allergy Reactions Severity Noted Date Comments Ciprofloxacin Anaphylaxis 07/27/2011 Sulfa (Sulfonamide Antibiotics) Unknown - See comments 09/27/2008 Zonisamide Unknown - See comments 01/16/2008 documented as of this encounter (statuses as of 01/21/2020) Medications Medication Sig Dispensed Refills Start Date [...] as of this encounter (statuses as of 01/21/2020) Active Problems Problem Noted Date Community acquired pneumonia, unspecified laterality 0 01/12/2020 Chronic constipation 12/10/2019 Pap smear for cervical cancer screening 11/20/2019 Overview: Added automatically from request for mauro coronado [id number] RUQ pain 11/11/2019 RUQ abdominal pain 11/11/2019 Pancreatic duct dilated 11/10/2019 Overview: Added automatically from request for mauro cliff [id number] Common bile duct dilation 11/10/2019 Overview: Added automatically from request for mauro cliff [id number] Spondylolisthesis Hypothyroidism Bipolar 1 disorder documented as of this encounter (statuses as of 01/21/2020) Social History Tobacco Use Types Packs/Day Years [...] been in contact with No / Unsure 01/21/2020 8:27 AM CDT someone who was confirmed or suspected to have Coronavirus / COVID-19? documented as of this encounter Last Filed Vital Signs Not on filedocumented in this encounter Nursing Notes Dori Marquez - 01/21/2020 8:15 AM CDT Venipuncture collection performed by clean technique on the right anticubitus. Total of 1 attempts were made. Slight pressure and a bandage/dressing were applied to the site(s). The patient experiencedno complications. The following specimens were processed according to instructions and sent to [facility] laboratories per lab order on 01/21/20: LT BLUE SST 4 RED LAV 1 PPT DK GREEN (LiHep) 1 DK GREEN (SodH) HOANG DK BLUE (K2) DK BLUE (S) ACD Blood Culture NIPT/NTD documented in this encounter Plan of Treatment Date Type Specialty Care Team Description 02/15/2020 Office Visit Obstetrics & Gynecology Kayley Ferro MD [address] [place] [address] [address] [place] [phone] 04/08/2020 Office Visit Family Medicine Vitaliy Leslie MD [address] [place] [address] [address] [place], [place] [address] 07/22/2020 Office Visit Gastroenterology Flower Vicente MD [address] [facility] [address] [place] [phone] 01/30/2021 Office Visit Endocrinology Diabetes & [facility] Olinda thayer MD Metabolism [address] [place] [address] [phone] Name Type Priority Associated Diagnoses Date/Ti me ALDOSTERONE, SERUM LAB Routine Adenoma of left adrena l 01/21/2020 9:05 AM gland CDT RENIN ACTIVITY LAB Routine Adenoma of left adrenal 08 /11/2019 9:05 AM gland CDT Misc. Sendout- LAB Routine Adenoma of left adrenal 9:05 AM dexamethasone level gland CDT CORTISOL AM LAB Routine Adenoma of left adrenal 11/2019 9:05 AM gland CDT CATECHOLAMINES, PLASMA LAB Routine Adenoma of left ad renal 01/21/2020 9:05 AM FRACT gland CDT Health Maintenance Due Date Last Done Comments PAP SMEAR 1990 Breast Cancer Screening 2009 [...] 12/03/2029 12/04/2019, 11/30/2019 Colorectal Cancer Screening 12/03/2029 PNEUMOCOCCAL 0-64 YEARS Aged Out No longe r eligible COMBINED SERIES based on patient 's age to complete this topic documented as of this encounter Procedures Procedure Name Priority Date/Time Associated Diagnosis Comme nts BASIC METABOLIC Routine 01/21/2020 9:05 AM Adenoma of left Re sults for this PANEL (NA, K, CL, CDT adrenal gland procedure are in CO2, GLUCOSE, BUN, the resul ts CREATININE, CA) section. MAGNESIUM Routine 01/21/2020 9:05 AM Adenoma of left Resul ts for this CDT adrenal gland procedure are in the results section. documented in this encounter Results MAGNESIUM (01/21/2020 9:05 AM CDT) Pathologist Sig nature MAGNESIUM 1.9 1.7 - 2.4 mg/dL [facility] Specimen Blood Performing Organization Address City/State/Zipcode Phone Number [facility] CLIA: [id number] [place], [place] [id number] [address] BASIC METABOLIC PANEL (NA, K, CL, CO2, GLUCOSE, BUN, CREATININE, CA) (01/21/2020 9:05 AM CDT) Pathologist [facility] nature NA 137 135 - 145 mmol/L [facility] K 3.9 3.5 - 5.0 mmol/L [facility] CL 106 98 - 108 mmol/L [facility] CO2 TOTAL 28 23 - 31 mmol/L [facility] AGAP 3 2 - 16 [facility] BUN 14 7 - 23 mg/dL [facility] GLUCOSE 87 70 - 110 mg/dL [facility] CREATININE 0.62 0.50 - 1.04 [facility] mg/dL [facility] CALCIUM 9.2 8.6 - 10.6 mg/dL [facility] eGFR Calculation 101.5 mL/min/1.73m2 [facility] ([facility] LAB[facility] Y eGFR Calculation 123.0 mL/min/1.73m2 [facility] () [facility] Specimen Blood Narrative Performed At Association of Glomerular Filtration Rate (GFR) [facility] and Staging of Kidney Disease* [...] tests). Performing Organization Address City/State/Zipcode Phone Number [facility] CLIA: [id number] [place] [address] documented in this encounter Visit Diagnoses Diagnosis Adenoma of left adrenal gland Benign neoplasm of adrenal gland documented in this encounter documented as of this encounter"
--- OUTSIDE RECORDS SUMMARY | 2020-01-22 20:52 | XMS REPORT | Summary of Care ---
:1970 Author Organization [facility] [employer] Address [address] [place] [id number] Care Team Providers Name Role Phone MD Mariama Primary Care Provider Reason for Visit Reason Comments Appointment Encounter Details Date Type Department Care Team Description 01/21/2020 Telephone [facility] Women's AdumAnni MD Appointment Healthcare- [address] [place] [address] [address] [place] [id number] [address] [phone] Allergies Active Allergy Reactions Severity Noted Date Comments Ciprofloxacin Anaphylaxis 07/27/2011 Sulfa (Sulfonamide Antibiotics) Unknown - See comments 09/27/2008 Zonisamide Unknown - See comments 01/16/2008 documented as of this encounter (statuses as of 01/22/2020) Medications Medication Sig Dispensed Refills Start Date [...] as of this encounter (statuses as of 01/22/2020) Active Problems Problem Noted Date Community acquired pneumonia, unspecified laterality 0 01/12/2020 Chronic constipation 12/10/2019 Pap smear for cervical cancer screening 11/20/2019 Overview: Added automatically from request for mauro cliff [id number] RUQ pain 11/11/2019 RUQ abdominal pain 11/11/2019 Pancreatic duct dilated 11/10/2019 Overview: Added automatically from request for mauro cliff [id number] Common bile duct dilation 11/10/2019 Overview: Added automatically from request for mauro cliff [id number] Spondylolisthesis Hypothyroidism Bipolar 1 disorder documented as of this encounter (statuses as of 01/22/2020) Social History Tobacco Use Types Packs/Day Years [...] Signs Not on filedocumented in this encounter Miscellaneous Notes Telephone Encounter - Janee Morfin RN - 01/22/2020 12:39 PM CDTSee MyChart message from 01/21/2020 Janee Morfin RN 01/22/2020 12:40 PM Telephone Encounter - Janee Morfin RN - 01/21/2020 8:55 AM CDTRN called patient regarding MyChart message received 01/21/2020, no answer. Left message for patientto return call. Janee Morfin RN 01/21/2020 8:57 AM documented in this encounter Plan of Treatment Date Type Specialty Care Team Description 02/15/2020 Office Visit Obstetrics & Gynecology Kayley Ferro MD [address] [place] [address] [address] [place] [address] [phone] 04/08/2020 Office Visit Family Medicine Vitaliy Leslie MD [address] [place] [address] [address] [place], [place] [address] 07/22/2020 Office Visit Gastroenterology Flower Vicente MD [address] [facility] [address] [place] [address] 01/30/2021 Office Visit Endocrinology Diabetes & Kesired Olinda thayer MD Metabolism [address] [place] [address] [phone] Health Maintenance Due Date Last Done Comments [...] this topic documented as of this encounter Results Not on filedocumented in this encounter Insurance Payer Benefit Plan / Group Subscriber ID Effective Dates Phone Address Type [employer] [id number] 2019-Present PPO documented as of this encounter
[2020-01-22 21:15] LABS: Absolute Lymphocytes (CBC) 1.3 K/uL (0.7-4.9); Basophils % 0.4 % (0-1.3); Hematocrit 36.4 % (36.0-45.0); Lymphocytes % 19.5 % (15.3-44.8); MPV 7.6 fL (7.6-11.3); RBC Red Blood Cell Count 3.82 M/uL (3.86-4.86)
[2020-01-22] MEDS ORDERED: MORPHINE 4 MG/ML SYR ONE (21:18)
[2020-01-22] MEDS ORDERED: ONDANSETRON 4 MG/2 ML VIAL ONE (21:18)
[2020-01-22 21:39] LABS: ALT/SGPT 17 U/L (12-78); AST/SGOT 13 U/L (15-37); Albumin 3.5 g/dL (3.4-5.0); Alkaline Phosphatase 90 U/L (45-117); BUN Blood Urea Nitrogen 11 mg/dL (7-18); Bicarbonate 27 mmol/L (21-32); Bilirubin Direct < 0.1 mg/dL (0-0.2); Bilirubin Total 0.2 mg/dL (0.2-1.0); Glucose Level 90 mg/dL (74-106); Lipase 99 U/L (73-393); Potassium 3.9 mmol/L (3.5-5.1); Protein, Total 6.7 g/dL (6.4-8.2); Sodium Level 144 mmol/L (136-145)
[2020-01-22 22:19] LABS: Urine Blood NEGATIVE (NEG); Urine Glucose NEGATIVE (NEG); Urine Protein NEGATIVE (NEG); Urine Specific Gravity >1.030 (1.005-1.030); Urine pH 5.5 (5.0-7.0)
--- NOTE | 2020-01-22 23:14 | ER ---
Nurse's Notes [facility] Name: Varsha Ramos Age: 50 yrs Sex: Female : 1970 Arrival Date: 01/22/2020 Time: 20:25 Bed 28 Private MD: Diagnosis: Generalized abdominal pain;Other ovarian cysts Presentation: 01/21 20:40 Chief complaint: Patient states: Sharp abdominal pain started 3 days ago. Reports ca1 bloating, N/V. Last urination at 1300 today. Coronavirus screen: Client denies travel out of the [place] in the last 14 days. At this time, the client does not indicate any symptoms associated with coronavirus-19. Ebola Screen: Patient negative for fever greater than or equal to 101.5 degrees Fahrenheit, and additional compatible Ebola Virus Disease symptoms Patient denies exposure to infectious person. Patient denies travel to an Ebola-affected area in the 21 days before illness onset. No symptoms or risks identified at this time. Initial Sepsis Screen: Does the patient meet any 2 criteria? No. Patient's initial sepsis screen is negative. Does the patient have a suspected source of infection? No. Patient's initial sepsis screen is negative. Risk Assessment: Do you want to hurt yourself or someone else? Patient reports no desire to harm self or others. Onset of symptoms was January 22, 2020. 20:40 Method Of Arrival: Ambulatory ca1 20:40 Acuity: JULIO 3 ca1 Historical: - Allergies: 20:43 Sulfa (Sulfonamide Antibiotics); ca1 - PMHx: 20:43 Degenerative disc disease; Hypothyroidism; ca1 - PSHx: 20:43 C6 C7 fusion; ; Appendectomy; ca1 - Immunization history:: Adult Immunizations up to date. - Social history:: Smoking status: Patient denies any tobacco usage or history of. Screenin:17 Abuse screen: Denies threats or abuse. Denies injuries from another. Nutritional ks7 screening: No deficits noted. Tuberculosis screening: No symptoms or risk factors identified. Fall Risk None identified. Assessment: 21:17 General: Appears uncomfortable, Behavior is calm, cooperative. Pain: Complains of pain ks7 in abdomen Pain currently is 7 out of 10 on a pain scale. Quality of pain is described as aching, sharp, tender, Pain began 3 hours ago. Is continuous, Aggravated by increased activity. GI: Bowel sounds present X 4 quads. Abd is soft Abdomen is tender to palpation X 4 quads. : Reports inability to void, since 1300 today. 22:00 Reassessment: Patient appears in no apparent distress at this time. Patient and/or vc family updated on plan of care and expected duration. Pain level reassessed. Patient is alert, oriented x 3, equal unlabored respirations, skin warm/dry/pink. 22:00 Respiratory: Reports pain with respiration. vc 22:50 Reassessment: Patient appears in no apparent distress at this time. Patient and/or vc family updated on plan of care and expected duration. Pain level reassessed. Patient is alert, oriented x 3, equal unlabored respirations, skin warm/dry/pink. 23:23 Reassessment: Patient appears in no apparent distress at this time. Patient and/or vc family updated on plan of care and expected duration. Pain level reassessed. Patient is alert, oriented x 3, equal unlabored respirations, skin warm/dry/pink. Patient states symptoms have improved. Vital Signs: 20:40 BP 129 / 83; Pulse 91; Resp 17 S; Temp 97.4(TE); Pulse Ox 98% on R/A; Weight 61.23 kg ca1 (R); Height 5 ft. 2 in. (157.48 cm) (R); 21:17 BP 120 / 80; Pulse 78; Resp 18; Pulse Ox 99% on R/A; Pain 3/10; ks7 22:08 BP 119 / 82; Pulse 78; Resp 18; Pulse Ox 98% on R/A; ks7 23:00 BP 109 / 76; Pulse 71; Resp 18; Pulse Ox 97% on R/A; vc 20:40 Body Mass Index 24.69 (61.23 kg, 157.48 cm) ca1 ED Course: 20:25 Patient arrived in ED. cf2 20:36 [facility]riella Decker F[facility]-C [facility] kb 20:36 Ciaran Ellis MD is Attending Physician. kb 20:43 Triage completed. ca1 20:43 Arm band placed on right wrist. ca1 21:03 Basic Metabolic Panel Sent. ks7 21:03 CBC with Diff Sent. ks7 21:04 Resting quietly. ks7 21:04 Hepatic Function Sent. ks7 21:04 Lipase Sent. ks7 21:04 Inserted saline lock: 20 gauge in left antecubital area, using aseptic technique. Blood ks7 collected. 21:17 Patient has correct armband on for positive identification. Placed in gown. Call light ks7 in reach. Side rails up X2. 21:17 No provider procedures requiring assistance completed. ks7 21:18 Veronica Garay, RN is Primary Nurse. vc 22:10 Patient moved to [place] via stretcher. ks7 23:25 IV discontinued, intact, bleeding controlled, No redness/swelling at site. Pressure vc dressing applied. Administered Medications: 21:14 Drug: Zofran (Ondansetron) 4 mg Route: IVP; Site: left antecubital; ks7 23:27 Follow up: Response: No adverse reaction; Pain is decreased vc 21:16 Drug: morphine 4 mg Route: IVP; Site: left antecubital; ks7 23:26 Follow up: Response: No adverse reaction; Pain is decreased vc Outcome: 23:13 Discharge ordered by MD. kb 23:25 Discharged to home ambulatory. vc 23:25 Condition: good 23:25 Discharge instructions given to patient, Instructed on discharge instructions, follow up and referral plans. medication usage, Demonstrated understanding of instructions, follow-up care, medications, Prescriptions given X 2. 23:26 Patient left the ED. vc Signatures: Gabriella Decker, L[place] BOLTONP-Mary Parr RN PAULA [facility] Jagdeep Guerin cf2 Veronica Garay RN RN vc Songcuan, Kathleen, RN RN ks7
--- NOTE | 2020-01-22 23:14 | EDPHYS ---
Physician Documentation [facility] Name: Varsha Ramos Age: 50 yrs Sex: Female : 1970 Arrival Date: 01/22/2020 Time: 20:25 Bed 28 Private MD: ED Physician Ciaran Ellis HPI: 01/21 22:43 This 50 yrs old Female presents to ER via Ambulatory with complaints of kb Abdominal Pain, Urinary Problem. 22:43 The patient presents with abdominal pain that is diffuse. Onset: The symptoms/episode kb began/occurred today. The symptoms do not radiate. Associated signs and symptoms: Pertinent positives: decreased urination. The symptoms are described as constant. Modifying factors: The symptoms are alleviated by nothing, the symptoms are aggravated by nothing. Severity of pain: At its worst the pain was moderate in the emergency department the pain is unchanged. The patient has not experienced similar symptoms in the past. The patient has not recently seen a physician. Pt reports she has had abd pain for a while. States today it got worse and she hasn't been able to urinate. States last urination was at 1300 and she only urinated twice today. . Historical: - Allergies: 20:43 Sulfa (Sulfonamide Antibiotics); ca1 - PMHx: 20:43 Degenerative disc disease; Hypothyroidism; ca1 - PSHx: 20:43 C6 C7 fusion; ; Appendectomy; ca1 - Immunization history:: Adult Immunizations up to date. - Social history:: Smoking status: Patient denies any tobacco usage or history of. ROS: 22:42 Constitutional: Negative for fever, chills, and weight loss, Cardiovascular: Negative kb for chest pain, palpitations, and edema, Respiratory: Negative for shortness of breath, cough, wheezing, and pleuritic chest pain, Back: Negative for injury and pain, MS/Extremity: Negative for injury and deformity, Skin: Negative for injury, rash, and discoloration, Neuro: Negative for headache, weakness, numbness, tingling, and seizure. 22:42 Abdomen/GI: Positive for abdominal pain, Negative for nausea, vomiting, and diarrhea. 22:42 : Positive for decreased urination. Exam: 22:42 Constitutional: This is a well developed, well nourished patient who is awake, alert, kb and in no acute distress. Head/Face: Normocephalic, atraumatic. Chest/axilla: Normal chest wall appearance and motion. Nontender with no deformity. No lesions are appreciated. Cardiovascular: Regular rate and rhythm with a normal S1 and S2. No gallops, murmurs, or rubs. Normal PMI, no JVD. No pulse deficits. Respiratory: Lungs have equal breath sounds bilaterally, clear to auscultation and percussion. No rales, rhonchi or wheezes noted. No increased work of breathing, no retractions or nasal flaring. Skin: Warm, dry with normal turgor. Normal color with no rashes, no lesions, and no evidence of cellulitis. MS/ Extremity: Pulses equal, no cyanosis. Neurovascular intact. Full, normal range of motion. Neuro: Awake and alert, GCS 15, oriented to person, place, time, and situation. Cranial nerves II-XII grossly intact. Motor strength 5/5 in all extremities. Sensory grossly intact. Cerebellar exam normal. Normal gait. 22:42 Abdomen/GI: Inspection: abdomen appears normal, Bowel sounds: normal, in all quadrants, Palpation: soft, in all quadrants, moderate abdominal tenderness, in all quadrants. Vital Signs: 20:40 BP 129 / 83; Pulse 91; Resp 17 S; Temp 97.4(TE); Pulse Ox 98% on R/A; Weight 61.23 kg ca1 (R); Height 5 ft. 2 in. (157.48 cm) (R); 21:17 BP 120 / 80; Pulse 78; Resp 18; Pulse Ox 99% on R/A; Pain 3/10; ks7 22:08 BP 119 / 82; Pulse 78; Resp 18; Pulse Ox 98% on R/A; ks7 23:00 BP 109 / 76; Pulse 71; Resp 18; Pulse Ox 97% on R/A; vc 20:40 Body Mass Index 24.69 (61.23 kg, 157.48 cm) ca1 MDM: 20:36 Patient medically screened. kb 22:43 Data reviewed: vital signs, nurses notes. Data interpreted: Pulse oximetry: on room air kb is 98 %. Interpretation: normal. 23:12 Counseling: I had a detailed discussion with the patient and/or guardian regarding: the kb historical points, exam findings, and any diagnostic results supporting the discharge/admit diagnosis, lab results, radiology results, the need for outpatient follow up, a family practitioner, a general surgeon, a principal military analyst, to return to the emergency department if symptoms worsen or persist or if there are any questions or concerns that arise at home. ED course: Pt educated on diagnostic findings. Educated to increase fluids, fiber, and to follow up with GI. Verbal understanding received. . 01/21 20:54 Order name: Basic Metabolic Panel kb 01/21 20:54 Order name: CBC with Diff kb 01/21 20:54 Order name: Hepatic Function kb 01/21 20:54 Order name: Lipase kb 01/21 21:20 Order name: CBC with Automated Diff; Complete Time: 21:24 EDMS 01/21 21:39 Order name: Basic Metabolic Panel; Complete Time: 21:40 EDMS 01/21 21:39 Order name: Liver (Hepatic) Function; Complete Time: 21:40 EDMS 01/21 21:39 Order name: Lipase; Complete Time: 21:40 EDMS 01/21 21:40 Order name: CT Abd/Pelvis - IV Contrast Only 01/21 22:05 Order name: Urine --Ancillary (enter results) tt3 01/21 22:05 Order name: Urine Dipstick--Ancillary (enter results) tt3 01/21 22:19 Order name: Urine --Ancillary; Complete Time: 22:22 EDMS 01/21 22:19 Order name: Urine Dipstick-Ancillary; Complete Time: 22:22 EDMS 01/21 20:54 Order name: Bladder Scanner: PVR; Complete Time: 21:19 kb 01/21 20:54 Order name: Urine Dipstick-Ancillary (obtain specimen); Complete Time: 22:06 kb 01/21 20:54 Order name: IV Saline Lock; Complete Time: 21:04 kb 01/21 20:54 Order name: Labs collected and sent; Complete Time: 21:04 kb Administered Medications: 21:14 Drug: Zofran (Ondansetron) 4 mg Route: IVP; Site: left antecubital; ks7 23:27 Follow up: Response: No adverse reaction; Pain is decreased vc 21:16 Drug: morphine 4 mg Route: IVP; Site: left antecubital; ks7 23:26 Follow up: Response: No adverse reaction; Pain is decreased vc Disposition: 01/22 00:03 Co-signature as Attending Physician, Ciaran Ellis MD. mh7 Disposition: 01/22/20 23:13 Discharged to Home. Impression: Generalized abdominal pain, Other ovarian cysts. - Condition is Stable. - Discharge Instructions: Abdominal Pain, Adult, [id number], Ovarian Cyst, [id number]. - Prescriptions for Zofran 4 mg Oral Tablet - take 1 tablet by ORAL route every 6 hours As needed; 20 tablet. Diclofenac Sodium 75 mg Oral Tablet, Delayed Release (E.C.) - take 1 tablet by ORAL route 2 times per day As needed; 30 tablet. - Medication Reconciliation Form, Thank You Letter, Antibiotic Education, Prescription Opioid Use form. - Follow up: Emergency Department; When: As needed; Reason: Worsening of condition. Follow up: Private Physician; When: 2 - 3 days; Reason: Recheck today's complaints, Continuance of care, Re-evaluation by your physician. Signatures: Dispatcher [employer] EDMS Gabriella Decker, ENGINEERING LEADER-C ENGINEERING LEADER-CkMary Anderson RN RN ca1 Veronica Garay RN RN vc Ciaran Ellis MD MD 7 Claudia Boyce RN RN ks7 Corrections: (The following items were deleted from the chart) 01/21 23:13 23:13 01/22/2020 23:13 Discharged to Home. Impression: Generalized abdominal pain. kb Condition is Stable. Forms are Medication Reconciliation Form, Thank You Letter, Antibiotic Education, Prescription Opioid Use. Follow up: Emergency Department; When: As needed; Reason: Worsening of condition. Follow up: Private Physician; When: 2 - 3 days; Reason: Recheck today's complaints, Continuance of care, Re-evaluation by your physician. kb 23:26 23:13 01/22/2020 23:13 Discharged to Home. Impression: Generalized abdominal pain; vc Other ovarian cysts. Condition is Stable. Forms are Medication Reconciliation Form, Thank You Letter, Antibiotic Education, Prescription Opioid Use. Follow up: Emergency Department; When: As needed; Reason: Worsening of condition. Follow up: Private Physician; When: 2 - 3 days; Reason: Recheck today's complaints, Continuance of care, Re-evaluation by your physician. kb
[2020-01-22 23:43] VITALS: TEMP 97.4
[2020-01-22 23:47] VITALS: BP 109/76; O2SAT 97
--- NOTE | 2020-01-25 12:38 | RAD REPORT ---
EXAM DESCRIPTION: CT - Abdomen Pelvis W Contrast - 01/22/2020 10:28 pm CLINICAL HISTORY: 50 years Female ABD PAIN COMPARISON: None. TECHNIQUE: Contiguous axial images obtained through the abdomen and pelvis following IV contrast. Re formatted images obtained. This exam was performed according to our department optimization program which includes automated exp osure control, adjustment of the mA and/or kv according to patient size and/or use of iterative recon struction technique. FINDINGS: Mild atelectatic changes. There is a calcification in the superior liver. There is intrahepatic and extrahepatic biliary ductal dilatation likely related to previous cholecystectomy. The liver is mildly elongated measuring appro ximately 18.5 cm in length. The pancreatic duct is enlarged measuring 0.45 cm which is also likely from the previous cholecystect janeth. The spleen appears unremarkable. There is a right adrenal mass measuring 2.6 cm in diameter. The lesion is not characterized on this s tudy. Three-phase CT or MRI is recommended to better evaluate. The kidneys appear unremarkable. No hydronephrosis. Changes from previous cholecystectomy. No aneurysmal dilatation of the aorta. The colon is distended with stool which could be from constipation. No bowel obstruction. The appe ndix is not definitely visualized. No significant free pelvic fluid. There is a fibroid versus a large complex nabothian cyst in t he lower uterus/cervix measuring 3 cm in diameter. There is an IUD in the uterus. There is a right ov bogdan cyst measuring 2.25 cm in diameter. The ovarian cyst is almost certainly benign and no specific follow-up is recommended. Mild degenerative changes in the lower lumbar spine. IMPRESSION: There are changes from cholecystectomy with intrahepatic, extrahepatic and pancreatic du ct dilatation. The ductal dilatation is likely related to the previous cholecystectomy. 2.6 cm right adrenal mass which is not characterized. Three-phase CT or MRI is recommended to better evaluate. The colon is distended with stool suggesting constipation. Other findings as above. Electronically signed by: Niall Webber MD 01/22/2020 10:53 PM CDT Due to temporary technical issues with the PACS/Fluency reporting system, reports are being signed by the in house radiologist without review as a courtesy to ensure prompt reporting. The interpreting r adiologist is fully responsible for the content of the report.
== END 2020-01-22 23:26 | disposition home or self-care (01) ==
LOC: ER 20:23
DX: N83.299 Other ovarian cyst, unspecified side (principal); E03.9 Hypothyroidism, unspecified; Z88.2 Allergy status to sulfonamides
CPT/HCPCS: 85025; 80048; 36415; 81025; 80076; 81003; 83690; 74177; 96375; 96374; 99284; Q9967; J2405

== ENCOUNTER 2020-12-09 16:53 | Emergency (ER) | payer OTHER ==
--- OUTSIDE RECORDS SUMMARY | 2020-12-09 16:58 | XMS REPORT | Continuity of Care Document ---
:1970 Author Organization [facility] t Address [address] [place] [address] Care Team Providers Name Role Phone Pob, Lab Main Attending Clinician Unavailable Alyson LYONS Attending Clinician Thea LYONS Attending Clinician Robbie Wyatt Attending Clinician Elenita Anne Attending Clinician Giovanna Attending Clinician Miles Castillo III Attending Clinician Unavailable Payers Payer Name Policy Type Policy Number Effective Date Expiration Date S ource Problems Condition Condition Condition Status Onset Resolution Last Treating Co mments Source Name Details Category Date Date Treatment Clinician Date RIGHT Diagnosis Active 2020-10-08 Mem oria SHOULDER 2-12 15:40:00 l RIGHT 08:00: Daren SHOULDER 00 Active 07/29/2020 [facility] Kirby [place] RT ROTATOR Diagnosis Active 2020-10-08 Memoria CUFF 2-12 15:45:00 l RT 08:00: Daren ROTATOR 00 CUFF Active 07/29/2020 [facility] Biliary Problem Resolve 2020-12-02 Mem oria dyskinesia d 02:00:54 l (disorder) Biliary Her gonzalez dyskinesia (disorder) Resolved Problem 12/02/2020 [facility] Bursitis Problem Resolve 2020-12-02 Me moria (disorder) d 02:00:54 l Bursitis Shaun n (disorder) Resolved Problem 12/02/2020 [facility] Dyskinesia Problem Resolve 2020-12-02 Memoria of d 02:00:54 l gallbladde Shaun n r Dyskinesia (disorder) of gallbladde r (disorder) Resolved Problem 12/02/2020 [facility] Hypokalemi Problem Resolve 2020-12-02 Memoria a d 02:00:54 l (disorder) Shaun n Hypokalemi a (disorder) Resolved Problem 12/02/2020 [facility] Pneumonia Problem Resolve 2020-12-02 M emoria (disorder) d 02:00:54 l Daren Pneumonia (disorder) Resolved Problem 12/02/2020 [facility] 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 rmann bral of foramina interverte (disorder) bral foramina (disorder) Active Problem 12/02/2020 [facility] 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:00:54 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) Active Problem 12/02/2020 [facility] Bipolar Problem Active 2020-12-02 Jorge neil disorder 02:00:54 l (disorder) Bipolar Her gonzlaez disorder (disorder) Active Problem 12/02/2020 [facility] Disease of Problem Active 2020-12-02 M emoria pituitary 02:00:54 l gland Disease Hustler (disorder) of pituitary gland (disorder) Active Problem 12/02/2020 [facility] 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 Problem 12/02/2020 [facility] Hypothyroi Problem Active 2020-12-02 M emoria dism 02:00:54 l (disorder) Shaun n Hypothyroi dism (disorder) Active Problem 12/02/2020 [facility] Increased Problem Active 2020-12-02 Me moria muscle 02:00:54 l tone Hustler (finding) Increased muscle tone (finding) Active Problem 12/02/2020 [facility] Tremor Problem Active 2020-12-02 Memor ia (finding) 02:00:54 l Tremor Hustler (finding) Active Problem 12/02/2020 [facility] Allergies, Adverse Reactions, Alerts Allergy Allergy Status Severity Reaction(s) Onset Inactive Treating Comm ents Source Name Type Date Date Clinician Sulfa DA Active U 2019-06 [facility] (Sulfona 0-09 [facility] mide 00:00: d Antibiot 00 [facility]) [facility] sulfa sulfa Active Memoria drugs drugs l Daren Cipro Cipro Active Memoria l [place]ler Social History Social Habit Start Date Stop Date Quantity Comments Source Social History 2020-11-29 2020-11-29 [facility] 21:40:40 21:40:40 Medications Ordered Filled Start Stop Current Ordering Indication Dosage Frequency Signature Comments Components Source Medication Medication Date Date Medication? Clinician (SIG) Name Name fluconazole Yes 150 mg = 1 Memoria 150 mg oral 6-15 tab, PO, l tablet 21:36: ONCE, # 1 Shaun n 00 tab, 0 Refill(s) sertraline Yes 100 mg = 1 M emoria 100 mg oral 6-15 tab, PO, l tablet 21:35: Daily, 0 Hustler 00 Refill(s) diclofenac Yes 50 mg = 1 Me moria sodium 50 6-15 tab, PO, l mg oral 21:35: TID, 0 Hustler enteric 00 Refill(s) coated, delayed-rel ease tablet QUEtiapine Yes See Memoria 400 mg oral 6-15 Instructio l tablet 21:34: ns, 1/2 po Edna nn 00 qhs, 0 Refill(s) magnesium Yes 420 mg = 1 Me moria oxide 420 6-15 tab, PO, l mg oral 21:33: Daily, 0 Shaun n tablet 00 Refill(s) OXcarbazepi Yes 450 mg = Me moria ne 300 mg/5 6-15 7.5 mL, l mL oral 21:33: PO, BID, 0 Herm hans suspension 00 Refill(s) levothyroxi 0 Yes 100 Memori a ne 100 mcg 6-15 microgram l (0.1 mg) 21:32: = 1 tab, Edna nn oral tablet 00 PO, Daily, 0 Refill(s) 200 ACTUAT 2020-0 Yes 2 puff, Jorge neil Albuterol 6-15 INHALATION l 0.09 21:31: , Q6H, 0 Daren MG/ACTUAT 00 Refill(s) Dry Powder Inhaler Lidocaine 0 Yes 10 mL, Memori a Hydrochlori 5-06 Route: l de 10 MG/ML 20:27: SUB-Q, Herm hans Injectable 00 Dosing Solution Weight 63.636, kg, ONCE, Start date: 10/20/20 15:27:00 CDT, Stop date: 10/20/20 15:27:00 CDT Omnipaque 2020-0 Yes 1 mL, Memoria 300 5-06 Route: l 20:27: EPIDURAL, Adren 00 Dosing Weight 63.636, kg, ONCE, Start date: 10/20/20 15:27:00 CDT, Stop date: 10/20/20 15:27:00 CDT Sodium 0 Yes 2 mL, Memoria Chloride 5-06 Route: l 20:27: MISC, Hustler 00 Dosing Weight 63.636, kg, ONCE, (Preservat isaac Free), Use to Dilute Medication , Start date: 10/20/20 15:27:00 CDT, Stop date: 10/20/20 15:27:00 CDT triamcinolo 2020-0 Yes 80 mg, Jorge neil ne 5-06 Route: l ACETONIDE 20:27: intra-ZAFAR He rmann 40 mg/mL 00 CULAR, injectable ONCE, suspension Dosing Weight 63.636, kg, (Kenalog-4 0), Start date: 10/20/20 15:27:00 CDT, Stop date: 10/20/20 15:27:00 CDT Ondansetron 2020-0 Yes 0 Memori a 4 MG 5-05 Refill(s) l Disintegrat 16:29: Shaun n ing Tablet 00 Ketorolac Yes 10 mg = 1 Mem oria Tromethamin 5-05 tab, PO, l e 10 MG 16:29: Q6H, PRN Shaun n Oral Tablet 00 Pain, # 20 tab, 0 Refill(s) cyclobenzap Yes 0 Memori a rine 10 mg 5-05 Refill(s) l oral tablet 16:29: Shaun n 00 gabapentin Yes 300 mg = 1 M emoria 300 MG Oral 26 cap, PO, l Capsule 14:50: QID, 0 Daren 00 Refill(s) Baclofen Yes 10 mg, PO, Mem oria 4-26 TID, 0 l 14:50: Refill(s) Hustler 00 tramadol Yes 0 Memoria hydrochlori 4-12 Refill(s) l de 50 MG 15:08: Daren Oral Tablet 00 Symbicort Yes INHALE 2 Jorge neil 80/4.5 4-12 PUFFS 2 l inhalation 15:08: (TWO) Shaun n aerosol 00 TIMES with DAILY. adapter potassium Yes TAKE 1 Memori a chloride 20 4-12 TABLET (20 l mEq oral 15:08: MEQ TOTAL) Her gonzalez tablet, 00 BY MOUTH 1 extended (ONE) TIME release EACH DAY (KCL) DO NOT CRUSH OR CHEW. Vital Signs Vital Name Observation Time Observation Value Comments Source Systolic (mm Hg) 2020-11-29 21:22:00 Jorge rial Daren Diastolic (mm Hg) 2020-11-29 21:22:00 [facility] orial Hustler Heart Rate 2020-11-29 21:22:00 [facility] Respitory Rate 2020-11-29 21:22:00 Memori al Hustler Height 2020-11-29 21:22:00 154.94 cm [facility] Weight 2020-11-29 21:22:00 [facility] BMI Calculated 2020-11-29 21:22:00 Memori al Hustler Systolic (mm Hg) 2020-10-10 14:42:00 Jorge rial Daren Diastolic (mm Hg) 2020-10-10 14:42:00 Mem orial Daren Heart Rate 2020-10-10 14:42:00 [facility] Height 2020-10-10 14:42:00 154.94 cm [facility] Daren Weight 2020-10-10 14:42:00 [facility] D[facility] BMI Calculated 2020-10-10 14:42:00 Finesse al Hustler Systolic (mm Hg) 2020-09-26 15:05:00 Jorge jay Daren Diastolic (mm Hg) 2020-09-26 15:05:00 Mem orial Hustler Heart Rate 2020-09-26 15:05:00 [facility] Daren Height 2020-09-26 15:05:00 157.48 cm [facility] Daren Weight 2020-09-26 15:05:00 [facility] Daren BMI Calculated 2020-09-26 15:05:00 Finesse al Hustler Procedures Procedure Date / Time Performing Clinician Source Performed Injection(s), of diagnostic 2020-10-20 20:27:00 [facility] Hustler or therapeutic substance(s) (eg, anesthetic, antispasmodic, opioid, steroid, other solution), not including neurolytic substances, including needle or catheter placement, interlaminar epidural or subarachnoid, cervical or thora Cholecystectomy [facility] Cervical discectomy [facility] Encounters Start End Encounter Admission Attending Care Care Encounter Source Date/Time Date/Time Type Type Clinicians Facility Department ID 2020-12-09 2020-12-09 Photographer Shade Cantu [facility] [id number] 07:41:02 07:56:02 Visit Lab Main [place] [id number] [place] [id number] Professio [id number] [address] 2020-12-08 2020-12-08 Patient Seashore, [facility] [id number] 00:00:00 00:00:00 Secure Msg [place] [id number] [facility] [id number] 2020-12-08 2020-12-08 Patient [place]ore, [facility] [id number] 00:00:00 00:00:00 Secure Msg [place] [id number] [facility] [id number] 2020-12-08 2020-12-08 Patient Seashore, [facility] [id number] 00:00:00 00:00:00 Secure Msg Conrad Y [facility] [id number] [facility] [id number] 2020-12-08 2020-12-08 Patient Vickeyhore, [facility] [id number] 00:00:00 00:00:00 Secure Msg Conrad Y [facility] [id number] [facility] [id number] 2020-12-06 2020-12-06 Patient Vickeyhore, [facility] [id number] 00:00:00 00:00:00 Secure Msg Conrad Y [facility] [id number] [facility] [id number] 2020-12-05 2020-12-05 Office Thea [facility] [id number] 14:50:38 15:40:47 Visit Olinda Arteaga [id number] [place] [id number] Claire [id number] [address] 2020-12-02 2020-12-02 Patient Werore, [facility] [id number] 00:00:00 00:00:00 Secure Msg Conrad Enrique HEALTH [id number] [facility] [id number] 2020-12-02 2020-12-02 Patient Vickeyhore, [facility] [id number] 00:00:00 00:00:00 Secure Msg Conrad Y HEALTH [id number] [facility] [id number] 2020-12-02 2020-12-02 Patient Vickeyhore, [facility] [id number] 00:00:00 00:00:00 Secure Msg Conrad Y HEALTH [id number] [facility] [id number] 2020-12-02 2020-12-02 Patient SIDDHARTH Shields [id number] 00:00:00 00:00:00 [facility] [id number] [id number] [id number] 2020-11-29 2020-11-29 Outpatient Edmundo, MHMISCHER MHMISCHER [id number] 16:00:00 23:59:59 Derick 04 [facility] 2020-10-28 2020-10-29 Outpatient MHMISCHER MHMISCHER [id number] 09:24:58 09:24:58 04 2020-10-24 2020-10-24 Outpatient Dayana, MHMISCHER MHMISCHER [id number] 10:05:00 10:05:00 [facility] 01 2020-10-20 2020-10-20 Outpatient Shannan MHMISCHER MHMISCHER [id number] 14:20:00 23:59:59 a, Allegra 03 2020-10-19 2020-10-20 Outpatient MHMISCHER MHMISCHER [id number] 14:27:23 23:59:59 03 2020-10-10 2020-10-10 Outpatient Dayana, MHMISCHER MHMISCHER [id number] 09:00:00 23:59:59 [facility] 02 2020-09-30 2020-10-01 Outpatient MHMISCHER MHMISCHER [id number] 09:39:18 23:59:59 02 2020-09-26 2020-09-26 Outpatient Dayana, MHMISCHER MHMISCHER [id number] 10:05:00 23:59:59 [facility] 00 2020-09-16 2020-09-17 Outpatient MHMISCHER MHMISCHER [id number] 14:40:25 23:59:59 2020-09-14 2020-09-14 Outpatient Anna [id number] 17:04:00 23:59:00 Gómez A [id number] 2020-09-07 2020-09-08 Outpatient [facility] [id number] 12:12:15 23:59:59 00 Results Test Description Test Time Test Comments Results Result Comments Source CARDIAC ENZYMES 2020-11-30 123 [facility] 13:07:00 ENDOCRINOLOGY 2020-11-30 6.1 [facility] rmann 13:07:00 ENDOCRINOLOGY 2020-11-30 8.7 [facility] rmann 13:07:00 ENDOCRINOLOGY 2020-11-30 2.5 [facility] rmann 13:07:00 ENDOCRINOLOGY 2020-11-30 16.4 [facility] rmann 13:07:00 ENDOCRINOLOGY 2020-11-30 2.6 [facility] rmann 13:07:00 HEMATOLOGY 2020-11-30 17 [facility] 13:07:00 SPECIAL CHEMISTRY 2020-11-30 29 Carolyn Mercedes 13:07:00 Novel Coronavirus 2019 nCoV 2020-03-26 17:20:00 Test Item Value Reference Range Interpretation Comme nts Novel Coronavirus 2019 nCoV (test code = COVID19) Negative Nega tive Is the patient going to be discharged home? Y
[2020-12-09] MEDS ORDERED: METOCLOPRAMIDE 10 MG/2mL INJ ONE (20:03)
[2020-12-09] MEDS ORDERED: DIPHENHYDRAMINE 50 MG/ML VIAL ONE (20:03)
[2020-12-09] MEDS ORDERED: NA CHLORIDE 0.9% 500 ML ONE (20:03)
[2020-12-09 20:13] LABS: Absolute Lymphocytes (CBC) 1.1 K/uL (0.7-4.9); Basophils % 0.5 % (0-1.3); Hematocrit 34.6 % (36.0-45.0); Lymphocytes % 20.1 % (15.3-44.8); MPV 7.3 fL (7.6-11.3); RBC Red Blood Cell Count 3.61 M/uL (3.86-4.86)
[2020-12-09 20:18] LABS: Protime INR 1.04
[2020-12-09 20:28] LABS: ALT/SGPT 41 U/L (12-78); AST/SGOT 24 U/L (15-37); Albumin 3.5 g/dL (3.4-5.0); Alkaline Phosphatase 63 U/L (45-117); BUN Blood Urea Nitrogen 14 mg/dL (7-18); Bicarbonate 27 mmol/L (21-32); Bilirubin Direct < 0.1 mg/dL (0-0.2); Bilirubin Total 0.2 mg/dL (0.2-1.0); Glucose Level 79 mg/dL (74-106); Magnesium 2.1 mg/dL (1.8-2.4); NT PRO-BNP 210 pg/mL (<125); Potassium 3.5 mmol/L (3.5-5.1); Protein, Total 6.6 g/dL (6.4-8.2); Sodium Level 142 mmol/L (136-145); Troponin (Emerg Dept Use Only) < 0.02 ng/mL (0.0-0.045)
--- NOTE | 2020-12-09 20:37 | RAD REPORT ---
EXAM DESCRIPTION: CT - Head Brain Wo Cont - 12/09/2020 8:23 pm CLINICAL HISTORY: headache, dizziness Headache, drowsiness COMPARISON: Head angio dated 12/09/2020; HEAD BRAIN W O CONTRAST dated 03/14/2011 TECHNIQUE: All CT scans are performed using dose optimization technique as appropriate and may inclu de automated exposure control or mA/KV adjustment according to patient size. FINDINGS: No intracranial hemorrhage, hydrocephalus or extra-axial fluid collection.No areas of brai n edema or evidence of midline shift. Mild mucoperiosteal thickening of the left maxillary antrum is seen. The paranasal sinuses and mastoi ds are otherwise clear. The calvarium is intact. IMPRESSION: No acute intracranial abnormality.
--- NOTE | 2020-12-09 20:42 | RAD REPORT ---
EXAM DESCRIPTION: CT - Head angio - 12/09/2020 8:28 pm CLINICAL HISTORY: DIZZINESS Headache, drowsiness COMPARISON: HEAD BRAIN W O CONTRAST dated 03/14/2011 TECHNIQUE: CT angiography of the head was performed with MIPs. All CT scans are performed using dose optimization technique as appropriate and may include automated exposure control or mA/KV adjustment according to patient size. FINDINGS: No evidence of aneurysm is detected. No flow-limiting stenosis or vascular malformation id entified. Antegrade flow is seen in the vertebral arteries. The right vertebral artery is dominant. The visualized dural venous sinuses are patent. IMPRESSION: No significant flow abnormality is detected.
--- NOTE | 2020-12-09 20:47 | RAD REPORT ---
EXAM DESCRIPTION: CT - Neck Angio - 12/09/2020 8:29 pm CLINICAL HISTORY: dizziness Headache, drowsiness COMPARISON: No comparisons TECHNIQUE: CT angiography of the neck vessels was performed with MIPs. All CT scans are performed using dose optimization technique as appropriate and may include automated exposure control or mA/KV adjustment according to patient size. FINDINGS: A left aortic arch is identified with normal three vessel configuration of the great vesse ls. No significant flow abnormality is seen of the common carotid bilaterally. No significant stenosis is identified involving the cervical segments of both internal carotid arteri es. Antegrade flow is seen in the vertebral arteries with right-sided dominant vertebral artery noted. Th e left vertebral artery likely terminates in PICA. IMPRESSION: No significant flow abnormality of the neck vessels is identified.
[2020-12-09] MEDS ORDERED: DIAZEPAM 10 MG/2 ML INJ SYRINGE ONE (21:38)
--- NOTE | 2020-12-09 22:12 | EDPHYS ---
Physician Documentation [facility] Name: Varsha Ramos Age: 50 yrs Sex: Female : 1970 Arrival Date: 12/09/2020 Time: 16:59 Bed 2 Private MD: IESHA Physician Randal Martin HPI: 12/09 18:54 This 50 yrs old Female presents to ER via Ambulatory with complaints of jmm dizziness, headache. 18:54 Onset: The symptoms/episode began/occurred gradually, 1 week(s) ago. Modifying factors: jmm The symptoms are alleviated by nothing, the symptoms are aggravated by movement of head. Associated signs and symptoms: Pertinent negatives: abdominal pain, near-syncope, numbness, palpitations, shortness of breath. This is a 50 year old female with a history of DDD, hypothyroidism that presents to the ED with complaints of left sided retro orbital headache, dizziness, ear ache beginning approx 1 week ago. States having a history of migraines in the past. Denies fever. Denies chest pain, denies weakness. Complains of left eye blurriness. . 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 kg Historical: - Allergies: 17:55 Sulfa (Sulfonamide Antibiotics); kg 17:55 Cipro; kg - Home Meds: 17:55 B-12 Compliance 1,000 mcg/mL injection kit [Active]; gabapentin 400 mg oral cap 3 times kg per day [Active]; baclofen 10 mg Oral tab 3 times per day [Active]; quetiapine 150 mg oral Tb24 1 tab once daily [Active]; Trileptal 150 mg oral tab 2 times per day [Active]; Zoloft 100 mg Oral tab 2 tabs once daily [Active]; - PMHx: 17:55 Degenerative disc disease; Hypothyroidism; Multiple Adenoma's; Anemia; Depression; kg Anxiety; - PSHx: 17:55 None; kg - Immunization history:: Adult Immunizations up to date, Client reports receiving the 1st dose of the Covid vaccine, October 26, 2020. - Social history:: Smoking status: Patient denies any tobacco usage or history of. ROS: 18:54 Constitutional: Negative for fever, chills, and weight loss, Cardiovascular: Negative jmm for chest pain, palpitations, and edema, Respiratory: Negative for shortness of breath, cough, wheezing, and pleuritic chest pain. 18:54 ENT: Positive for ear pain, sore throat. 18:54 Neuro: Positive for dizziness. 18:54 All other systems are negative. Exam: 18:54 Constitutional: This is a well developed, well nourished patient who is awake, alert, jmm and in no acute distress. Head/Face: atraumatic. Eyes: EOMI, no conjunctival erythema appreciated ENT: Moist Mucus Membranes Neck: Trachea midline, Supple Chest/axilla: Normal chest wall appearance and motion. Cardiovascular: Regular rate and rhythm. No edema appreciated Respiratory: Normal respirations, no respiratory distress appreciated Abdomen/GI: Non distended, soft Back: Normal ROM Skin: General appearance color normal MS/ Extremity: Moves all extremities, no obvious deformities appreciated, no edema noted to the lower extremities Neuro: Awake and alert, normal gait Psych: Behavior is normal, Mood is normal, Patient is cooperative and pleasant Vital Signs: 17:46 BP 130 / 85; Pulse 91; Resp 17; Temp 98.7(O); Pulse Ox 98% ; Weight 63.78 kg (M); kg Height 5 ft. 1 in. (154.94 cm); Pain 6/10; 20:00 BP 132 / 82; Pulse 86; Resp 16 S; Pulse Ox 97% on R/A; bb 21:00 BP 114 / 66; Pulse 86; Resp 16; Pulse Ox 96% on R/A; bb 22:25 BP 109 / 82; Pulse 71; Resp 16 S; Temp 97.8(O); Pulse Ox 96% on R/A; Pain 0/10; bb 17:46 Body Mass Index 26.57 (63.78 kg, 154.94 cm) kg MDM: 18:30 Patient medically screened. lynda 22:10 Data reviewed: vital signs, nurses notes. Counseling: I had a detailed discussion with rody the patient and/or guardian regarding: the historical points, exam findings, and any diagnostic results supporting the discharge/admit diagnosis, lab results, radiology results, the need for outpatient follow up, to return to the emergency department if symptoms worsen or persist or if there are any questions or concerns that arise at home. ED course: Dizziness has improved, cta negative. Headache has resolved. advised to follow up with neurology for further evaluation. patient is otherwise given strict return precautions. patient understood and agrees with the plan of care. . 12/09 18:51 Order name: Basic Metabolic Panel [facility] 12/09 18:51 Order name: CBC with Diff; Complete Time: 20:40 [facility] 12/09 18:51 Order name: LFT's [facility] 12/09 18:51 Order name: Magnesium; Complete Time: 20:40 [facility] 12/09 18:51 Order name: NT PRO-BNP; Complete Time: 20:40 [facility] 12/09 18:51 Order name: PT-INR; Complete Time: 20:40 [facility] 12/09 18:51 Order name: Troponin (emerg Dept Use Only); Complete Time: 20:40 [facility] 12/09 18:51 Order name: CT Head Brain wo Cont; Complete Time: 20:40 [facility] 12/09 18:51 Order name: CT Head Angio; Complete Time: 20:50 [facility] 12/09 18:51 Order name: CT Neck Angio; Complete Time: 20:50 [facility] 12/09 18:52 Order name: Basic Metabolic Panel; Complete Time: 20:40 [facility] 12/09 18:52 Order name: Liver (Hepatic) Function; Complete Time: 20:40 [facility] 12/09 18:51 Order name: EKG; Complete Time: 18:52 [facility] 12/09 18:51 Order name: Cardiac monitoring; Complete Time: 20:57 [facility] 12/09 18:51 Order name: EKG - Nurse/Tech; Complete Time: 20:57 [facility] 12/09 18:51 Order name: IV Saline Lock; Complete Time: 20:57 [facility] 12/09 18:51 Order name: Labs collected and sent; Complete Time: 20:56 [facility] 12/09 18:51 Order name: O2 Per Protocol; Complete Time: 20:56 [facility] 12/09 18:51 Order name: O2 Sat Monitoring; Complete Time: 20:56 [facility] Administered Medications: 20:00 Drug: NS 0.9% 500 ml Route: IV; Rate: bolus; Site: right antecubital; bb 21:00 Follow up: IV Status: Completed infusion; IV Intake: 500ml bb 20:00 Drug: diphenhydrAMINE 12.5 mg Route: IVP; Site: right antecubital; bb 22:00 Follow up: Response: No adverse reaction bb 20:02 Drug: Reglan (metoCLOPramide) 20 mg Route: IVP; Site: right antecubital; bb 21:00 Follow up: Response: No adverse reaction bb 21:19 Drug: Valium (diazepam) 5 mg Route: IVP; Site: right antecubital; ea 22:27 Follow up: Response: No adverse reaction; Marked relief of symptoms bb Disposition: 12/10 21:13 Co-signature as Attending Physician, Randal Martin MD I agree with the assessment and lynda plan of care. Disposition: 12/09/20 22:12 Discharged to Home. Impression: Vertigo, Cluster Headache. - Condition is Stable. - Discharge Instructions: Benign Positional Vertigo, Cluster Headache. - Prescriptions for Valium 5 mg Oral Tablet - take 1 tablet by ORAL route every 8 hours As needed; 20 tablet. - Medication Reconciliation Form, Thank You Letter, Antibiotic Education, Prescription Opioid Use form. - Follow up: Private Physician; When: 2 - 3 days; Reason: Recheck today's complaints, Continuance of care, Re-evaluation by your physician. Signatures: Dispatcher [employer] EDRandal Carmona MD MD cha Mickail, Joel, PA PA jmm Ballard, Brenda RN RN Fabby Gonzalez, RN Sheri Concepcion ea RN RN kg Corrections: (The following items were deleted from the chart) 12/09 22:27 22:12 12/09/2020 22:12 Discharged to Home. Impression: Vertigo; Cluster Headache. bb Condition is Stable. Forms are Medication Reconciliation Form, Thank You Letter, Antibiotic Education, Prescription Opioid Use. Follow up: Private Physician; When: 2 - 3 days; Reason: Recheck today's complaints, Continuance of care, Re-evaluation by your physician. rody
--- NOTE | 2020-12-09 22:12 | ER ---
Nurse's Notes [facility] Name: Varsha Ramos Age: 50 yrs Sex: Female : 1970 Arrival Date: 12/09/2020 Time: 16:59 Bed 2 Private MD: Diagnosis: Vertigo;Cluster Headache Presentation: 12/09 17:46 Chief complaint: Patient states: Left ear pressure, pressure behind eye, numbness to kg left forehead, dizziness, nausea with position changing. All the symptoms started Saturday and increasing gotten worse. Coronavirus screen: Client denies travel out of the [place] in the last 14 days. At this time, unable to obtain information related to travel outside the [place] At this time, the client does not indicate any symptoms associated with coronavirus-19. Ebola Screen: Patient negative for fever greater than or equal to 101.5 degrees Fahrenheit, and additional compatible Ebola Virus Disease symptoms Patient denies exposure to infectious person. Patient denies travel to an Ebola-affected area in the 21 days before illness onset. Initial Sepsis Screen: Does the patient meet any 2 criteria? No. Patient's initial sepsis screen is negative. Does the patient have a suspected source of infection? No. Patient's initial sepsis screen is negative. Risk Assessment: Do you want to hurt yourself or someone else? Patient reports no desire to harm self or others. Onset of symptoms was December 05, 2020. 17:46 Method Of Arrival: Ambulatory kg 17:46 Acuity: JULIO 3 kg Triage Assessment: 17:55 General: Appears in no apparent distress. Behavior is calm, cooperative, appropriate kg for age, quiet. 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 kg Historical: - Allergies: 17:55 Sulfa (Sulfonamide Antibiotics); kg 17:55 Cipro; kg - Home Meds: 17:55 B-12 Compliance 1,000 mcg/mL injection kit [Active]; gabapentin 400 mg oral cap 3 times kg per day [Active]; baclofen 10 mg Oral tab 3 times per day [Active]; quetiapine 150 mg oral Tb24 1 tab once daily [Active]; Trileptal 150 mg oral tab 2 times per day [Active]; Zoloft 100 mg Oral tab 2 tabs once daily [Active]; - PMHx: 17:55 Degenerative disc disease; Hypothyroidism; Multiple Adenoma's; Anemia; Depression; kg Anxiety; - PSHx: 17:55 None; kg - Immunization history:: Adult Immunizations up to date, Client reports receiving the 1st dose of the Covid vaccine, October 26, 2020. - Social history:: Smoking status: Patient denies any tobacco usage or history of. Screenin:57 Abuse screen: Denies threats or abuse. Denies injuries from another. Nutritional kg screening: No deficits noted. Tuberculosis screening: No symptoms or risk factors identified. Fall Risk Fall in past 12 months (25 points). Secondary diagnosis (15 points) dizziness, back problems. IV access (20 points). Ambulatory Aid- Crutches/Cane/Walker (15 pts). Gait- Impaired (20 pts.). Mental Status- Oriented to own ability (0 pts). Total Scanlon Fall Scale indicates Low Risk Score (25-44 pts). Fall prevention measures have been instituted. Side Rails Up X 2 Placed close to Nursing Station Frequent Obs/Assesments occuring As available Patient and Family Educated on Fall Prevention Program and strategies. Assessment: 19:50 General: Appears in no apparent distress. Behavior is calm, cooperative. Pain: Denies bb pain. Neuro: Level of Consciousness is awake, alert, obeys commands, Oriented to person, place, time, situation. Cardiovascular: No deficits noted. Respiratory: Respiratory effort is even, unlabored, Respiratory pattern is regular. GI: No signs and/or symptoms were reported involving the gastrointestinal system. Derm: Skin is pink, warm \T\ dry. Musculoskeletal: Circulation, motion, and sensation intact. 21:07 Reassessment: Patient is alert, oriented x 3, equal unlabored respirations, skin bb warm/dry/pink. IV site intact with no erythema or edema noted pt ambulated with steady gait with cane to the bathroom. 22:24 Reassessment: Patient and/or family updated on plan of care and expected duration. Pain bb level reassessed. Patient is alert, oriented x 3, equal unlabored respirations, skin warm/dry/pink. pt verbalized understanding of and agrees to plan of care discharge instructions given pt ambulated with cane and steady gait to exit. Vital Signs: 17:46 BP 130 / 85; Pulse 91; Resp 17; Temp 98.7(O); Pulse Ox 98% ; Weight 63.78 kg (M); kg Height 5 ft. 1 in. (154.94 cm); Pain 6/10; 20:00 BP 132 / 82; Pulse 86; Resp 16 S; Pulse Ox 97% on R/A; bb 21:00 BP 114 / 66; Pulse 86; Resp 16; Pulse Ox 96% on R/A; bb 22:25 BP 109 / 82; Pulse 71; Resp 16 S; Temp 97.8(O); Pulse Ox 96% on R/A; Pain 0/10; bb 17:46 Body Mass Index 26.57 (63.78 kg, 154.94 cm) kg ED Course: 16:59 Patient arrived in ED. am2 17:50 Triage completed. kg 17:57 Patient has correct armband on for positive identification. kg 18:19 Ángel Sears PA is PHCP. [facility] 18:19 Randal Martin MD is Attending Physician. m 19:48 Missed attempt(s): 20 gauge in left antecubital area. Bleeding controlled, band aid bb applied, catheter tip intact. 19:50 Initial lab(s) drawn, by me, sent to lab. EKG done, by ED staff, reviewed by Ángel GUSMAN. Inserted saline lock: 20 gauge in right antecubital area, using aseptic technique. Blood collected. 20:23 CT Head Brain wo Cont In Process Unspecified. EDMS 20:28 CT Head Angio In Process Unspecified. EDMS 20:28 CT Neck Angio In Process Unspecified. EDMS 20:55 Herlinda Nassar, RN is Primary Nurse. bb 21:08 Arm band placed on. bb 22:25 No provider procedures requiring assistance completed. IV discontinued, intact, bb bleeding controlled, No redness/swelling at site. Pressure dressing applied. Administered Medications: 20:00 Drug: NS 0.9% 500 ml Route: IV; Rate: bolus; Site: right antecubital; bb 21:00 Follow up: IV Status: Completed infusion; IV Intake: 500ml bb 20:00 Drug: diphenhydrAMINE 12.5 mg Route: IVP; Site: right antecubital; bb 22:00 Follow up: Response: No adverse reaction bb 20:02 Drug: Reglan (metoCLOPramide) 20 mg Route: IVP; Site: right antecubital; bb 21:00 Follow up: Response: No adverse reaction bb 21:19 Drug: Valium (diazepam) 5 mg Route: IVP; Site: right antecubital; ea 22:27 Follow up: Response: No adverse reaction; Marked relief of symptoms bb Intake: 21:00 IV: 500ml; Total: 500ml. bb Outcome: 22:12 Discharge ordered by MD. fine 22:27 Discharged to home ambulatory. bb 22: Condition: stable 22:27 Discharge instructions given to patient, Instructed on discharge instructions, follow up and referral plans. medication usage, Demonstrated understanding of instructions, follow-up care, medications, Prescriptions given X 1. 22:27 Patient left the ED. bb Signatures: Dispatcher [employer] EDMS Ángel Sears PA PA jmm Ballard, Brenda, RN RN Mary Russell Elena, RN RN ea Graham, Kristen RN RN kg
[2020-12-09 22:46] VITALS: O2SAT 96
[2020-12-09 22:48] VITALS: BP 109/82; TEMP 97.8
--- NOTE | 2020-12-10 06:57 | EKG ---
Test Date: 2020-12-09 Test Time: 20:04:37 Director Of Strategic Programs: RACHEAL MEASUREMENT RESULTS: Intervals: Rate: 76 SC: 154 QRSD: 86 QT: 416 QTc: 468 [place]: P: 58 SC: 154 QRS: 0 T: 34 INTERPRETIVE STATEMENTS: Normal sinus rhythm Low voltage QRS Cannot rule out Anterior infarct, age undetermined Abnormal ECG Compared to ECG 05/06/2008 11:12:11 Low QRS voltage now present Myocardial infarct finding now present Electronically Signed On 12-10-20 06:56:15 CDT by Dwain Delarosa
== END 2020-12-09 22:27 | disposition home or self-care (01) ==
LOC: ER 16:53
DX: G44.009 Cluster headache syndrome, unspecified, not intractable (principal); E03.9 Hypothyroidism, unspecified; F41.8 Other specified anxiety disorders; Z88.1 Allergy status to other antibiotic agents; Z88.2 Allergy status to sulfonamides
CPT/HCPCS: 93005; 85025; 80048; 36415; 83735; 85610; 82565; 80076; 84484; 83880; 70450; 70496; 70498; Q9967 ×2; J2765; J1200; J3360; J7040